=== PATIENT | male | born 1975 | race Caucasian/White ===

== ENCOUNTER 2016-03-11 20:49 | Inpatient (IN) | payer MEDICAID ==
[~2016-03-11] VITALS: Ht 165.1 cm; Wt 90.0 kg
[2016-03-11] MEDS ORDERED: MIDAZOLAM 50 MG in DEXTROSE 5% 40 ML IV STA (21:37)
[2016-03-11 21:41] LABS: AADO2 Arterial 563.4 mmHg (7.0-24.0); Allen Test ACCEPTAB; Arterial Base Excess -16.5 mmol/L (-3.0-3); Arterial Fraction of Oxyhgb 90.1 % (93.0-99.0); Arterial HCO3 14.9 mmol/L (22.0-26.0); Arterial MetHb 0.2 % (0.0-1.5); Arterial Total Hemglobin 13.6 g/dl (12.0-18.0); MODE VENT - AC
[2016-03-11] MEDS ORDERED: SOD CHLORIDE 0.9% 1,000 ML IV STA (21:44)
[2016-03-11] MEDS ORDERED: LORAZEPAM 2 MG INJ IV ONE (22:00)
[2016-03-11] MEDS ORDERED: INSULIN SC ×2 (22:15→22:16)
--- NOTE | 2016-03-11 22:43 | RADRPT ---
PROCEDURE: CT Brain without contrast. CLINICAL INDICATION: Intracranial hemorrhage. TECHNIQUE: A multiplanar CT of the brain was performed on a CT scanner utilizing axial imaging fro m the skull base through the vertex without IV contrast. The CTDIvol is 55.97 mGy and the DLP is 90 9.34 mGycm. One or more of the following dose reduction techniques were utilized: Automated exposu re control, adjustment of the mA and/or kV according to patient size, use of iterative reconstructio n technique. COMPARISON: None FINDINGS: No evidence of intracranial hemorrhage or abnormal extra-axial fluid collection. The brain parenchyma is normal attenuation morphology with preservation of mendoza white differentiatio n and age appropriate size of the ventricles and subarachnoid spaces. The posterior fossa contents, brainstem, craniocervical junction, orbits, pituitary axis, paranasal sinuses, mastoid air cells, and calvarium are unremarkable. IMPRESSION: 1. No intracranial hemorrhage or acute intracranial. RPTAT:AAJJ Physician Chencho Date Time Electronically viewed and signed by Physician Chencho on 03/11/2016 22:42 ANU/
[2016-03-11 22:45] LABS: BASOPHILS % 0.2 % (0.0-2.0); EOSINOPHILS # 0.1 10^3/ul (0.0-0.5); EOSINOPHILS % 0.5 % (0.0-7.0); HEMATOCRIT 39.1 % (42.0-52.0); HEMOGLOBIN 12.9 g/dl (14.0-18.0); LYMPHOCYTES # 2.1 10^3/ul (0.8-2.9); LYMPHOCYTES % 12.4 % (15.0-51.0); MEAN CORPUSCULAR VOLUME 85.1 fl (82.0-101.0); MEAN PLATELET VOLUME 8.5 fl (7.4-10.4); MONOCYTE # 0.4 10^3/ul (0.3-0.9); MONOCYTES % 2.6 % (0.0-11.0); NEUTROPHIL # 14.1 10^3/ul (1.6-7.5); NEUTROPHILS % 84.3 % (39.0-77.0); PLATELET COUNT 292 10^3/UL (140-440); RED CELL DISTRIBUTION WIDTH 15.6 % (11.5-14.5); UNCORRECTED WBC 16.7 10^3/ul (4.8-10.8); WHITE BLOOD COUNT 16.7 10^3/ul (4.8-10.8)
--- NOTE | 2016-03-11 22:45 | RADRPT ---
PROCEDURE: XR Chest. CLINICAL INDICATION: Status post intubation. TECHNIQUE: Single AP portable chest COMPARISON: None. FINDINGS: The cardiac silhouette is at the upper limits of normal size with tortuosity ectasia of the thoracic aorta. Atherosclerotic calcification of the aortic arch. NG tube in place. Chronic fracture or t he right clavicle. Bilateral reticulonodular airspace disease versus vascular congestion . No pneumo thorax. The osseous structures and soft tissues are unremarkable. IMPRESSION: Bilateral air space disease. endotracheal tube tip 2 cm above the len. NG tube in place. RPTAT:AAJJ Jennifer Roque Physician Date Time Electronically viewed and signed by Physician Chencho on 03/11/2016 22:45 ANU/
[2016-03-11 22:47] LABS: CONDITION 1; LH ANALYZER COMMENTS 1
[2016-03-11 22:54] LABS: ALBUMIN 3.6 g/dl (3.3-4.9)
[2016-03-11 22:55] LABS: INR 1.33; POTASSIUM 4.1 mmol/L (3.5-5.1); PROTIME 16.6 Sec (12.2-14.2); PT RATIO 1.3
[2016-03-11 22:57] LABS: ALBUMIN/GLOBULIN RATIO 0.85; BILIRUBIN,INDIRECT 0.6 mg/dl (0-1.1); BILIRUBIN,TOTAL 0.6 mg/dl (0.2-1.3); CALCIUM 7.5 mg/dl (8.4-10.2); CREATININE 0.97 mg/dl (0.61-1.24); TOTAL PROTEIN 7.8 g/dl (6.1-8.1)
[2016-03-11] MEDS ORDERED: CEFTRIAXONE 1 GM/50 ML (PMX) 50 ML IVPB ONE (23:00)
[2016-03-11] MEDS ORDERED: AZITHROMYCIN 500MG/NS (PMX) 250 ML IVPB ONE (23:00)
[2016-03-11 23:09] LABS: TROPONIN-I 0.013 ng/ml (0.00-0.12)
--- NOTE | 2016-03-11 23:19 | ERA ---
ER Documentation Chief Complaint Date/Time DATE: 03/11/16 TIME: 22:55 Chief Complaint cardiac arrest,ROSC,from home,hx pacemaker placement,BIBA RA 89 HPI 40-year-old man with a history of IN a year ago, hypertension, diabetes mellitus brought in by EMS for cardiac arrest. He was walking downstairs with family members when he collapsed. He is helped down to the ground and laid in a supine position and upon EMS arrival he was found apneic and pulseless, on scene rhythm was pulseless electrical activity, he was given 2 rounds of intravenous epinephrine and intubated at the scene with return of spontaneous circulation. Patient did not suffer any head or neck injury, and family members were later at the bedside state he underwent percutaneous transluminal coronary angiography with access to the right wrist last year, and state his coronary arteries were clean, no stent was placed. They also state for the last 3-4 days he has had a cough and congestion and complaints of chest pain. Prior to collapsing he was coughing and also complained of chest pain. He has had no recent antibiotic use, no travel, no calf or leg swelling, no vomiting or diarrhea, no blood per rectum or melena. ROS All systems reviewed and are negative except as per history of present illness. Medications Home Meds Reported Medications [Insulin] No Conflict Check, 25 UNITS SC QHS 03/11/16 [Insulin] No Conflict Check, 20 UNITS SC BID 03/11/16 Allergies Allergies: Coded Allergies: No Known Allergy (Unverified , 03/11/16) PMhx/Soc Hypertension, diabetes mellitus, obesity, previous IN a year ago, atrial fibrillation Smoking Status: Never smoker FmHx Family History: No diabetes Physical Exam Vitals Vital Signs Date Time Temp Pulse Resp B/P Pulse Ox O2 Delivery O2 Flow Rate FiO2 03/11/16 21:45 24 03/11/16 21:00 132 18 100 100 03/11/16 20:58 96.1 177 19 151/139 100 Physical Exam GENERAL: Well-developed, well-nourished man, intubated, unresponsive HEENT: Moist mucous membranes, pink conjunctiva, intubated, no cervical spine tenderness or step-off deformity, no tracheal deviation NEURO: Unresponsive, pupils fixed and dilated, no facial asymmetry CARDIAC: Tachycardic and regular, no murmurs rubs or gallops LUNGS: Bibasilar crackles, no wheezing or stridor ABDOMEN: Soft nontender, no guarding, no rigidity, no rebound, no psoas sign no obturator sign. Normoactive bowel sounds SKIN: Warm and dry to touch, no abrasions, contusions, or hematomas, no lacerations, no ecchymosis, no target lesions, and without ulcers EXTREMITIES: No clubbing cyanosis or edema, calves are bilaterally symmetrical, no Homans sign, no popliteal cord sign. Distal pulses equal and bilateral PSYCH: Unable to assess Result Diagram: 03/11/16214903/11/162149 Results 24 hrs Laboratory Tests Test 03/11/16 21:15 03/11/16 21:50 Arterial Blood HCO3 14.9mmol/L Arterial Blood Base Excess -16.5mmol/L Arterial Blood Oxygen Saturation 91.2mmHG Dennis Test ACCEPTAB Arterial Blood Gas Puncture Site Right Radial Arterial Blood Carboxyhemoglobin 1.0% Arterial Blood Date Drawn 03/11/2016 9:10:40 PM Arterial Blood Methemoglobin 0.2% Arterial Blood pCO2 (Temp correct) 60.2mmhg Arterial Blood pH (Temp corrected) 7.012 Arterial Blood pO2 (Temp corrected) 89.4mmHG Blood Gas A-a O2 Differential 563.4mmHg Blood Gas Actual Respiration Rate 24 Blood Gas Critical Value Read Back Marty FERREIRA MD Blood Gas Low PEEP Setting 5.0cmH2O Blood Gas Modality VENT - AC Blood Gas Notified Time 03/11/2016 9:41:49 PM Blood Gas Notified Whom MG Blood Gas Respiration Rate 18.0 Blood Gas Specimen Source Blood arterial Blood Gas Temperature 37.0C Blood Gas Tidal Volume 550.0mL FiO2 100.0% Oxyhemoglobin Percent 90.1% Total Hemoglobin 13.6g/dl Alanine Aminotransferase (ALT/SGPT) Pending Albumin 3.6g/dl Albumin/Globulin Ratio Pending Alkaline Phosphatase Pending Anion Gap Pending Aspartate Amino Transf (AST/SGOT) Pending Basophils # 0.010^3/ul Basophils % 0.2% Blood Morphology Comment Blood Urea Nitrogen Pending Calcium Level Pending Carbon Dioxide Level Pending Chloride Level 104mmol/L Creatinine Pending Direct Bilirubin Pending Eosinophils # 0.110^3/ul Eosinophils % 0.5% Globulin Pending Glucose Level Pending Hematocrit 39.1% Hemoglobin 12.9g/dl Indirect Bilirubin Pending Lipase Pending Lymphocytes # 2.110^3/ul Lymphocytes % 12.4% Mean Corpuscular Hemoglobin 28.0pg Mean Corpuscular Hemoglobin Concent 33.0g/dl Mean Corpuscular Volume 85.1fl Mean Platelet Volume 8.5fl Monocytes # 0.410^3/ul Monocytes % 2.6% Neutrophils # 14.110^3/ul Neutrophils % 84.3% Nucleated Red Blood Cells # 0.010^3/ul Nucleated Red Blood Cells % 0.0/100WBC Platelet Count 21008^3/UL Potassium Level Pending Red Blood Count 4.6010^6/ul Red Cell Distribution Width 15.6% Sodium Level Pending Total Bilirubin Pending Total Protein Pending Troponin I Pending White Blood Count 16.710^3/ul Current Medications Medications (Trade) Dose Ordered Sig/Sarah Route PRN Reason Start Time Stop Time Status Last Admin Dose Admin Lorazepam 2 mg 2 mg ONCE ONCE IV 03/11/16 22:00 03/11/16 22:01 DC 03/11/16 21:59 Midazolam HCl 50 mg/Dextrose 50 ml @ 3 mls/hr [id number] STAT IV 03/11/16 21:37 03/12/16 14:16 Sodium Chloride 1,000 ml @ 2,000 mls/hr Q30M STAT IV 03/11/16 21:44 03/11/16 22:13 DC 03/11/16 21:59 Ceftriaxone Sodium 50 ml @ 100 mls/hr ONCE ONCE IVPB 03/11/16 23:00 03/11/16 23:29 UNV Azithromycin (Zithromax 500mg/ NS (Pmx)) 250 ml @ 250 mls/hr ONCE ONCE IVPB 03/11/16 23:00 03/11/16 23:59 UNV Procedures/MDM IV line was established patient was placed on slide fastener repairer rhythm strip revealed a narrow complex tachycardia at about 160 bpm. Patient was afebrile. Pace catheter was placed, ET tube was verified by me. Central Line Placement by me: Patient consented, sterilely draped, full prep, gown, glove, mask, time out performed. Anesthesia: 1% lidocaine locally Location: Right femoral vein Device: Multiple lumen Technique: Seldinger technique. Secured with suture. Results: Venous return from all ports with easy saline flush. No complications. The entire Guide wire retrieved and disposed of. For initial hypotension post cardiac arrest I administered 3 L normal saline intravenously. The patient was completely unresponsive upon presentation and despite initial rhythm at seen we instituted hypothermia protocol. I reviewed both EKGs performed by EMS essentially they reveal atrial fibrillation with rapid ventricular rate and rate related ischemic changes without elevations or depressions. EKG performed in the ED, read by me reveals an atrial fibrillation with rapid ventricular rate at 160 bpm, normal axis, right ventricular conduction delay with a QRS duration of 106 ms, no concerning ST elevations or depressions noted. One view chest x-ray performed, read by me there is cardiomegaly and bilateral pulmonary vascular congestion, bilateral infiltrates, no pneumothorax, no air under the diaphragm. ET tube is in place in the right mainstem bronchus which was placed by EMS. I pulled the tube back 3 cm. Second one view chest x-ray was performed after ET tube adjustment, ET tube is in place above the len and again there is bilateral pulmonary vascular congestion and bilateral infiltrates. Cardiomegaly. CBC revealed leukocytosis of 17, hemoglobin normal at 13, electrolytes were unremarkable, lactic acid elevated at over 8, liver function tests were unremarkable, troponin was negative. ABG shortly after presentation revealed a pH of 7, PCO2 of 60, PO2 89 revealing severe metabolic and respiratory acidosis consistent with presentation, mechanical ventilator was adjusted to increase respiratory rate. For continued hypotension I placed the patient on a norepinephrine drip titrated to keep systolic blood pressure over 100 mmHg. For continued sedation patient was given midazolam. Critical Care: Time: 50 minutes, this was time separate from other procedures. Treatments/Evaluations: Close monitoring and treatment of unstable vital signs, cardiorespiratory, and neurologic status, while maintaining tight balance of fluid, respiratory, and cardiac interventions. Consultation with the bed bug exterminator was obtained. He was given information regarding the patient's presentation and symptomatology, as well as EKG findings and his past medical history. We have no indication at this time for emergent PCI, although PCI can be performed urgently after admission if required. He recommended CT angiogram to rule out pulmonary embolism, which I ordered. I spoke to family members regarding the patient's management in the ED and his overall diagnosis. I will defer medical cardioversion of his atrial fibrillation with rapid ventricular rate or treatment with diuretics at this time as his blood pressure is well within normal limits on minimal doses of norepinephrine. Further management deferred to ICU admitting team. Departure Diagnosis: Primary Impression: Cardiac arrest Additional Impressions: Signs of return of spontaneous circulation CHF (congestive heart failure) Qualified Code: I50.21 - Acute systolic congestive heart failure Pneumonia Qualified Code: J18.9 - Pneumonia of both lower lobes due to infectious organism Atrial fibrillation with RVR Condition: Critical GORDO FERREIRA MD Mar 11, 2016 23:08
[2016-03-11] MEDS ORDERED: IODIXANOL LOCM 100 ML BTL ONE (23:41)
[2016-03-11] MEDS ORDERED: SOD CHLORIDE 0.9% 100 ML ONE (23:41)
[2016-03-12] VITALS (94 sets, daily range): BP systolic 100–158; BP diastolic 67–123; PULSE 58–129; RESP 22–25; TEMP 91.8; Ht 165.1 cm; Wt 90.0 kg
[2016-03-12] MEDS ORDERED: SOD CHLORIDE 0.9% 100 ML ONE ×2 (00:20)
[2016-03-12] MEDS ORDERED: IOHEXOL 0 ML ONE (00:20)
[2016-03-12] MEDS ORDERED: IOHEXOL 100 ML ONE ×3 (00:20)
--- NOTE | 2016-03-12 01:51 | RADRPT ---
PROCEDURE: CTA CHEST WITH CONTRAST CLINICAL INDICATION: 40-year-old male with shortness of breath. TECHNIQUE: The study was performed utilizing a GE IntelliBattpeed VCT 64-slice CT scanner. Direct axi al sections were obtained from the thoracic inlet through the chest to the upper abdomen with a bolu s injection of 110 cc of Omnipaque 350 nonionic contrast material. Sagittal, coronal and maximal int ensity projections re-formations were obtained. Automated exposure control and iterative reconstruct ion techniques were utilized for this examination. The images were reviewed on a PACS workstation. CTD/vol = 83.5 mGy; Total Exam DLP = 897.2 mGy-cm. COMPARISON: Chest x-ray March 11, 2016 at 10:08 p.m. FINDINGS: There is an endotracheal tube identified with the tip approximately 2.1 cm above the len. There i s a nasogastric tube present with the tip in the stomach. The aorta is without aneurysmal dilatation however there is incomplete opacification to evaluate for dissection. Cardiomegaly is noted.. The central most pulmonary arteries are without evidence for filling defect to suggest pulmonary embolus or thrombus. However beyond the central pulmonary arteries there is incomplete opacification and re spiratory artifact limiting evaluation. There is patchy air space infiltrate within the left upper l obe and lingula. There are moderate bilateral pleural effusions with compressive atelectasis of the lower lobes bilaterally. Air bronchograms are noted. There is no evidence for a pneumothorax. The osseous structures are unremarkable. Scans through the upper abdomen reveals that the upper liver is unremarkable. The gallbladder is wit hout gallstones or significant wall thickening. The adrenal glands have a normal appearance. The up per kidneys are without evidence for obstruction. IMPRESSION: 1. Endotracheal tube with the tip in the distal trachea approximately 2.1 cm above the len. 2. Nasogastric tube in place. 3. Cardiomegaly. 4. No CTA evidence for central pulmonary embolus. Note however that there is incomplete opacificat ion and respiratory artifact limiting evaluation beyond the central most vessels. 5. Patchy airspace infiltrates within the left upper lobe and lingula. 6. Moderate bilateral pleural effusions with compressive bilateral lower lobe atelectasis. .Gilbert Niurka, MD, MD Date Time Electronically viewed and signed by .Jose Roberto Bah MD, on 03/12/2016 01:50 .M/
[2016-03-12] MEDS ORDERED: DEXTROSE 50% 50 ML SYRINGE IV PRN ×2 (03:00)
[2016-03-12] MEDS ORDERED: MEPERIDINE 25 MG INJ IV PRN ×2 (03:00)
[2016-03-12] MEDS ORDERED: ACETAMINOPHEN 650MG/20.3ML CUP PO PRN (03:00)
[2016-03-12] MEDS ORDERED: ACETAMINOPHEN 650 MG SUPP PR PRN (03:00)
[2016-03-12] MEDS: ACCUCHECK XX SCH ×22 (03:00→23:46)
[2016-03-12] MEDS ORDERED: ONDANSETRON 4 MG INJ IV PRN (03:00)
[2016-03-12] MEDS ORDERED: VECURONIUM 10 MG VIAL IV ONE ×2 (03:10)
[2016-03-12] MEDS: SOD CHLORIDE 0.9% 1,000 ML IV SCH ×3 (03:14→21:54)
[2016-03-12 03:48] LABS: AADO2 Arterial 356.8 mmHg (7.0-24.0); Allen Test ACCEPTAB; Arterial Base Excess -5.9 mmol/L (-3.0-3); Arterial COHb 0.3 % (0.0-3.0); Arterial Fraction of Oxyhgb 99.3 % (93.0-99.0); Arterial MetHb 0.1 % (0.0-1.5); Arterial Total Hemglobin 13.9 g/dl (12.0-18.0); MODE VENT - AC
[2016-03-12] MEDS: VECURONIUM 100 MG in DEXTROSE 5% 100 ML IV SCH (03:54)
[2016-03-12] MEDS: INSULIN REGULAR, HUMAN 100 UNIT in SOD CHLORIDE 0.9% 99 ML IV SCH ×4 (04:06→16:45)
[2016-03-12 04:50] LABS: ALBUMIN 3.5 g/dl (3.3-4.9)
[2016-03-12 04:51] LABS: POTASSIUM 4.5 mmol/L (3.5-5.1)
[2016-03-12 04:52] LABS: POTASSIUM 4.8 mmol/L (3.5-5.1)
[2016-03-12 04:53] LABS: ALBUMIN/GLOBULIN RATIO 0.83; BILIRUBIN,INDIRECT 0.4 mg/dl (0-1.1); BILIRUBIN,TOTAL 0.4 mg/dl (0.2-1.3); CREATININE 0.79 mg/dl (0.61-1.24); TOTAL PROTEIN 7.7 g/dl (6.1-8.1)
[2016-03-12 04:54] LABS: CALCIUM 7.2 mg/dl (8.4-10.2)
[2016-03-12 04:54] LABS: CREATININE 0.78 mg/dl (0.61-1.24)
[2016-03-12 04:55] LABS: CALCIUM 7.4 mg/dl (8.4-10.2); MAGNESIUM 1.8 mg/dl (1.7-2.5); PHOSPHORUS 2.5 mg/dl (2.5-4.9)
[2016-03-12 05:05] LABS: TROPONIN-I 0.047 ng/ml (0.00-0.12)
[2016-03-12 05:08] LABS: PARTIAL THROMBOPLASTIN TIME 33.1 Sec (25.0-35.0)
[2016-03-12 05:09] LABS: BASOPHILS % 0.2 % (0.0-2.0); HEMATOCRIT 39.3 % (42.0-52.0); HEMOGLOBIN 13.3 g/dl (14.0-18.0); LYMPHOCYTES # 0.7 10^3/ul (0.8-2.9); LYMPHOCYTES % 5.9 % (15.0-51.0); MEAN CORPUSCULAR HEMOGLOBIN 28.4 pg (29.0-33.0); MEAN CORPUSCULAR HGB CONC 33.8 g/dl (32.0-37.0); MEAN CORPUSCULAR VOLUME 84.1 fl (82.0-101.0); MEAN PLATELET VOLUME 8.5 fl (7.4-10.4); MONOCYTE # 0.7 10^3/ul (0.3-0.9); MONOCYTES % 5.9 % (0.0-11.0); NEUTROPHIL # 11.2 10^3/ul (1.6-7.5); PLATELET COUNT 291 10^3/UL (140-440); RED BLOOD COUNT 4.68 10^6/ul (4.70-6.10); UNCORRECTED WBC 12.7 10^3/ul (4.8-10.8); WHITE BLOOD COUNT 12.7 10^3/ul (4.8-10.8)
[2016-03-12 05:19] LABS: CONDITION 1; LH ANALYZER COMMENTS 1
--- NOTE | 2016-03-12 05:44 | HP ---
DATE OF ADMISSION: 03/11/2016 TIME SEEN: 2300 hours. CHIEF COMPLAINT: Cardiac arrest. HISTORY OF PRESENT ILLNESS: The patient is a 40-year-old male with a history of diabetes, hypertensi on MS in 2016 and a pacemaker, who was brought to the ER after cardiac arrest. The patient is curre ntly not able to provide a history, so information is gathered from chart review and from family me mbers. The patient was at home walking down the stairs when all of a sudden he collapsed. When EMS arrived, the patient was pulseless and apneic. The patient was intubated at the scene and had ROSC after 2 rounds of epinephrine. Per family member, the patient was complaining of chest pain and co ugh, but 3 days ago. Again, reportedly the patient had an MS last year, but according to family, ca rdiac catheterization was done, but no stent was placed. When the patient presented to the ER, blood pressure was 151/139, heart rate 58, respiratory rate 18 , rectal temperature 95.4, oxygen saturation 100% on 15 liters oxygen. Labs show WBC of 17,000, hemoglobin 13, AST 70, bicarbonate 18, anion gap 24, calcium 7.5 and lactic acid 8.4. ABG shows a pH of 7.01, a pCO2 of 60, pO2 of 89, bicarbonate 15 on 100% FIO2. A chest x-ray shows bilateral airspace disease. CT pulmonary angiogram showed a patchy airspace inf iltrate within the left upper lobe and lingula and moderate bilateral pleural effusion with compress roshni bilateral lower lobe atelectasis. No pulmonary embolus. Brain CT shows no intracranial abnorma lity. REVIEW OF SYSTEMS: Unable to assess. PAST MEDICAL HISTORY: As per HPI. PAST SURGICAL HISTORY: Cardiac catheterization in 2016. SOCIAL HISTORY: Unknown. ALLERGIES: NO KNOWN DRUG ALLERGIES. HOME MEDICATIONS: Only insulin listed. PHYSICAL EXAMINATION: VITAL SIGNS: Blood pressure 120/83, heart rate 111 and irregular, respiratory rate 24, temperature 91.8, oxygen saturation 98% on 100% FIO2, GENERAL: Intubated, unresponsive. HEENT: No obvious head deformity. Pupils are dilated and fixed. There is gag reflex CARDIOVASCULAR: Irregularly irregular and tachycardic. LUNGS: Diminished breath sounds at the bases bilaterally. ABDOMEN: Soft, obese, nondistended. EXTREMITIES: No edema. NEUROLOGIC: The patient unresponsive. Pupils are fixed and dilated. There is a gag reflex. No re sponse to painful stimuli. LABORATORY DATA: Pertinent positives as mentioned in the HPI. IMAGING: Chest x-ray, CT pulmonary angiogram and brain CT results as mentioned in the HPI. IMPRESSION 1. PA cardiac arrest status post 2 rounds of epinephrine with ROSC (return of spontaneous circulati on). 2. Vent dependent respiratory failure. 3. Probable aspiration pneumonia. 4. Atrial fibrillation with rapid ventricular response. 5. Sepsis, likely secondary to aspiration pneumonia. 6. Lactic acidosis. 7. Anion gap metabolic acidosis. 8. Likely anoxic brain injury. PLAN: Continue ICU monitoring. We will continue vent and, if needed, pressor support. We will co ntinue the hypothermia protocol. We will place on antibiotic. We are going to continue supportive measures. We will trend troponin. We will order a 2D echo and will place a cardiology and a pulmon silvana consult. Further workup and management per clinical course. Total critical time spent is about 40 minutes. Dictated By: JULIO BO/IMAN Conf#: [id number] DID#: [id number]
[2016-03-12] MEDS: PIPER-TAZO 3.375 GM IV (PMX) 100 ML IVPB SCH ×4 (06:09→23:45)
[2016-03-12] MEDS: OCULAR LUBRICANT 3.5 GM OPH OINT BOTH EYES SCH ×4 (06:30→23:45)
[2016-03-12] MEDS: ARTIFICIAL TEARS 15 ML OPH BOTH EYES SCH ×4 (06:30→23:45)
[2016-03-12] MEDS ORDERED: DILTIAZEM-D5W 125MG/125ML DRIP 125 ML IV SCH (07:00)
[2016-03-12] MEDS: PROPOFOL 100 ML IV SCH ×2 (08:00→20:00)
[2016-03-12 08:30] LABS: ADD UMIC YES; URINE BILIRUBIN (Dip) NEGATIVE (NEGATIVE); URINE BLOOD (Dip) 2+ (NEGATIVE); URINE COLOR LT. YELLOW (YELLOW); URINE KETONES (Dip) NEGATIVE (NEGATIVE); URINE LEUKOCYTE ESTERASE (Dip) NEGATIVE (NEGATIVE); URINE NITRITE (Dip) NEGATIVE (NEGATIVE); URINE TOTAL PROTEIN (Dip) NEGATIVE (NEGATIVE); URINE UROBILINOGEN (Dip) 0.2 E.U./dL (0.1-1.0)
[2016-03-12] MEDS: MIDAZOLAM 50 MG in DEXTROSE 5% 40 ML IV SCH ×3 (08:30→22:19)
--- NOTE | 2016-03-12 08:42 | RADRPT ---
PROCEDURE: XR Chest. CLINICAL INDICATION: Hypothermia protocol TECHNIQUE: PA and Lateral views of the chest were obtained. COMPARISON: 03/11/2016 FINDINGS: The cardiac silhouette is enlarged. Endotracheal and NG tubes are in stable position. . Grossly st able reticulonodular airspace opacities versus vascular congestion. Blunting left costophrenic angl e suggesting small pleural effusion. No pneumothorax. The osseous structures and soft tissues are unremarkable. IMPRESSION: Small pleural effusion with some vascular congestion and/or air space disease. RPTAT:AAJJ Jennifer Roque Physician Date Time Electronically viewed and signed by Physician Chencho on 03/12/2016 08:42 ANU/
--- NOTE | 2016-03-12 08:44 | RADRPT ---
PROCEDURE: XR Abdomen. CLINICAL INDICATION: Confirm NG/OG tube placement. TECHNIQUE: AP abdomen x-ray. COMPARISON: None. FINDINGS: The bowel gas pattern is normal. There is no evidence of obstruction. There are no abnormal calcific ations overlying the urinary tracts. The osseus structures are unremarkable. NG tube overlies the body of the stomach . Right femoral ve in catheter in place. IMPRESSION: NG tube overlies the body of the stomach otherwise unremarkable abdominal radiograph. RPTAT:AAJJ Physician Chencho Date Time Electronically viewed and signed by Physician Chencho on 03/12/2016 08:43 ANU/
[2016-03-12 08:53] LABS: SQUAMOUS EPITHELIAL CELL,UR FEW
[2016-03-12 09:14] LABS: AADO2 Arterial 265.6 mmHg (7.0-24.0); Allen Test ACCEPTAB; Arterial Base Excess -6.2 mmol/L (-3.0-3); Arterial COHb 0.5 % (0.0-3.0); Arterial Fraction of Oxyhgb 96.5 % (93.0-99.0); Arterial HCO3 17.2 mmol/L (22.0-26.0); Arterial MetHb 0.1 % (0.0-1.5); Arterial Total Hemglobin 15.6 g/dl (12.0-18.0); MODE VENT - AC
[2016-03-12 10:45] LABS: POTASSIUM 3.1 mmol/L (3.5-5.1)
[2016-03-12 10:47] LABS: CREATININE 0.6 mg/dl (0.61-1.24); INR 1.31; MAGNESIUM 1.7 mg/dl (1.7-2.5); PARTIAL THROMBOPLASTIN TIME 33.6 Sec (25.0-35.0); PHOSPHORUS 1.9 mg/dl (2.5-4.9); PROTIME 16.4 Sec (12.2-14.2); PT RATIO 1.3
[2016-03-12 10:48] LABS: CALCIUM 7.6 mg/dl (8.4-10.2)
[2016-03-12 10:59] LABS: TROPONIN-I 0.028 ng/ml (0.00-0.12)
[2016-03-12 12:22] LABS: CONDITION 1; HEMATOCRIT 41.8 % (42.0-52.0); LH ANALYZER COMMENTS 1; LYMPHOCYTES % 8.1 % (15.0-51.0); MEAN CORPUSCULAR HEMOGLOBIN 28.4 pg (29.0-33.0); MEAN CORPUSCULAR HGB CONC 33.5 g/dl (32.0-37.0); MEAN CORPUSCULAR VOLUME 84.8 fl (82.0-101.0); MEAN PLATELET VOLUME 8.7 fl (7.4-10.4); MONOCYTE # 0.6 10^3/ul (0.3-0.9); MONOCYTES % 4.6 % (0.0-11.0); NEUTROPHIL # 11.1 10^3/ul (1.6-7.5); NEUTROPHILS % 87.3 % (39.0-77.0); PLATELET COUNT 263 10^3/UL (140-440); RED BLOOD COUNT 4.93 10^6/ul (4.70-6.10); RED CELL DISTRIBUTION WIDTH 15.6 % (11.5-14.5); UNCORRECTED WBC 12.7 10^3/ul (4.8-10.8); WHITE BLOOD COUNT 12.7 10^3/ul (4.8-10.8)
[2016-03-12 15:38] LABS: AADO2 Arterial 257.2 mmHg (7.0-24.0); Allen Test ACCEPTAB; Arterial Base Excess -3.2 mmol/L (-3.0-3); Arterial COHb 0.5 % (0.0-3.0); Arterial Fraction of Oxyhgb 96.7 % (93.0-99.0); Arterial HCO3 20.1 mmol/L (22.0-26.0); Arterial MetHb 0.1 % (0.0-1.5); Arterial Total Hemglobin 15.3 g/dl (12.0-18.0); MODE VENT - AC
--- NOTE | 2016-03-12 16:27 | CONS ---
Date/Time of Note Date/Time of Note DATE: 03/12/16 TIME: 16:20 Assessment/Plan Assessment/Plan Chief Complaint/Hosp Course Assessment: Status post cardiac arrest - unclear etiology, initial rhythm was reported to be PEA Atrial fibrillation - rate controlled Ventilator-dependent respiratory failure Systemic inflammatory response syndrome Coronary artery disease - reported myocardial infarction in 2015 at [facility], did not receive coronary stenting Hypertension Diabetes mellitus Incomplete data Recommendations: -obtain transthoracic echocardiogram -continue on hypothermia protocol -continue diltiazem drip -infection work up and management per primary team -ventilator management per pulmonology Critical care time: >35 minutes at bedside Problems: Consultation Date/Type/Reason Admit Date/Time Mar 11, 2016 at 22:10 Type of Consultation: Cardiology Reason for Consultation cardiac arrest Referring Provider: JULIO SAMUELS MD Hx of Present Illness The patient is a 40 year-old male who presented status post cardiac arrest. He was apparently walking down the stairs at home when he collapsed and was found to be pulseless and apneic. The initial rhythm was reported to be pulseless electrical activity. He was successfully resuscitated and intubated at the scene by emergency medical services. Troponins have been negative. Chest CTA did not show evidence of pulmonary embolism. Unable to obtain, patient intubated and sedated. Past Medical History Coronary artery disease - reported myocardial infarction in 2015 at [facility], did not receive coronary stenting Hypertension Diabetes mellitus Incomplete data Past Surgical History Unknown Family History Significant Family History: other (unknown) Social History Unknown Exam/Review of Systems Vital Signs Vitals Vital Signs Date Time Temp Pulse Resp B/P Pulse Ox O2 Delivery O2 Flow Rate FiO2 03/12/16 15:15 87 24 149/103 100 03/12/16 15:00 91.5 Mechanical Ventilator 03/12/16 13:00 50 03/11/16 20:50 15 Intake and Output 03/11/16 03/11/16 03/12/16 15:00 23:00 07:00 Intake Total 454.04 ml Output Total 2300 ml Balance -1845.96 ml Exam Constitutional: other (intubated, sedated), No alert Psych: other (intubated, sedated) Head: atraumatic, normocephalic Eyes: nl conjunctiva, nl lids ENMT: nl external ears & nose, nl nasal mucosa & septum Neck: No jvd (unable to accurately assess) Respiratory: clear to auscultation Cardiovascular: No regular rate and rhythm Gastrointestinal: soft Musculoskeletal: nl extremities to inspection Extremities: No clubbing, No cyanosis, No edema Results Result Diagram: 03/12/16 1000 03/12/16 1000 Results 24 hrs Laboratory Tests Test 03/11/16 21:15 03/11/16 21:50 03/12/16 01:47 03/12/16 03:00 Arterial Blood HCO3 14.9 L 18.0 L Arterial Blood Base Excess -16.5 L -5.9 L Arterial Blood Oxygen Saturation 91.2 L 99.7 H Dennis Test ACCEPTAB ACCEPTAB Arterial Blood Gas Puncture Site Right Radial Right Radial Arterial Blood Carboxyhemoglobin 1.0 0.3 Arterial Blood Date Drawn 03/11/2016 9:10:40 PM 03/12/2016 3:39:02 AM Arterial Blood Methemoglobin 0.2 0.1 Arterial Blood pCO2 (Temp correct) 60.2 H 26.0 L Arterial Blood pH (Temp corrected) 7.012 *L 7.440 Arterial Blood pO2 (Temp corrected) 89.4 339.6 H Blood Gas A-a O2 Differential 563.4 H 356.8 H Blood Gas Actual Respiration Rate 24 24 Blood Gas Critical Value Read Back Marty FERREIRA MD Blood Gas Low PEEP Setting 5.0 5.0 Blood Gas Modality VENT - AC VENT - AC Blood Gas Notified Time 03/11/2016 9:41:49 PM 03/12/2016 3:48:25 AM Blood Gas Notified Whom MG MG Blood Gas Respiration Rate 18.0 24.0 Blood Gas Specimen Source Blood arterial Blood arterial Blood Gas Temperature 37.0 33.0 Blood Gas Tidal Volume 550.0 550.0 FiO2 100.0 100.0 Oxyhemoglobin Percent 90.1 L 99.3 H Total Hemoglobin 13.6 13.9 Alanine Aminotransferase (ALT/SGPT) 55 Albumin 3.6 Albumin/Globulin Ratio 0.85 Alkaline Phosphatase 115 Anion Gap 24 H Aspartate Amino Transf (AST/SGOT) 70 H Basophils # 0.0 Basophils % 0.2 Blood Morphology Comment Blood Urea Nitrogen 14 Calcium Level 7.5 L Carbon Dioxide Level 18 L Chloride Level 104 Creatinine 0.97 Direct Bilirubin 0.00 Eosinophils # 0.1 Eosinophils % 0.5 Globulin 4.20 H Glucose Level 212 Hematocrit 39.1 L Hemoglobin 12.9 L INR International Normalized Ratio 1.33 Indirect Bilirubin 0.6 Lactic Acid Level 8.4 *H Lipase 52 Lymphocytes # 2.1 Lymphocytes % 12.4 L Mean Corpuscular Hemoglobin 28.0 L Mean Corpuscular Hemoglobin Concent 33.0 Mean Corpuscular Volume 85.1 Mean Platelet Volume 8.5 Monocytes # 0.4 Monocytes % 2.6 Neutrophils # 14.1 H Neutrophils % 84.3 H Nucleated Red Blood Cells # 0.0 Nucleated Red Blood Cells % 0.0 Platelet Count 292 Potassium Level 4.1 Prothrombin Time 16.6 H Prothrombin Time Ratio 1.3 Red Blood Count 4.60 L Red Cell Distribution Width 15.6 H Sodium Level 142 Total Bilirubin 0.6 Total Protein 7.8 Troponin I 0.013 White Blood Count 16.7 H Bedside Glucose 240 H Test 03/12/16 04:00 03/12/16 04:03 03/12/16 04:25 03/12/16 05:00 Amylase Level 118 Anion Gap 21 H 17 H Basophils # 0.0 Basophils % 0.2 Blood Morphology Comment Blood Urea Nitrogen 14 14 Calcium Level 7.4 L 7.2 L Carbon Dioxide Level 19 L 21 Chloride Level 104 105 Creatinine 0.78 0.79 Eosinophils # 0.0 Eosinophils % 0.0 Glucose Level 277 H 284 H Hematocrit 39.3 L Hemoglobin 13.3 L Lipase 45 Lymphocytes # 0.7 L Lymphocytes % 5.9 L Magnesium Level 1.8 Mean Corpuscular Hemoglobin 28.4 L Mean Corpuscular Hemoglobin Concent 33.8 Mean Corpuscular Volume 84.1 Mean Platelet Volume 8.5 Monocytes # 0.7 Monocytes % 5.9 Neutrophils # 11.2 H Neutrophils % 88.0 H Nucleated Red Blood Cells # 0.0 Nucleated Red Blood Cells % 0.0 Phosphorus Level 2.5 Platelet Count 291 Potassium Level 4.8 4.5 Red Blood Count 4.68 L Red Cell Distribution Width 16.0 H Sodium Level 139 138 Troponin I 0.047 White Blood Count 12.7 #H Bedside Glucose 299 H 294 H Activated Partial Thromboplast Time 33.1 Alanine Aminotransferase (ALT/SGPT) 53 Albumin 3.5 Albumin/Globulin Ratio 0.83 Alkaline Phosphatase 107 Aspartate Amino Transf (AST/SGOT) 56 H Direct Bilirubin 0.00 Fibrinogen 324.0 Globulin 4.20 H Indirect Bilirubin 0.4 Lactic Acid Level 4.6 *H Total Bilirubin 0.4 Total Protein 7.7 Test 03/12/16 06:02 03/12/16 06:58 03/12/16 07:59 03/12/16 08:36 Bedside Glucose 249 H 218 214 Arterial Blood HCO3 17.2 L Arterial Blood Base Excess -6.2 L Arterial Blood Oxygen Saturation 97.1 Dennis Test ACCEPTAB Arterial Blood Gas Puncture Site Right Radial Arterial Blood Carboxyhemoglobin 0.5 Arterial Blood Date Drawn 03/12/2016 9:00:31 AM Arterial Blood Methemoglobin 0.1 Arterial Blood pCO2 (Temp correct) 23.6 L Arterial Blood pH (Temp corrected) 7.460 H Arterial Blood pO2 (Temp corrected) 69.7 L Blood Gas A-a O2 Differential 265.6 H Blood Gas Actual Respiration Rate 24 Blood Gas Critical Value Read Back Dedrick QUINN RN Blood Gas Low PEEP Setting 5.0 Blood Gas Modality VENT - AC Blood Gas Notified Time 03/11/2016 9:13:28 AM Blood Gas Notified Whom RDIX Blood Gas Respiration Rate 24.0 Blood Gas Specimen Source Blood arterial Blood Gas Temperature 32.3 Blood Gas Tidal Volume 550.0 FiO2 50.0 Oxyhemoglobin Percent 96.5 Total Hemoglobin 15.6 Test 03/12/16 09:08 03/12/16 09:58 03/12/16 10:00 03/12/16 11:12 Bedside Glucose 174 173 127 Activated Partial Thromboplast Time 33.6 Amylase Level 121 Anion Gap 22 H Basophils # 0.0 Basophils % 0.0 Blood Morphology Comment Blood Urea Nitrogen 11 Calcium Level 7.6 L Carbon Dioxide Level 22 Chloride Level 100 Creatinine 0.60 L Eosinophils # 0.0 Eosinophils % 0.0 Fibrinogen 389.0 # Glucose Level 179 # Hematocrit 41.8 L Hemoglobin 14.0 INR International Normalized Ratio 1.31 Lactic Acid Level 4.4 *H Lipase 36 Lymphocytes # 1.0 Lymphocytes % 8.1 L Magnesium Level 1.7 Mean Corpuscular Hemoglobin 28.4 L Mean Corpuscular Hemoglobin Concent 33.5 Mean Corpuscular Volume 84.8 Mean Platelet Volume 8.7 Monocytes # 0.6 Monocytes % 4.6 Neutrophils # 11.1 H Neutrophils % 87.3 H Nucleated Red Blood Cells # 0.0 Nucleated Red Blood Cells % 0.0 Phosphorus Level 1.9 L Platelet Count 263 Potassium Level 3.1 L Prothrombin Time 16.4 H Prothrombin Time Ratio 1.3 Red Blood Count 4.93 Red Cell Distribution Width 15.6 H Sodium Level 141 Troponin I 0.028 White Blood Count 12.7 H Test 03/12/16 12:02 03/12/16 12:48 03/12/16 13:54 03/12/16 15:17 Bedside Glucose 129 130 128 137 Test 03/12/16 15:55 Bedside Glucose 130 Medications Medications Current Medications Ondansetron HCl 4 mg 4 mg Q6H PRN IV NAUSEA AND/OR VOMITING; Start 03/12/16 at 03:00 Sodium Chloride (NS) 1,000 ml @ 100 mls/hr Q10H IV Last administered on 13:50; Admin Dose 100 MLS/HR; Start 03/12/16 at 02:36 Acetaminophen (Tylenol Supp) 650 mg Q4H PRN MO TEMP > 37C; Start 03/12/16 at 03 :00 Acetaminophen (Tylenol Liquid) 650 mg Q4H PRN PO TEMP > 37C; Start 03/12/16 at 03:00 Acetaminophen (Tylenol Supp) 500 mg Q6H MO ; Start 03/13/16 at 03:00 Acetaminophen (Tylenol Liquid) 500 mg Q6H PO ; Start 03/13/16 at 03:00 Meperidine HCl (Demerol) 12.5 mg Q4H PRN IV POST OPERATIVE SHIVERING; Start at 03:00 Meperidine HCl (Demerol) 25 mg Q4H PRN IV POST OPERATIVE SHIVERING; Start 03/12 at 03:00 Eye Lubricant (Akwa Oint) 1 applic Q6 BOTH EYES Last administered on 03/12/16 11:15; Admin Dose 1 APPLIC; Start 03/12/16 at 06:00 Eye Lubricant (Artificial Tears Oph) 2 drop Q6 BOTH EYES Last administered on 11:15; Admin Dose 2 DROP; Start 03/12/16 at 06:00 Diagnostic Test (Pha) (Accucheck) 1 ea Q1H XX Last administered on 03/12/16 16 :05; Admin Dose 1 EA; Start 03/12/16 at 03:00 Dextrose (D50w Syringe) 25 ml Q15M PRN IV Till BS 80 mg/dL or above x2; Start 03/12/16 at 03:00 Dextrose 50 ml 50 ml Q15M PRN IV Till BS 80 mg/dL or above x2; Start 03/12/16 at 03:00 Vecuronium [place] 100 mg/ Dextrose 100 ml @ 4.5 mls/hr TITRATE IV Last administered on 03/12/16 03:54; Admin Dose 4.5 MLS/HR; Start 03/12/16 at 03:15 Piperacillin Sod/ Tazobactam Sod 100 ml @ 200 mls/hr Q6 IVPB Last administered on 03/12/16 11:19; Admin Dose 200 MLS/HR; Start 03/12/16 at 06:00 Diltiazem HCl 125 ml @ 5 mls/hr TITRATE IV Last administered on 03/12/16 06:57 ; Admin Dose 5 MLS/HR; Start 03/12/16 at 07:00 Propofol 100 ml @ 2.7 mls/hr Q12H IV ; Start 03/12/16 at 08:00 Midazolam HCl/ Dextrose (Versed/D5W) 50 ml @ 1 mls/hr TITRATE IV Last administered on 03/12/16 08:30; Admin Dose 7 MLS/HR; Start 03/12/16 at 09:00 RAE RIVERA MD Mar 12, 2016 16:27
--- NOTE | 2016-03-12 16:41 | RADRPT ---
Echocardiogram Report Patient Name: MOUNIKA FISCHER Gender: Male Date: 1975 Study Date: 12-Mar-2016 Stone Layer: [place] [facility] Location: [facility] Ref. Physician: JULIO SAMUELS Quality: Technically Difficult Study Procedures: Transthoracic echocardiogram with complete 2D, M-Mode, and doppler examination. Indications: Cardiac Arrest. 2D/M Mode Doppler Measurement Value Normal Ranges Measurement Value Normal Ranges LVIDd 2D 5.7 3.5 - 5.6 cm AV Peak Alexis 0.7 m/sec LVIDs 2D 5.0 2.1 - 4.1 cm AV Peak PG 2.0 mmHg FS 2D 12.3 % LVOT Peak Alexis 0.6 m/sec LVPWd 2D 1.0 0.6 - 1.1 cm LVOT Peak PG 1.0 mmHg IVSd 2D 0.9 0.6 - 1.1 cm MV E Peak Alexis 0.7 m/sec IVS/LVPW 2D 0.9 AoR Diam 2D 2.9 2.0 - 3.7 cm LA/Ao 2D 1 0 - 1 EDV 2D 186.0 cm3 ESV 2D 126.0 cm3 LA Dimen 2D 4.2 2.3 - 4.0 cm Findings Left Ventricle: Mild enlargement of left ventricle cavity. Severe global left ventricular systolic dysfunction. Ejection fraction is visually estimated at 20 %. Abnormal Diastolic Function. Right Ventricle: Normal right ventricular size. Normal right ventricular systolic function. Left Atrium: There is moderate enlargement of left atrium. Right Atrium: Not well visualized. Prominent Eustachian valve (normal variant). Mitral Valve: Mitral valve leaflets appear mildly thickened. Mild mitral annular calcification. Trace mitral regurgitation. Aortic Valve: Trileaflet aortic valve. Trace aortic valve regurgitation. Tricuspid Valve: Tricuspid valve not well visualized. There is trace tricuspid regurgitation. Pericardium: Left pleural effusion seen. Aorta: Normal aortic root. IVC: Inferior vena cava with respiratory collapse, however, patient on ventilator. Conclusions 1.The left ventricle is mildly dilated with severely reduced systolic function. 2.Estimated left ventricular ejection fraction of 20%. 3.Moderate left atrial enlargement. Electronically Signed By: Lui Smith 12-Mar-2016 16:40:40 -0800 Patient Name: MOUNIKA FISCHER Study Date: 12-Mar-[id number]
[2016-03-12 16:53] LABS: BASOPHILS % 0.2 % (0.0-2.0); HEMATOCRIT 42.7 % (42.0-52.0); HEMOGLOBIN 14.4 g/dl (14.0-18.0); LYMPHOCYTES % 6.7 % (15.0-51.0); MEAN CORPUSCULAR HEMOGLOBIN 28.4 pg (29.0-33.0); MEAN CORPUSCULAR HGB CONC 33.8 g/dl (32.0-37.0); MEAN CORPUSCULAR VOLUME 83.9 fl (82.0-101.0); MEAN PLATELET VOLUME 8.8 fl (7.4-10.4); MONOCYTE # 0.5 10^3/ul (0.3-0.9); MONOCYTES % 3.7 % (0.0-11.0); NEUTROPHILS % 89.4 % (39.0-77.0); PLATELET COUNT 270 10^3/UL (140-440); RED BLOOD COUNT 5.09 10^6/ul (4.70-6.10); RED CELL DISTRIBUTION WIDTH 15.2 % (11.5-14.5); UNCORRECTED WBC 14.6 10^3/ul (4.8-10.8); WHITE BLOOD COUNT 14.6 10^3/ul (4.8-10.8)
[2016-03-12 17:03] LABS: CONDITION 1; LH ANALYZER COMMENTS 1
[2016-03-12 17:07] LABS: CHLORIDE 102 mmol/L (97-110); SODIUM 140 mmol/L (135-144)
[2016-03-12 17:09] LABS: AMYLASE 129 U/L (11-123)
[2016-03-12 17:10] LABS: ANION GAP 18 (8-16); BLOOD UREA NITROGEN 10 mg/dl (7-20); CARBON DIOXIDE 23 mmol/L (21-31); CREATININE 0.55 mg/dl (0.61-1.24); GLUCOSE 143 mg/dl (70-220)
[2016-03-12 17:11] LABS: CALCIUM 7.6 mg/dl (8.4-10.2); MAGNESIUM 1.6 mg/dl (1.7-2.5); PHOSPHORUS 2.1 mg/dl (2.5-4.9)
[2016-03-12 17:28] LABS: AADO2 Arterial 257.2 mmHg (7.0-24.0); Allen Test ACCEPTAB; Arterial Base Excess -3.2 mmol/L (-3.0-3); Arterial COHb 0.5 % (0.0-3.0); Arterial Fraction of Oxyhgb 96.7 % (93.0-99.0); Arterial HCO3 20.1 mmol/L (22.0-26.0); Arterial MetHb 0.1 % (0.0-1.5); Arterial Total Hemglobin 15.3 g/dl (12.0-18.0); MODE VENT - AC
[2016-03-12 17:30] LABS: POTASSIUM 2.8 mmol/L (3.5-5.1); TROPONIN-I < 0.012 ng/ml (0.00-0.12)
[2016-03-12] MEDS ORDERED: AMIODARONE 150MG/D5W BOLUS 100 ML IV ONE (17:30)
[2016-03-12] MEDS ORDERED: POTASSIUM CHLORIDE 50 ML ONE (17:33)
[2016-03-12 17:57] LABS: INR 1.22; PARTIAL THROMBOPLASTIN TIME 34.9 Sec (25.0-35.0); PROTIME 15.5 Sec (12.2-14.2); PT RATIO 1.2
[2016-03-12] MEDS ORDERED: POTASSIUM CHLORIDE 50 ML IVPB ONE (18:00)
[2016-03-12] MEDS ORDERED: AMIODARONE 900 MG in DEXTROSE 5% 482 ML IV SCH (18:00)
[2016-03-12] MEDS ORDERED: SOD CHLORIDE 0.9% 1,000 ML IV ONE (20:30)
[2016-03-12 20:44] LABS: AADO2 Arterial 256.8 mmHg (7.0-24.0); Arterial Base Excess -4.5 mmol/L (-3.0-3); Arterial COHb 0.4 % (0.0-3.0); Arterial HCO3 17.9 mmol/L (22.0-26.0); Arterial MetHb 0.1 % (0.0-1.5); Arterial Total Hemglobin 14.6 g/dl (12.0-18.0); MODE VENT - AC
[2016-03-12 23:17] LABS: CONDITION 1; HEMATOCRIT 40.9 % (42.0-52.0); HEMOGLOBIN 13.8 g/dl (14.0-18.0); LH ANALYZER COMMENTS 1; LYMPHOCYTES # 0.9 10^3/ul (0.8-2.9); LYMPHOCYTES % 5.2 % (15.0-51.0); MEAN CORPUSCULAR HEMOGLOBIN 28.2 pg (29.0-33.0); MEAN CORPUSCULAR HGB CONC 33.7 g/dl (32.0-37.0); MEAN CORPUSCULAR VOLUME 83.9 fl (82.0-101.0); MEAN PLATELET VOLUME 8.6 fl (7.4-10.4); MONOCYTE # 0.6 10^3/ul (0.3-0.9); MONOCYTES % 3.7 % (0.0-11.0); NEUTROPHIL # 15.7 10^3/ul (1.6-7.5); NEUTROPHILS % 91.1 % (39.0-77.0); PLATELET COUNT 260 10^3/UL (140-440); RED BLOOD COUNT 4.88 10^6/ul (4.70-6.10); RED CELL DISTRIBUTION WIDTH 15.6 % (11.5-14.5); UNCORRECTED WBC 17.2 10^3/ul (4.8-10.8); WHITE BLOOD COUNT 17.2 10^3/ul (4.8-10.8)
[2016-03-12 23:22] LABS: CHLORIDE 101 mmol/L (97-110); SODIUM 138 mmol/L (135-144)
[2016-03-12 23:25] LABS: AMYLASE 110 U/L (11-123); ANION GAP 19 (8-16); BLOOD UREA NITROGEN 10 mg/dl (7-20); CARBON DIOXIDE 21 mmol/L (21-31); CREATININE 0.54 mg/dl (0.61-1.24); GLUCOSE 149 mg/dl (70-220); PHOSPHORUS 2.5 mg/dl (2.5-4.9)
[2016-03-12 23:26] LABS: CALCIUM 7.1 mg/dl (8.4-10.2); MAGNESIUM 1.5 mg/dl (1.7-2.5)
[2016-03-12 23:33] LABS: POTASSIUM 2.8 mmol/L (3.5-5.1)
[2016-03-12 23:41] LABS: INR 1.33; PROTIME 16.6 Sec (12.2-14.2); PT RATIO 1.3
[2016-03-12 23:42] LABS: TROPONIN-I < 0.012 ng/ml (0.00-0.12)
[2016-03-13] VITALS (65 sets, daily range): BP systolic 98–139; BP diastolic 55–108; PULSE 70–99; RESP 22–28
[2016-03-13] MEDS ORDERED: POTASSIUM CHLORIDE 250 ML IVPB ONE
[2016-03-13] MEDS: ACCUCHECK XX SCH ×15 (00:09→23:21)
[2016-03-13] MEDS: ACETAMINOPHEN 650 MG SUPP PR SCH ×3 (03:00→15:00)
[2016-03-13 03:20] LABS: AADO2 Arterial 225.9 mmHg (7.0-24.0); Arterial Base Excess -3.9 mmol/L (-3.0-3); Arterial COHb 0.3 % (0.0-3.0); Arterial HCO3 18.7 mmol/L (22.0-26.0); Arterial MetHb 0.1 % (0.0-1.5); Arterial Total Hemglobin 14.5 g/dl (12.0-18.0); MODE VENT - AC
[2016-03-13] MEDS: ACETAMINOPHEN 650MG/20.3ML CUP PO SCH ×3 (03:22→15:23)
--- NOTE | 2016-03-13 03:44 | CONS ---
DATE OF ADMISSION: 03/11/2016 DATE OF CONSULTATION: 03/12/2016 PULMONARY CONSULTATION HISTORY OF PRESENT ILLNESS: Briefly, this is a 40-year-old male with history of hypertension, diabe shine, morbid obesity, coronary artery disease status post [place] in 2011, and history of pacemaker who pr esented late last night to [facility] Emergency Room by paramedics after collapsing down th e stairs at home. When found by paramedics, the patient was apparently pulseless and apneic. He wa s intubated at the scene and had return of spontaneous circulation after 2 rounds of epinephrine. P er family, the patient had been in his usual state of health; however, a few day prior, he had had s ome atypical chest pain and cough. After intubation and placement on mechanical ventilation in the emergency room, the patient was transiently on pressors and has since been transitioned off of the v asopressor support. He is currently in the ICU on hypothermic protocol. PAST MEDICAL HISTORY: As above. MEDICATIONS: Please see MAR. ALLERGIES: UNKNOWN. SOCIAL HISTORY: Unknown. REVIEW OF SYSTEMS: As per HPI. MEDICATIONS: Please see MAR. PHYSICAL EXAMINATION: VITAL SIGNS: Heart rate is 72 and irregular, blood pressure is 148/92, unsupported, currently tempe rature is 34 on hypothermia protocol, oxygen saturation 100% on 40% FIO2. GENERAL: He is currently paralyzed on mechanical ventilation, intubated, unresponsive. HEENT: ET tube is in place. NECK: Supple, no thyromegaly, no jugular venous distention. CARDIOVASCULAR: Irregularly irregular S1, S2. No murmurs, rubs, or gallops. CHEST: Diminished breath sounds bilaterally. ABDOMEN: Morbidly obese, soft, nontender, no hepatosplenomegaly. EXTREMITIES: No cyanosis, clubbing, or edema. LABORATORY DATA: WBC is 12.7, hemoglobin is 14.0, platelets are 263. INR is 1.31, BUN is 14, creat inine is 0.7, bicarbonate is 19, lactate is 8.4. Glucose is 299. ABG: pH is 7.46, PaCO2 is 23, pO [address] pulmonary angio shows no obvious central pulmonary embolism, bilateral small pleural ef fusions, and subtle patchy multifocal airspace opacities. IMPRESSION: 1. Status post cardiopulmonary arrest. Etiology of the arrest is unclear. Cardiac biomarkers curr ently show no evidence of acute myocardial infarction. There is also no evidence of acute pulmonary embolism. Possibility of an arrhythmic event exists. Additionally, unlikely that his arrest was d ue to increased load imposed by pneumonia. 2. Ventilator-dependent respiratory failure. 3. Secondary aspiration pneumonia. 4. Atrial fibrillation with rapid ventricular response. 5. Possible sepsis. 6. Lactic acidosis secondary to his anoxic event. 7. Rule out anoxic brain injury. RECOMMENDATIONS: 1. Mechanical ventilatory support with volume AC, PEEP of 5, titrate FIO2 as tolerated. 2. Check ABG. 3. Broad-spectrum antibiotics. 4. Continue hypothermia protocol. 5. Check a CK. 6. Check a 2D echo. 7. Continue following cardiac biomarkers. 8. Trend lactic acid. 9. DVT and gastrointestinal prophylaxis to be initiated. Dictated By: ANA TRACY/IMAN Conf#: [id number] DID#: [id number]
[2016-03-13] MEDS: VECURONIUM 100 MG in DEXTROSE 5% 100 ML IV SCH (04:12)
[2016-03-13 04:46] LABS: ALBUMIN 3.2 g/dl (3.3-4.9); POTASSIUM 3.5 mmol/L (3.5-5.1)
[2016-03-13 04:48] LABS: BILIRUBIN,INDIRECT 0.6 mg/dl (0-1.1); BILIRUBIN,TOTAL 0.6 mg/dl (0.2-1.3); CREATININE 0.65 mg/dl (0.61-1.24)
[2016-03-13 04:49] LABS: ALBUMIN/GLOBULIN RATIO 0.82; CALCIUM 7.3 mg/dl (8.4-10.2); MAGNESIUM 1.5 mg/dl (1.7-2.5); PHOSPHORUS 2.5 mg/dl (2.5-4.9); TOTAL PROTEIN 7.1 g/dl (6.1-8.1)
[2016-03-13 04:55] LABS: BASOPHILS % 0.2 % (0.0-2.0); HEMATOCRIT 40.6 % (42.0-52.0); HEMOGLOBIN 13.6 g/dl (14.0-18.0); LYMPHOCYTES # 0.8 10^3/ul (0.8-2.9); LYMPHOCYTES % 4.7 % (15.0-51.0); MEAN CORPUSCULAR HEMOGLOBIN 28.4 pg (29.0-33.0); MEAN CORPUSCULAR HGB CONC 33.6 g/dl (32.0-37.0); MEAN CORPUSCULAR VOLUME 84.4 fl (82.0-101.0); MEAN PLATELET VOLUME 8.8 fl (7.4-10.4); MONOCYTE # 0.6 10^3/ul (0.3-0.9); MONOCYTES % 3.2 % (0.0-11.0); NEUTROPHIL # 15.9 10^3/ul (1.6-7.5); NEUTROPHILS % 91.9 % (39.0-77.0); PLATELET COUNT 267 10^3/UL (140-440); RED CELL DISTRIBUTION WIDTH 15.4 % (11.5-14.5); UNCORRECTED WBC 17.3 10^3/ul (4.8-10.8); WHITE BLOOD COUNT 17.3 10^3/ul (4.8-10.8)
[2016-03-13 04:56] LABS: CONDITION 1; LH ANALYZER COMMENTS 1
[2016-03-13] MEDS: ARTIFICIAL TEARS 15 ML OPH BOTH EYES SCH ×3 (05:24→18:39)
[2016-03-13] MEDS: OCULAR LUBRICANT 3.5 GM OPH OINT BOTH EYES SCH ×3 (05:24→18:39)
[2016-03-13] MEDS: PIPER-TAZO 3.375 GM IV (PMX) 100 ML IVPB SCH ×3 (05:25→18:39)
[2016-03-13 05:35] LABS: TROPONIN-I < 0.012 ng/ml (0.00-0.12)
[2016-03-13] MEDS: PROPOFOL 100 ML IV SCH ×2 (07:36→20:00)
[2016-03-13] MEDS: MIDAZOLAM 50 MG in DEXTROSE 5% 40 ML IV SCH (08:00)
--- NOTE | 2016-03-13 08:09 | PN ---
Date/Time of Note Date/Time of Note DATE: 03/13/16 TIME: 08:05 Assessment/Plan VTE Prophylaxis VTE Prophylaxis Intervention: SCD's Lines/Catheters IV C[facility]ter [facility]from [facility]): Central Line Central line still needed: Yes Urinary Cath still in place: Yes Reason Cath still needed: other (indicate) Assessment/Plan Assessment/Plan 40 yo M who suddenly collapsed managed for PEA cardiac arrest status post 2 rounds of epinephrine with ROSC (return of spontaneous circulation). * Likely 2/2 arrhythmia * On Hypothermia protocol * No evidence of acute TX though patient has known CAD Vent dependent respiratory failure 2/2 #1 L sided infiltrates concerning for aspiration pneumonia. Atrial fibrillation with rapid ventricular response: * Rate controlled on Amiodarone drip SIRS with severe Lactic acidosis 2/2 #1 Diabetes Type 2 HTN >borderline hypotensive Known CAD S/p Pacemaker Anion gap metabolic acidosis: resolved Likely anoxic brain injury. Transient Shock likely Cardiogenic: resolved PLAN: Continue rewarming per protocol Continue Amiodarone drip Continue Insulin drip Continue Empiric Zosyn / f/u final culture reports Continue Vent mgt and monitoring Continue serial labs and electrolytes monitoring and replacements Continue Close ICU care and supportive care Prophylaxis: Heparin and Pepcid CRITICAL CARE TIME: >35 mins Subjective 24 Hr Interval Summary Free Text/Dictation Patient seen and examined. Nursing reports no acute overnight events. Exam/Review of Systems Vital Signs Vitals Vital Signs Date Time Temp Pulse Resp B/P Pulse Ox O2 Delivery O2 Flow Rate FiO2 03/13/16 06:15 94.9 80 24 113/89 100 03/13/16 06:00 Mechanical Ventilator 03/13/16 05:43 40 03/11/16 20:50 15 Intake and Output 03/12/16 03/12/16 03/13/16 15:00 23:00 07:00 Intake Total 1072.5 ml 1951.4 ml 1145.7 ml Output Total 1340 ml 1255 ml 365 ml Balance -267.5 ml 696.4 ml 780.7 ml Exam GENERAL: Intubated, unresponsive, Obese HEENT: No obvious head deformity. CARDIOVASCULAR: Irregularly irregular and tachycardic. LUNGS: Diminished breath sounds at the bases bilaterally. ABDOMEN: Soft, obese, nondistended. EXTREMITIES: No edema. NEUROLOGIC: The patient unresponsive and paralysed per protocol Results Result Diagram: 03/13/16 0400 03/13/16 0400 Results 24 hrs Laboratory Tests Test 03/12/16 08:36 03/12/16 09:08 03/12/16 09:58 03/12/16 10:00 Arterial Blood HCO3 17.2 L Arterial Blood Base Excess -6.2 L Arterial Blood Oxygen Saturation 97.1 Dennis Test ACCEPTAB Arterial Blood Gas Puncture Site Right Radial Arterial Blood Carboxyhemoglobin 0.5 Arterial Blood Date Drawn 03/12/2016 9:00:31 AM Arterial Blood Methemoglobin 0.1 Arterial Blood pCO2 (Temp correct) 23.6 L Arterial Blood pH (Temp corrected) 7.460 H Arterial Blood pO2 (Temp corrected) 69.7 L Blood Gas A-a O2 Differential 265.6 H Blood Gas Actual Respiration Rate 24 Blood Gas Critical Value Read Back Dedrick QUINN RN Blood Gas Low PEEP Setting 5.0 Blood Gas Modality VENT - AC Blood Gas Notified Time 03/11/2016 9:13:28 AM Blood Gas Notified Whom RDIX Blood Gas Respiration Rate 24.0 Blood Gas Specimen Source Blood arterial Blood Gas Temperature 32.3 Blood Gas Tidal Volume 550.0 FiO2 50.0 Oxyhemoglobin Percent 96.5 Total Hemoglobin 15.6 Bedside Glucose 174 173 Activated Partial Thromboplast Time 33.6 Amylase Level 121 Anion Gap 22 H Basophils # 0.0 Basophils % 0.0 Blood Morphology Comment Blood Urea Nitrogen 11 Calcium Level 7.6 L Carbon Dioxide Level 22 Chloride Level 100 Creatinine 0.60 L Eosinophils # 0.0 Eosinophils % 0.0 Fibrinogen 389.0 # Glucose Level 179 # Hematocrit 41.8 L Hemoglobin 14.0 INR International Normalized Ratio 1.31 Lactic Acid Level 4.4 *H Lipase 36 Lymphocytes # 1.0 Lymphocytes % 8.1 L Magnesium Level 1.7 Mean Corpuscular Hemoglobin 28.4 L Mean Corpuscular Hemoglobin Concent 33.5 Mean Corpuscular Volume 84.8 Mean Platelet Volume 8.7 Monocytes # 0.6 Monocytes % 4.6 Neutrophils # 11.1 H Neutrophils % 87.3 H Nucleated Red Blood Cells # 0.0 Nucleated Red Blood Cells % 0.0 Phosphorus Level 1.9 L Platelet Count 263 Potassium Level 3.1 L Prothrombin Time 16.4 H Prothrombin Time Ratio 1.3 Red Blood Count 4.93 Red Cell Distribution Width 15.6 H Sodium Level 141 Troponin I 0.028 White Blood Count 12.7 H Test 03/12/16 11:12 03/12/16 12:02 03/12/16 12:48 03/12/16 13:54 Bedside Glucose 127 129 130 128 Test 03/12/16 14:36 03/12/16 15:17 03/12/16 15:55 03/12/16 16:44 Arterial Blood HCO3 20.1 L Arterial Blood Base Excess -3.2 L Arterial Blood Oxygen Saturation 97.3 Dennis Test ACCEPTAB Arterial Blood Gas Puncture Site Right Radial Arterial Blood Carboxyhemoglobin 0.5 Arterial Blood Date Drawn 03/12/2016 3:20:00 PM Arterial Blood Methemoglobin 0.1 Arterial Blood pCO2 (Temp correct) 26.6 L Arterial Blood pH (Temp corrected) 7.480 H Arterial Blood pO2 (Temp corrected) 73.9 L Blood Gas A-a O2 Differential 257.2 H Blood Gas Actual Respiration Rate 24 Blood Gas Critical Value Read Back Dedrick QUINN RN Blood Gas Low PEEP Setting 5.0 Blood Gas Modality VENT - AC Blood Gas Notified Time 03/05/2016 3:37:00 PM Blood Gas Notified Whom RDIX Blood Gas Respiration Rate 24.0 Blood Gas Specimen Source Blood arterial Blood Gas Temperature 33.1 Blood Gas Tidal Volume 550.0 FiO2 50.0 Oxyhemoglobin Percent 96.7 Total Hemoglobin 15.3 Bedside Glucose 137 130 124 Activated Partial Thromboplast Time 34.9 Amylase Level 129 H Anion Gap 18 H Basophils # 0.0 Basophils % 0.2 Blood Morphology Comment Blood Urea Nitrogen 10 Calcium Level 7.6 L Carbon Dioxide Level 23 Chloride Level 102 Creatinine 0.55 L Eosinophils # 0.0 Eosinophils % 0.0 Fibrinogen 440.0 # Glucose Level 143 Hematocrit 42.7 Hemoglobin 14.4 INR International Normalized Ratio 1.22 Lactic Acid Level 4.5 *H Lipase 23 Lymphocytes # 1.0 Lymphocytes % 6.7 L Magnesium Level 1.6 L Mean Corpuscular Hemoglobin 28.4 L Mean Corpuscular Hemoglobin Concent 33.8 Mean Corpuscular Volume 83.9 Mean Platelet Volume 8.8 Monocytes # 0.5 Monocytes % 3.7 Neutrophils # 13.0 H Neutrophils % 89.4 H Nucleated Red Blood Cells # 0.0 Nucleated Red Blood Cells % 0.0 Phosphorus Level 2.1 L Platelet Count 270 Potassium Level 2.8 *L Prothrombin Time 15.5 H Prothrombin Time Ratio 1.2 Red Blood Count 5.09 Red Cell Distribution Width 15.2 H Sodium Level 140 Troponin I < 0.012 White Blood Count 14.6 H Test 03/12/16 17:42 03/12/16 20:20 03/12/16 20:36 03/12/16 22:04 Bedside Glucose 131 147 Arterial Blood HCO3 17.9 L Arterial Blood Base Excess -4.5 L Arterial Blood Oxygen Saturation 97.5 Dennis Test N/A Arterial Blood Gas Puncture Site Right Brachial Arterial Blood Carboxyhemoglobin 0.4 Arterial Blood Date Drawn 03/12/2016 8:35:34 PM Arterial Blood Methemoglobin 0.1 Arterial Blood pCO2 (Temp correct) 23.3 L Arterial Blood pH (Temp corrected) 7.491 H Arterial Blood pO2 (Temp corrected) 77.3 L Blood Gas A-a O2 Differential 256.8 H Blood Gas Actual Respiration Rate 24 Blood Gas Low PEEP Setting 5.0 Blood Gas Modality VENT - AC Blood Gas Notified Time 03/12/2016 8:44:27 PM Blood Gas Notified Whom UP Blood Gas Respiration Rate 24.0 Blood Gas Specimen Source Blood arterial Blood Gas Temperature 33.8 Blood Gas Tidal Volume 550.0 FiO2 50.0 Oxyhemoglobin Percent 97.0 Total Hemoglobin 14.6 Activated Partial Thromboplast Time 35.0 Amylase Level 110 Anion Gap 19 H Basophils # 0.0 Basophils % 0.0 Blood Morphology Comment Blood Urea Nitrogen 10 Calcium Level 7.1 L Carbon Dioxide Level 21 Chloride Level 101 Creatinine 0.54 L Eosinophils # 0.0 Eosinophils % 0.0 Fibrinogen 404.0 # Glucose Level 149 Hematocrit 40.9 L Hemoglobin 13.8 L INR International Normalized Ratio 1.33 Lipase 17 L Lymphocytes # 0.9 Lymphocytes % 5.2 L Magnesium Level 1.5 L Mean Corpuscular Hemoglobin 28.2 L Mean Corpuscular Hemoglobin Concent 33.7 Mean Corpuscular Volume 83.9 Mean Platelet Volume 8.6 Monocytes # 0.6 Monocytes % 3.7 Neutrophils # 15.7 H Neutrophils % 91.1 H Nucleated Red Blood Cells # 0.0 Nucleated Red Blood Cells % 0.0 Phosphorus Level 2.5 Platelet Count 260 Potassium Level 2.8 *L Prothrombin Time 16.6 H Prothrombin Time Ratio 1.3 Red Blood Count 4.88 Red Cell Distribution Width 15.6 H Sodium Level 138 Troponin I < 0.012 White Blood Count 17.2 H Test 03/12/16 22:33 03/13/16 00:02 03/13/16 01:58 03/13/16 02:36 Bedside Glucose 141 127 144 Arterial Blood HCO3 18.7 L Arterial Blood Base Excess -3.9 L Arterial Blood Oxygen Saturation 98.4 H Dennis Test N/A Arterial Blood Gas Puncture Site Right Brachial Arterial Blood Carboxyhemoglobin 0.3 Arterial Blood Date Drawn 03/13/2016 3:00:37 AM Arterial Blood Methemoglobin 0.1 Arterial Blood pCO2 (Temp correct) 24.8 L Arterial Blood pH (Temp corrected) 7.483 H Arterial Blood pO2 (Temp corrected) 106.0 H Blood Gas A-a O2 Differential 225.9 H Blood Gas Actual Respiration Rate 24 Blood Gas Low PEEP Setting 5.0 Blood Gas Modality VENT - AC Blood Gas Notified Time 03/13/2016 3:20:32 AM Blood Gas Notified Whom UP Blood Gas Respiration Rate 24.0 Blood Gas Specimen Source Blood arterial Blood Gas Temperature 34.3 Blood Gas Tidal Volume 550.0 FiO2 50.0 Oxyhemoglobin Percent 98.0 Total Hemoglobin 14.5 Test 03/13/16 04:00 03/13/16 04:16 03/13/16 05:00 03/13/16 05:56 Alanine Aminotransferase (ALT/SGPT) 48 Albumin 3.2 L Albumin/Globulin Ratio 0.82 Alkaline Phosphatase 91 Anion Gap 20 H Aspartate Amino Transf (AST/SGOT) 47 H Basophils # 0.0 Basophils % 0.2 Blood Morphology Comment Blood Urea Nitrogen 10 Calcium Level 7.3 L Carbon Dioxide Level 22 Chloride Level 103 Creatinine 0.65 Direct Bilirubin 0.00 Eosinophils # 0.0 Eosinophils % 0.0 Globulin 3.90 H Glucose Level 126 Hematocrit 40.6 L Hemoglobin 13.6 L Indirect Bilirubin 0.6 Lactic Acid Level 3.5 H Lymphocytes # 0.8 Lymphocytes % 4.7 L Magnesium Level 1.5 L Mean Corpuscular Hemoglobin 28.4 L Mean Corpuscular Hemoglobin Concent 33.6 Mean Corpuscular Volume 84.4 Mean Platelet Volume 8.8 Monocytes # 0.6 Monocytes % 3.2 Neutrophils # 15.9 H Neutrophils % 91.9 H Nucleated Red Blood Cells # 0.0 Nucleated Red Blood Cells % 0.0 Phosphorus Level 2.5 Platelet Count 267 Potassium Level 3.5 Red Blood Count 4.80 Red Cell Distribution Width 15.4 H Sodium Level 141 Thyroid Stimulating Hormone (TSH) 0.620 Total Bilirubin 0.6 Total Protein 7.1 Troponin I < 0.012 White Blood Count 17.3 H Bedside Glucose 147 138 Arterial Blood HCO3 20.1 L Arterial Blood Base Excess -3.2 L Arterial Blood Oxygen Saturation 97.3 Dennis Test ACCEPTAB Arterial Blood Gas Puncture Site Right Radial Arterial Blood Carboxyhemoglobin 0.5 Arterial Blood Date Drawn 03/12/2016 3:20:33 PM Arterial Blood Methemoglobin 0.1 Arterial Blood pCO2 (Temp correct) 26.6 L Arterial Blood pH (Temp corrected) 7.480 H Arterial Blood pO2 (Temp corrected) 73.9 L Blood Gas A-a O2 Differential 257.2 H Blood Gas Actual Respiration Rate 24 Blood Gas Critical Value Read Back Dedrick QUINN RN Blood Gas Low PEEP Setting 5.0 Blood Gas Modality VENT - AC Blood Gas Notified Time 03/05/2016 3:37:48 PM Blood Gas Notified Whom RDIX Blood Gas Respiration Rate 24.0 Blood Gas Specimen Source Blood arterial Blood Gas Temperature 33.1 Blood Gas Tidal Volume 550.0 FiO2 50.0 Oxyhemoglobin Percent 96.7 Total Hemoglobin 15.3 Medications Medications Current Medications Ondansetron HCl 4 mg 4 mg Q6H PRN IV NAUSEA AND/OR VOMITING; Start 03/12/16 at 03:00 Sodium Chloride (NS) 1,000 ml @ 100 mls/hr Q10H IV Last administered on 21:54; Admin Dose 100 MLS/HR; Start 03/12/16 at 02:36 Acetaminophen (Tylenol Supp) 650 mg Q4H PRN [place] TEMP > 37C; Start 03/12/16 at 03 :00 Acetaminophen (Tylenol Liquid) 650 mg Q4H PRN PO TEMP > 37C; Start 03/12/16 at 03:00 Acetaminophen (Tylenol Supp) 500 mg Q6H [place] ; Start 03/13/16 at 03:00 Acetaminophen (Tylenol Liquid) 500 mg Q6H PO Last administered on 03/13/16 03: 22; Admin Dose 500 MG; Start 03/13/16 at 03:00 Meperidine HCl (Demerol) 12.5 mg Q4H PRN IV POST OPERATIVE SHIVERING; Start at 03:00 Meperidine HCl (Demerol) 25 mg Q4H PRN IV POST OPERATIVE SHIVERING; Start 03/12 at 03:00 Eye Lubricant (Akwa Oint) 1 applic Q6 BOTH EYES Last administered on 03/13/16 05:24; Admin Dose 1 APPLIC; Start 03/12/16 at 06:00 Eye Lubricant (Artificial Tears Oph) 2 drop Q6 BOTH EYES Last administered on 05:24; Admin Dose 2 DROP; Start 03/12/16 at 06:00 Dextrose (D50w Syringe) 25 ml Q15M PRN IV Till BS 80 mg/dL or above x2; Start 03/12/16 at 03:00 Dextrose 50 ml 50 ml Q15M PRN IV Till BS 80 mg/dL or above x2; Start 03/12/16 at 03:00 Vecuronium [place] 100 mg/ Dextrose 100 ml @ 4.5 mls/hr TITRATE IV Last administered on 03/13/16 04:12; Admin Dose 2.7 MLS/HR; Start 03/12/16 at 03:15 Piperacillin Sod/ Tazobactam Sod 100 ml @ 200 mls/hr Q6 IVPB Last administered on 03/13/16 05:25; Admin Dose 200 MLS/HR; Start 03/12/16 at 06:00 Propofol 100 ml @ 2.7 mls/hr Q12H IV ; Start 03/12/16 at 08:00 Midazolam HCl 50 mg/Dextrose 50 ml @ 1 mls/hr TITRATE IV Last administered on 22:19; Admin Dose 5 MLS/HR; Start 03/12/16 at 09:00 Amiodarone HCl/ Dextrose (Cordarone Iv/ D5W) 500 ml @ 0 mls/hr Q0M IV Last administered on 03/12/16 18:12; Admin Dose 1 MLS/HR; Start 03/12/16 at 18:00; Stop 03/13/16 at 17:59 Diagnostic Test (Pha) (Accucheck) 1 ea Q2H XX ; Start 03/13/16 at 09:00 Procedures Procedures PROCEDURE: CT Brain without contrast. CLINICAL INDICATION: Intracranial hemorrhage. TECHNIQUE: A multiplanar CT of the brain was performed on a CT scanner utilizing axial imaging from the skull base through the vertex without IV contrast. The CTDIvol is 55.97 mGy and the DLP is 909.34 mGycm. One or more of the following dose reduction techniques were utilized: Automated exposure control, adjustment of the mA and/or kV according to patient size, use of iterative reconstruction technique. COMPARISON: None FINDINGS: No evidence of intracranial hemorrhage or abnormal extra-axial fluid collection. The brain parenchyma is normal attenuation morphology with preservation of mendoza white differentiation and age appropriate size of the ventricles and subarachnoid spaces. The posterior fossa contents, brainstem, craniocervical junction, orbits, pituitary axis, paranasal sinuses, mastoid air cells, and calvarium are unremarkable. IMPRESSION: 1. No intracranial hemorrhage or acute intracranial. RPTAT:AAJJ Jennifer Roque Physician Date Time Electronically viewed and signed by Physician Chencho on 03/11/2016 22:42 PROCEDURE: CTA CHEST WITH CONTRAST CLINICAL INDICATION: 40-year-old male with shortness of breath. TECHNIQUE: The study was performed utilizing a [employer] VCT 64-slice CT scanner. Direct axial sections were obtained from the thoracic inlet through the chest to the upper abdomen with a bolus injection of 110 cc of Omnipaque 350 nonionic contrast material. Sagittal, coronal and maximal intensity projections re-formations were obtained. Automated exposure control and iterative reconstruction techniques were utilized for this examination. The images were reviewed on a PACS workstation. CTD/vol = 83.5 mGy; Total Exam DLP = 897.2 mGy-cm. COMPARISON: Chest x-ray March 11, 2016 at 10:08 p.m. FINDINGS: There is an endotracheal tube identified with the tip approximately 2.1 cm above the len. There is a nasogastric tube present with the tip in the stomach. The aorta is without aneurysmal dilatation however there is incomplete opacification to evaluate for dissection. Cardiomegaly is noted.. The central most pulmonary arteries are without evidence for filling defect to suggest pulmonary embolus or thrombus. However beyond the central pulmonary arteries there is incomplete opacification and respiratory artifact limiting evaluation. There is patchy air space infiltrate within the left upper lobe and lingula. There are moderate bilateral pleural effusions with compressive atelectasis of the lower lobes bilaterally. Air bronchograms are noted. There is no evidence for a pneumothorax. The osseous structures are unremarkable. Scans through the upper abdomen reveals that the upper liver is unremarkable. The gallbladder is without gallstones or significant wall thickening. The adrenal glands have a normal appearance. The upper kidneys are without evidence for obstruction. IMPRESSION: 1. Endotracheal tube with the tip in the distal trachea approximately 2.1 cm above the len. 2. Nasogastric tube in place. 3. Cardiomegaly. 4. No CTA evidence for central pulmonary embolus. Note however that there is incomplete opacification and respiratory artifact limiting evaluation beyond the central most vessels. 5. Patchy airspace infiltrates within the left upper lobe and lingula. 6. Moderate bilateral pleural effusions with compressive bilateral lower lobe atelectasis. .Jose Roberto Bah MD, Date Time Electronically viewed and signed by .Jose Roberto Bah MD, on 03/12/2016 01:50 .TEMITOPE MARTÍNEZ Mar 13, 2016 08:09
[2016-03-13] MEDS ORDERED: MAGNESIUM SULFATE 2 GM/50 ML 50 ML IVPB ONE (08:30)
[2016-03-13] MEDS: SOD CHLORIDE 0.9% 1,000 ML IV SCH ×2 (08:36→20:05)
[2016-03-13] MEDS: FAMOTIDINE 20 MG INJ IV SCH ×2 (09:40→20:49)
[2016-03-13 09:43] LABS: AADO2 Arterial 165.9 mmHg (7.0-24.0); Allen Test ACCEPTAB; Arterial Base Excess -3.4 mmol/L (-3.0-3); Arterial COHb 0.3 % (0.0-3.0); Arterial Fraction of Oxyhgb 97.2 % (93.0-99.0); Arterial HCO3 19.3 mmol/L (22.0-26.0); Arterial MetHb 0.2 % (0.0-1.5); Arterial Total Hemglobin 14.3 g/dl (12.0-18.0); MODE VENT - AC
--- NOTE | 2016-03-13 10:29 | RADRPT ---
PROCEDURE: XR Chest. CLINICAL INDICATION: Cardiac arrest. Followup. TECHNIQUE: AP view of the chest was performed. COMPARISON: 03/12/2016 FINDINGS: The endotracheal tube tip is 1.8 cm above the len and should be retracted by 1- 2 cm. The nasoga stric tube tip is within the stomach. There is moderate pulmonary vascular congestion with blunting of the right costophrenic angle which may represent a small pleural effusion. The cardiac silhouette is enlarged. IMPRESSION: 1. Endotracheal tube tip is 1.8 cm above the len, suggest retraction by 1-2 cm. 2. Stable pulmonary vascular congestion with suggestion of a small right pleural effusion RPTAT: QQ .Zara Lock MD, Date Time Electronically viewed and signed by .Zara Lock MD, MD on 03/13/2016 10:28 .M/
[2016-03-13 11:08] LABS: HEMATOCRIT 40.5 % (42.0-52.0); HEMOGLOBIN 13.5 g/dl (14.0-18.0); LYMPHOCYTES # 0.9 10^3/ul (0.8-2.9); LYMPHOCYTES % 4.8 % (15.0-51.0); MEAN CORPUSCULAR HEMOGLOBIN 27.9 pg (29.0-33.0); MEAN CORPUSCULAR HGB CONC 33.3 g/dl (32.0-37.0); MEAN CORPUSCULAR VOLUME 83.9 fl (82.0-101.0); MEAN PLATELET VOLUME 8.6 fl (7.4-10.4); MONOCYTE # 0.8 10^3/ul (0.3-0.9); NEUTROPHIL # 17.6 10^3/ul (1.6-7.5); NEUTROPHILS % 91.2 % (39.0-77.0); PLATELET COUNT 278 10^3/UL (140-440); RED BLOOD COUNT 4.82 10^6/ul (4.70-6.10); RED CELL DISTRIBUTION WIDTH 15.3 % (11.5-14.5); UNCORRECTED WBC 19.3 10^3/ul (4.8-10.8); WHITE BLOOD COUNT 19.3 10^3/ul (4.8-10.8)
[2016-03-13 11:15] LABS: CONDITION 1; LH ANALYZER COMMENTS 1
[2016-03-13 11:17] LABS: CHLORIDE 104 mmol/L (97-110); POTASSIUM 3.4 mmol/L (3.5-5.1); SODIUM 140 mmol/L (135-144)
[2016-03-13 11:19] LABS: AMYLASE 101 U/L (11-123); ANION GAP 16 (8-16); CARBON DIOXIDE 23 mmol/L (21-31); CREATININE 0.88 mg/dl (0.61-1.24)
[2016-03-13 11:20] LABS: BLOOD UREA NITROGEN 12 mg/dl (7-20); GLUCOSE 121 mg/dl (70-220); MAGNESIUM 1.6 mg/dl (1.7-2.5); PHOSPHORUS 2.4 mg/dl (2.5-4.9)
[2016-03-13 11:31] LABS: TROPONIN-I < 0.012 ng/ml (0.00-0.12)
[2016-03-13 11:37] LABS: PARTIAL THROMBOPLASTIN TIME 31.5 Sec (25.0-35.0)
--- NOTE | 2016-03-13 14:02 | RADRPT ---
Vent Rate: 108 bpm RR Interval: 0 msec CA Interval: 0 msec QRS Duration: 104 msec QT Interval: 354 msec QTC Interval: 474 msec P-R-T [place]: 0 - 18 - 45 degrees Atrial fibrillation with rapid ventricular response with premature ventricular or aberrantly conducted complexes Anterior infarct , age undetermined Abnormal ECG Electronically Signed By: Willie Rausch [id number]
--- NOTE | 2016-03-13 14:03 | RADRPT ---
Vent Rate: 78 bpm RR Interval: 0 msec IA Interval: 196 msec QRS Duration: 118 msec QT Interval: 532 msec QTC Interval: 606 msec P-R-T [place]: 26 - 22 - 40 degrees Sinus rhythm with premature atrial complexes Incomplete left bundle branch block T wave abnormality, consider anterior ischemia Prolonged QT Abnormal ECG Electronically Signed By: Willie Rausch [id number]
--- NOTE | 2016-03-13 14:03 | RADRPT ---
Vent Rate: 68 bpm RR Interval: 0 msec HI Interval: 0 msec QRS Duration: 126 msec QT Interval: 536 msec QTC Interval: 569 msec P-R-T [place]: 0 - 46 - 35 degrees Atrial fibrillation Nonspecific intraventricular block Abnormal ECG Electronically Signed By: Willie Rausch [id number]
--- NOTE | 2016-03-13 14:58 | CONS ---
Date/Time of Note Date/Time of Note DATE: 03/13/16 TIME: 14:55 Consult Date/Type/Reason Admit Date/Time Mar 11, 2016 at 22:10 Initial Consult Date Type of Consultation: Pulm Ordering Provider: JULIO SAMUELS MD Subjective Undergoing rewarming. Sedated and on NMB. Objective Vital Signs Date Time Temp Pulse Resp B/P Pulse Ox O2 Delivery O2 Flow Rate FiO2 03/13/16 13:00 98.0 86 24 118/82 100 Mechanical Ventilator 03/13/16 11:00 40 03/11/16 20:50 15 Intake and Output 03/12/16 03/12/16 03/13/16 15:00 23:00 07:00 Intake Total 1072.5 ml 1951.4 ml 1145.7 ml Output Total 1340 ml 1255 ml 375 ml Balance -267.5 ml 696.4 ml 770.7 ml GENERAL: He is currently paralyzed on mechanical ventilation, intubated, unresponsive. HEENT: ET tube is in place. NECK: Supple, no thyromegaly, no jugular venous distention. CARDIOVASCULAR: Irregularly irregular S1, S2. No murmurs, rubs, or gallops. CHEST: Diminished breath sounds bilaterally. ABDOMEN: Morbidly obese, soft, nontender, no hepatosplenomegaly. EXTREMITIES: No cyanosis, clubbing, or edema. Results/Medications Result Diagram: 03/13/16 1055 03/13/16 1055 Results 24 hrs Laboratory Tests Test 03/12/16 15:17 03/12/16 15:55 03/12/16 16:44 03/12/16 17:42 Bedside Glucose 137 130 124 131 Activated Partial Thromboplast Time 34.9 Amylase Level 129 H Anion Gap 18 H Basophils # 0.0 Basophils % 0.2 Blood Morphology Comment Blood Urea Nitrogen 10 Calcium Level 7.6 L Carbon Dioxide Level 23 Chloride Level 102 Creatinine 0.55 L Eosinophils # 0.0 Eosinophils % 0.0 Fibrinogen 440.0 # Glucose Level 143 Hematocrit 42.7 Hemoglobin 14.4 INR International Normalized Ratio 1.22 Lactic Acid Level 4.5 *H Lipase 23 Lymphocytes # 1.0 Lymphocytes % 6.7 L Magnesium Level 1.6 L Mean Corpuscular Hemoglobin 28.4 L Mean Corpuscular Hemoglobin Concent 33.8 Mean Corpuscular Volume 83.9 Mean Platelet Volume 8.8 Monocytes # 0.5 Monocytes % 3.7 Neutrophils # 13.0 H Neutrophils % 89.4 H Nucleated Red Blood Cells # 0.0 Nucleated Red Blood Cells % 0.0 Phosphorus Level 2.1 L Platelet Count 270 Potassium Level 2.8 *L Prothrombin Time 15.5 H Prothrombin Time Ratio 1.2 Red Blood Count 5.09 Red Cell Distribution Width 15.2 H Sodium Level 140 Troponin I < 0.012 White Blood Count 14.6 H Test 03/12/16 20:20 03/12/16 20:36 03/12/16 22:04 03/12/16 22:33 Bedside Glucose 147 141 Arterial Blood HCO3 17.9 L Arterial Blood Base Excess -4.5 L Arterial Blood Oxygen Saturation 97.5 Dennis Test N/A Arterial Blood Gas Puncture Site Right Brachial Arterial Blood Carboxyhemoglobin 0.4 Arterial Blood Date Drawn 03/12/2016 8:35:34 PM Arterial Blood Methemoglobin 0.1 Arterial Blood pCO2 (Temp correct) 23.3 L Arterial Blood pH (Temp corrected) 7.491 H Arterial Blood pO2 (Temp corrected) 77.3 L Blood Gas A-a O2 Differential 256.8 H Blood Gas Actual Respiration Rate 24 Blood Gas Low PEEP Setting 5.0 Blood Gas Modality VENT - AC Blood Gas Notified Time 03/12/2016 8:44:27 PM Blood Gas Notified Whom UP Blood Gas Respiration Rate 24.0 Blood Gas Specimen Source Blood arterial Blood Gas Temperature 33.8 Blood Gas Tidal Volume 550.0 FiO2 50.0 Oxyhemoglobin Percent 97.0 Total Hemoglobin 14.6 Activated Partial Thromboplast Time 35.0 Amylase Level 110 Anion Gap 19 H Basophils # 0.0 Basophils % 0.0 Blood Morphology Comment Blood Urea Nitrogen 10 Calcium Level 7.1 L Carbon Dioxide Level 21 Chloride Level 101 Creatinine 0.54 L Eosinophils # 0.0 Eosinophils % 0.0 Fibrinogen 404.0 # Glucose Level 149 Hematocrit 40.9 L Hemoglobin 13.8 L INR International Normalized Ratio 1.33 Lipase 17 L Lymphocytes # 0.9 Lymphocytes % 5.2 L Magnesium Level 1.5 L Mean Corpuscular Hemoglobin 28.2 L Mean Corpuscular Hemoglobin Concent 33.7 Mean Corpuscular Volume 83.9 Mean Platelet Volume 8.6 Monocytes # 0.6 Monocytes % 3.7 Neutrophils # 15.7 H Neutrophils % 91.1 H Nucleated Red Blood Cells # 0.0 Nucleated Red Blood Cells % 0.0 Phosphorus Level 2.5 Platelet Count 260 Potassium Level 2.8 *L Prothrombin Time 16.6 H Prothrombin Time Ratio 1.3 Red Blood Count 4.88 Red Cell Distribution Width 15.6 H Sodium Level 138 Troponin I < 0.012 White Blood Count 17.2 H Test 03/13/16 00:02 03/13/16 01:58 03/13/16 02:36 03/13/16 04:00 Bedside Glucose 127 144 Arterial Blood HCO3 18.7 L Arterial Blood Base Excess -3.9 L Arterial Blood Oxygen Saturation 98.4 H Dennis Test N/A Arterial Blood Gas Puncture Site Right Brachial Arterial Blood Carboxyhemoglobin 0.3 Arterial Blood Date Drawn 03/13/2016 3:00:37 AM Arterial Blood Methemoglobin 0.1 Arterial Blood pCO2 (Temp correct) 24.8 L Arterial Blood pH (Temp corrected) 7.483 H Arterial Blood pO2 (Temp corrected) 106.0 H Blood Gas A-a O2 Differential 225.9 H Blood Gas Actual Respiration Rate 24 Blood Gas Low PEEP Setting 5.0 Blood Gas Modality VENT - AC Blood Gas Notified Time 03/13/2016 3:20:32 AM Blood Gas Notified Whom UP Blood Gas Respiration Rate 24.0 Blood Gas Specimen Source Blood arterial Blood Gas Temperature 34.3 Blood Gas Tidal Volume 550.0 FiO2 50.0 Oxyhemoglobin Percent 98.0 Total Hemoglobin 14.5 Alanine Aminotransferase (ALT/SGPT) 48 Albumin 3.2 L Albumin/Globulin Ratio 0.82 Alkaline Phosphatase 91 Anion Gap 20 H Aspartate Amino Transf (AST/SGOT) 47 H Basophils # 0.0 Basophils % 0.2 Blood Morphology Comment Blood Urea Nitrogen 10 Calcium Level 7.3 L Carbon Dioxide Level 22 Chloride Level 103 Creatinine 0.65 Direct Bilirubin 0.00 Eosinophils # 0.0 Eosinophils % 0.0 Globulin 3.90 H Glucose Level 126 Hematocrit 40.6 L Hemoglobin 13.6 L Indirect Bilirubin 0.6 Lactic Acid Level 3.5 H Lymphocytes # 0.8 Lymphocytes % 4.7 L Magnesium Level 1.5 L Mean Corpuscular Hemoglobin 28.4 L Mean Corpuscular Hemoglobin Concent 33.6 Mean Corpuscular Volume 84.4 Mean Platelet Volume 8.8 Monocytes # 0.6 Monocytes % 3.2 Neutrophils # 15.9 H Neutrophils % 91.9 H Nucleated Red Blood Cells # 0.0 Nucleated Red Blood Cells % 0.0 Phosphorus Level 2.5 Platelet Count 267 Potassium Level 3.5 Red Blood Count 4.80 Red Cell Distribution Width 15.4 H Sodium Level 141 Thyroid Stimulating Hormone (TSH) 0.620 Total Bilirubin 0.6 Total Protein 7.1 Troponin I < 0.012 White Blood Count 17.3 H Test 03/13/16 04:16 03/13/16 05:00 03/13/16 05:56 03/13/16 09:32 Bedside Glucose 147 138 118 Arterial Blood HCO3 20.1 L Arterial Blood Base Excess -3.2 L Arterial Blood Oxygen Saturation 97.3 Dennis Test ACCEPTAB Arterial Blood Gas Puncture Site Right Radial Arterial Blood Carboxyhemoglobin 0.5 Arterial Blood Date Drawn 03/12/2016 3:20:33 PM Arterial Blood Methemoglobin 0.1 Arterial Blood pCO2 (Temp correct) 26.6 L Arterial Blood pH (Temp corrected) 7.480 H Arterial Blood pO2 (Temp corrected) 73.9 L Blood Gas A-a O2 Differential 257.2 H Blood Gas Actual Respiration Rate 24 Blood Gas Critical Value Read Back Dedrick QUINN RN Blood Gas Low PEEP Setting 5.0 Blood Gas Modality VENT - AC Blood Gas Notified Time 03/05/2016 3:37:48 PM Blood Gas Notified Whom RDIX Blood Gas Respiration Rate 24.0 Blood Gas Specimen Source Blood arterial Blood Gas Temperature 33.1 Blood Gas Tidal Volume 550.0 FiO2 50.0 Oxyhemoglobin Percent 96.7 Total Hemoglobin 15.3 Test 03/13/16 09:33 03/13/16 10:55 03/13/16 11:16 03/13/16 12:12 Arterial Blood HCO3 19.3 L Arterial Blood Base Excess -3.4 L Arterial Blood Oxygen Saturation 97.7 Dennis Test ACCEPTAB Arterial Blood Gas Puncture Site Right Radial Arterial Blood Carboxyhemoglobin 0.3 Arterial Blood Date Drawn 03/13/2016 9:30:29 AM Arterial Blood Methemoglobin 0.2 Arterial Blood pCO2 (Temp correct) 27.0 L Arterial Blood pH (Temp corrected) 7.466 H Arterial Blood pO2 (Temp corrected) 89.7 Blood Gas A-a O2 Differential 165.9 H Blood Gas Actual Respiration Rate 24 Blood Gas Critical Value Read Back Wesley CASTILLO RN Blood Gas Low PEEP Setting 5.0 Blood Gas Modality VENT - AC Blood Gas Notified Time 03/13/2016 9:42:59 AM Blood Gas Notified Whom RDIX Blood Gas Respiration Rate 24.0 Blood Gas Specimen Source Blood arterial Blood Gas Temperature 35.6 Blood Gas Tidal Volume 550.0 FiO2 40.0 Oxyhemoglobin Percent 97.2 Total Hemoglobin 14.3 Activated Partial Thromboplast Time 31.5 Amylase Level 101 Anion Gap 16 Basophils # 0.0 Basophils % 0.0 Blood Morphology Comment Blood Urea Nitrogen 12 Calcium Level 7.0 L Carbon Dioxide Level 23 Chloride Level 104 Creatinine 0.88 Eosinophils # 0.0 Eosinophils % 0.0 Fibrinogen 401.0 Glucose Level 121 Hematocrit 40.5 L Hemoglobin 13.5 L Lipase 14 L Lymphocytes # 0.9 Lymphocytes % 4.8 L Magnesium Level 1.6 L Mean Corpuscular Hemoglobin 27.9 L Mean Corpuscular Hemoglobin Concent 33.3 Mean Corpuscular Volume 83.9 Mean Platelet Volume 8.6 Monocytes # 0.8 Monocytes % 4.0 Neutrophils # 17.6 H Neutrophils % 91.2 H Nucleated Red Blood Cells # 0.0 Nucleated Red Blood Cells % 0.0 Phosphorus Level 2.4 L Platelet Count 278 Potassium Level 3.4 L Red Blood Count 4.82 Red Cell Distribution Width 15.3 H Sodium Level 140 Troponin I < 0.012 White Blood Count 19.3 H Bedside Glucose 104 Lactic Acid Level 2.4 H Test 03/13/16 12:51 Bedside Glucose 109 Medications Current Medications Ondansetron HCl 4 mg 4 mg Q6H PRN IV NAUSEA AND/OR VOMITING; Start 03/12/16 at 03:00 Sodium Chloride (NS) 1,000 ml @ 100 mls/hr Q10H IV Last administered on 08:36; Admin Dose 100 MLS/HR; Start 03/12/16 at 02:36 Acetaminophen (Tylenol Supp) 650 mg Q4H PRN [place] TEMP > 37C; Start 03/12/16 at 03 :00 Acetaminophen (Tylenol Liquid) 650 mg Q4H PRN PO TEMP > 37C; Start 03/12/16 at 03:00 Acetaminophen (Tylenol Supp) 500 mg Q6H [place] ; Start 03/13/16 at 03:00 Acetaminophen (Tylenol Liquid) 500 mg Q6H PO Last administered on 03/13/16 09: 40; Admin Dose 500 MG; Start 03/13/16 at 03:00 Meperidine HCl (Demerol) 12.5 mg Q4H PRN IV POST OPERATIVE SHIVERING; Start at 03:00 Meperidine HCl (Demerol) 25 mg Q4H PRN IV POST OPERATIVE SHIVERING; Start 03/12 at 03:00 Eye Lubricant (Akwa Oint) 1 applic Q6 BOTH EYES Last administered on 03/13/16 05:24; Admin Dose 1 APPLIC; Start 03/12/16 at 06:00 Eye Lubricant (Artificial Tears Oph) 2 drop Q6 BOTH EYES Last administered on 05:24; Admin Dose 2 DROP; Start 03/12/16 at 06:00 Dextrose (D50w Syringe) 25 ml Q15M PRN IV Till BS 80 mg/dL or above x2; Start 03/12/16 at 03:00 Dextrose 50 ml 50 ml Q15M PRN IV Till BS 80 mg/dL or above x2; Start 03/12/16 at 03:00 Vecuronium [place] 100 mg/ Dextrose 100 ml @ 4.5 mls/hr TITRATE IV Last administered on 03/13/16 04:12; Admin Dose 2.7 MLS/HR; Start 03/12/16 at 03:15 Piperacillin Sod/ Tazobactam Sod 100 ml @ 200 mls/hr Q6 IVPB Last administered on 03/13/16 05:25; Admin Dose 200 MLS/HR; Start 03/12/16 at 06:00 Propofol 100 ml @ 2.7 mls/hr Q12H IV ; Start 03/12/16 at 08:00 Midazolam HCl 50 mg/Dextrose 50 ml @ 1 mls/hr TITRATE IV Last administered on 22:19; Admin Dose 5 MLS/HR; Start 03/12/16 at 09:00 Amiodarone HCl/ Dextrose (Cordarone Iv/ D5W) 500 ml @ 0 mls/hr Q0M IV Last administered on 03/12/16 18:12; Admin Dose 1 MLS/HR; Start 03/12/16 at 18:00; Stop 03/13/16 at 17:59 Diagnostic Test (Pha) (Accucheck) 1 ea Q2H XX Last administered on 03/13/16 09 :43; Admin Dose 1 EA; Start 03/13/16 at 09:00 Heparin Sodium (Porcine) (Heparin (5000 Units/0.5 ml)) 5,000 unit Q8 SC ; Start 03/13/16 at 14:00 Famotidine (Pepcid Iv) 20 mg BID IV Last administered on 03/13/16 09:40; Admin Dose 20 MG; Start 03/13/16 at 09:00 Assessment/Plan Additional Assessment/Plan IMPRESSION: 1. Status post cardiopulmonary arrest. Etiology of the arrest is unclear. Cardiac biomarkers currently show no evidence of acute myocardial infarction. There is also no evidence of acute pulmonary embolism. Possibility of an arrhythmic event exists. Additionally, unlikely that his arrest was due to increased load imposed by pneumonia. 2. Ventilator-dependent respiratory failure. 3. Secondary aspiration pneumonia. 4. Atrial fibrillation with rapid ventricular response. 5. Possible sepsis. 6. Lactic acidosis secondary to his anoxic event. 7. Rule out anoxic brain injury. RECS: 1. Rewarm today 2. Continue to assess neuro exam 3. Vent support 4. Abx 5. Case d/w family in detail 35 min cc time ANA OLIVA MD Mar 13, 2016 14:58
[2016-03-13] MEDS ORDERED: SOD CHLORIDE 0.9% 500 ML IV ONE ×2 (15:30)
[2016-03-13] MEDS: HEPARIN 5,000 UNIT/0.5 ML SYG SC SCH ×2 (15:39→22:25)
--- NOTE | 2016-03-13 17:27 | CONS ---
Date/Time of Note Date/Time of Note DATE: 03/13/16 TIME: 17:20 Assessment/Plan Assessment/Plan Chief Complaint/Hosp Course Assessment: Status post cardiac arrest - initial rhythm was reported to be PEA, unclear etiology but possible ventricular tachyarrhythmia given severe left ventricular systolic dysfunction Paroxysmal atrial fibrillation with rapid ventricular response - now back in sinus rhythm Cardiomyopathy, LVEF 20% - unclear etiology, possibly ischemic Coronary artery disease - reported myocardial infarction in 2016 at [facility], did not receive coronary stenting Ventilator-dependent respiratory failure Systemic inflammatory response syndrome Hypertension Diabetes mellitus Incomplete data Recommendations: -rewarming from hypothermia protocol -transition amiodarone drip to amiodarone PO 400mg BID -start carvedilol 3.125mg BID and lisinopril 2.5mg daily for systolic dysfunction, up titrate as tolerated -patient will need coronary angiography if there is meaningful recovery of neurologic function -ventilator management per pulmonology -infection work up and antibiotics per primary team Problems: Consultation Date/Type/Reason Admit Date/Time Mar 11, 2016 at 22:10 Initial Consult Date Type of Consultation: Cardiology 24 HR Interval Summary Free Text/Dictation Remains intubated in ICU. Reverted to sinus rhythm on amiodarone drip. No ventricular tachycardia. Detailed Summary Additional Comments Unable to obtain review of systems, patient is intubated. Exam/Review of Systems Vital Signs Vitals Vital Signs Date Time Temp Pulse Resp B/P Pulse Ox O2 Delivery O2 Flow Rate FiO2 03/13/16 17:00 98.6 92 24 139/89 100 Mechanical Ventilator 03/13/16 11:00 40 03/11/16 20:50 15 Intake and Output 03/12/16 03/12/16 03/13/16 15:00 23:00 07:00 Intake Total 1072.5 ml 1951.4 ml 1153.4 ml Output Total 1340 ml 1255 ml 375 ml Balance -267.5 ml 696.4 ml 778.4 ml Exam Constitutional: other (intubated, sedated), No alert Psych: other (intubated, sedated) Head: atraumatic, normocephalic Eyes: nl conjunctiva, nl lids ENMT: nl external ears & nose, nl nasal mucosa & septum Neck: No jvd (unable to accurately assess) Respiratory: clear to auscultation Cardiovascular: No regular rate and rhythm Gastrointestinal: soft Musculoskeletal: nl extremities to inspection Extremities: No clubbing, No cyanosis, No edema Results Result Diagram: 03/13/16 1055 03/13/16 1055 Results 24 hrs Laboratory Tests Test 03/12/16 17:42 03/12/16 20:20 03/12/16 20:36 03/12/16 22:04 Bedside Glucose 131 147 Arterial Blood HCO3 17.9 L Arterial Blood Base Excess -4.5 L Arterial Blood Oxygen Saturation 97.5 Dennis Test N/A Arterial Blood Gas Puncture Site Right Brachial Arterial Blood Carboxyhemoglobin 0.4 Arterial Blood Date Drawn 03/12/2016 8:35:34 PM Arterial Blood Methemoglobin 0.1 Arterial Blood pCO2 (Temp correct) 23.3 L Arterial Blood pH (Temp corrected) 7.491 H Arterial Blood pO2 (Temp corrected) 77.3 L Blood Gas A-a O2 Differential 256.8 H Blood Gas Actual Respiration Rate 24 Blood Gas Low PEEP Setting 5.0 Blood Gas Modality VENT - AC Blood Gas Notified Time 03/12/2016 8:44:27 PM Blood Gas Notified Whom UP Blood Gas Respiration Rate 24.0 Blood Gas Specimen Source Blood arterial Blood Gas Temperature 33.8 Blood Gas Tidal Volume 550.0 FiO2 50.0 Oxyhemoglobin Percent 97.0 Total Hemoglobin 14.6 Activated Partial Thromboplast Time 35.0 Amylase Level 110 Anion Gap 19 H Basophils # 0.0 Basophils % 0.0 Blood Morphology Comment Blood Urea Nitrogen 10 Calcium Level 7.1 L Carbon Dioxide Level 21 Chloride Level 101 Creatinine 0.54 L Eosinophils # 0.0 Eosinophils % 0.0 Fibrinogen 404.0 # Glucose Level 149 Hematocrit 40.9 L Hemoglobin 13.8 L INR International Normalized Ratio 1.33 Lipase 17 L Lymphocytes # 0.9 Lymphocytes % 5.2 L Magnesium Level 1.5 L Mean Corpuscular Hemoglobin 28.2 L Mean Corpuscular Hemoglobin Concent 33.7 Mean Corpuscular Volume 83.9 Mean Platelet Volume 8.6 Monocytes # 0.6 Monocytes % 3.7 Neutrophils # 15.7 H Neutrophils % 91.1 H Nucleated Red Blood Cells # 0.0 Nucleated Red Blood Cells % 0.0 Phosphorus Level 2.5 Platelet Count 260 Potassium Level 2.8 *L Prothrombin Time 16.6 H Prothrombin Time Ratio 1.3 Red Blood Count 4.88 Red Cell Distribution Width 15.6 H Sodium Level 138 Troponin I < 0.012 White Blood Count 17.2 H Test 03/12/16 22:33 03/13/16 00:02 03/13/16 01:58 03/13/16 02:36 Bedside Glucose 141 127 144 Arterial Blood HCO3 18.7 L Arterial Blood Base Excess -3.9 L Arterial Blood Oxygen Saturation 98.4 H Dennis Test N/A Arterial Blood Gas Puncture Site Right Brachial Arterial Blood Carboxyhemoglobin 0.3 Arterial Blood Date Drawn 03/13/2016 3:00:37 AM Arterial Blood Methemoglobin 0.1 Arterial Blood pCO2 (Temp correct) 24.8 L Arterial Blood pH (Temp corrected) 7.483 H Arterial Blood pO2 (Temp corrected) 106.0 H Blood Gas A-a O2 Differential 225.9 H Blood Gas Actual Respiration Rate 24 Blood Gas Low PEEP Setting 5.0 Blood Gas Modality VENT - AC Blood Gas Notified Time 03/13/2016 3:20:32 AM Blood Gas Notified Whom UP Blood Gas Respiration Rate 24.0 Blood Gas Specimen Source Blood arterial Blood Gas Temperature 34.3 Blood Gas Tidal Volume 550.0 FiO2 50.0 Oxyhemoglobin Percent 98.0 Total Hemoglobin 14.5 Test 03/13/16 04:00 03/13/16 04:16 03/13/16 05:00 03/13/16 05:56 Alanine Aminotransferase (ALT/SGPT) 48 Albumin 3.2 L Albumin/Globulin Ratio 0.82 Alkaline Phosphatase 91 Anion Gap 20 H Aspartate Amino Transf (AST/SGOT) 47 H Basophils # 0.0 Basophils % 0.2 Blood Morphology Comment Blood Urea Nitrogen 10 Calcium Level 7.3 L Carbon Dioxide Level 22 Chloride Level 103 Creatinine 0.65 Direct Bilirubin 0.00 Eosinophils # 0.0 Eosinophils % 0.0 Globulin 3.90 H Glucose Level 126 Hematocrit 40.6 L Hemoglobin 13.6 L Indirect Bilirubin 0.6 Lactic Acid Level 3.5 H Lymphocytes # 0.8 Lymphocytes % 4.7 L Magnesium Level 1.5 L Mean Corpuscular Hemoglobin 28.4 L Mean Corpuscular Hemoglobin Concent 33.6 Mean Corpuscular Volume 84.4 Mean Platelet Volume 8.8 Monocytes # 0.6 Monocytes % 3.2 Neutrophils # 15.9 H Neutrophils % 91.9 H Nucleated Red Blood Cells # 0.0 Nucleated Red Blood Cells % 0.0 Phosphorus Level 2.5 Platelet Count 267 Potassium Level 3.5 Red Blood Count 4.80 Red Cell Distribution Width 15.4 H Sodium Level 141 Thyroid Stimulating Hormone (TSH) 0.620 Total Bilirubin 0.6 Total Protein 7.1 Troponin I < 0.012 White Blood Count 17.3 H Bedside Glucose 147 138 Arterial Blood HCO3 20.1 L Arterial Blood Base Excess -3.2 L Arterial Blood Oxygen Saturation 97.3 Dennis Test ACCEPTAB Arterial Blood Gas Puncture Site Right Radial Arterial Blood Carboxyhemoglobin 0.5 Arterial Blood Date Drawn 03/12/2016 3:20:33 PM Arterial Blood Methemoglobin 0.1 Arterial Blood pCO2 (Temp correct) 26.6 L Arterial Blood pH (Temp corrected) 7.480 H Arterial Blood pO2 (Temp corrected) 73.9 L Blood Gas A-a O2 Differential 257.2 H Blood Gas Actual Respiration Rate 24 Blood Gas Critical Value Read Back Dedrick QUINN RN Blood Gas Low PEEP Setting 5.0 Blood Gas Modality VENT - AC Blood Gas Notified Time 03/05/2016 3:37:48 PM Blood Gas Notified Whom RDIX Blood Gas Respiration Rate 24.0 Blood Gas Specimen Source Blood arterial Blood Gas Temperature 33.1 Blood Gas Tidal Volume 550.0 FiO2 50.0 Oxyhemoglobin Percent 96.7 Total Hemoglobin 15.3 Test 03/13/16 09:32 03/13/16 09:33 03/13/16 10:55 03/13/16 11:16 Bedside Glucose 118 104 Arterial Blood HCO3 19.3 L Arterial Blood Base Excess -3.4 L Arterial Blood Oxygen Saturation 97.7 Dennis Test ACCEPTAB Arterial Blood Gas Puncture Site Right Radial Arterial Blood Carboxyhemoglobin 0.3 Arterial Blood Date Drawn 03/13/2016 9:30:29 AM Arterial Blood Methemoglobin 0.2 Arterial Blood pCO2 (Temp correct) 27.0 L Arterial Blood pH (Temp corrected) 7.466 H Arterial Blood pO2 (Temp corrected) 89.7 Blood Gas A-a O2 Differential 165.9 H Blood Gas Actual Respiration Rate 24 Blood Gas Critical Value Read Back Wesley CASTILLO RN Blood Gas Low PEEP Setting 5.0 Blood Gas Modality VENT - AC Blood Gas Notified Time 03/13/2016 9:42:59 AM Blood Gas Notified Whom RDIX Blood Gas Respiration Rate 24.0 Blood Gas Specimen Source Blood arterial Blood Gas Temperature 35.6 Blood Gas Tidal Volume 550.0 FiO2 40.0 Oxyhemoglobin Percent 97.2 Total Hemoglobin 14.3 Activated Partial Thromboplast Time 31.5 Amylase Level 101 Anion Gap 16 Basophils # 0.0 Basophils % 0.0 Blood Morphology Comment Blood Urea Nitrogen 12 Calcium Level 7.0 L Carbon Dioxide Level 23 Chloride Level 104 Creatinine 0.88 Eosinophils # 0.0 Eosinophils % 0.0 Fibrinogen 401.0 Glucose Level 121 Hematocrit 40.5 L Hemoglobin 13.5 L Lipase 14 L Lymphocytes # 0.9 Lymphocytes % 4.8 L Magnesium Level 1.6 L Mean Corpuscular Hemoglobin 27.9 L Mean Corpuscular Hemoglobin Concent 33.3 Mean Corpuscular Volume 83.9 Mean Platelet Volume 8.6 Monocytes # 0.8 Monocytes % 4.0 Neutrophils # 17.6 H Neutrophils % 91.2 H Nucleated Red Blood Cells # 0.0 Nucleated Red Blood Cells % 0.0 Phosphorus Level 2.4 L Platelet Count 278 Potassium Level 3.4 L Red Blood Count 4.82 Red Cell Distribution Width 15.3 H Sodium Level 140 Troponin I < 0.012 White Blood Count 19.3 H Test 03/13/16 12:12 03/13/16 12:51 03/13/16 15:52 Lactic Acid Level 2.4 H Bedside Glucose 109 143 Medications Medications Current Medications Ondansetron HCl 4 mg 4 mg Q6H PRN IV NAUSEA AND/OR VOMITING; Start 03/12/16 at 03:00 Sodium Chloride (NS) 1,000 ml @ 100 mls/hr Q10H IV Last administered on 08:36; Admin Dose 100 MLS/HR; Start 03/12/16 at 02:36 Acetaminophen (Tylenol Supp) 650 mg Q4H PRN [place] TEMP > 37C; Start 03/12/16 at 03 :00 Acetaminophen (Tylenol Liquid) 650 mg Q4H PRN PO TEMP > 37C; Start 03/12/16 at 03:00 Acetaminophen (Tylenol Supp) 500 mg Q6H [place] ; Start 03/13/16 at 03:00 Acetaminophen (Tylenol Liquid) 500 mg Q6H PO Last administered on 03/13/16 15: 23; Admin Dose 500 MG; Start 03/13/16 at 03:00 Meperidine HCl (Demerol) 12.5 mg Q4H PRN IV POST OPERATIVE SHIVERING; Start at 03:00 Meperidine HCl (Demerol) 25 mg Q4H PRN IV POST OPERATIVE SHIVERING; Start 03/12 at 03:00 Eye Lubricant (Akwa Oint) 1 applic Q6 BOTH EYES Last administered on 03/13/16 12:00; Admin Dose 1 APPLIC; Start 03/12/16 at 06:00 Eye Lubricant (Artificial Tears Oph) 2 drop Q6 BOTH EYES Last administered on 12:00; Admin Dose 2 DROP; Start 03/12/16 at 06:00 Dextrose (D50w Syringe) 25 ml Q15M PRN IV Till BS 80 mg/dL or above x2; Start 03/12/16 at 03:00 Dextrose 50 ml 50 ml Q15M PRN IV Till BS 80 mg/dL or above x2; Start 03/12/16 at 03:00 Vecuronium [place] 100 mg/ Dextrose 100 ml @ 4.5 mls/hr TITRATE IV Last administered on 03/13/16 04:12; Admin Dose 2.7 MLS/HR; Start 03/12/16 at 03:15 Piperacillin Sod/ Tazobactam Sod 100 ml @ 200 mls/hr Q6 IVPB Last administered on 03/13/16 12:00; Admin Dose 200 MLS/HR; Start 03/12/16 at 06:00 Propofol 100 ml @ 2.7 mls/hr Q12H IV ; Start 03/12/16 at 08:00 Midazolam HCl 50 mg/Dextrose 50 ml @ 1 mls/hr TITRATE IV Last administered on 22:19; Admin Dose 5 MLS/HR; Start 03/12/16 at 09:00 Amiodarone HCl/ Dextrose (Cordarone Iv/ D5W) 500 ml @ 0 mls/hr Q0M IV Last administered on 03/12/16 18:12; Admin Dose 1 MLS/HR; Start 03/12/16 at 18:00; Stop 03/13/16 at 17:59 Diagnostic Test (Pha) (Accucheck) 1 ea Q2H XX Last administered on 03/13/16 15 :34; Admin Dose 1 EA; Start 03/13/16 at 09:00 Heparin Sodium (Porcine) (Heparin (5000 Units/0.5 ml)) 5,000 unit Q8 SC Last administered on 03/13/16 15:39; Admin Dose 5,000 UNIT; Start 03/13/16 at 14:00 Famotidine (Pepcid Iv) 20 mg BID IV Last administered on 03/13/16 09:40; Admin Dose 20 MG; Start 03/13/16 at 09:00 RAE RIVERA MD Mar 13, 2016 17:27
[2016-03-13] MEDS: ACETAMINOPHEN 650MG/20.3ML CUP NGT SCH (20:42)
[2016-03-13] MEDS: AMIODARONE 200 MG TAB NGT SCH (20:43)
[2016-03-13] MEDS: INSULIN REGULAR, HUMAN 100 UNIT in SOD CHLORIDE 0.9% 99 ML IV SCH ×2 (21:03)
[2016-03-14] VITALS (49 sets, daily range): BP systolic 95–136; BP diastolic 44–98; PULSE 55–142; RESP 19–29
[2016-03-14] MEDS: PIPER-TAZO 3.375 GM IV (PMX) 100 ML IVPB SCH ×5 (00:24→23:54)
[2016-03-14] MEDS: ARTIFICIAL TEARS 15 ML OPH BOTH EYES SCH ×5 (00:25→23:56)
[2016-03-14] MEDS: OCULAR LUBRICANT 3.5 GM OPH OINT BOTH EYES SCH ×5 (00:26→23:55)
[2016-03-14] MEDS: ACCUCHECK XX SCH ×7 (01:00→13:24)
[2016-03-14] MEDS ORDERED: IPRATROPIUM (HFA) 12.9 GM INHALER INH PRN (01:30)
[2016-03-14] MEDS: ACETAMINOPHEN 650MG/20.3ML CUP NGT SCH ×4 (01:52→19:44)
[2016-03-14] MEDS ORDERED: ALBUTEROL HFA 8 GM INHALER INH PRN (02:00)
[2016-03-14] MEDS ORDERED: GLYCOPYRROLATE 0.4 MG INJ IV PRN (03:30)
[2016-03-14] MEDS: GLYCOPYRROLATE 0.4 MG INJ IV SCH ×4 (04:14→22:20)
[2016-03-14 05:10] LABS: BASOPHILS % 0.1 % (0.0-2.0); HEMATOCRIT 37.9 % (42.0-52.0); HEMOGLOBIN 12.7 g/dl (14.0-18.0); LYMPHOCYTES # 1.7 10^3/ul (0.8-2.9); LYMPHOCYTES % 7.5 % (15.0-51.0); MEAN CORPUSCULAR HEMOGLOBIN 28.3 pg (29.0-33.0); MEAN CORPUSCULAR HGB CONC 33.5 g/dl (32.0-37.0); MEAN CORPUSCULAR VOLUME 84.5 fl (82.0-101.0); MONOCYTE # 1.2 10^3/ul (0.3-0.9); MONOCYTES % 5.5 % (0.0-11.0); NEUTROPHIL # 19.2 10^3/ul (1.6-7.5); NEUTROPHILS % 86.9 % (39.0-77.0); PLATELET COUNT 282 10^3/UL (140-440); RED BLOOD COUNT 4.49 10^6/ul (4.70-6.10); RED CELL DISTRIBUTION WIDTH 15.9 % (11.5-14.5); UNCORRECTED WBC 22.1 10^3/ul (4.8-10.8); WHITE BLOOD COUNT 22.1 10^3/ul (4.8-10.8)
[2016-03-14 05:11] LABS: ALBUMIN 3.2 g/dl (3.3-4.9)
[2016-03-14 05:12] LABS: POTASSIUM 4.4 mmol/L (3.5-5.1)
[2016-03-14] MEDS: HEPARIN 5,000 UNIT/0.5 ML SYG SC SCH ×3 (05:13→21:08)
[2016-03-14 05:14] LABS: ALBUMIN/GLOBULIN RATIO 0.84; BILIRUBIN,INDIRECT 0.5 mg/dl (0-1.1); BILIRUBIN,TOTAL 0.5 mg/dl (0.2-1.3)
[2016-03-14 05:17] LABS: AADO2 Arterial 127.3 mmHg (7.0-24.0); Allen Test ACCEPTAB; Arterial Base Excess -3.7 mmol/L (-3.0-3); Arterial COHb 0.1 % (0.0-3.0); Arterial Fraction of Oxyhgb 97.9 % (93.0-99.0); Arterial HCO3 20.2 mmol/L (22.0-26.0); Arterial MetHb 0.1 % (0.0-1.5); Arterial Total Hemglobin 13.6 g/dl (12.0-18.0); MODE VENT - AC
[2016-03-14] MEDS: IPRATROPIUM (HFA) 12.9 GM INHALER INH SCH ×5 (05:32→21:56)
[2016-03-14] MEDS: ALBUTEROL HFA 8 GM INHALER INH SCH ×5 (05:32→21:57)
[2016-03-14 05:45] LABS: CONDITION 1; LH ANALYZER COMMENTS 1
[2016-03-14] MEDS: SOD CHLORIDE 0.9% 1,000 ML IV SCH ×2 (06:49→15:34)
--- NOTE | 2016-03-14 07:23 | CONS ---
Date/Time of Note Date/Time of Note DATE: 03/14/16 TIME: 07:19 Assessment/Plan Assessment/Plan Additional Assessment/Plan Assessment 1. 2. 3. 4. 5. 6. Plan Assessment and recommendations; 1. Vision admitted with cardiac arrest underwent CPR possibly causing significant anoxic encephalopathy. Next 2. Mild pulmonary edema is seen on chest x-ray from yesterday. 3. Possibly aspiration pneumonia. 4. History of cardia myopathy. Cardiac arrhythmia is the likely precipitating event for cardiac arrest. 5. Patient taken off hypothermic protocol still remains completely unresponsive. 6. Mild respiratory alkalosis. Continue current supportive care decrease assist-control rate to 20 and a new current other ventilator settings, antibiotics. Other supportive measures. Obtain a follow-up chest x-ray. Weaning from mechanical ventilation will depend upon adequate mental status recovery. Prognosis is poor. Consultation Date/Type/Reason Admit Date/Time Mar 11, 2016 at 22:10 Initial Consult Date Type of Consultation: Cardiology 24 HR Interval Summary Free Text/Dictation Patient condition remains critical. Still completely unresponsive. Patient has been taken off hypothermic protocol. Currently on no sedation and still totally unresponsive. Has remained hemodynamically stable. Without any evidence of cardiac arrhythmia. General examination; middle aged man or intubated unresponsive. Exam/Review of Systems Vital Signs Vitals Vital Signs Date Time Temp Pulse Resp B/P Pulse Ox O2 Delivery O2 Flow Rate FiO2 03/14/16 06:00 88 27 134/95 100 Mechanical Ventilator 03/14/16 05:33 40 03/14/16 04:00 99.3 03/11/16 20:50 15 Intake and Output 03/13/16 03/13/16 03/14/16 15:00 23:00 07:00 Intake Total 995.5 ml 783.1 ml 764 ml Output Total 170 ml 185 ml 116 ml Balance 825.5 ml 598.1 ml 648 ml Exam HEENT examination; supple neck. No lymphadenopathy. Midline trachea. Pupils are midsize nonreactive to light. Orally intubated. No neck bruits. No lymphadenopathy. Chest examination; diminished but clear breath sounds bilaterally. S1-S2 audible no murmurs regular rhythm. Abdomen; soft, protuberant. No organomegaly. Bowel sounds audible. Extremity examination; no peripheral edema. Pulses 2+ bilaterally. PROFESSOR OF PUBLIC ADMINISTRATION examination; patient currently unresponsive. Results Result Diagram: 03/14/16 0430 03/14/16 0430 Results 24 hrs Laboratory Tests Test 03/13/16 09:32 03/13/16 09:33 03/13/16 10:55 03/13/16 11:16 Bedside Glucose 118 104 Arterial Blood HCO3 19.3 L Arterial Blood Base Excess -3.4 L Arterial Blood Oxygen Saturation 97.7 Dennis Test ACCEPTAB Arterial Blood Gas Puncture Site Right Radial Arterial Blood Carboxyhemoglobin 0.3 Arterial Blood Date Drawn 03/13/2016 9:30:29 AM Arterial Blood Methemoglobin 0.2 Arterial Blood pCO2 (Temp correct) 27.0 L Arterial Blood pH (Temp corrected) 7.466 H Arterial Blood pO2 (Temp corrected) 89.7 Blood Gas A-a O2 Differential 165.9 H Blood Gas Actual Respiration Rate 24 Blood Gas Critical Value Read Back Wesley CASTILLO RN Blood Gas Low PEEP Setting 5.0 Blood Gas Modality VENT - AC Blood Gas Notified Time 03/13/2016 9:42:59 AM Blood Gas Notified Whom RDIX Blood Gas Respiration Rate 24.0 Blood Gas Specimen Source Blood arterial Blood Gas Temperature 35.6 Blood Gas Tidal Volume 550.0 FiO2 40.0 Oxyhemoglobin Percent 97.2 Total Hemoglobin 14.3 Activated Partial Thromboplast Time 31.5 Amylase Level 101 Anion Gap 16 Basophils # 0.0 Basophils % 0.0 Blood Morphology Comment Blood Urea Nitrogen 12 Calcium Level 7.0 L Carbon Dioxide Level 23 Chloride Level 104 Creatinine 0.88 Eosinophils # 0.0 Eosinophils % 0.0 Fibrinogen 401.0 Glucose Level 121 Hematocrit 40.5 L Hemoglobin 13.5 L Lipase 14 L Lymphocytes # 0.9 Lymphocytes % 4.8 L Magnesium Level 1.6 L Mean Corpuscular Hemoglobin 27.9 L Mean Corpuscular Hemoglobin Concent 33.3 Mean Corpuscular Volume 83.9 Mean Platelet Volume 8.6 Monocytes # 0.8 Monocytes % 4.0 Neutrophils # 17.6 H Neutrophils % 91.2 H Nucleated Red Blood Cells # 0.0 Nucleated Red Blood Cells % 0.0 Phosphorus Level 2.4 L Platelet Count 278 Potassium Level 3.4 L Red Blood Count 4.82 Red Cell Distribution Width 15.3 H Sodium Level 140 Troponin I < 0.012 White Blood Count 19.3 H Test 03/13/16 12:12 03/13/16 12:51 03/13/16 15:52 03/13/16 18:38 Lactic Acid Level 2.4 H Bedside Glucose 109 143 133 Test 03/13/16 21:07 03/13/16 22:31 03/14/16 00:59 03/14/16 03:24 Bedside Glucose 162 155 118 107 Test 03/14/16 04:30 03/14/16 05:00 03/14/16 05:11 03/14/16 07:06 Alanine Aminotransferase (ALT/SGPT) 47 Albumin 3.2 L Albumin/Globulin Ratio 0.84 Alkaline Phosphatase 88 Anion Gap 16 Aspartate Amino Transf (AST/SGOT) 74 #H Basophils # 0.0 Basophils % 0.1 Blood Morphology Comment Blood Urea Nitrogen 18 Calcium Level 7.0 L Carbon Dioxide Level 24 Chloride Level 107 Creatinine 1.00 Direct Bilirubin 0.00 Eosinophils # 0.0 Eosinophils % 0.0 Globulin 3.80 H Glucose Level 100 Hematocrit 37.9 L Hemoglobin 12.7 L Indirect Bilirubin 0.5 Lactic Acid Level 2.2 Lymphocytes # 1.7 Lymphocytes % 7.5 L Mean Corpuscular Hemoglobin 28.3 L Mean Corpuscular Hemoglobin Concent 33.5 Mean Corpuscular Volume 84.5 Mean Platelet Volume 9.0 Monocytes # 1.2 H Monocytes % 5.5 Neutrophils # 19.2 H Neutrophils % 86.9 H Nucleated Red Blood Cells # 0.0 Nucleated Red Blood Cells % 0.0 Platelet Count 282 Potassium Level 4.4 Red Blood Count 4.49 L Red Cell Distribution Width 15.9 H Sodium Level 143 Total Bilirubin 0.5 Total Protein 7.0 White Blood Count 22.1 H Arterial Blood HCO3 20.2 L Arterial Blood Base Excess -3.7 L Arterial Blood Oxygen Saturation 98.1 H Dennis Test ACCEPTAB Arterial Blood Gas Puncture Site Right Radial Arterial Blood Carboxyhemoglobin 0.1 Arterial Blood Date Drawn 03/14/2016 5:00:38 AM Arterial Blood Methemoglobin 0.1 Arterial Blood pCO2 (Temp correct) 33.3 L Arterial Blood pH (Temp corrected) 7.401 Arterial Blood pO2 (Temp corrected) 119.6 H Blood Gas A-a O2 Differential 127.3 H Blood Gas Actual Respiration Rate 28 Blood Gas Low PEEP Setting 5.0 Blood Gas Modality VENT - AC Blood Gas Notified Time 03/14/2016 5:17:21 AM Blood Gas Notified Whom MA Blood Gas Respiration Rate 24.0 Blood Gas Specimen Source Blood arterial Blood Gas Temperature 37.0 Blood Gas Tidal Volume 550.0 FiO2 40.0 Oxyhemoglobin Percent 97.9 Total Hemoglobin 13.6 Bedside Glucose 116 114 Medications Medications Current Medications Ondansetron HCl 4 mg 4 mg Q6H PRN IV NAUSEA AND/OR VOMITING; Start 03/12/16 at 03:00 Sodium Chloride (NS) 1,000 ml @ 100 mls/hr Q10H IV Last administered on 06:49; Admin Dose 100 MLS/HR; Start 03/12/16 at 02:36 Meperidine HCl (Demerol) 12.5 mg Q4H PRN IV POST OPERATIVE SHIVERING; Start at 03:00 Meperidine HCl (Demerol) 25 mg Q4H PRN IV POST OPERATIVE SHIVERING; Start 03/12 at 03:00 Eye Lubricant (Akwa Oint) 1 applic Q6 BOTH EYES Last administered on 03/14/16 05:05; Admin Dose 1 APPLIC; Start 03/12/16 at 06:00 Eye Lubricant (Artificial Tears Oph) 2 drop Q6 BOTH EYES Last administered on 05:05; Admin Dose 2 DROP; Start 03/12/16 at 06:00 Dextrose (D50w Syringe) 25 ml Q15M PRN IV Till BS 80 mg/dL or above x2; Start 03/12/16 at 03:00 Dextrose 50 ml 50 ml Q15M PRN IV Till BS 80 mg/dL or above x2; Start 03/12/16 at 03:00 Vecuronium [place] 100 mg/ Dextrose 100 ml @ 4.5 mls/hr TITRATE IV Last administered on 03/13/16 04:12; Admin Dose 2.7 MLS/HR; Start 03/12/16 at 03:15 Piperacillin Sod/ Tazobactam Sod 100 ml @ 200 mls/hr Q6 IVPB Last administered on 03/14/16 05:05; Admin Dose 200 MLS/HR; Start 03/12/16 at 06:00 Propofol 100 ml @ 2.7 mls/hr Q12H IV ; Start 03/12/16 at 08:00 Midazolam HCl/ Dextrose (Versed/D5W) 50 ml @ 1 mls/hr TITRATE IV Last administered on 03/13/16 08:00; Admin Dose 5 MLS/HR; Start 03/12/16 at 09:00 Diagnostic Test (Pha) (Accucheck) 1 ea Q2H XX Last administered on 03/14/16 07 :06; Admin Dose 1 EA; Start 03/13/16 at 09:00 Heparin Sodium (Porcine) (Heparin (5000 Units/0.5 ml)) 5,000 unit Q8 SC Last administered on 03/14/16 05:13; Admin Dose 5,000 UNIT; Start 03/13/16 at 14:00 Famotidine (Pepcid Iv) 20 mg BID IV Last administered on 03/13/16 20:49; Admin Dose 20 MG; Start 03/13/16 at 09:00 Amiodarone HCl (Cordarone) 400 mg BID NGT Last administered on 03/13/16 20:43 ; Admin Dose 400 MG; Start 03/13/16 at 21:00 Carvedilol (Coreg) 3.125 mg BID NGT Last administered on 03/13/16 20:43; Admin Dose 3.125 MG; Start 03/13/16 at 21:00 Lisinopril (Zestril) 2.5 mg DAILY NGT ; Start 03/14/16 at 09:00 Acetaminophen (Tylenol Liquid) 650 mg Q4H PRN NGT TEMP > 37C; Start 03/13/16 at 20:02 Acetaminophen (Tylenol Liquid) 500 mg Q6H NGT Last administered on 03/14/16 01 :52; Admin Dose 500 MG; Start 03/13/16 at 20:02 Ipratropium [place] (Atrovent Hfa) 4 puff Q4 INH Last administered on 05:32; Admin Dose 4 PUFF; Start 03/14/16 at 05:00 Glycopyrrolate (Robinul) 0.2 mg Q6H IV Last administered on 03/14/16 04:14; Admin Dose 0.2 MG; Start 03/14/16 at 03:30 Glycopyrrolate (Robinul) 0.2 mg PRN PRN IV PRN SECRETIONS; Start 03/14/16 at 03 :30 IRENE FORRESTER Mar 14, 2016 07:23
[2016-03-14] MEDS: PROPOFOL 100 ML IV SCH ×2 (08:00→20:00)
[2016-03-14] MEDS: AMIODARONE 200 MG TAB NGT SCH ×2 (08:40→19:44)
[2016-03-14] MEDS: LISINOPRIL 5 MG TAB NGT SCH (08:44)
--- NOTE | 2016-03-14 08:49 | RADRPT ---
PROCEDURE: XR Chest. CLINICAL INDICATION: Cardiac arrest. Followup TECHNIQUE: Single AP portable chest COMPARISON: 03/13/2016 FINDINGS: Cardiomegaly. The endotracheal and NG tubes are in stable position. There is little interval carvajal e and small bilateral pleural effusions vascular congestion compatible with mild CHF. No focal cons olidation. . No pneumothorax. The osseous structures and soft tissues are unremarkable. IMPRESSION: 1. Mild persistent CHF without significant interval change. Support devices in stable position. RPTAT:AAJJ Jennifer Roque Physician Date Time Electronically viewed and signed by Physician Chencho on 03/14/2016 08:49 ANU/
--- NOTE | 2016-03-14 08:52 | RADRPT ---
PROCEDURE: XR Chest. CLINICAL INDICATION: Evaluate intubation. Patient on ventilator. Pneumothorax. TECHNIQUE: Single AP portable chest COMPARISON: 03/14/2016 FINDINGS: The cardiac silhouette is enlarged. The endotracheal tube tip is 3.7 cm above the len. NG tube is again noted place. Grossly stable appearance of bilateral perihilar interstitial and alveolar ai r space disease with small pleural effusions most compatible with pulmonary edema and CHF. No signi ficant interval change. . No pneumothorax. The osseous structures and soft tissues are unremarkable . IMPRESSION: 1. Stable appearance of pulmonary edema and bilateral air space disease suggestive of CHF. 2. Endotracheal tube tip 3.7 cm above the len.. RPTAT:AAJJ Physician Chencho Date Time Electronically viewed and signed by Physician Chencho on 03/14/2016 08:52 ANU/
[2016-03-14] MEDS: FAMOTIDINE 20 MG INJ IV SCH ×2 (10:59→19:44)
--- NOTE | 2016-03-14 12:08 | PN ---
Date/Time of Note Date/Time of Note DATE: 03/14/16 TIME: 12:01 Assessment/Plan VTE Prophylaxis VTE Prophylaxis Intervention: SCD's Lines/Catheters IV [facility] Type (from [facility] Central Line Central line still needed: Yes Urinary Cath still in place: Yes Reason Cath still needed: urinary retention Assessment/Plan Chief Complaint/Hosp Course Assessment/Plan: 40 yo M who suddenly collapsed managed for: 1. PEA cardiac arrest status post 2 rounds of epinephrine with ROSC (return of spontaneous circulation) - Likely 2/2 arrhythmia, was on Hypothermia protocol but now off x 24 hrs. Per CV No evidence of acute HI though patient has known CAD. - f/u Cv rec's, PO amiodarone, Coreg PO 2. Vent dependent respiratory failure 2/2 #1 - L sided infiltrates concerning for aspiration pneumonia. - continue IV abx, f/u pulm rec's - wean per pulm rec's 3. Atrial fibrillation with rapid ventricular response - now Rate controlled and now on PO Amiodarone - monitor,m f/u CV rec's 4. SIRS with severe Lactic acidosis 2/2 #1 - improving - monitor 5. Diabetes Type 2 - was on insulin IV drip - will switch to ISS, lantus, check A1c 6. HTN >borderline hypotensive - now improvede bp - continue PO coreg, amiodarone 7. Known CAD - S/p Pacemaker - f/u CV rec's 8. Anion gap metabolic acidosis: resolved - monitor 9. Likely anoxic brain injury. - will get EEG and neuro consult 10. Transient Shock likely Cardiogenic: resolved - monitor Continue Close ICU care and supportive care Prophylaxis: Heparin and Pepcid CRITICAL CARE TIME: 45 mins today Problems: Subjective 24 Hr Interval Summary Free Text/Dictation Pt off hypothermia protocol since yesterday, still intubated. No acute events overnight. Exam/Review of Systems Vital Signs Vitals Vital Signs Date Time Temp Pulse Resp B/P Pulse Ox O2 Delivery O2 Flow Rate FiO2 03/14/16 11:20 79 20 100 30 03/14/16 08:00 99.2 111/74 Mechanical Ventilator 03/11/16 20:50 15 Intake and Output 03/13/16 03/13/16 03/14/16 15:00 23:00 07:00 Intake Total 995.5 ml 783.1 ml 764 ml Output Total 170 ml 185 ml 116 ml Balance 825.5 ml 598.1 ml 648 ml Exam GENERAL: Intubated, unresponsive, Obese HEENT: No obvious head deformity. CARDIOVASCULAR: Irregularly irregular and tachycardic. LUNGS: Diminished breath sounds at the bases bilaterally. ABDOMEN: Soft, obese, nondistended. EXTREMITIES: No edema. NEUROLOGIC: The patient unresponsive and paralysed per protocol Results Result Diagram: 03/14/16 0430 03/14/16 0430 Results 24 hrs Laboratory Tests Test 03/13/16 12:12 03/13/16 12:51 03/13/16 15:52 03/13/16 18:38 Lactic Acid Level 2.4 H Bedside Glucose 109 143 133 Test 03/13/16 21:07 03/13/16 22:31 03/14/16 00:59 03/14/16 03:24 Bedside Glucose 162 155 118 107 Test 03/14/16 04:30 03/14/16 05:00 03/14/16 05:11 03/14/16 07:06 Alanine Aminotransferase (ALT/SGPT) 47 Albumin 3.2 L Albumin/Globulin Ratio 0.84 Alkaline Phosphatase 88 Anion Gap 16 Aspartate Amino Transf (AST/SGOT) 74 #H Basophils # 0.0 Basophils % 0.1 Blood Morphology Comment Blood Urea Nitrogen 18 Calcium Level 7.0 L Carbon Dioxide Level 24 Chloride Level 107 Creatinine 1.00 Direct Bilirubin 0.00 Eosinophils # 0.0 Eosinophils % 0.0 Globulin 3.80 H Glucose Level 100 Hematocrit 37.9 L Hemoglobin 12.7 L Indirect Bilirubin 0.5 Lactic Acid Level 2.2 Lymphocytes # 1.7 Lymphocytes % 7.5 L Mean Corpuscular Hemoglobin 28.3 L Mean Corpuscular Hemoglobin Concent 33.5 Mean Corpuscular Volume 84.5 Mean Platelet Volume 9.0 Monocytes # 1.2 H Monocytes % 5.5 Neutrophils # 19.2 H Neutrophils % 86.9 H Nucleated Red Blood Cells # 0.0 Nucleated Red Blood Cells % 0.0 Platelet Count 282 Potassium Level 4.4 Red Blood Count 4.49 L Red Cell Distribution Width 15.9 H Sodium Level 143 Total Bilirubin 0.5 Total Protein 7.0 White Blood Count 22.1 H Arterial Blood HCO3 20.2 L Arterial Blood Base Excess -3.7 L Arterial Blood Oxygen Saturation 98.1 H Dennis Test ACCEPTAB Arterial Blood Gas Puncture Site Right Radial Arterial Blood Carboxyhemoglobin 0.1 Arterial Blood Date Drawn 03/14/2016 5:00:38 AM Arterial Blood Methemoglobin 0.1 Arterial Blood pCO2 (Temp correct) 33.3 L Arterial Blood pH (Temp corrected) 7.401 Arterial Blood pO2 (Temp corrected) 119.6 H Blood Gas A-a O2 Differential 127.3 H Blood Gas Actual Respiration Rate 28 Blood Gas Low PEEP Setting 5.0 Blood Gas Modality VENT - AC Blood Gas Notified Time 03/14/2016 5:17:21 AM Blood Gas Notified Whom MA Blood Gas Respiration Rate 24.0 Blood Gas Specimen Source Blood arterial Blood Gas Temperature 37.0 Blood Gas Tidal Volume 550.0 FiO2 40.0 Oxyhemoglobin Percent 97.9 Total Hemoglobin 13.6 Bedside Glucose 116 114 Test 03/14/16 08:43 03/14/16 10:55 Bedside Glucose 89 141 Medications Medications Current Medications Ondansetron HCl 4 mg 4 mg Q6H PRN IV NAUSEA AND/OR VOMITING; Start 03/12/16 at 03:00 Sodium Chloride (NS) 1,000 ml @ 100 mls/hr Q10H IV Last administered on 06:49; Admin Dose 100 MLS/HR; Start 03/12/16 at 02:36 Meperidine HCl (Demerol) 12.5 mg Q4H PRN IV POST OPERATIVE SHIVERING; Start at 03:00 Meperidine HCl (Demerol) 25 mg Q4H PRN IV POST OPERATIVE SHIVERING; Start 03/12 at 03:00 Eye Lubricant (Akwa Oint) 1 applic Q6 BOTH EYES Last administered on 03/14/16 10:59; Admin Dose 1 APPLIC; Start 03/12/16 at 06:00 Eye Lubricant (Artificial Tears Oph) 2 drop Q6 BOTH EYES Last administered on 10:59; Admin Dose 2 DROP; Start 03/12/16 at 06:00 Dextrose (D50w Syringe) 25 ml Q15M PRN IV Till BS 80 mg/dL or above x2; Start 03/12/16 at 03:00 Dextrose 50 ml 50 ml Q15M PRN IV Till BS 80 mg/dL or above x2; Start 03/12/16 at 03:00 Vecuronium [place] 100 mg/ Dextrose 100 ml @ 4.5 mls/hr TITRATE IV Last administered on 03/13/16 04:12; Admin Dose 2.7 MLS/HR; Start 03/12/16 at 03:15 Piperacillin Sod/ Tazobactam Sod 100 ml @ 200 mls/hr Q6 IVPB Last administered on 03/14/16 11:00; Admin Dose 200 MLS/HR; Start 03/12/16 at 06:00 Propofol 100 ml @ 2.7 mls/hr Q12H IV ; Start 03/12/16 at 08:00 Midazolam HCl/ Dextrose (Versed/D5W) 50 ml @ 1 mls/hr TITRATE IV Last administered on 03/13/16 08:00; Admin Dose 5 MLS/HR; Start 03/12/16 at 09:00 Diagnostic Test (Pha) (Accucheck) 1 ea Q2H XX Last administered on 03/14/16 10 :59; Admin Dose 1 EA; Start 03/13/16 at 09:00 Heparin Sodium (Porcine) (Heparin (5000 Units/0.5 ml)) 5,000 unit Q8 SC Last administered on 03/14/16 05:13; Admin Dose 5,000 UNIT; Start 03/13/16 at 14:00 Famotidine (Pepcid Iv) 20 mg BID IV Last administered on 03/14/16 10:59; Admin Dose 20 MG; Start 03/13/16 at 09:00 Amiodarone HCl (Cordarone) 400 mg BID NGT Last administered on 03/14/16 08:40 ; Admin Dose 400 MG; Start 03/13/16 at 21:00 Carvedilol (Coreg) 3.125 mg BID NGT Last administered on 03/14/16 08:41; Admin Dose 3.125 MG; Start 03/13/16 at 21:00 Lisinopril (Zestril) 2.5 mg DAILY NGT Last administered on 03/14/16 08:44; Admin Dose 2.5 MG; Start 03/14/16 at 09:00 Acetaminophen (Tylenol Liquid) 650 mg Q4H PRN NGT TEMP > 37C; Start 03/13/16 at 20:02 Acetaminophen (Tylenol Liquid) 500 mg Q6H NGT Last administered on 03/14/16 08 :41; Admin Dose 500 MG; Start 03/13/16 at 20:02 Ipratropium [place] (Atrovent Hfa) 4 puff Q4 INH Last administered on 09:23; Admin Dose 4 PUFF; Start 03/14/16 at 05:00 Glycopyrrolate (Robinul) 0.2 mg Q6H IV Last administered on 03/14/16 08:44; Admin Dose 0.2 MG; Start 03/14/16 at 03:30 Glycopyrrolate (Robinul) 0.2 mg PRN PRN IV PRN SECRETIONS; Start 03/14/16 at 03 :30 Insulin Glargine (Lantus) 20 unit DAILY SC ; Start 03/14/16 at 12:00; Status UNV Insulin Aspart (Novolog Insulin Pen) NOVOLOG *MILD* ALGORI... Q4 SC ; Start at 13:00; Status UNV Miscellaneous Information (* Miscellaneous Pharmacy Order) HYPOGLYCEMIA PROTOCOL w... ONCE ONCE XX ; Start 03/14/16 at 12:00; Stop 03/14/16 at 12:01; Status UNV Miscellaneous Information (* Miscellaneous Pharmacy Order) Discontinue Glyburide , Glipizide,... ONCE ONCE XX ; Start 03/14/16 at 12:00; Stop 03/14/16 at 12:01 ; Status UNV Miscellaneous Information (* Miscellaneous Pharmacy Order) Discontinue all previ... ONCE ONCE XX ; Start 03/14/16 at 12:00; Stop 03/14/16 at 12:01; Status UNV JT LEÓN Mar 14, 2016 12:07
[2016-03-14] MEDS ORDERED: GLUCOSE GEL 15 GRAM TUBE PO PRN ×2 (12:30)
[2016-03-14] MEDS ORDERED: GLUCOSE GEL 15 GRAM TUBE BUCCAL PRN (12:30)
[2016-03-14] MEDS ORDERED: DEXTROSE 50% 50 ML SYRINGE IV PRN ×2 (12:30)
[2016-03-14] MEDS ORDERED: GLUCAGON 1 MG INJ IM PRN (12:30)
[2016-03-14] MEDS: INSULIN ASPART [NOVOLOG] 3 ML PEN SC SCH ×3 (13:00→21:04)
[2016-03-14] MEDS: INSULIN GLARGINE [LANtus] 3 ML PEN SC SCH (13:23)
--- NOTE | 2016-03-14 16:31 | CONS ---
Date/Time of Note Date/Time of Note DATE: 03/14/16 TIME: 16:24 Assessment/Plan Assessment/Plan Chief Complaint/Hosp Course 40 year old M with hx of HTN, DM, previous SD, cardiomyopathy previous SD s/p PPM admitted with PEA arrest, ROSC after 2 rounds of epinephrine. He is s/p hypothermia protocol for 24 hours, neurologic exam remains poor: absent corneals and gag. -Initial Head CT unrevealing -Routine EEG pending for brain evaluation -poor prognosis for neurologic recovery, will follow Problems: Consultation Date/Type/Reason Admit Date/Time Mar 11, 2016 at 22:10 Date of Consultation: Mar 14, 2016 Type of Consultation: Neurology Reason for Consultation anoxic injury Referring Provider: JT LEÓN Hx of Present Illness 40 year old male with hx of DM, HTN, cardiomyopathy with SD 2016 s/p PPM admitted after cardiac arrest on arrival of EMS he had PEA arrest with apnea , he had ROSC after 2 rounds of epinephrine. On arrival he was placed on hypothermia protocol, remains intubated off sedation and unresponsive. No seizure activity described. Neurology was consulted to evaluate for anoxic injury. Subjective hx not possible: pt critical Psychological: other (intubated, sedated) Past Medical History SD cardiomyopathy DM Exam/Review of Systems Vital Signs Vitals Vital Signs Date Time Temp Pulse Resp B/P Pulse Ox O2 Delivery O2 Flow Rate FiO2 03/14/16 15:20 107 20 100 30 03/14/16 12:00 99.8 95/60 Mechanical Ventilator 03/11/16 20:50 15 Intake and Output 03/13/16 03/13/16 03/14/16 15:00 23:00 07:00 Intake Total 995.5 ml 783.1 ml 764 ml Output Total 170 ml 185 ml 116 ml Balance 825.5 ml 598.1 ml 648 ml Exam intubated no sedation unresponsive to verbal stimuli pupils dilated 4 mm non reactive absent corneals absent gag reflex no withdrawal to noxious in any extremity diffuse edema Results Result Diagram: 03/14/16 0430 03/14/16 0430 Results 24 hrs Laboratory Tests Test 03/13/16 18:38 03/13/16 21:07 03/13/16 22:31 03/14/16 00:59 Bedside Glucose 133 162 155 118 Test 03/14/16 03:24 03/14/16 04:30 03/14/16 05:00 03/14/16 05:11 Bedside Glucose 107 116 Alanine Aminotransferase (ALT/SGPT) 47 Albumin 3.2 L Albumin/Globulin Ratio 0.84 Alkaline Phosphatase 88 Anion Gap 16 Aspartate Amino Transf (AST/SGOT) 74 #H Basophils # 0.0 Basophils % 0.1 Blood Morphology Comment Blood Urea Nitrogen 18 Calcium Level 7.0 L Carbon Dioxide Level 24 Chloride Level 107 Creatinine 1.00 Direct Bilirubin 0.00 Eosinophils # 0.0 Eosinophils % 0.0 Globulin 3.80 H Glucose Level 100 Hematocrit 37.9 L Hemoglobin 12.7 L Hemoglobin A1c 8.0 H Indirect Bilirubin 0.5 Lactic Acid Level 2.2 Lymphocytes # 1.7 Lymphocytes % 7.5 L Mean Corpuscular Hemoglobin 28.3 L Mean Corpuscular Hemoglobin Concent 33.5 Mean Corpuscular Volume 84.5 Mean Platelet Volume 9.0 Monocytes # 1.2 H Monocytes % 5.5 Neutrophils # 19.2 H Neutrophils % 86.9 H Nucleated Red Blood Cells # 0.0 Nucleated Red Blood Cells % 0.0 Platelet Count 282 Potassium Level 4.4 Red Blood Count 4.49 L Red Cell Distribution Width 15.9 H Sodium Level 143 Total Bilirubin 0.5 Total Protein 7.0 White Blood Count 22.1 H Arterial Blood HCO3 20.2 L Arterial Blood Base Excess -3.7 L Arterial Blood Oxygen Saturation 98.1 H Dennis Test ACCEPTAB Arterial Blood Gas Puncture Site Right Radial Arterial Blood Carboxyhemoglobin 0.1 Arterial Blood Date Drawn 03/14/2016 5:00:38 AM Arterial Blood Methemoglobin 0.1 Arterial Blood pCO2 (Temp correct) 33.3 L Arterial Blood pH (Temp corrected) 7.401 Arterial Blood pO2 (Temp corrected) 119.6 H Blood Gas A-a O2 Differential 127.3 H Blood Gas Actual Respiration Rate 28 Blood Gas Low PEEP Setting 5.0 Blood Gas Modality VENT - AC Blood Gas Notified Time 03/14/2016 5:17:21 AM Blood Gas Notified Whom MA Blood Gas Respiration Rate 24.0 Blood Gas Specimen Source Blood arterial Blood Gas Temperature 37.0 Blood Gas Tidal Volume 550.0 FiO2 40.0 Oxyhemoglobin Percent 97.9 Total Hemoglobin 13.6 Test 03/14/16 07:06 03/14/16 08:43 03/14/16 10:55 03/14/16 13:20 Bedside Glucose 114 89 141 128 Medications Medications Current Medications Ondansetron HCl 4 mg 4 mg Q6H PRN IV NAUSEA AND/OR VOMITING; Start 03/12/16 at 03:00 Sodium Chloride (NS) 1,000 ml @ 100 mls/hr Q10H IV Last administered on 15:34; Admin Dose 100 MLS/HR; Start 03/12/16 at 02:36 Meperidine HCl (Demerol) 12.5 mg Q4H PRN IV POST OPERATIVE SHIVERING; Start at 03:00 Meperidine HCl (Demerol) 25 mg Q4H PRN IV POST OPERATIVE SHIVERING; Start 03/12 at 03:00 Eye Lubricant (Akwa Oint) 1 applic Q6 BOTH EYES Last administered on 03/14/16 10:59; Admin Dose 1 APPLIC; Start 03/12/16 at 06:00 Eye Lubricant 2 drop 2 drop Q6 BOTH EYES Last administered on 03/14/16 10:59; Admin Dose 2 DROP; Start 03/12/16 at 06:00 Vecuronium [place] 100 mg/ Dextrose 100 ml @ 4.5 mls/hr TITRATE IV Last administered on 03/13/16 04:12; Admin Dose 2.7 MLS/HR; Start 03/12/16 at 03:15 Piperacillin Sod/ Tazobactam Sod 100 ml @ 200 mls/hr Q6 IVPB Last administered on 03/14/16 11:00; Admin Dose 200 MLS/HR; Start 03/12/16 at 06:00 Propofol 100 ml @ 2.7 mls/hr Q12H IV ; Start 03/12/16 at 08:00 Midazolam HCl/ Dextrose (Versed/D5W) 50 ml @ 1 mls/hr TITRATE IV Last administered on 03/13/16 08:00; Admin Dose 5 MLS/HR; Start 03/12/16 at 09:00 Heparin Sodium (Porcine) (Heparin (5000 Units/0.5 ml)) 5,000 unit Q8 SC Last administered on 03/14/16 15:24; Admin Dose 5,000 UNIT; Start 03/13/16 at 14:00 Famotidine (Pepcid Iv) 20 mg BID IV Last administered on 03/14/16 10:59; Admin Dose 20 MG; Start 03/13/16 at 09:00 Amiodarone HCl (Cordarone) 400 mg BID NGT Last administered on 03/14/16 08:40 ; Admin Dose 400 MG; Start 03/13/16 at 21:00 Carvedilol (Coreg) 3.125 mg BID NGT Last administered on 03/14/16 08:41; Admin Dose 3.125 MG; Start 03/13/16 at 21:00 Lisinopril (Zestril) 2.5 mg DAILY NGT Last administered on 03/14/16 08:44; Admin Dose 2.5 MG; Start 03/14/16 at 09:00 Acetaminophen (Tylenol Liquid) 650 mg Q4H PRN NGT TEMP > 37C; Start 03/13/16 at 20:02 Acetaminophen (Tylenol Liquid) 500 mg Q6H NGT Last administered on 03/14/16 15 :23; Admin Dose 500 MG; Start 03/13/16 at 20:02 Ipratropium [place] (Atrovent Hfa) 4 puff Q4 INH Last administered on 12:55; Admin Dose 4 PUFF; Start 03/14/16 at 05:00 Glycopyrrolate (Robinul) 0.2 mg Q6H IV Last administered on 03/14/16 15:38; Admin Dose 0.2 MG; Start 03/14/16 at 03:30 Glycopyrrolate (Robinul) 0.2 mg PRN PRN IV PRN SECRETIONS; Start 03/14/16 at 03 :30 Insulin Glargine (Lantus) 20 unit DAILY SC Last administered on 03/14/16 13:23 ; Admin Dose 20 UNIT; Start 03/14/16 at 12:00 Insulin Aspart (Novolog Insulin Pen) NOVOLOG *MILD* ALGORI... Q4 SC ; Start at 13:00 Miscellaneous Information 1 ea NOTE XX ; Start 03/14/16 at 12:30 Glucose (Glutose) 15 gm Q15M PRN PO DECREASED GLUCOSE; Start 03/14/16 at 12:30 Glucose (Glutose) 22.5 gm Q15M PRN PO DECREASED GLUCOSE; Start 03/14/16 at 12: 30 Dextrose (D50w Syringe) 25 ml Q15M PRN IV DECREASED GLUCOSE; Start 03/14/16 at 12:30 Dextrose (D50w Syringe) 50 ml Q15M PRN IV DECREASED GLUCOSE; Start 03/14/16 at 12:30 Glucagon (Glucagen) 1 mg Q15M PRN IM DECREASED GLUCOSE; Start 03/14/16 at 12:30 Glucose (Glutose) 15 gm Q15M PRN BUCCAL DECREASED GLUCOSE; Start 03/14/16 at 12 :30 KAILYN PENA MD Mar 14, 2016 16:31
[2016-03-15] VITALS (89 sets, daily range): BP systolic 102–163; BP diastolic 56–101; PULSE 35–143; RESP 19–25
[2016-03-15] MEDS: IPRATROPIUM (HFA) 12.9 GM INHALER INH SCH ×6 (01:22→21:02)
[2016-03-15] MEDS: ALBUTEROL HFA 8 GM INHALER INH SCH ×6 (01:22→21:02)
[2016-03-15] MEDS: INSULIN ASPART [NOVOLOG] 3 ML PEN SC SCH ×6 (01:32→20:21)
[2016-03-15] MEDS: ACETAMINOPHEN 650MG/20.3ML CUP NGT SCH ×2 (01:34→08:02)
[2016-03-15] MEDS: GLYCOPYRROLATE 0.4 MG INJ IV SCH ×4 (03:38→22:14)
[2016-03-15] MEDS: SOD CHLORIDE 0.9% 1,000 ML IV SCH ×2 (04:33→10:36)
[2016-03-15 05:23] LABS: BASOPHILS % 0.3 % (0.0-2.0); HEMATOCRIT 34.4 % (42.0-52.0); HEMOGLOBIN 11.4 g/dl (14.0-18.0); LYMPHOCYTES # 2.3 10^3/ul (0.8-2.9); LYMPHOCYTES % 16.4 % (15.0-51.0); MEAN CORPUSCULAR HEMOGLOBIN 28.4 pg (29.0-33.0); MEAN CORPUSCULAR HGB CONC 33.1 g/dl (32.0-37.0); MEAN CORPUSCULAR VOLUME 85.9 fl (82.0-101.0); MONOCYTES % 7.1 % (0.0-11.0); NEUTROPHIL # 10.7 10^3/ul (1.6-7.5); NEUTROPHILS % 76.2 % (39.0-77.0); PLATELET COUNT 253 10^3/UL (140-440); RED BLOOD COUNT 4.01 10^6/ul (4.70-6.10); RED CELL DISTRIBUTION WIDTH 16.2 % (11.5-14.5); UNCORRECTED WBC 14.1 10^3/ul (4.8-10.8); WHITE BLOOD COUNT 14.1 10^3/ul (4.8-10.8)
[2016-03-15 05:27] LABS: POTASSIUM 3.6 mmol/L (3.5-5.1)
[2016-03-15 05:30] LABS: CREATININE 0.93 mg/dl (0.61-1.24)
[2016-03-15 05:31] LABS: CALCIUM 6.8 mg/dl (8.4-10.2)
[2016-03-15] MEDS: PIPER-TAZO 3.375 GM IV (PMX) 100 ML IVPB SCH ×3 (05:43→17:45)
[2016-03-15] MEDS: HEPARIN 5,000 UNIT/0.5 ML SYG SC SCH ×3 (05:46→22:12)
[2016-03-15] MEDS: OCULAR LUBRICANT 3.5 GM OPH OINT BOTH EYES SCH ×3 (05:48→17:44)
[2016-03-15] MEDS: ARTIFICIAL TEARS 15 ML OPH BOTH EYES SCH ×3 (05:48→17:45)
[2016-03-15 05:58] LABS: CONDITION 1; LH ANALYZER COMMENTS 1
[2016-03-15] MEDS ORDERED: ATROPINE 1 MG INJ IV ONE (07:00)
[2016-03-15] MEDS ORDERED: ATROPINE 1 MG/10 ML SYRINGE IV ONE (07:00)
[2016-03-15] MEDS ORDERED: EPINEPHrine 0.1 MG/ML SYG ONE (07:30)
[2016-03-15] MEDS ORDERED: DOPamine-D5W 1.6 MG/ML 250 ML ONE (07:32)
--- NOTE | 2016-03-15 07:36 | CONS ---
Date/Time of Note Date/Time of Note DATE: 03/15/16 TIME: 07:30 Assessment/Plan Assessment/Plan Additional Assessment/Plan Assessment and recommendations; 1. Patient admitted admitted with cardiac arrest status post prolonged CPR resulting in severe anoxic brain injury. 2. Improving leukocytosis. 3. Episodes of sinus bradycardia likely indicative of underlying hypoxic brain injury versus underlying cardiac arrhythmia. Continue current treatment, ventilator settings. Patient is getting atropine on a as needed basis with a heart rate dipping below 50. External pacemaker has been applied. Coreg has been stopped. Prognosis is very poor. Consultation Date/Type/Reason Admit Date/Time Mar 11, 2016 at 22:10 Type of Consultation: Neurology Referring Provider: JT LEÓN 24 HR Interval Summary Free Text/Dictation Patient condition remains critical. Still requiring full ventilator support. Patient is having episodes of sinus bradycardia with heart rate dipping into the low 30s. Without any ensuing hypotension. No seizure activity noted. General examination; young, orally intubated, totally unresponsive. Exam/Review of Systems Vital Signs Vitals Vital Signs Date Time Temp Pulse Resp B/P Pulse Ox O2 Delivery O2 Flow Rate FiO2 03/15/16 06:36 36 03/15/16 06:30 20 116/86 100 Mechanical Ventilator 03/15/16 05:22 30 03/15/16 04:00 98.1 03/11/16 20:50 15 Intake and Output 03/14/16 03/14/16 03/15/16 15:00 23:00 07:00 Intake Total 800 ml 800 ml 600 ml Output Total 230 ml 342 ml 187 ml Balance 570 ml 458 ml 413 ml Exam HEENT examination; supple neck, pupils are midsize nonreactive to light. No neck masses. Or intubated. No thyromegaly. Supple neck. There is bilateral upward gaze. Chest examination; diminished but clear breath sounds bilaterally. S1-S2 audible no murmurs. Bradycardia with regular rhythm. Next Abdomen examination; soft, no organomegaly. Bowel sounds are audible. There is no scrotal or penile edema. Next Extremity examination; no peripheral edema, pulses 1+ bilaterally. Next CREDIT SPECIALIST examination; patient remains completely unresponsive. Ventilator settings are AC of 20 tidal volume 500 PEEP of 540% FiO2. Results Result Diagram: 03/15/16 0345 03/15/16 0345 Results 24 hrs Laboratory Tests Test 03/14/16 08:43 03/14/16 10:55 03/14/16 13:20 03/14/16 17:12 Bedside Glucose 89 141 128 120 Test 03/14/16 21:00 03/15/16 01:30 03/15/16 03:45 03/15/16 04:31 Bedside Glucose 144 151 123 Anion Gap 16 Basophils # 0.0 Basophils % 0.3 Blood Morphology Comment Blood Urea Nitrogen 21 H Calcium Level 6.8 L Carbon Dioxide Level 24 Chloride Level 109 Creatinine 0.93 Eosinophils # 0.0 Eosinophils % 0.0 Glucose Level 125 Hematocrit 34.4 L Hemoglobin 11.4 L Lymphocytes # 2.3 Lymphocytes % 16.4 Mean Corpuscular Hemoglobin 28.4 L Mean Corpuscular Hemoglobin Concent 33.1 Mean Corpuscular Volume 85.9 Mean Platelet Volume 9.0 Monocytes # 1.0 H Monocytes % 7.1 Neutrophils # 10.7 H Neutrophils % 76.2 Nucleated Red Blood Cells # 0.0 Nucleated Red Blood Cells % 0.0 Platelet Count 253 Potassium Level 3.6 Red Blood Count 4.01 L Red Cell Distribution Width 16.2 H Sodium Level 145 H White Blood Count 14.1 #H Medications Medications Current Medications Ondansetron HCl 4 mg 4 mg Q6H PRN IV NAUSEA AND/OR VOMITING; Start 03/12/16 at 03:00 Sodium Chloride (NS) 1,000 ml @ 100 mls/hr Q10H IV Last administered on 04:33; Admin Dose 100 MLS/HR; Start 03/12/16 at 02:36 Meperidine HCl (Demerol) 12.5 mg Q4H PRN IV POST OPERATIVE SHIVERING; Start at 03:00 Meperidine HCl (Demerol) 25 mg Q4H PRN IV POST OPERATIVE SHIVERING; Start 03/12 at 03:00 Eye Lubricant (Akwa Oint) 1 applic Q6 BOTH EYES Last administered on 03/15/16 05:48; Admin Dose 1 APPLIC; Start 03/12/16 at 06:00 Eye Lubricant 2 drop 2 drop Q6 BOTH EYES Last administered on 03/15/16 05:48; Admin Dose 2 DROP; Start 03/12/16 at 06:00 Vecuronium [place] 100 mg/ Dextrose 100 ml @ 4.5 mls/hr TITRATE IV Last administered on 03/13/16 04:12; Admin Dose 2.7 MLS/HR; Start 03/12/16 at 03:15 Piperacillin Sod/ Tazobactam Sod 100 ml @ 200 mls/hr Q6 IVPB Last administered on 03/15/16 05:43; Admin Dose 200 MLS/HR; Start 03/12/16 at 06:00 Propofol 100 ml @ 2.7 mls/hr Q12H IV ; Start 03/12/16 at 08:00 Midazolam HCl/ Dextrose (Versed/D5W) 50 ml @ 1 mls/hr TITRATE IV Last administered on 03/13/16 08:00; Admin Dose 5 MLS/HR; Start 03/12/16 at 09:00 Heparin Sodium (Porcine) (Heparin (5000 Units/0.5 ml)) 5,000 unit Q8 SC Last administered on 03/15/16 05:46; Admin Dose 5,000 UNIT; Start 03/13/16 at 14:00 Famotidine (Pepcid Iv) 20 mg BID IV Last administered on 03/14/16 19:44; Admin Dose 20 MG; Start 03/13/16 at 09:00 Amiodarone HCl (Cordarone) 400 mg BID NGT Last administered on 03/14/16 19:44 ; Admin Dose 400 MG; Start 03/13/16 at 21:00 Carvedilol (Coreg) 3.125 mg BID NGT Last administered on 03/14/16 19:44; Admin Dose 3.125 MG; Start 03/13/16 at 21:00 Lisinopril (Zestril) 2.5 mg DAILY NGT Last administered on 03/14/16 08:44; Admin Dose 2.5 MG; Start 03/14/16 at 09:00 Acetaminophen (Tylenol Liquid) 650 mg Q4H PRN NGT TEMP > 37C; Start 03/13/16 at 20:02 Acetaminophen (Tylenol Liquid) 500 mg Q6H NGT Last administered on 03/15/16 01 :34; Admin Dose 500 MG; Start 03/13/16 at 20:02 Ipratropium [place] (Atrovent Hfa) 4 puff Q4 INH Last administered on 05:23; Admin Dose 4 PUFF; Start 03/14/16 at 05:00 Glycopyrrolate (Robinul) 0.2 mg Q6H IV Last administered on 03/15/16 03:38; Admin Dose 0.2 MG; Start 03/14/16 at 03:30 Glycopyrrolate (Robinul) 0.2 mg PRN PRN IV PRN SECRETIONS; Start 03/14/16 at 03 :30 Insulin Glargine (Lantus) 20 unit DAILY SC Last administered on 03/14/16 13:23 ; Admin Dose 20 UNIT; Start 03/14/16 at 12:00 Insulin Aspart (Novolog Insulin Pen) NOVOLOG *MILD* ALGORI... Q4 SC Last administered on 03/15/16 01:32; Admin Dose 1 UNIT; Start 03/14/16 at 13:00 Miscellaneous Information 1 ea NOTE XX ; Start 03/14/16 at 12:30 Glucose (Glutose) 15 gm Q15M PRN PO DECREASED GLUCOSE; Start 03/14/16 at 12:30 Glucose (Glutose) 22.5 gm Q15M PRN PO DECREASED GLUCOSE; Start 03/14/16 at 12: 30 Dextrose (D50w Syringe) 25 ml Q15M PRN IV DECREASED GLUCOSE; Start 03/14/16 at 12:30 Dextrose (D50w Syringe) 50 ml Q15M PRN IV DECREASED GLUCOSE; Start 03/14/16 at 12:30 Glucagon (Glucagen) 1 mg Q15M PRN IM DECREASED GLUCOSE; Start 03/14/16 at 12:30 Glucose (Glutose) 15 gm Q15M PRN BUCCAL DECREASED GLUCOSE; Start 03/14/16 at 12 :30 IRENE FORRESTER Mar 15, 2016 07:36
[2016-03-15] MEDS: PROPOFOL 100 ML IV SCH (08:00)
[2016-03-15] MEDS: AMIODARONE 200 MG TAB NGT SCH ×2 (08:04→22:10)
[2016-03-15] MEDS: LISINOPRIL 5 MG TAB NGT SCH (08:15)
[2016-03-15] MEDS ORDERED: DOPamine-D5W 1.6 MG/ML 250 ML IV SCH (08:30)
[2016-03-15] MEDS: FAMOTIDINE 20 MG INJ IV SCH ×2 (09:00→20:22)
--- NOTE | 2016-03-15 11:04 | RADRPT ---
PROCEDURE: XR Chest. CLINICAL INDICATION: Pneumothorax. Patient on ventilator. Follow-up. TECHNIQUE: Single AP portable chest. COMPARISON: 03/14/2016 FINDINGS: The cardiac silhouette is enlarged but stable in size. Persistent vascular congestion and bilateral patchy interstitial and alveolar air space disease. Resolution of left pleural effusion. Endotrac heal tube tip 4 cm above the len. NG tube in stable position. No evidence of pneumothorax .The lungs are clear though pleural effusion or focal consolidation. No pneumothorax. The osseous structu res and soft tissues are unremarkable. IMPRESSION: 1. No evidence of pneumothorax. Support devices stable position. 2. Stable cardiomegaly, vascular congestion and bilateral patchy air space disease.. RPTAT:AAJJ Jennifer Roque Physician Date Time Electronically viewed and signed by Physician Chencho on 03/15/2016 11:04 ANU/
--- NOTE | 2016-03-15 11:46 | PN ---
Date/Time of Note Date/Time of Note DATE: 03/15/16 TIME: 11:42 Assessment/Plan VTE Prophylaxis VTE Prophylaxis Intervention: SCD's Lines/Catheters IV Catheter Type (from [facility]): Central Line Central line still needed: Yes Urinary Cath still in place: Yes Reason Cath still needed: urinary retention Assessment/Plan Chief Complaint/Hosp Course Assessment/Plan: 40 yo M who suddenly collapsed managed for: 1. PEA cardiac arrest status post 2 rounds of epinephrine with ROSC (return of spontaneous circulation) - Likely 2/2 arrhythmia, was on Hypothermia protocol but now off x 48 hrs. Per CV No evidence of acute NC though patient has known CAD. Had bradycardia last nght (now NSR) - f/u Cv rec's, holding amiodarone and Coreg given bradycardia yesterday, monitor 2. Vent dependent respiratory failure 2/2 #1 - L sided infiltrates concerning for aspiration pneumonia. - continue IV abx, f/u pulm rec's - wean per pulm rec's 3. Atrial fibrillation with rapid ventricular response - now Rate controlled and had been on PO Amiodarone (until anselmo episode last night) - monitor, f/u CV rec's 4. SIRS with severe Lactic acidosis 2/2 #1 - improving - monitor 5. Diabetes Type 2 - was on insulin IV drip - will switch to ISS, lantus, check A1c 6. HTN >borderline hypotensive - on low dose dopamine presently - try to wean pressor as tolerated, monitor bp 7. Known CAD - S/p Pacemaker - f/u CV rec's 8. Anion gap metabolic acidosis: resolved - monitor 9. Likely anoxic brain injury - appreciate Neuro consult - f/u EEG and neuro consult rec's. 10. Transient Shock likely Cardiogenic: resolved - monitor Continue Close ICU care and supportive care Prophylaxis: Heparin and Pepcid CRITICAL CARE TIME: 40 mins today Problems: Subjective 24 Hr Interval Summary Free Text/Dictation Pt seen by neuro team, had bradycardia last night, had to get atropine and now on low dose dopamine. Exam/Review of Systems Vital Signs Vitals Vital Signs Date Time Temp Pulse Resp B/P Pulse Ox O2 Delivery O2 Flow Rate FiO2 03/15/16 10:15 73 20 149/81 100 03/15/16 10:00 Mechanical Ventilator 03/15/16 09:00 98.0 03/15/16 05:22 30 03/11/16 20:50 15 Intake and Output 03/14/16 03/14/16 03/15/16 15:00 23:00 07:00 Intake Total 800 ml 800 ml 600 ml Output Total 230 ml 342 ml 217 ml Balance 570 ml 458 ml 383 ml Exam GENERAL: Intubated, unresponsive, Obese HEENT: No obvious head deformity. CARDIOVASCULAR: S1S2 RRR presently LUNGS: less diminished breath sounds at the bases bilaterally. ABDOMEN: Soft, obese, nondistended. EXTREMITIES: No edema. NEUROLOGIC: The patient unresponsive and paralysed per protocol Results Result Diagram: 03/15/16 0345 03/15/16 0345 Results 24 hrs Laboratory Tests Test 03/14/16 13:20 03/14/16 17:12 03/14/16 21:00 03/15/16 01:30 Bedside Glucose 128 120 144 151 Test 03/15/16 03:45 03/15/16 04:31 Anion Gap 16 Basophils # 0.0 Basophils % 0.3 Blood Morphology Comment Blood Urea Nitrogen 21 H Calcium Level 6.8 L Carbon Dioxide Level 24 Chloride Level 109 Creatinine 0.93 Eosinophils # 0.0 Eosinophils % 0.0 Glucose Level 125 Hematocrit 34.4 L Hemoglobin 11.4 L Lymphocytes # 2.3 Lymphocytes % 16.4 Mean Corpuscular Hemoglobin 28.4 L Mean Corpuscular Hemoglobin Concent 33.1 Mean Corpuscular Volume 85.9 Mean Platelet Volume 9.0 Monocytes # 1.0 H Monocytes % 7.1 Neutrophils # 10.7 H Neutrophils % 76.2 Nucleated Red Blood Cells # 0.0 Nucleated Red Blood Cells % 0.0 Platelet Count 253 Potassium Level 3.6 Red Blood Count 4.01 L Red Cell Distribution Width 16.2 H Sodium Level 145 H White Blood Count 14.1 #H Bedside Glucose 123 Medications Medications Current Medications Ondansetron HCl 4 mg 4 mg Q6H PRN IV NAUSEA AND/OR VOMITING; Start 03/12/16 at 03:00 Sodium Chloride (NS) 1,000 ml @ 100 mls/hr Q10H IV Last administered on t 04:33; Admin Dose 100 MLS/HR; Start 03/12/16 at 02:36 Meperidine HCl (Demerol) 12.5 mg Q4H PRN IV POST OPERATIVE SHIVERING; Start at 03:00 Meperidine HCl (Demerol) 25 mg Q4H PRN IV POST OPERATIVE SHIVERING; Start 03/12 at 03:00 Eye Lubricant (Akwa Oint) 1 applic Q6 BOTH EYES Last administered on 03/15/16 05:48; Admin Dose 1 APPLIC; Start 03/12/16 at 06:00 Eye Lubricant 2 drop 2 drop Q6 BOTH EYES Last administered on 03/15/16 05:48; Admin Dose 2 DROP; Start 03/12/16 at 06:[address] 100 mg/ Dextrose 100 ml @ 4.5 mls/hr TITRATE IV Last administered on 03/13/16 04:12; Admin Dose 2.7 MLS/HR; Start 03/12/16 at 03:15 Piperacillin Sod/ Tazobactam Sod 100 ml @ 200 mls/hr Q6 IVPB Last administered on 03/15/16 05:43; Admin Dose 200 MLS/HR; Start 03/12/16 at 06:00 Propofol 100 ml @ 2.7 mls/hr Q12H IV ; Start 03/12/16 at 08:00 Midazolam HCl/ Dextrose (Versed/D5W) 50 ml @ 1 mls/hr TITRATE IV Last administered on 03/13/16 08:00; Admin Dose 5 MLS/HR; Start 03/12/16 at 09:00 Heparin Sodium (Porcine) (Heparin (5000 Units/0.5 ml)) 5,000 unit Q8 SC Last administered on 03/15/16 05:46; Admin Dose 5,000 UNIT; Start 03/13/16 at 14:00 Famotidine (Pepcid Iv) 20 mg BID IV Last administered on 03/14/16 19:44; Admin Dose 20 MG; Start 03/13/16 at 09:00 Amiodarone HCl (Cordarone) 400 mg BID NGT Last administered on 03/14/16 19:44 ; Admin Dose 400 MG; Start 03/13/16 at 21:00 Carvedilol (Coreg) 3.125 mg BID NGT Last administered on 03/14/16 19:44; Admin Dose 3.125 MG; Start 03/13/16 at 21:00 Lisinopril (Zestril) 2.5 mg DAILY NGT Last administered on 03/14/16 08:44; Admin Dose 2.5 MG; Start 03/14/16 at 09:00 Acetaminophen (Tylenol Liquid) 650 mg Q4H PRN NGT TEMP > 37C; Start 03/13/16 at 20:02 Acetaminophen (Tylenol Liquid) 500 mg Q6H NGT Last administered on 03/15/16 01 :34; Admin Dose 500 MG; Start 03/13/16 at 20:[address] (Atrovent Hfa) 4 puff Q4 INH Last administered on 08:30; Admin Dose 4 PUFF; Start 03/14/16 at 05:00 Glycopyrrolate (Robinul) 0.2 mg Q6H IV Last administered on 03/15/16 03:38; Admin Dose 0.2 MG; Start 03/14/16 at 03:30 Glycopyrrolate (Robinul) 0.2 mg PRN PRN IV PRN SECRETIONS; Start 03/14/16 at 03 :30 Insulin Glargine (Lantus) 20 unit DAILY SC Last administered on 03/14/16 13:23 ; Admin Dose 20 UNIT; Start 03/14/16 at 12:00 Insulin Aspart (Novolog Insulin Pen) NOVOLOG *MILD* ALGORI... Q4 SC Last administered on 03/15/16 01:32; Admin Dose 1 UNIT; Start 03/14/16 at 13:00 Miscellaneous Information 1 ea NOTE XX ; Start 03/14/16 at 12:30 Glucose (Glutose) 15 gm Q15M PRN PO DECREASED GLUCOSE; Start 03/14/16 at 12:30 Glucose (Glutose) 22.5 gm Q15M PRN PO DECREASED GLUCOSE; Start 03/14/16 at 12: 30 Dextrose (D50w Syringe) 25 ml Q15M PRN IV DECREASED GLUCOSE; Start 03/14/16 at 12:30 Dextrose (D50w Syringe) 50 ml Q15M PRN IV DECREASED GLUCOSE; Start 03/14/16 at 12:30 Glucagon (Glucagen) 1 mg Q15M PRN IM DECREASED GLUCOSE; Start 03/14/16 at 12:30 Glucose 15 gm 15 gm Q15M PRN BUCCAL DECREASED GLUCOSE; Start 03/14/16 at 12:30 Dopamine HCl/ Dextrose 250 ml @ 6.75 mls/hr TITRATE IV Last administered on t 08:00; Admin Dose 6.75 MLS/HR; Start 03/15/16 at 08:30 JT LEÓN Mar 15, 2016 11:46
[2016-03-15 12:19] LABS: POTASSIUM 3.8 mmol/L (3.5-5.1)
[2016-03-15 12:21] LABS: CREATININE 0.74 mg/dl (0.61-1.24)
[2016-03-15 12:22] LABS: CALCIUM 7.1 mg/dl (8.4-10.2); PHOSPHORUS 2.1 mg/dl (2.5-4.9)
[2016-03-15] MEDS: INSULIN GLARGINE [LANtus] 3 ML PEN SC SCH (12:36)
--- NOTE | 2016-03-15 12:55 | CONS ---
Date/Time of Note Date/Time of Note DATE: 03/15/16 TIME: 12:52 Consult Date/Type/Reason Admit Date/Time Mar 11, 2016 at 22:10 Initial Consult Date 03/14/16 Type of Consultation: Neurology Reason for Consultation anoxic injury, cardiac arrest Ordering Provider: JT LEÓN Subjective episodes of sinus bradycardia receiving atropine remains unresponsive no seizure activity Objective Vital Signs Date Time Temp Pulse Resp B/P Pulse Ox O2 Delivery O2 Flow Rate FiO2 03/15/16 12:00 75 03/15/16 10:15 20 149/81 100 03/15/16 10:00 Mechanical Ventilator 03/15/16 09:00 98.0 03/15/16 08:30 30 03/11/16 20:50 15 Intake and Output 03/14/16 03/14/16 03/15/16 15:00 23:00 07:00 Intake Total 800 ml 800 ml 600 ml Output Total 230 ml 342 ml 217 ml Balance 570 ml 458 ml 383 ml intubated no sedation unresponsive to verbal stimuli pupils dilated 4 mm non reactive absent corneals absent gag reflex no withdrawal to noxious in any extremity diffuse edema Results/Medications Result Diagram: 03/15/16 0345 03/15/16 1137 Results 24 hrs Laboratory Tests Test 03/14/16 13:20 03/14/16 17:12 03/14/16 21:00 03/15/16 01:30 Bedside Glucose 128 120 144 151 Test 03/15/16 03:45 03/15/16 04:31 03/15/16 11:37 Anion Gap 16 16 Basophils # 0.0 Basophils % 0.3 Blood Morphology Comment Blood Urea Nitrogen 21 H 19 Calcium Level 6.8 L 7.1 L Carbon Dioxide Level 24 24 Chloride Level 109 107 Creatinine 0.93 0.74 Eosinophils # 0.0 Eosinophils % 0.0 Glucose Level 125 178 Hematocrit 34.4 L Hemoglobin 11.4 L Lymphocytes # 2.3 Lymphocytes % 16.4 Mean Corpuscular Hemoglobin 28.4 L Mean Corpuscular Hemoglobin Concent 33.1 Mean Corpuscular Volume 85.9 Mean Platelet Volume 9.0 Monocytes # 1.0 H Monocytes % 7.1 Neutrophils # 10.7 H Neutrophils % 76.2 Nucleated Red Blood Cells # 0.0 Nucleated Red Blood Cells % 0.0 Platelet Count 253 Potassium Level 3.6 3.8 Red Blood Count 4.01 L Red Cell Distribution Width 16.2 H Sodium Level 145 H 143 White Blood Count 14.1 #H Bedside Glucose 123 Magnesium Level 2.0 Phosphorus Level 2.1 L Medications Current Medications Ondansetron HCl 4 mg 4 mg Q6H PRN IV NAUSEA AND/OR VOMITING; Start 03/12/16 at 03:00 Sodium Chloride (NS) 1,000 ml @ 100 mls/hr Q10H IV Last administered on 10:36; Admin Dose 100 MLS/HR; Start 03/12/16 at 02:36 Meperidine HCl (Demerol) 12.5 mg Q4H PRN IV POST OPERATIVE SHIVERING; Start at 03:00 Meperidine HCl (Demerol) 25 mg Q4H PRN IV POST OPERATIVE SHIVERING; Start 03/12 at 03:00 Eye Lubricant (Akwa Oint) 1 applic Q6 BOTH EYES Last administered on 03/15/16 12:40; Admin Dose 1 APPLIC; Start 03/12/16 at 06:00 Eye Lubricant 2 drop 2 drop Q6 BOTH EYES Last administered on 03/15/16 12:40; Admin Dose 2 DROP; Start 03/12/16 at 06:00 Piperacillin Sod/ Tazobactam Sod (Zosyn 3.375gm/ 100 ml (Pmx)) 100 ml @ 200 mls /hr Q6 IVPB Last administered on 03/15/16 12:43; Admin Dose 200 MLS/HR; Start 03/12/16 at 06:00 Heparin Sodium (Porcine) (Heparin (5000 Units/0.5 ml)) 5,000 unit Q8 SC Last administered on 03/15/16 05:46; Admin Dose 5,000 UNIT; Start 03/13/16 at 14:00 Famotidine (Pepcid Iv) 20 mg BID IV Last administered on 03/15/16 09:00; Admin Dose 20 MG; Start 03/13/16 at 09:00 Amiodarone HCl (Cordarone) 400 mg BID NGT Last administered on 03/14/16 19:44 ; Admin Dose 400 MG; Start 03/13/16 at 21:00 Carvedilol (Coreg) 3.125 mg BID NGT Last administered on 03/14/16 19:44; Admin Dose 3.125 MG; Start 03/13/16 at 21:00 Lisinopril (Zestril) 2.5 mg DAILY NGT Last administered on 03/14/16 08:44; Admin Dose 2.5 MG; Start 03/14/16 at 09:00 Acetaminophen (Tylenol Liquid) 650 mg Q4H PRN NGT TEMP > 37C; Start 03/13/16 at 20:02 Ipratropium [place] (Atrovent Hfa) 4 puff Q4 INH Last administered on 08:30; Admin Dose 4 PUFF; Start 03/14/16 at 05:00 Glycopyrrolate (Robinul) 0.2 mg Q6H IV Last administered on 03/15/16 09:30; Admin Dose 0.2 MG; Start 03/14/16 at 03:30 Glycopyrrolate (Robinul) 0.2 mg PRN PRN IV PRN SECRETIONS; Start 03/14/16 at 03 :30 Insulin Glargine (Lantus) 20 unit DAILY SC Last administered on 03/15/16 12:36 ; Admin Dose 20 UNIT; Start 03/14/16 at 12:00 Insulin Aspart (Novolog Insulin Pen) NOVOLOG *MILD* ALGORI... Q4 SC Last administered on 03/15/16 01:32; Admin Dose 1 UNIT; Start 03/14/16 at 13:00 Miscellaneous Information 1 ea NOTE XX ; Start 03/14/16 at 12:30 Glucose (Glutose) 15 gm Q15M PRN PO DECREASED GLUCOSE; Start 03/14/16 at 12:30 Glucose (Glutose) 22.5 gm Q15M PRN PO DECREASED GLUCOSE; Start 03/14/16 at 12: 30 Dextrose (D50w Syringe) 25 ml Q15M PRN IV DECREASED GLUCOSE; Start 03/14/16 at 12:30 Dextrose (D50w Syringe) 50 ml Q15M PRN IV DECREASED GLUCOSE; Start 03/14/16 at 12:30 Glucagon (Glucagen) 1 mg Q15M PRN IM DECREASED GLUCOSE; Start 03/14/16 at 12:30 Glucose 15 gm 15 gm Q15M PRN BUCCAL DECREASED GLUCOSE; Start 03/14/16 at 12:30 Dopamine HCl/ Dextrose 250 ml @ 6.75 mls/hr TITRATE IV Last administered on t 08:00; Admin Dose 6.75 MLS/HR; Start 03/15/16 at 08:30 Assessment/Plan Chief Complaint/Hosp Course 40 year old M with hx of HTN, DM, previous [place], cardiomyopathy previous [place] s/p PPM admitted with PEA arrest, ROSC after 2 rounds of epinephrine. He is s/p hypothermia protocol for 24 hours, neurologic exam remains poor: absent corneals and gag. -Initial Head CT unrevealing -Routine EEG done last night, pending official review -very poor prognosis for neurologic recovery discussed examination findings with daughter at bedside Problems: KAILYN PENA MD Mar 15, 2016 12:55
[2016-03-15] MEDS ORDERED: LIDOCAINE 1% (MDV) 20 ML INJ SC ONE (13:00)
[2016-03-15] MEDS ORDERED: DEXTROSE IV SCH (16:00)
[2016-03-15] MEDS ORDERED: DOPamine 800 MG in DEXTROSE 5% 230 ML IV SCH (16:00)
[2016-03-15] MEDS ORDERED: DOPAMINE IV SCH (16:00)
[2016-03-15 21:18] LABS: POTASSIUM 3.5 mmol/L (3.5-5.1)
[2016-03-15 21:21] LABS: CREATININE 0.69 mg/dl (0.61-1.24)
[2016-03-15 21:22] LABS: CALCIUM 7.2 mg/dl (8.4-10.2); MAGNESIUM 1.8 mg/dl (1.7-2.5); PHOSPHORUS 2.5 mg/dl (2.5-4.9)
[2016-03-16] VITALS (44 sets, daily range): BP systolic 120–172; BP diastolic 60–126; PULSE 58–145; RESP 15–25
[2016-03-16] MEDS: PIPER-TAZO 3.375 GM IV (PMX) 100 ML IVPB SCH ×5 (00:51→23:00)
[2016-03-16] MEDS: OCULAR LUBRICANT 3.5 GM OPH OINT BOTH EYES SCH ×5 (00:51→23:00)
[2016-03-16] MEDS: ARTIFICIAL TEARS 15 ML OPH BOTH EYES SCH ×5 (00:51→23:00)
[2016-03-16] MEDS: INSULIN ASPART [NOVOLOG] 3 ML PEN SC SCH ×6 (01:00→21:00)
[2016-03-16] MEDS: ACETAMINOPHEN 650MG/20.3ML CUP NGT PRN ×4 (01:00→21:50)
[2016-03-16] MEDS: IPRATROPIUM (HFA) 12.9 GM INHALER INH SCH ×6 (01:30→21:09)
[2016-03-16] MEDS: ALBUTEROL HFA 8 GM INHALER INH SCH ×6 (01:30→21:09)
[2016-03-16] MEDS: GLYCOPYRROLATE 0.4 MG INJ IV SCH ×4 (04:58→21:51)
[2016-03-16 05:09] LABS: POTASSIUM 3.3 mmol/L (3.5-5.1)
[2016-03-16] MEDS: SOD CHLORIDE 0.9% 1,000 ML IV SCH ×3 (05:10→16:20)
[2016-03-16 05:12] LABS: CREATININE 0.83 mg/dl (0.61-1.24)
[2016-03-16 05:13] LABS: CALCIUM 7.2 mg/dl (8.4-10.2)
[2016-03-16] MEDS: HEPARIN 5,000 UNIT/0.5 ML SYG SC SCH ×3 (05:42→22:29)
--- NOTE | 2016-03-16 09:10 | CONS ---
Date/Time of Note Date/Time of Note DATE: 03/16/16 TIME: 09:04 Assessment/Plan Assessment/Plan Additional Assessment/Plan Assessment and recommendations; 1. Patient admitted with cardiac arrest underwent prolonged CPR resulting in severe anoxic encephalopathy. 2. Mild pulmonary edema. Difficult to rule out superimposed pneumonia. Patient does have improving leukocytosis. Next 3. Hypertension. 4. Episodes of severe bradycardia yesterday patient started on dopamine drip currently off dopamine still remaining tachycardic as well as hypotensive. Bradycardia likely attributed to high-dose beta-anand. 5. Patient given a CPAP trial at bedside has a good parameters right now however because of extremely poor mental status patient needs to be on mechanical ventilation intubated. Next Ventilator settings have been adjusted patient has been switched over to SIMV with a rate of 18, pressure support of 10 , tidal volume of 550, PEEP 5, 30% FiO2. Resume Coreg at a lower dose 3.125 mg twice daily. Lasix 40 mg IV daily. Obtain daily chest x-rays. Continue Zosyn. He did have a very detailed discussion the patient's extended family at bedside and answered all their questions at this time we will continue current treatment. Glasses however remains poor. Consultation Date/Type/Reason Admit Date/Time Mar 11, 2016 at 22:10 Type of Consultation: Neurology Referring Provider: JT LEÓN 24 HR Interval Summary Free Text/Dictation Patient condition remains critical. Remains unresponsive. No seizure activity noted. Bradycardia has resolved, patient actually is now getting tachycardic. General examination; middle aged man, or intubated, unresponsive. Exam/Review of Systems Vital Signs Vitals Vital Signs Date Time Temp Pulse Resp B/P Pulse Ox O2 Delivery O2 Flow Rate FiO2 03/16/16 06:15 118 19 148/90 100 03/16/16 06:00 Mechanical Ventilator 03/16/16 05:20 30 03/16/16 04:00 102.8 Intake and Output 03/15/16 03/15/16 03/16/16 15:00 23:00 07:00 Intake Total 1053 ml 948 ml 750 ml Output Total 2595 ml 1010 ml 470 ml Balance -1542 ml -62 ml 280 ml Exam HEENT examination; supple neck, no JVD. Orally intubated. Pupils are small bilaterally and very sluggishly reactive to light. There is a disconjugate gaze. No thyromegaly. No neck masses. No neck bruits. Chest examination; diminished but clear breath sounds bilaterally, S1-S2 audible no murmurs, tachycardic regular rhythm. Abdomen examination; soft, nondistended. Bowel sounds audible. No organomegaly. Extremity examination; no peripheral edema. Pulses 1+ bilaterally. ACTUARIAL MANAGER examination; patient remains completely unresponsive. Results Result Diagram: 03/15/16 0345 03/16/16 0345 Results 24 hrs Laboratory Tests Test 03/15/16 11:37 03/15/16 12:35 03/15/16 17:44 03/15/16 20:20 Anion Gap 16 Blood Urea Nitrogen 19 Calcium Level 7.1 L Carbon Dioxide Level 24 Chloride Level 107 Creatinine 0.74 Glucose Level 178 Magnesium Level 2.0 Phosphorus Level 2.1 L Potassium Level 3.8 Sodium Level 143 Bedside Glucose 142 141 124 Test 03/15/16 20:50 03/16/16 02:58 03/16/16 03:45 03/16/16 05:03 Anion Gap 13 16 Blood Urea Nitrogen 12 12 Calcium Level 7.2 L 7.2 L Carbon Dioxide Level 27 25 Chloride Level 107 107 Creatinine 0.69 0.83 Glucose Level 116 # 86 Magnesium Level 1.8 Phosphorus Level 2.5 Potassium Level 3.5 3.3 L Sodium Level 143 145 H Bedside Glucose 90 87 Medications Medications Current Medications Ondansetron HCl 4 mg 4 mg Q6H PRN IV NAUSEA AND/OR VOMITING; Start 03/12/16 at 03:00 Sodium Chloride (NS) 1,000 ml @ 100 mls/hr Q10H IV Last administered on 05:10; Admin Dose 100 MLS/HR; Start 03/12/16 at 02:36 Meperidine HCl (Demerol) 12.5 mg Q4H PRN IV POST OPERATIVE SHIVERING; Start at 03:00 Meperidine HCl (Demerol) 25 mg Q4H PRN IV POST OPERATIVE SHIVERING; Start 03/12 at 03:00 Eye Lubricant (Akwa Oint) 1 applic Q6 BOTH EYES Last administered on 03/16/16 05:40; Admin Dose 1 APPLIC; Start 03/12/16 at 06:00 Eye Lubricant 2 drop 2 drop Q6 BOTH EYES Last administered on 03/16/16 05:40; Admin Dose 2 DROP; Start 03/12/16 at 06:00 Piperacillin Sod/ Tazobactam Sod (Zosyn 3.375gm/ 100 ml (Pmx)) 100 ml @ 200 mls /hr Q6 IVPB Last administered on 03/16/16 05:39; Admin Dose 200 MLS/HR; Start 03/12/16 at 06:00 Heparin Sodium (Porcine) (Heparin (5000 Units/0.5 ml)) 5,000 unit Q8 SC Last administered on 03/16/16 05:42; Admin Dose 5,000 UNIT; Start 03/13/16 at 14:00 Famotidine (Pepcid Iv) 20 mg BID IV Last administered on 03/15/16 20:22; Admin Dose 20 MG; Start 03/13/16 at 09:00 Amiodarone HCl (Cordarone) 400 mg BID NGT Last administered on 03/15/16 22:10 ; Admin Dose 400 MG; Start 03/13/16 at 21:00 Carvedilol (Coreg) 3.125 mg BID NGT Last administered on 03/14/16 19:44; Admin Dose 3.125 MG; Start 03/13/16 at 21:00 Lisinopril (Zestril) 2.5 mg DAILY NGT Last administered on 03/14/16 08:44; Admin Dose 2.5 MG; Start 03/14/16 at 09:00 Acetaminophen (Tylenol Liquid) 650 mg Q4H PRN NGT TEMP > 37C Last administered on 03/16/16 05:43; Admin Dose 650 MG; Start 03/13/16 at 20:02 Ipratropium [place] (Atrovent Hfa) 4 puff Q4 INH Last administered on 03/16/16 08:10; Admin Dose 4 PUFF; Start 03/14/16 at 05:00 Glycopyrrolate (Robinul) 0.2 mg Q6H IV Last administered on 03/16/16 04:58; Admin Dose 0.2 MG; Start 03/14/16 at 03:30 Glycopyrrolate (Robinul) 0.2 mg PRN PRN IV PRN SECRETIONS; Start 03/14/16 at 03 :30 Insulin Glargine (Lantus) 20 unit DAILY SC Last administered on 03/15/16 12:36 ; Admin Dose 20 UNIT; Start 03/14/16 at 12:00 Insulin Aspart (Novolog Insulin Pen) NOVOLOG *MILD* ALGORI... Q4 SC Last administered on 03/15/16 01:32; Admin Dose 1 UNIT; Start 03/14/16 at 13:00 Miscellaneous Information 1 ea NOTE XX ; Start 03/14/16 at 12:30 Glucose (Glutose) 15 gm Q15M PRN PO DECREASED GLUCOSE; Start 03/14/16 at 12:30 Glucose (Glutose) 22.5 gm Q15M PRN PO DECREASED GLUCOSE; Start 03/14/16 at 12: 30 Dextrose (D50w Syringe) 25 ml Q15M PRN IV DECREASED GLUCOSE; Start 03/14/16 at 12:30 Dextrose (D50w Syringe) 50 ml Q15M PRN IV DECREASED GLUCOSE; Start 03/14/16 at 12:30 Glucagon (Glucagen) 1 mg Q15M PRN IM DECREASED GLUCOSE; Start 03/14/16 at 12:30 Glucose 15 gm 15 gm Q15M PRN BUCCAL DECREASED GLUCOSE; Start 03/14/16 at 12:30 Dopamine HCl/ Dextrose (D5W) 250 ml @ 3.37 mls/hr TITRATE IV ; Start 03/15/16 at 16:00 Carvedilol (Coreg) 3.125 mg BID NGT ; Start 03/16/16 at 09:00; Status IRENE PIKE Mar 16, 2016 09:10
--- NOTE | 2016-03-16 09:23 | RADRPT ---
Vent Rate: 68 bpm RR Interval: 0 msec NV Interval: 0 msec QRS Duration: 106 msec QT Interval: 542 msec QTC Interval: 576 msec P-R-T [place]: 0 - 20 - 32 degrees Atrial fibrillation Incomplete left bundle branch block T wave abnormality, consider anterior ischemia or digitalis effect Prolonged QT Abnormal ECG Electronically Signed By: Lamin Hickman [id number]
--- NOTE | 2016-03-16 09:27 | RADRPT ---
Vent Rate: 36 bpm RR Interval: 0 msec PA Interval: 184 msec QRS Duration: 92 msec QT Interval: 618 msec QTC Interval: 477 msec P-R-T [place]: 1 - 12 - 19 degrees Marked sinus bradycardia ST amp; T wave abnormality, consider anterior ischemia Prolonged QT Abnormal ECG Electronically Signed By: Lamin Hickman [id number]
--- NOTE | 2016-03-16 09:35 | RADRPT ---
PROCEDURE: XR Chest. CLINICAL INDICATION: Shortness of breath. TECHNIQUE: Single frontal view. COMPARISON: 03/15/2016. FINDINGS: The endotracheal tube and nasogastric tube remain in satisfactory position. Pulmonary edema is unch anged. The heart is mildly enlarged. There is no pleural effusion. There is no pneumothorax. IMPRESSION: 1. No change from 03/15/2016. RPTAT: QQ .Anibal Jean MD, MD Date Time Electronically viewed and signed by .Anibal Jean MD, on 03/16/2016 09:35 .R/
[2016-03-16] MEDS: LISINOPRIL 5 MG TAB NGT SCH (10:02)
[2016-03-16] MEDS: AMIODARONE 200 MG TAB NGT SCH ×2 (10:02→21:52)
--- NOTE | 2016-03-16 10:07 | RADRPT ---
PROCEDURE: XR Chest. CLINICAL INDICATION: Shortness of breath. TECHNIQUE: Single frontal view. COMPARISON: 03/16/2016. 0630 hours. FINDINGS: The endotracheal tube and nasogastric tube remain in satisfactory position. Pulmonary edema is unch anged. The heart is mildly enlarged. There is no pleural effusion. There is no pneumothorax. IMPRESSION: 1. No change from the prior study done earlier the same day. RPTAT: QQ .Anibal Jean MD, MD Date Time Electronically viewed and signed by .Anibal Jean MD, MD on 03/16/2016 10:07 .R/
[2016-03-16] MEDS: FAMOTIDINE 20 MG INJ IV SCH ×2 (10:10→21:53)
[2016-03-16] MEDS: INSULIN GLARGINE [LANtus] 3 ML PEN SC SCH (10:12)
--- NOTE | 2016-03-16 12:40 | CONS ---
Date/Time of Note Date/Time of Note DATE: 03/16/16 TIME: 12:39 Consult Date/Type/Reason Admit Date/Time Mar 11, 2016 at 22:10 Initial Consult Date 03/14/16 Type of Consultation: Neurology Reason for Consultation anoxic injury Ordering Provider: JT LEÓN Subjective remains unresponsive off sedation Objective Vital Signs Date Time Temp Pulse Resp B/P Pulse Ox O2 Delivery O2 Flow Rate FiO2 03/16/16 11:00 118 20 100 30 03/16/16 11:00 160/86 Mechanical Ventilator 03/16/16 08:00 101.0 Intake and Output 03/15/16 03/15/16 03/16/16 15:00 23:00 07:00 Intake Total 1053 ml 948 ml 750 ml Output Total 2595 ml 1010 ml 570 ml Balance -1542 ml -62 ml 180 ml intubated no sedation unresponsive to verbal stimuli pupils dilated 4 mm non reactive absent corneals absent gag reflex no withdrawal to noxious in any extremity diffuse edema Results/Medications Result Diagram: 03/15/16 0345 03/16/16 0345 Results 24 hrs Laboratory Tests Test 03/15/16 17:44 03/15/16 20:20 03/15/16 20:50 03/16/16 02:58 Bedside Glucose 141 124 90 Anion Gap 13 Blood Urea Nitrogen 12 Calcium Level 7.2 L Carbon Dioxide Level 27 Chloride Level 107 Creatinine 0.69 Glucose Level 116 # Magnesium Level 1.8 Phosphorus Level 2.5 Potassium Level 3.5 Sodium Level 143 Test 03/16/16 03:45 03/16/16 05:03 03/16/16 10:10 Anion Gap 16 Blood Urea Nitrogen 12 Calcium Level 7.2 L Carbon Dioxide Level 25 Chloride Level 107 Creatinine 0.83 Glucose Level 86 Potassium Level 3.3 L Sodium Level 145 H Bedside Glucose 87 97 Medications Current Medications Ondansetron HCl 4 mg 4 mg Q6H PRN IV NAUSEA AND/OR VOMITING; Start 03/12/16 at 03:00 Sodium Chloride (NS) 1,000 ml @ 100 mls/hr Q10H IV Last administered on t 05:10; Admin Dose 100 MLS/HR; Start 03/12/16 at 02:36 Meperidine HCl (Demerol) 12.5 mg Q4H PRN IV POST OPERATIVE SHIVERING; Start at 03:00 Meperidine HCl (Demerol) 25 mg Q4H PRN IV POST OPERATIVE SHIVERING; Start 03/12 at 03:00 Eye Lubricant (Akwa Oint) 1 applic Q6 BOTH EYES Last administered on 03/16/16 05:40; Admin Dose 1 APPLIC; Start 03/12/16 at 06:00 Eye Lubricant 2 drop 2 drop Q6 BOTH EYES Last administered on 03/16/16 05:40; Admin Dose 2 DROP; Start 03/12/16 at 06:00 Piperacillin Sod/ Tazobactam Sod (Zosyn 3.375gm/ 100 ml (Pmx)) 100 ml @ 200 mls /hr Q6 IVPB Last administered on 03/16/16 05:39; Admin Dose 200 MLS/HR; Start 03/12/16 at 06:00 Heparin Sodium (Porcine) (Heparin (5000 Units/0.5 ml)) 5,000 unit Q8 SC Last administered on 03/16/16 05:42; Admin Dose 5,000 UNIT; Start 03/13/16 at 14:00 Famotidine (Pepcid Iv) 20 mg BID IV Last administered on 03/16/16 10:10; Admin Dose 20 MG; Start 03/13/16 at 09:00 Amiodarone HCl (Cordarone) 400 mg BID NGT Last administered on 03/16/16 10:02; Admin Dose 400 MG; Start 03/13/16 at 21:00 Carvedilol (Coreg) 3.125 mg BID NGT Last administered on 03/14/16 19:44; Admin Dose 3.125 MG; Start 03/13/16 at 21:00 Lisinopril (Zestril) 2.5 mg DAILY NGT Last administered on 03/16/16 10:02; Admin Dose 2.5 MG; Start 03/14/16 at 09:00 Acetaminophen (Tylenol Liquid) 650 mg Q4H PRN NGT TEMP > 37C Last administered on 03/16/16 05:43; Admin Dose 650 MG; Start 03/13/16 at 20:02 Ipratropium [place] (Atrovent Hfa) 4 puff Q4 INH Last administered on 03/16/16 08:10; Admin Dose 4 PUFF; Start 03/14/16 at 05:00 Glycopyrrolate (Robinul) 0.2 mg Q6H IV Last administered on 03/16/16 10:03; Admin Dose 0.2 MG; Start 03/14/16 at 03:30 Glycopyrrolate (Robinul) 0.2 mg PRN PRN IV PRN SECRETIONS; Start 03/14/16 at 03 :30 Insulin Glargine (Lantus) 20 unit DAILY SC Last administered on 03/16/16 10:12 ; Admin Dose 20 UNIT; Start 03/14/16 at 12:00 Insulin Aspart (Novolog Insulin Pen) NOVOLOG *MILD* ALGORI... Q4 SC Last administered on 03/15/16 01:32; Admin Dose 1 UNIT; Start 03/14/16 at 13:00 Miscellaneous Information 1 ea NOTE XX ; Start 03/14/16 at 12:30 Glucose (Glutose) 15 gm Q15M PRN PO DECREASED GLUCOSE; Start 03/14/16 at 12:30 Glucose (Glutose) 22.5 gm Q15M PRN PO DECREASED GLUCOSE; Start 03/14/16 at 12: 30 Dextrose (D50w Syringe) 25 ml Q15M PRN IV DECREASED GLUCOSE; Start 03/14/16 at 12:30 Dextrose (D50w Syringe) 50 ml Q15M PRN IV DECREASED GLUCOSE; Start 03/14/16 at 12:30 Glucagon (Glucagen) 1 mg Q15M PRN IM DECREASED GLUCOSE; Start 03/14/16 at 12:30 Glucose 15 gm 15 gm Q15M PRN BUCCAL DECREASED GLUCOSE; Start 03/14/16 at 12:30 Dopamine HCl/ Dextrose (D5W) 250 ml @ 3.37 mls/hr TITRATE IV ; Start 03/15/16 at 16:00 Carvedilol (Coreg) 3.125 mg BID NGT ; Start 03/16/16 at 09:00 Furosemide (Lasix) 40 mg DAILY IV ; Start 03/17/16 at 09:00 Assessment/Plan Chief Complaint/Hosp Course 40 year old M with hx of HTN, DM, previous [place], cardiomyopathy previous [place] s/p PPM admitted with PEA arrest, ROSC after 2 rounds of epinephrine. He is s/p hypothermia protocol for 24 hours, neurologic exam remains poor: absent corneals and gag. -Initial Head CT unrevealing -Routine EEG done last night, pending official review -very poor prognosis for neurologic recovery discussed examination findings with daughter at bedside -goals of care discussion on going with family Problems: KAILYN PENA MD Mar 16, 2016 12:40
--- NOTE | 2016-03-16 13:49 | RADRPT ---
PROCEDURE: Ultrasound guidance for PICC line insertion. CLINICAL INDICATION: U/S GUIDED PICC INSERTION TECHNIQUE: Ultrasound guidance for PICC line insertion. COMPARISON: None. FINDINGS: Ultrasound guidance was provided for vascular access. Please refer to the clinical note of Norman Montgomery . IMPRESSION: Ultrasound guidance for vascular access. RPTAT: HH Jennifer Roque Physician Date Time Electronically viewed and signed by Physician Chencho on 03/16/2016 13:49 ANU/
--- NOTE | 2016-03-16 14:11 | PN ---
Date/Time of Note Date/Time of Note DATE: 03/16/16 TIME: 14:06 Assessment/Plan VTE Prophylaxis VTE Prophylaxis Intervention: SCD's Lines/Catheters IV C[facility]ter Type (from [facility]): PICC Line Central line still needed: Yes Urinary Cath still in place: Yes Reason Cath still needed: urinary retention Assessment/Plan Chief Complaint/Hosp Course Assessment/Plan: 40 yo M who suddenly collapsed managed for: 1. PEA cardiac arrest status post 2 rounds of epinephrine with ROSC (return of spontaneous circulation) - Likely 2/2 arrhythmia, was on Hypothermia protocol but now off x 72 hrs. Per CV No evidence of acute CO though patient has known CAD. Still unresponsive. - f/u Cv rec's, continue PO cardiac meds 2. Vent dependent respiratory failure 2/2 #1 - L sided infiltrates concerning for aspiration pneumonia. - continue IV abx, f/u pulm rec's - wean per pulm rec's - given worsening fever, will reculture pt and get ID consult. 3. Atrial fibrillation with rapid ventricular response - now Rate controlled - monitor, f/u CV rec's 4. SIRS with severe Lactic acidosis 2/2 #1 - improving - monitor 5. Diabetes Type 2 - A1c = 8.0 - continue ISS, lantus 6. HTN >borderline hypotensive - on low dose dopamine presently - try to wean pressor as tolerated, monitor bp 7. Known CAD - S/p Pacemaker - f/u CV rec's 8. Anion gap metabolic acidosis: resolved - monitor 9. Likely anoxic brain injury - appreciate Neuro consult - f/u EEG and neuro consult rec's. 10. Transient Shock likely Cardiogenic: resolved - monitor Continue Close ICU care and supportive care Prophylaxis: Heparin and Pepcid CRITICAL CARE TIME: 45 mins today Problems: Subjective 24 Hr Interval Summary Free Text/Dictation Pt having fevers this AM, seen by Neuro team. Unresponsive still. Exam/Review of Systems Vital Signs Vitals Vital Signs Date Time Temp Pulse Resp B/P Pulse Ox O2 Delivery O2 Flow Rate FiO2 03/16/16 11:00 118 20 100 30 03/16/16 11:00 160/86 Mechanical Ventilator 03/16/16 08:00 101.0 Intake and Output 03/15/16 03/15/16 03/16/16 15:00 23:00 07:00 Intake Total 1053 ml 948 ml 750 ml Output Total 2595 ml 1010 ml 570 ml Balance -1542 ml -62 ml 180 ml Exam GENERAL: Intubated, unresponsive, Obese HEENT: No obvious head deformity. CARDIOVASCULAR: S1S2 RRR presently LUNGS: less diminished breath sounds at the bases bilaterally. ABDOMEN: Soft, obese, nondistended. EXTREMITIES: No edema. NEUROLOGIC: The patient unresponsive Results Result Diagram: 03/15/16 0345 03/16/16 0345 Results 24 hrs Laboratory Tests Test 03/15/16 17:44 03/15/16 20:20 03/15/16 20:50 03/16/16 02:58 Bedside Glucose 141 124 90 Anion Gap 13 Blood Urea Nitrogen 12 Calcium Level 7.2 L Carbon Dioxide Level 27 Chloride Level 107 Creatinine 0.69 Glucose Level 116 # Magnesium Level 1.8 Phosphorus Level 2.5 Potassium Level 3.5 Sodium Level 143 Test 03/16/16 03:45 03/16/16 05:03 03/16/16 10:10 Anion Gap 16 Blood Urea Nitrogen 12 Calcium Level 7.2 L Carbon Dioxide Level 25 Chloride Level 107 Creatinine 0.83 Glucose Level 86 Potassium Level 3.3 L Sodium Level 145 H Bedside Glucose 87 97 Medications Medications Current Medications Ondansetron HCl 4 mg 4 mg Q6H PRN IV NAUSEA AND/OR VOMITING; Start 03/12/16 at 03:00 Sodium Chloride (NS) 1,000 ml @ 100 mls/hr Q10H IV Last administered on 05:10; Admin Dose 100 MLS/HR; Start 03/12/16 at 02:36 Meperidine HCl (Demerol) 12.5 mg Q4H PRN IV POST OPERATIVE SHIVERING; Start at 03:00 Meperidine HCl (Demerol) 25 mg Q4H PRN IV POST OPERATIVE SHIVERING; Start 03/12 at 03:00 Eye Lubricant (Akwa Oint) 1 applic Q6 BOTH EYES Last administered on 03/16/16 05:40; Admin Dose 1 APPLIC; Start 03/12/16 at 06:00 Eye Lubricant 2 drop 2 drop Q6 BOTH EYES Last administered on 03/16/16 05:40; Admin Dose 2 DROP; Start 03/12/16 at 06:00 Piperacillin Sod/ Tazobactam Sod (Zosyn 3.375gm/ 100 ml (Pmx)) 100 ml @ 200 mls /hr Q6 IVPB Last administered on 03/16/16 13:54; Admin Dose 200 MLS/HR; Start 03/12/16 at 06:00 Heparin Sodium (Porcine) (Heparin (5000 Units/0.5 ml)) 5,000 unit Q8 SC Last administered on 03/16/16 05:42; Admin Dose 5,000 UNIT; Start 03/13/16 at 14:00 Famotidine (Pepcid Iv) 20 mg BID IV Last administered on 03/16/16 10:10; Admin Dose 20 MG; Start 03/13/16 at 09:00 Amiodarone HCl (Cordarone) 400 mg BID NGT Last administered on 03/16/16 10:02; Admin Dose 400 MG; Start 03/13/16 at 21:00 Carvedilol (Coreg) 3.125 mg BID NGT Last administered on 03/14/16 19:44; Admin Dose 3.125 MG; Start 03/13/16 at 21:00 Lisinopril (Zestril) 2.5 mg DAILY NGT Last administered on 03/16/16 10:02; Admin Dose 2.5 MG; Start 03/14/16 at 09:00 Acetaminophen (Tylenol Liquid) 650 mg Q4H PRN NGT TEMP > 37C Last administered on 03/16/16 05:43; Admin Dose 650 MG; Start 03/13/16 at 20:02 Ipratropium [place] (Atrovent Hfa) 4 puff Q4 INH Last administered on 03/16/16 13:38; Admin Dose 4 PUFF; Start 03/14/16 at 05:00 Glycopyrrolate (Robinul) 0.2 mg Q6H IV Last administered on 03/16/16 10:03; Admin Dose 0.2 MG; Start 03/14/16 at 03:30 Glycopyrrolate (Robinul) 0.2 mg PRN PRN IV PRN SECRETIONS; Start 03/14/16 at 03 :30 Insulin Glargine (Lantus) 20 unit DAILY SC Last administered on 03/16/16 10:12 ; Admin Dose 20 UNIT; Start 03/14/16 at 12:00 Insulin Aspart (Novolog Insulin Pen) NOVOLOG *MILD* ALGORI... Q4 SC Last administered on 03/15/16t 01:32; Admin Dose 1 UNIT; Start 03/14/16 at 13:00 Miscellaneous Information 1 ea NOTE XX ; Start 03/14/16 at 12:30 Glucose (Glutose) 15 gm Q15M PRN PO DECREASED GLUCOSE; Start 03/14/16 at 12:30 Glucose (Glutose) 22.5 gm Q15M PRN PO DECREASED GLUCOSE; Start 03/14/16 at 12: 30 Dextrose (D50w Syringe) 25 ml Q15M PRN IV DECREASED GLUCOSE; Start 03/14/16 at 12:30 Dextrose (D50w Syringe) 50 ml Q15M PRN IV DECREASED GLUCOSE; Start 03/14/16 at 12:30 Glucagon (Glucagen) 1 mg Q15M PRN IM DECREASED GLUCOSE; Start 03/14/16 at 12:30 Glucose 15 gm 15 gm Q15M PRN BUCCAL DECREASED GLUCOSE; Start 03/14/16 at 12:30 Dopamine HCl/ Dextrose (D5W) 250 ml @ 3.37 mls/hr TITRATE IV ; Start 03/15/16 at 16:00 Carvedilol (Coreg) 3.125 mg BID NGT ; Start 03/16/16 at 09:00 Furosemide (Lasix) 40 mg DAILY IV ; Start 03/17/16 at 09:00 IV Flush (NS 10 ml) 10 ml PRN PRN IV IV PROTOCOL; Start 03/16/16 at 13:30 JT LEÓN Mar 16, 2016 14:11
[2016-03-16] MEDS ORDERED: hydrALAzine 20 MG INJ IV PRN (14:30)
[2016-03-16] MEDS ORDERED: POTASSIUM CHLORIDE 250 ML IVPB ONE (14:30)
--- NOTE | 2016-03-16 14:34 | RADRPT ---
PROCEDURE: XR Chest. CLINICAL INDICATION: Check PICC line position. TECHNIQUE: Single frontal view. COMPARISON: 03/16/2016. 0913 hours. FINDINGS: There is a left arm PICC line with the tip in the mid superior vena cava. The endotracheal tube, na sogastric tube, and pulmonary edema are all once again noted and are unchanged. The heart is mildly enlarged. There is no pleural effusion. There is no pneumothorax. IMPRESSION: 1. Satisfactory position of left arm PICC line. 2. No other change from the prior study done earlier the same day. RPTAT: QQ .Anibal Jean MD, MD Date Time Electronically viewed and signed by .Anibal Jean MD, MD on 03/16/2016 14:34 .R/
[2016-03-16] MEDS ORDERED: SOD CHLORIDE 0.9% 100 ML ONE (14:43)
[2016-03-16] MEDS: LEVETIRACETAM IV 1,000 MG in SOD CHLORIDE 0.9% 100 ML IVPB SCH ×2 (15:19→22:58)
[2016-03-16 15:54] LABS: ADD UMIC YES; URINE BILIRUBIN (Dip) NEGATIVE (NEGATIVE); URINE BLOOD (Dip) 1+ (NEGATIVE); URINE COLOR LT. YELLOW (YELLOW); URINE GLUCOSE (Dip) NEGATIVE (NEGATIVE); URINE KETONES (Dip) 15 (NEGATIVE); URINE LEUKOCYTE ESTERASE (Dip) NEGATIVE (NEGATIVE); URINE NITRITE (Dip) NEGATIVE (NEGATIVE); URINE TOTAL PROTEIN (Dip) NEGATIVE (NEGATIVE); URINE UROBILINOGEN (Dip) 0.2 E.U./dL (0.1-1.0)
--- NOTE | 2016-03-16 15:59 | CONS ---
Date/Time of Note Date/Time of Note DATE: 03/16/16 TIME: 15:54 Assessment/Plan Assessment/Plan Chief Complaint/Hosp Course Assessment: Status post cardiac arrest - initial rhythm was reported to be PEA, unclear etiology but possible ventricular tachyarrhythmia given severe left ventricular systolic dysfunction Paroxysmal atrial fibrillation with rapid ventricular response Cardiomyopathy, LVEF 20% - unclear etiology, possibly ischemic Coronary artery disease - reported myocardial infarction in 2016 at [facility], did not receive coronary stenting Ventilator-dependent respiratory failure Systemic inflammatory response syndrome Hypertension Diabetes mellitus Anoxic brain injury Recommendations: -status post hypothermia protocol -continue amiodarone 400mg BID -continue carvedilol 3.125mg BID and lisinopril 2.5mg daily for systolic dysfunction, up titrate as tolerated -will need coronary angiography if there is meaningful recovery of neurologic function -ventilator management per pulmonology -infection work up and antibiotics per primary team Problems: Consultation Date/Type/Reason Admit Date/Time Mar 11, 2016 at 22:10 Type of Consultation: Cardiology 24 HR Interval Summary Free Text/Dictation Previously had bradycardia. Telemetry now shows atrial fibrillation/atrial flutter with ventricular rates in the 100s-110s. Fever to 102.8 F. Detailed Summary Additional Comments Unable to obtain review of systems due to patient's mental status. Exam/Review of Systems Vital Signs Vitals Vital Signs Date Time Temp Pulse Resp B/P Pulse Ox O2 Delivery O2 Flow Rate FiO2 03/16/16 13:40 118 22 100 30 03/16/16 11:00 160/86 Mechanical Ventilator 03/16/16 08:00 101.0 Intake and Output 03/15/16 03/15/16 03/16/16 15:00 23:00 07:00 Intake Total 1053 ml 948 ml 750 ml Output Total 2595 ml 1010 ml 570 ml Balance -1542 ml -62 ml 180 ml Exam Constitutional: other (intubated, sedated), No alert Psych: other (intubated) Head: atraumatic, normocephalic Eyes: nl conjunctiva, nl lids ENMT: nl external ears & nose, nl nasal mucosa & septum Neck: No jvd (unable to accurately assess) Respiratory: clear to auscultation Cardiovascular: No regular rate and rhythm Gastrointestinal: soft Musculoskeletal: nl extremities to inspection Extremities: No clubbing, No cyanosis, No edema Results Result Diagram: 03/15/16 0345 03/16/16 0345 Results 24 hrs Laboratory Tests Test 03/15/16 17:44 03/15/16 20:20 03/15/16 20:50 03/16/16 02:58 Bedside Glucose 141 124 90 Anion Gap 13 Blood Urea Nitrogen 12 Calcium Level 7.2 L Carbon Dioxide Level 27 Chloride Level 107 Creatinine 0.69 Glucose Level 116 # Magnesium Level 1.8 Phosphorus Level 2.5 Potassium Level 3.5 Sodium Level 143 Test 03/16/16 03:45 03/16/16 05:03 03/16/16 10:10 03/16/16 14:30 Anion Gap 16 Blood Urea Nitrogen 12 Calcium Level 7.2 L Carbon Dioxide Level 25 Chloride Level 107 Creatinine 0.83 Glucose Level 86 Potassium Level 3.3 L Sodium Level 145 H Bedside Glucose 87 97 72 Medications Medications Current Medications Ondansetron HCl 4 mg 4 mg Q6H PRN IV NAUSEA AND/OR VOMITING; Start 03/12/16 at 03:00 Sodium Chloride (NS) 1,000 ml @ 100 mls/hr Q10H IV Last administered on 05:10; Admin Dose 100 MLS/HR; Start 03/12/16 at 02:36 Meperidine HCl (Demerol) 12.5 mg Q4H PRN IV POST OPERATIVE SHIVERING; Start at 03:00 Meperidine HCl (Demerol) 25 mg Q4H PRN IV POST OPERATIVE SHIVERING; Start 03/12 at 03:00 Eye Lubricant (Akwa Oint) 1 applic Q6 BOTH EYES Last administered on 03/16/16 14:25; Admin Dose 1 APPLIC; Start 03/12/16 at 06:00 Eye Lubricant 2 drop 2 drop Q6 BOTH EYES Last administered on 03/16/16 14:25; Admin Dose 2 DROP; Start 03/12/16 at 06:00 Piperacillin Sod/ Tazobactam Sod (Zosyn 3.375gm/ 100 ml (Pmx)) 100 ml @ 200 mls /hr Q6 IVPB Last administered on 03/16/16 13:54; Admin Dose 200 MLS/HR; Start 03/12/16 at 06:00 Heparin Sodium (Porcine) (Heparin (5000 Units/0.5 ml)) 5,000 unit Q8 SC Last administered on 03/16/16 14:25; Admin Dose 5,000 UNIT; Start 03/13/16 at 14:00 Famotidine (Pepcid Iv) 20 mg BID IV Last administered on 03/16/16 10:10; Admin Dose 20 MG; Start 03/13/16 at 09:00 Amiodarone HCl (Cordarone) 400 mg BID NGT Last administered on 03/16/16 10:02; Admin Dose 400 MG; Start 03/13/16 at 21:00 Lisinopril (Zestril) 2.5 mg DAILY NGT Last administered on 03/16/16 10:02; Admin Dose 2.5 MG; Start 03/14/16 at 09:00 Acetaminophen (Tylenol Liquid) 650 mg Q4H PRN NGT TEMP > 37C Last administered on 03/16/16 14:26; Admin Dose 650 MG; Start 03/13/16 at 20:02 Ipratropium [place] (Atrovent Hfa) 4 puff Q4 INH Last administered on 03/16/16 13:38; Admin Dose 4 PUFF; Start 03/14/16 at 05:00 Glycopyrrolate (Robinul) 0.2 mg Q6H IV Last administered on 03/16/16 10:03; Admin Dose 0.2 MG; Start 03/14/16 at 03:30 Glycopyrrolate (Robinul) 0.2 mg PRN PRN IV PRN SECRETIONS; Start 03/14/16 at 03 :30 Insulin Glargine (Lantus) 20 unit DAILY SC Last administered on 03/16/16 10:12 ; Admin Dose 20 UNIT; Start 03/14/16 at 12:00 Insulin Aspart (Novolog Insulin Pen) NOVOLOG *MILD* ALGORI... Q4 SC Last administered on 03/15/16 01:32; Admin Dose 1 UNIT; Start 03/14/16 at 13:00 Miscellaneous Information 1 ea NOTE XX ; Start 03/14/16 at 12:30 Glucose (Glutose) 15 gm Q15M PRN PO DECREASED GLUCOSE; Start 03/14/16 at 12:30 Glucose (Glutose) 22.5 gm Q15M PRN PO DECREASED GLUCOSE; Start 03/14/16 at 12: 30 Dextrose (D50w Syringe) 25 ml Q15M PRN IV DECREASED GLUCOSE; Start 03/14/16 at 12:30 Dextrose (D50w Syringe) 50 ml Q15M PRN IV DECREASED GLUCOSE; Start 03/14/16 at 12:30 Glucagon (Glucagen) 1 mg Q15M PRN IM DECREASED GLUCOSE; Start 03/14/16 at 12:30 Glucose 15 gm 15 gm Q15M PRN BUCCAL DECREASED GLUCOSE; Start 03/14/16 at 12:30 Dopamine HCl/ Dextrose (D5W) 250 ml @ 3.37 mls/hr TITRATE IV ; Start 03/15/16 at 16:00 Carvedilol (Coreg) 3.125 mg BID NGT Last administered on 03/16/16 14:26; Admin Dose 3.125 MG; Start 03/16/16 at 09:00 Furosemide (Lasix) 40 mg DAILY IV ; Start 03/17/16 at 09:00 IV Flush 10 ml 10 ml PRN PRN IV IV PROTOCOL; Start 03/16/16 at 13:30 Potassium Chloride 250 ml @ 62.5 mls/hr ONCE ONCE IVPB ; Start 03/16/16 at 14: 30; Stop 03/16/16 at 18:29 Levetiracetam/ Sodium Chloride (Keppra Iv/NS) 110 ml @ 440 mls/hr Q12 IVPB Last administered on 03/16/16 15:19; Admin Dose 440 MLS/HR; Start 03/16/16 at 14: 30 Hydralazine HCl (Apresoline) 10 mg Q6H PRN IV SBP > 160; Start 03/16/16 at 14:30 RAE RIVERA MD Mar 16, 2016 15:59
--- NOTE | 2016-03-16 17:17 | CONS ---
DATE OF ADMISSION: 03/11/2016 DATE OF CONSULTATION: 03/16/2016 TYPE OF CONSULTATION: Infectious Disease. REASON FOR CONSULTATION: Antibiotic management. HISTORY OF PRESENT ILLNESS: Patrick Pappas is an unfortunate 40-year-old male with numerous problems who came in with cardiac arrest and is being seen for antibiotic management. His past problems incl ude: 1. Adult-onset diabetes mellitus. 2. Hypertension with an ME in 2016. 3. Status post pacemaker placement. The patient had a cardiac arrest. He was at home when he suddenly collapsed. He was found pulseles s and apneic. He was intubated and currently is in the intensive care unit. He has an ET tube, an NG tube, a Pace catheter. When he was admitted, his pupils were fixed and dilated. There was a ga g reflex. He has been seen by numerous physicians; Dr. Rausch for cardiology, Dr. Obregon for pulm onary. The patient currently has ventilatory dependent respiratory failure, atrial fibrillation wit h rapid ventricular response, now controlled. He had SIRS with severe lactic acidosis which is impr oving. He has adult onset diabetes mellitus, hypertension, probable anoxic brain injury, seen by [facility]. Currently, his white count is 14.1, H and H of 11.4 and 34.4, platelet count of 253,000. BUN and creatinine are 12/0.83. Urine nitrite is negative, leukocyte esterase is negative. He had a PICC line inserted today in the left arm. He has an ET tube, NG tube, Paec catheter, and a PICC line. His blood cultures are all negative. Urine cultures are negative. His white count is down f rom 22.1 to 14.1, and he is currently on Zosyn alone which was started on 03/12/2016. A urinalysis and blood cultures were done. The patient had a temperature of 101. His line was just put in today . His chest x-ray showed pulmonary edema, unchanged. PAST MEDICAL HISTORY: Operations as outlined. FAMILY HISTORY: Noncontributory. SOCIAL HISTORY: He does not smoke, drink, or abuse drugs. ALLERGIES: NONE TO PENICILLIN, SULFA, OR FOODS. MEDICATIONS: Per chart. REVIEW OF SYSTEMS: As per HPI. PHYSICAL EXAMINATION: NEUROLOGICAL: The patient is unresponsive and intubated. HEENT: Within normal limits. NECK: Supple. LYMPH NODES: None palpable. CHEST: Decreased breath sounds at the bases. HEART: Without murmur or gallop. ABDOMEN: Soft, nontender, without organosplenomegaly or masses. EXTREMITIES: Without cyanosis, clubbing, or edema. RECTAL AND GENITAL: Deferred. NEUROLOGIC: The patient with likely anoxic brain damage. He is unresponsive. His pupils are fixed and dilated. ASSESSMENT AND PLAN: We will continue him on Zosyn. We will check to see blood cultures have been ordered at least x1. We should get another blood culture. I will dictate my findings to the hospit alist and to the numerous consultants. Dictated By: MAXIMO SIMS MD, JD/IMAN Conf#: [id number] DID#: [id number]
[2016-03-16] MEDS ORDERED: LORAZEPAM 2 MG INJ ONE (18:15)
[2016-03-16] MEDS ORDERED: LORAZEPAM 2 MG INJ IM PRN (18:30)
[2016-03-16] MEDS: LORAZEPAM 2 MG INJ IV PRN (18:47)
[2016-03-17] VITALS (37 sets, daily range): BP systolic 126–153; BP diastolic 76–104; PULSE 52–119; RESP 17–28
[2016-03-17] MEDS: INSULIN ASPART [NOVOLOG] 3 ML PEN SC SCH ×6 (01:00→20:52)
[2016-03-17] MEDS: ALBUTEROL HFA 8 GM INHALER INH SCH ×6 (01:24→21:11)
[2016-03-17] MEDS: IPRATROPIUM (HFA) 12.9 GM INHALER INH SCH ×6 (01:24→21:11)
[2016-03-17] MEDS: LORAZEPAM 2 MG INJ IV PRN ×6 (01:50→21:20)
[2016-03-17] MEDS: SOD CHLORIDE 0.9% 1,000 ML IV SCH ×3 (01:50→20:53)
[2016-03-17] MEDS: GLYCOPYRROLATE 0.4 MG INJ IV SCH ×4 (03:45→20:53)
[2016-03-17 05:05] LABS: BASOPHILS % 0.5 % (0.0-2.0); EOSINOPHILS # 0.1 10^3/ul (0.0-0.5); EOSINOPHILS % 0.5 % (0.0-7.0); HEMATOCRIT 37.8 % (42.0-52.0); HEMOGLOBIN 12.3 g/dl (14.0-18.0); LYMPHOCYTES # 2.1 10^3/ul (0.8-2.9); LYMPHOCYTES % 20.9 % (15.0-51.0); MEAN CORPUSCULAR HGB CONC 32.5 g/dl (32.0-37.0); MEAN CORPUSCULAR VOLUME 86.1 fl (82.0-101.0); MEAN PLATELET VOLUME 8.4 fl (7.4-10.4); MONOCYTE # 1.2 10^3/ul (0.3-0.9); MONOCYTES % 11.2 % (0.0-11.0); NEUTROPHIL # 6.9 10^3/ul (1.6-7.5); NEUTROPHILS % 66.9 % (39.0-77.0); PLATELET COUNT 270 10^3/UL (140-440); RED BLOOD COUNT 4.39 10^6/ul (4.70-6.10); RED CELL DISTRIBUTION WIDTH 15.7 % (11.5-14.5); UNCORRECTED WBC 10.3 10^3/ul (4.8-10.8); WHITE BLOOD COUNT 10.3 10^3/ul (4.8-10.8)
[2016-03-17] MEDS: ARTIFICIAL TEARS 15 ML OPH BOTH EYES SCH ×4 (06:05→23:25)
[2016-03-17] MEDS: OCULAR LUBRICANT 3.5 GM OPH OINT BOTH EYES SCH ×4 (06:05→23:25)
[2016-03-17] MEDS: PIPER-TAZO 3.375 GM IV (PMX) 100 ML IVPB SCH ×4 (06:05→23:24)
[2016-03-17] MEDS: HEPARIN 5,000 UNIT/0.5 ML SYG SC SCH ×3 (06:08→21:00)
[2016-03-17 06:27] LABS: POTASSIUM 3.3 mmol/L (3.5-5.1)
[2016-03-17 06:30] LABS: CALCIUM 7.1 mg/dl (8.4-10.2); CREATININE 0.77 mg/dl (0.61-1.24)
[2016-03-17 06:43] LABS: CONDITION 1; LH ANALYZER COMMENTS 1
--- NOTE | 2016-03-17 07:53 | RADRPT ---
PROCEDURE: XR Chest. CLINICAL INDICATION: Pneumonia TECHNIQUE: An AP view of the chest was obtained. COMPARISON: Chest x-ray dated 03/16/2016 FINDINGS: The endotracheal tube tip is approximately 2.1 cm above the len. The tip of the enteric tube ex tends below the left diaphragm. There is a left upper extremity PICC line with tip across midline i n the region of the right brachiocephalic vein. Lung volumes are low. There is prominence of the interstitial and central pulmonary vascular donna ngs. No pleural effusion or pneumothorax is seen. The cardiomediastinal silhouette is mildly enl arged . The osseous structures are unremarkable. IMPRESSION: 1. Low lung volumes with pulmonary vascular congestion/interstitial edema, mildly increased when co mpared to the prior examination. 2. Mild cardiomegaly. 3. Tubes and lines, as described above. The left upper extremity PICC line crosses midline in the r egion of the right brachiocephalic vein. Flushing or repositioning is recommended. RPTAT: .Shima Garcia MD, Date Time Electronically viewed and signed by .Shima Garcia MD, MD on 03/17/2016 07:53 .G/
--- NOTE | 2016-03-17 09:26 | CONS ---
Date/Time of Note Date/Time of Note DATE: 03/17/16 TIME: 09:22 Assessment/Plan Assessment/Plan Additional Assessment/Plan Assessment and recommendations; 1. Patient admitted with respiratory failure failure due to cardiac arrest. CPR resulting in significant anoxic enthesopathy. Next 2. Mild pulmonary edema is seen on today's chest x-ray. 3. To be superimposed aspiration pneumonia. Leukocytosis improving. 4. Normal renal function. 5. Episode of bradycardia likely attributed to high-dose beta-anand resolved in the interim. 6. Occasional seizure activity. Possibly myoclonic jerking. Continue current treatment. Patient is on SIMV of 16 tidal volume 550, 30% FiO2 , PEEP of 5, pressure support of 10. Prognosis remains poor. I did have a detailed discussion the patient's family yesterday morning they want to wait a few more days before deciding further plan of care. Consultation Date/Type/Reason Admit Date/Time Mar 11, 2016 at 22:10 Type of Consultation: Cardiology 24 HR Interval Summary Free Text/Dictation Patient condition remains critical. Still requiring full ventilator support. Occasional seizure activity noted. She remains completely unresponsive. General examination; middle aged man, orally intubated. Unresponsive. Exam/Review of Systems Vital Signs Vitals Vital Signs Date Time Temp Pulse Resp B/P Pulse Ox O2 Delivery O2 Flow Rate FiO2 03/17/16 07:30 100.0 102 17 136/79 99 Mechanical Ventilator 03/17/16 05:00 30 Intake and Output 03/16/16 03/16/16 03/17/16 15:00 23:00 07:00 Intake Total 940 ml 1485.0 ml 1150 ml Output Total 520 ml 575 ml 395 ml Balance 420 ml 910.0 ml 755 ml Exam H EENT examination; supple neck, nipples are midsize very sluggishly reactive to light. There is a disconjugate gaze. Orally intubated. No neck masses. No lymphadenopathy. No thyromegaly. Chest examination; diminished but clear breath sounds bilaterally. S1-S2 audible. No murmurs. Regular rate and rhythm. Abdomen examination; soft, nondistended. Bowel sounds audible. No organomegaly. Extremity examination; no peripheral edema. Pulses 1+ bilaterally. CORE MANAGER examination; patient is unresponsive. Results Result Diagram: 2/2/17 0400 2/2/17 0400 Results 24 hrs Laboratory Tests Test 03/16/16 10:10 03/16/16 14:30 03/16/16 14:42 03/16/16 18:30 Bedside Glucose 97 72 83 Urine Bilirubin NEGATIVE Urine Clarity CLEAR Urine Color LT. YELLOW Urine Glucose NEGATIVE Urine Hemoglobin 1+ H Urine Ketones 15 Urine Leukocyte Esterase NEGATIVE Urine Microscopic RBC 2-5 Urine Microscopic WBC 0-2 Urine Nitrite NEGATIVE Urine Specific [place] 1.020 Urine Total Protein NEGATIVE Urine Urobilinogen 0.2 E.U./dL Urine pH 7.0 Test 03/16/16 22:16 03/17/16 03:57 03/17/16 04:00 Bedside Glucose 103 98 Anion Gap 14 Basophils # 0.0 Basophils % 0.5 Blood Morphology Comment Blood Urea Nitrogen 14 Calcium Level 7.1 L Carbon Dioxide Level 24 Chloride Level 107 Creatinine 0.77 Eosinophils # 0.1 Eosinophils % 0.5 Glucose Level 101 Hematocrit 37.8 L Hemoglobin 12.3 L Lymphocytes # 2.1 Lymphocytes % 20.9 Mean Corpuscular Hemoglobin 28.0 L Mean Corpuscular Hemoglobin Concent 32.5 Mean Corpuscular Volume 86.1 Mean Platelet Volume 8.4 Monocytes # 1.2 H Monocytes % 11.2 H Neutrophils # 6.9 Neutrophils % 66.9 Nucleated Red Blood Cells # 0.0 Nucleated Red Blood Cells % 0.0 Platelet Count 270 Potassium Level 3.3 L Red Blood Count 4.39 L Red Cell Distribution Width 15.7 H Sodium Level 142 White Blood Count 10.3 # Medications Medications Current Medications Ondansetron HCl 4 mg 4 mg Q6H PRN IV NAUSEA AND/OR VOMITING; Start 03/12/16 at 03:00 Sodium Chloride (NS) 1,000 ml @ 100 mls/hr Q10H IV Last administered on 01:50; Admin Dose 100 MLS/HR; Start 03/12/16 at 02:36 Meperidine HCl (Demerol) 12.5 mg Q4H PRN IV POST OPERATIVE SHIVERING; Start at 03:00 Meperidine HCl (Demerol) 25 mg Q4H PRN IV POST OPERATIVE SHIVERING; Start 03/12 at 03:00 Eye Lubricant (Akwa Oint) 1 applic Q6 BOTH EYES Last administered on 2/2/17at 06:05; Admin Dose 1 APPLIC; Start 03/12/16 at 06:00 Eye Lubricant 2 drop 2 drop Q6 BOTH EYES Last administered on 03/17/16 06:05; Admin Dose 2 DROP; Start 03/12/16 at 06:00 Piperacillin Sod/ Tazobactam Sod (Zosyn 3.375gm/ 100 ml (Pmx)) 100 ml @ 200 mls /hr Q6 IVPB Last administered on 03/17/16 06:05; Admin Dose 200 MLS/HR; Start 03/12/16 at 06:00 Heparin Sodium (Porcine) (Heparin (5000 Units/0.5 ml)) 5,000 unit Q8 SC Last administered on 03/17/16 06:08; Admin Dose 5,000 UNIT; Start 03/13/16 at 14:00 Famotidine (Pepcid Iv) 20 mg BID IV Last administered on 03/16/16 21:53; Admin Dose 20 MG; Start 03/13/16 at 09:00 Amiodarone HCl (Cordarone) 400 mg BID NGT Last administered on 03/16/16 21:52; Admin Dose 400 MG; Start 03/13/16 at 21:00 Lisinopril (Zestril) 2.5 mg DAILY NGT Last administered on 03/16/16 10:02; Admin Dose 2.5 MG; Start 03/14/16 at 09:00 Acetaminophen (Tylenol Liquid) 650 mg Q4H PRN NGT TEMP > 37C Last administered on 03/16/16 21:50; Admin Dose 650 MG; Start 03/13/16 at 20:02 Ipratropium [place] (Atrovent Hfa) 4 puff Q4 INH Last administered on 03/17/16 08:59; Admin Dose 4 PUFF; Start 03/14/16 at 05:00 Glycopyrrolate (Robinul) 0.2 mg Q6H IV Last administered on 03/17/16 03:45; Admin Dose 0.2 MG; Start 03/14/16 at 03:30 Glycopyrrolate (Robinul) 0.2 mg PRN PRN IV PRN SECRETIONS; Start 03/14/16 at 03 :30 Insulin Glargine (Lantus) 20 unit DAILY SC Last administered on 03/16/16 10:12 ; Admin Dose 20 UNIT; Start 03/14/16 at 12:00 Insulin Aspart (Novolog Insulin Pen) NOVOLOG *MILD* ALGORI... Q4 SC Last administered on 03/15/16 01:32; Admin Dose 1 UNIT; Start 03/14/16 at 13:00 Miscellaneous Information 1 ea NOTE XX ; Start 03/14/16 at 12:30 Glucose (Glutose) 15 gm Q15M PRN PO DECREASED GLUCOSE; Start 03/14/16 at 12:30 Glucose (Glutose) 22.5 gm Q15M PRN PO DECREASED GLUCOSE; Start 03/14/16 at 12: 30 Dextrose (D50w Syringe) 25 ml Q15M PRN IV DECREASED GLUCOSE; Start 03/14/16 at 12:30 Dextrose (D50w Syringe) 50 ml Q15M PRN IV DECREASED GLUCOSE; Start 03/14/16 at 12:30 Glucagon (Glucagen) 1 mg Q15M PRN IM DECREASED GLUCOSE; Start 03/14/16 at 12:30 Glucose 15 gm 15 gm Q15M PRN BUCCAL DECREASED GLUCOSE; Start 03/14/16 at 12:30 Dopamine HCl/ Dextrose (D5W) 250 ml @ 3.37 mls/hr TITRATE IV ; Start 03/15/16 at 16:00 Carvedilol (Coreg) 3.125 mg BID NGT Last administered on 03/16/16 21:50; Admin Dose 3.125 MG; Start 03/16/16 at 09:00 Furosemide (Lasix) 40 mg DAILY IV ; Start 03/17/16 at 09:00 IV Flush 10 ml 10 ml PRN PRN IV IV PROTOCOL; Start 03/16/16 at 13:30 Levetiracetam/ Sodium Chloride (Keppra Iv/NS) 110 ml @ 440 mls/hr Q12 IVPB Last administered on 03/16/16 22:58; Admin Dose 440 MLS/HR; Start 03/16/16 at 14: 30 Hydralazine HCl (Apresoline) 10 mg Q6H PRN IV SBP > 160; Start 03/16/16 at 14:30 Lorazepam (Ativan) 2 mg Q2H PRN IV SEIZURES Last administered on 03/17/16 04:15 ; Admin Dose 2 MG; Start 03/16/16 at 18:30 IRENE FORRESTER Mar 17, 2016 09:26
[2016-03-17] MEDS: AMIODARONE 200 MG TAB NGT SCH ×2 (09:32→20:52)
[2016-03-17] MEDS: LISINOPRIL 5 MG TAB NGT SCH (09:33)
[2016-03-17] MEDS: FUROSEMIDE 40 MG INJ IV SCH (09:34)
[2016-03-17] MEDS: LEVETIRACETAM IV 1,000 MG in SOD CHLORIDE 0.9% 100 ML IVPB SCH ×2 (09:38→20:52)
[2016-03-17] MEDS: FAMOTIDINE 20 MG INJ IV SCH ×2 (09:38→21:08)
[2016-03-17] MEDS: INSULIN GLARGINE [LANtus] 3 ML PEN SC SCH (10:07)
[2016-03-17] MEDS ORDERED: POTASSIUM CHLORIDE 250 ML IVPB ONE (12:00)
--- NOTE | 2016-03-17 12:12 | CONS ---
Date/Time of Note Date/Time of Note DATE: 03/17/16 TIME: 12:10 Consult Date/Type/Reason Admit Date/Time Mar 11, 2016 at 22:10 Initial Consult Date 03/14/16 Type of Consultation: Neurology Reason for Consultation cardiac arrest, hypoxic injury Subjective twitching noted yesterday initiated on Keppra 500 mg q12h Objective Vital Signs Date Time Temp Pulse Resp B/P Pulse Ox O2 Delivery O2 Flow Rate FiO2 03/17/16 11:00 100.1 87 23 153/84 100 Mechanical Ventilator 03/17/16 10:55 30 Intake and Output 03/16/16 03/16/16 03/17/16 15:00 23:00 07:00 Intake Total 940 ml 1485.0 ml 1170 ml Output Total 520 ml 575 ml 395 ml Balance 420 ml 910.0 ml 775 ml intubated no sedation unresponsive to verbal stimuli pupils dilated 4 mm non reactive absent corneals absent gag reflex no withdrawal to noxious in any extremity diffuse edema Results/Medications Result Diagram: 03/17/16 0400 03/17/16 0400 Results 24 hrs Laboratory Tests Test 03/16/16 14:30 03/16/16 14:42 03/16/16 18:30 03/16/16 22:16 Bedside Glucose 72 83 103 Urine Bilirubin NEGATIVE Urine Clarity CLEAR Urine Color LT. YELLOW Urine Glucose NEGATIVE Urine Hemoglobin 1+ H Urine Ketones 15 Urine Leukocyte Esterase NEGATIVE Urine Microscopic RBC 2-5 Urine Microscopic WBC 0-2 Urine Nitrite NEGATIVE Urine Specific [place] 1.020 Urine Total Protein NEGATIVE Urine Urobilinogen 0.2 E.U./dL Urine pH 7.0 Test 03/17/16 03:57 03/17/16 04:00 Bedside Glucose 98 Anion Gap 14 Basophils # 0.0 Basophils % 0.5 Blood Morphology Comment Blood Urea Nitrogen 14 Calcium Level 7.1 L Carbon Dioxide Level 24 Chloride Level 107 Creatinine 0.77 Eosinophils # 0.1 Eosinophils % 0.5 Glucose Level 101 Hematocrit 37.8 L Hemoglobin 12.3 L Lymphocytes # 2.1 Lymphocytes % 20.9 Mean Corpuscular Hemoglobin 28.0 L Mean Corpuscular Hemoglobin Concent 32.5 Mean Corpuscular Volume 86.1 Mean Platelet Volume 8.4 Monocytes # 1.2 H Monocytes % 11.2 H Neutrophils # 6.9 Neutrophils % 66.9 Nucleated Red Blood Cells # 0.0 Nucleated Red Blood Cells % 0.0 Platelet Count 270 Potassium Level 3.3 L Red Blood Count 4.39 L Red Cell Distribution Width 15.7 H Sodium Level 142 White Blood Count 10.3 # Medications Current Medications Ondansetron HCl 4 mg 4 mg Q6H PRN IV NAUSEA AND/OR VOMITING; Start 03/12/16 at 03:00 Sodium Chloride (NS) 1,000 ml @ 100 mls/hr Q10H IV Last administered on 01:50; Admin Dose 100 MLS/HR; Start 03/12/16 at 02:36 Meperidine HCl (Demerol) 12.5 mg Q4H PRN IV POST OPERATIVE SHIVERING; Start at 03:00 Meperidine HCl (Demerol) 25 mg Q4H PRN IV POST OPERATIVE SHIVERING; Start 03/12 at 03:00 Eye Lubricant (Akwa Oint) 1 applic Q6 BOTH EYES Last administered on 03/17/16 06:05; Admin Dose 1 APPLIC; Start 03/12/16 at 06:00 Eye Lubricant 2 drop 2 drop Q6 BOTH EYES Last administered on 03/17/16 06:05; Admin Dose 2 DROP; Start 03/12/16 at 06:00 Piperacillin Sod/ Tazobactam Sod (Zosyn 3.375gm/ 100 ml (Pmx)) 100 ml @ 200 mls /hr Q6 IVPB Last administered on 03/17/16 06:05; Admin Dose 200 MLS/HR; Start 03/12/16 at 06:00 Heparin Sodium (Porcine) (Heparin (5000 Units/0.5 ml)) 5,000 unit Q8 SC Last administered on 03/17/16 06:08; Admin Dose 5,000 UNIT; Start 03/13/16 at 14:00 Famotidine (Pepcid Iv) 20 mg BID IV Last administered on 03/17/16 09:38; Admin Dose 20 MG; Start 03/13/16 at 09:00 Amiodarone HCl (Cordarone) 400 mg BID NGT Last administered on 03/17/16 09:32; Admin Dose 400 MG; Start 03/13/16 at 21:00 Lisinopril (Zestril) 2.5 mg DAILY NGT Last administered on 03/17/16 09:33; Admin Dose 2.5 MG; Start 03/14/16 at 09:00 Acetaminophen (Tylenol Liquid) 650 mg Q4H PRN NGT TEMP > 37C Last administered on 03/16/16 21:50; Admin Dose 650 MG; Start 03/13/16 at 20:02 Ipratropium [place] (Atrovent Hfa) 4 puff Q4 INH Last administered on 03/17/16 08:59; Admin Dose 4 PUFF; Start 03/14/16 at 05:00 Glycopyrrolate (Robinul) 0.2 mg Q6H IV Last administered on 03/17/16 09:33; Admin Dose 0.2 MG; Start 03/14/16 at 03:30 Glycopyrrolate (Robinul) 0.2 mg PRN PRN IV PRN SECRETIONS; Start 03/14/16 at 03 :30 Insulin Glargine (Lantus) 20 unit DAILY SC Last administered on 03/17/16 10:07 ; Admin Dose 20 UNIT; Start 03/14/16 at 12:00 Insulin Aspart (Novolog Insulin Pen) NOVOLOG *MILD* ALGORI... Q4 SC Last administered on 03/15/16 01:32; Admin Dose 1 UNIT; Start 03/14/16 at 13:00 Miscellaneous Information 1 ea NOTE XX ; Start 03/14/16 at 12:30 Glucose (Glutose) 15 gm Q15M PRN PO DECREASED GLUCOSE; Start 03/14/16 at 12:30 Glucose (Glutose) 22.5 gm Q15M PRN PO DECREASED GLUCOSE; Start 03/14/16 at 12: 30 Dextrose (D50w Syringe) 25 ml Q15M PRN IV DECREASED GLUCOSE; Start 03/14/16 at 12:30 Dextrose (D50w Syringe) 50 ml Q15M PRN IV DECREASED GLUCOSE; Start 03/14/16 at 12:30 Glucagon (Glucagen) 1 mg Q15M PRN IM DECREASED GLUCOSE; Start 03/14/16 at 12:30 Glucose 15 gm 15 gm Q15M PRN BUCCAL DECREASED GLUCOSE; Start 03/14/16 at 12:30 Dopamine HCl/ Dextrose (D5W) 250 ml @ 3.37 mls/hr TITRATE IV ; Start 03/15/16 at 16:00 Carvedilol (Coreg) 3.125 mg BID NGT Last administered on 03/17/16 09:41; Admin Dose 3.125 MG; Start 03/16/16 at 09:00 Furosemide (Lasix) 40 mg DAILY IV Last administered on 03/17/16 09:34; Admin Dose 40 MG; Start 03/17/16 at 09:00 IV Flush 10 ml 10 ml PRN PRN IV IV PROTOCOL; Start 03/16/16 at 13:30 Levetiracetam/ Sodium Chloride (Keppra Iv/NS) 110 ml @ 440 mls/hr Q12 IVPB Last administered on 03/17/16 09:38; Admin Dose 440 MLS/HR; Start 03/16/16 at 14: 30 Hydralazine HCl (Apresoline) 10 mg Q6H PRN IV SBP > 160; Start 03/16/16 at 14:30 Lorazepam 2 mg 2 mg Q2H PRN IV SEIZURES Last administered on 03/17/16 04:15; Admin Dose 2 MG; Start 03/16/16 at 18:30 Potassium Chloride (KCl 40 MEQ/250 ML NS) 250 ml @ 62.5 mls/hr ONCE ONCE IVPB ; Start 03/17/16 at 12:00; Stop 03/17/16 at 15:59 Assessment/Plan Chief Complaint/Hosp Course 40 year old M with hx of HTN, DM, previous OK, cardiomyopathy previous OK s/p PPM admitted with PEA arrest, ROSC after 2 rounds of epinephrine. He is s/p hypothermia protocol for 24 hours, neurologic exam remains poor: absent corneals and gag. -Initial Head CT unrevealing -very poor prognosis for neurologic recovery discussed examination findings with daughter on previous day -goals of care discussion on going with family, will sign off for now please reconsult if any questions/concerns Problems: KAILYN PENA MD Mar 17, 2016 12:11
--- NOTE | 2016-03-17 14:31 | SP ---
DATE OF PROCEDURE: HISTORY: The patient is a 40-year-old male who was admitted following cardiorespiratory arrest. EE G is to rule out encephalopathy or seizure activity. CURRENT MEDICATIONS: 1. Midazolam 2. Propofol. 3. Cordarone. 4. Coreg. 5. Apresoline. PROCEDURE: Utilizing a 16-channel EEG machine, cap scalp electrodes were applied in accordance with International 10-20 system. [id number] and [id number] montages were displayed. Electrical i mpedances were measured and reported. DESCRIPTION: During the resting state, a posterior dominant rhythm of about 6 to 7 Hz were seen bih emispherically. Photic stimulation had no response. Hyperventilation was not performed. Bitempora l frontal sharps were seen throughout the tracing. INTERPRETATION: This is an abnormal EEG due to presence of generalized bihemispheric background slo wing with bitemporal frontal sharps which could be epileptogenic. Please correlate these findings w ith the patient's clinical picture. Dictated By: PUMA YOUNGER/IMAN Conf#: [id number] DID#: [id number]
--- NOTE | 2016-03-17 14:58 | PN ---
Date/Time of Note Date/Time of Note DATE: 03/17/16 TIME: 14:52 Assessment/Plan VTE Prophylaxis VTE Prophylaxis Intervention: SCD's Lines/Catheters IV [facility]ter [facility] (from [facility] Peripheral IV Urinary Cath still in place: Yes Reason Cath still needed: urinary retention Assessment/Plan Chief Complaint/Hosp Course Assessment/Plan: 40 yo M who suddenly collapsed managed for: 1. PEA cardiac arrest status post 2 rounds of epinephrine with ROSC (return of spontaneous circulation) - Likely 2/2 arrhythmia, was on Hypothermia protocol earlier this admission. Per CV No evidence of acute ND though patient has known CAD. Still unresponsive. - f/u CV rec's, continue PO cardiac meds 2. Vent dependent respiratory failure 2/2 #1 - L sided infiltrates concerning for aspiration pneumonia. - continue IV abx, f/u pulm rec's - wean per pulm rec's - appreciate ID consult - continue abx, tylenol prn fever 3. Atrial fibrillation with rapid ventricular response - now Rate controlled - monitor, f/u CV rec's 4. SIRS with severe Lactic acidosis 2/2 #1 - improving - monitor 5. Diabetes Type 2 - A1c = 8.0 - continue ISS, lantus 6. HTN >borderline hypotensive - now off pressor support - monitor bp 7. Known CAD - S/p Pacemaker - f/u CV rec's 8. Anion gap metabolic acidosis: resolved - monitor 9. Likely anoxic brain injury - appreciate Neuro consult. EEG showed abnormal EEG due to presence of generalized bihemispheric background slowing with bitemporal frontal sharps which could be epileptogenic - monitor for now - continue keppra 10. Transient Shock likely Cardiogenic: resolved - monitor Continue Close ICU care and supportive care. Again, family leaning towards comfort care at this point. Prophylaxis: Heparin and Pepcid CRITICAL CARE TIME: 40 mins today Problems: Subjective 24 Hr Interval Summary Free Text/Dictation No acute events overnight. Stil intubated, family met with palliative team today as well - leaning towards comfort measures now. Still with occasional seizures. Exam/Review of Systems Vital Signs Vitals Vital Signs Date Time Temp Pulse Resp B/P Pulse Ox O2 Delivery O2 Flow Rate FiO2 03/17/16 12:00 97 03/17/16 11:00 100.1 23 153/84 100 Mechanical Ventilator 03/17/16 10:55 30 Intake and Output 03/16/16 03/16/16 03/17/16 15:00 23:00 07:00 Intake Total 940 ml 1485.0 ml 1170 ml Output Total 520 ml 575 ml 395 ml Balance 420 ml 910.0 ml 775 ml Exam GENERAL: Intubated, unresponsive, Obese HEENT: No obvious head deformity. CARDIOVASCULAR: S1S2, RRR presently LUNGS: less diminished breath sounds at the bases bilaterally. ABDOMEN: Soft, obese, nondistended. EXTREMITIES: No edema. NEUROLOGIC: The patient unresponsive Results Result Diagram: 03/17/16 0400 03/17/16 0400 Results 24 hrs Laboratory Tests Test 03/16/16 18:30 03/16/16 22:16 03/17/16 03:57 03/17/16 04:00 Bedside Glucose 83 103 98 Anion Gap 14 Basophils # 0.0 Basophils % 0.5 Blood Morphology Comment Blood Urea Nitrogen 14 Calcium Level 7.1 L Carbon Dioxide Level 24 Chloride Level 107 Creatinine 0.77 Eosinophils # 0.1 Eosinophils % 0.5 Glucose Level 101 Hematocrit 37.8 L Hemoglobin 12.3 L Lymphocytes # 2.1 Lymphocytes % 20.9 Mean Corpuscular Hemoglobin 28.0 L Mean Corpuscular Hemoglobin Concent 32.5 Mean Corpuscular Volume 86.1 Mean Platelet Volume 8.4 Monocytes # 1.2 H Monocytes % 11.2 H Neutrophils # 6.9 Neutrophils % 66.9 Nucleated Red Blood Cells # 0.0 Nucleated Red Blood Cells % 0.0 Platelet Count 270 Potassium Level 3.3 L Red Blood Count 4.39 L Red Cell Distribution Width 15.7 H Sodium Level 142 White Blood Count 10.3 # Test 03/17/16 13:23 Bedside Glucose 137 Medications Medications Current Medications Ondansetron HCl 4 mg 4 mg Q6H PRN IV NAUSEA AND/OR VOMITING; Start 03/12/16 at 03:00 Sodium Chloride (NS) 1,000 ml @ 100 mls/hr Q10H IV Last administered on t 01:50; Admin Dose 100 MLS/HR; Start 03/12/16 at 02:36 Meperidine HCl (Demerol) 12.5 mg Q4H PRN IV POST OPERATIVE SHIVERING; Start at 03:00 Meperidine HCl (Demerol) 25 mg Q4H PRN IV POST OPERATIVE SHIVERING; Start 03/12 at 03:00 Eye Lubricant (Akwa Oint) 1 applic Q6 BOTH EYES Last administered on 03/17/16 13:13; Admin Dose 1 APPLIC; Start 03/12/16 at 06:00 Eye Lubricant 2 drop 2 drop Q6 BOTH EYES Last administered on 03/17/16 13:13; Admin Dose 2 DROP; Start 03/12/16 at 06:00 Piperacillin Sod/ Tazobactam Sod (Zosyn 3.375gm/ 100 ml (Pmx)) 100 ml @ 200 mls /hr Q6 IVPB Last administered on 03/17/16 13:22; Admin Dose 200 MLS/HR; Start 03/12/16 at 06:00 Heparin Sodium (Porcine) (Heparin (5000 Units/0.5 ml)) 5,000 unit Q8 SC Last administered on 03/17/16 06:08; Admin Dose 5,000 UNIT; Start 03/13/16 at 14:00 Famotidine (Pepcid Iv) 20 mg BID IV Last administered on 03/17/16 09:38; Admin Dose 20 MG; Start 03/13/16 at 09:00 Amiodarone HCl (Cordarone) 400 mg BID NGT Last administered on 03/17/16 09:32; Admin Dose 400 MG; Start 03/13/16 at 21:00 Lisinopril (Zestril) 2.5 mg DAILY NGT Last administered on 03/17/16 09:33; Admin Dose 2.5 MG; Start 03/14/16 at 09:00 Acetaminophen (Tylenol Liquid) 650 mg Q4H PRN NGT TEMP > 37C Last administered on 03/16/16 21:50; Admin Dose 650 MG; Start 03/13/16 at 20:02 Ipratropium [place] (Atrovent Hfa) 4 puff Q4 INH Last administered on 03/17/16 13:07; Admin Dose 4 PUFF; Start 03/14/16 at 05:00 Glycopyrrolate (Robinul) 0.2 mg Q6H IV Last administered on 03/17/16 09:33; Admin Dose 0.2 MG; Start 03/14/16 at 03:30 Glycopyrrolate (Robinul) 0.2 mg PRN PRN IV PRN SECRETIONS; Start 03/14/16 at 03 :30 Insulin Glargine (Lantus) 20 unit DAILY SC Last administered on 03/17/16 10:07 ; Admin Dose 20 UNIT; Start 03/14/16 at 12:00 Insulin Aspart (Novolog Insulin Pen) NOVOLOG *MILD* ALGORI... Q4 SC Last administered on 03/15/16 01:32; Admin Dose 1 UNIT; Start 03/14/16 at 13:00 Miscellaneous Information 1 ea NOTE XX ; Start 03/14/16 at 12:30 Glucose (Glutose) 15 gm Q15M PRN PO DECREASED GLUCOSE; Start 03/14/16 at 12:30 Glucose (Glutose) 22.5 gm Q15M PRN PO DECREASED GLUCOSE; Start 03/14/16 at 12: 30 Dextrose (D50w Syringe) 25 ml Q15M PRN IV DECREASED GLUCOSE; Start 03/14/16 at 12:30 Dextrose (D50w Syringe) 50 ml Q15M PRN IV DECREASED GLUCOSE; Start 03/14/16 at 12:30 Glucagon (Glucagen) 1 mg Q15M PRN IM DECREASED GLUCOSE; Start 03/14/16 at 12:30 Glucose 15 gm 15 gm Q15M PRN BUCCAL DECREASED GLUCOSE; Start 03/14/16 at 12:30 Dopamine HCl/ Dextrose (D5W) 250 ml @ 3.37 mls/hr TITRATE IV ; Start 03/15/16 at 16:00 Carvedilol (Coreg) 3.125 mg BID NGT Last administered on 03/17/16 09:41; Admin Dose 3.125 MG; Start 03/16/16 at 09:00 Furosemide (Lasix) 40 mg DAILY IV Last administered on 03/17/16 09:34; Admin Dose 40 MG; Start 03/17/16 at 09:00 IV Flush 10 ml 10 ml PRN PRN IV IV PROTOCOL; Start 03/16/16 at 13:30 Levetiracetam/ Sodium Chloride (Keppra Iv/NS) 110 ml @ 440 mls/hr Q12 IVPB Last administered on 03/17/16 09:38; Admin Dose 440 MLS/HR; Start 03/16/16 at 14: 30 Hydralazine HCl (Apresoline) 10 mg Q6H PRN IV SBP > 160; Start 03/16/16 at 14:30 Lorazepam 2 mg 2 mg Q2H PRN IV SEIZURES Last administered on 03/17/16 13:11; Admin Dose 2 MG; Start 03/16/16 at 18:30 Potassium Chloride (KCl 40 MEQ/250 ML NS) 250 ml @ 62.5 mls/hr ONCE ONCE IVPB Last administered on 03/17/16 13:13; Admin Dose 62.5 MLS/HR; Start 03/17/16 at 12:00; Stop 03/17/16 at 15:59 JT LEÓN Mar 17, 2016 14:58
[2016-03-17] MEDS: ACETAMINOPHEN 650MG/20.3ML CUP NGT PRN (23:25)
[2016-03-18] VITALS (31 sets, daily range): BP systolic 114–161; BP diastolic 68–106; PULSE 48–123; RESP 19–30
[2016-03-18] MEDS: ALBUTEROL HFA 8 GM INHALER INH SCH ×6 (01:16→21:04)
[2016-03-18] MEDS: IPRATROPIUM (HFA) 12.9 GM INHALER INH SCH ×6 (01:16→21:04)
[2016-03-18 01:28] LABS: BASOPHIL # 0.1 10^3/ul (0.0-0.1); BASOPHILS % 0.5 % (0.0-2.0); EOSINOPHILS % 0.3 % (0.0-7.0); HEMATOCRIT 35.7 % (42.0-52.0); HEMOGLOBIN 11.8 g/dl (14.0-18.0); LYMPHOCYTES # 2.1 10^3/ul (0.8-2.9); LYMPHOCYTES % 18.4 % (15.0-51.0); MEAN CORPUSCULAR HEMOGLOBIN 27.7 pg (29.0-33.0); MEAN CORPUSCULAR HGB CONC 32.9 g/dl (32.0-37.0); MEAN CORPUSCULAR VOLUME 84.2 fl (82.0-101.0); MEAN PLATELET VOLUME 8.5 fl (7.4-10.4); MONOCYTE # 1.2 10^3/ul (0.3-0.9); MONOCYTES % 11.1 % (0.0-11.0); NEUTROPHIL # 7.8 10^3/ul (1.6-7.5); NEUTROPHILS % 69.7 % (39.0-77.0); PLATELET COUNT 247 10^3/UL (140-440); RED BLOOD COUNT 4.24 10^6/ul (4.70-6.10); RED CELL DISTRIBUTION WIDTH 16.4 % (11.5-14.5); UNCORRECTED WBC 11.2 10^3/ul (4.8-10.8); WHITE BLOOD COUNT 11.2 10^3/ul (4.8-10.8)
[2016-03-18 01:30] LABS: CONDITION 1; LH ANALYZER COMMENTS 1
[2016-03-18] MEDS: INSULIN ASPART [NOVOLOG] 3 ML PEN SC SCH ×6 (01:31→21:00)
[2016-03-18 01:32] LABS: ALBUMIN 2.7 g/dl (3.3-4.9)
[2016-03-18 01:33] LABS: PHOSPHORUS 2.6 mg/dl (2.5-4.9); POTASSIUM 3.2 mmol/L (3.5-5.1)
[2016-03-18 01:34] LABS: MAGNESIUM 1.6 mg/dl (1.7-2.5)
[2016-03-18 01:35] LABS: CREATININE 0.83 mg/dl (0.61-1.24)
[2016-03-18 01:36] LABS: ALBUMIN/GLOBULIN RATIO 0.79; CALCIUM 7.3 mg/dl (8.4-10.2); INR 1.26; PROTIME 15.9 Sec (12.2-14.2); PT RATIO 1.2; TOTAL PROTEIN 6.1 g/dl (6.1-8.1)
[2016-03-18 01:37] LABS: PARTIAL THROMBOPLASTIN TIME 42.2 Sec (25.0-35.0)
[2016-03-18 01:59] LABS: ADD UMIC YES; URINE BILIRUBIN (Dip) NEGATIVE (NEGATIVE); URINE BLOOD (Dip) TRACE (NEGATIVE); URINE COLOR YELLOW (YELLOW); URINE GLUCOSE (Dip) NEGATIVE (NEGATIVE); URINE KETONES (Dip) 15 (NEGATIVE); URINE LEUKOCYTE ESTERASE (Dip) NEGATIVE (NEGATIVE); URINE NITRITE (Dip) NEGATIVE (NEGATIVE); URINE TOTAL PROTEIN (Dip) TRACE (NEGATIVE); URINE UROBILINOGEN (Dip) 1.0 E.U./dL (0.1-1.0)
[2016-03-18] MEDS: GLYCOPYRROLATE 0.4 MG INJ IV SCH ×4 (02:20→21:44)
[2016-03-18 02:36] LABS: SQUAMOUS EPITHELIAL CELL,UR RARE; URINE RBCS 0-2 /HPF (0)
--- NOTE | 2016-03-18 02:45 | RADRPT ---
PROCEDURE: XR Chest. CLINICAL INDICATION: Endotracheal intubation with airspace disease. TECHNIQUE: Single frontal view of the chest was obtained COMPARISON: 03/17/2016, about 19 hours ago. FINDINGS: Endotracheal intubation is seen with tip about 3 cm above the len. Nasogastric tube is seen with tip off bottom of the film. Cardiomegaly is again seen. Bilateral patchy air space disease is aga in seen, slightly improved over interval. Aeration bilateral lungs is slightly improved over interv al. Likely small pleural effusions. IMPRESSION: 1. Endotracheal intubation is again seen with tip about 3 cm above the len. 2. Nasogastric tube is again seen with tip off bottom of the film. 3. Persistent bilateral patchy air space disease, which appears improved over interval. 4. Improved aeration in bilateral lungs over interval. 5. Small bilateral pleural effusions. RPTAT: [facility] Physician Cole Date Time Electronically viewed and signed by Physician Cole on 03/18/2016 02:45 RS/
--- NOTE | 2016-03-18 02:49 | RADRPT ---
PROCEDURE: US gallbladder . CLINICAL INDICATION: Abdominal pain. TECHNIQUE: Multiple real-time images were acquired of the patient's abdomen utilizing a high resol ution transducer. COMPARISON: Plain film abdomen dated 03/12/2016. FINDINGS: No gallstones are identified within the gallbladder. There is no pericholecystic fluid. The gallbladder wall measures 1 mm and is within normal limits. The common bile duct measures 6 mm in maximal dimension. No free fluid is identified. Right kidney measures 123 mm. No evident renal mass, hydronephrosis ret ained calculus. The liver is enlarged measuring 196 mm. Left kidney and spleen not visualized secondary to excessive amount of overlying bowel gas. Suboptim al visualization of the pancreas. IMPRESSION: 1. Hepatomegaly. 2. Otherwise, no acute process in the upper abdomen. RPTAT: [facility] Physician Cole Date Time Electronically viewed and signed by Physician Cole on 03/18/2016 02:49 RS/
[2016-03-18] MEDS: LORAZEPAM 2 MG INJ IV PRN ×4 (03:13→23:33)
[2016-03-18] MEDS: PIPER-TAZO 3.375 GM IV (PMX) 100 ML IVPB SCH ×3 (07:08→18:25)
[2016-03-18] MEDS: OCULAR LUBRICANT 3.5 GM OPH OINT BOTH EYES SCH ×3 (07:08→18:26)
[2016-03-18] MEDS: ARTIFICIAL TEARS 15 ML OPH BOTH EYES SCH ×3 (07:08→18:26)
--- NOTE | 2016-03-18 07:10 | CONS ---
Date/Time of Note Date/Time of Note DATE: 03/18/16 TIME: 07:06 Assessment/Plan Assessment/Plan Additional Assessment/Plan Assessment and recommendations; next 1. Admitted with cardiac arrest underwent prolonged CPR resulting in severe anoxic enthesopathy. Now exhibiting myoclonic jerking. 2. Hypertension . 3. Some element of aspiration pneumonia . 4. Mild hypokalemia next 5. Chest x-ray from today was reviewed which is showing mild pulmonary vascular congestion, endotracheal tube is at an adequate level 6. Patient maintaining adequate O2 saturation on current ventilator settings which are SIMV of 16, tidal volume 550, PEEP of 5, pressure support of 10, 40% FiO2. 7. Recurrent bradycardia. Next Continue current ventilator settings. Discontinue Coreg. Replace potassium. Add Depakote 500 mg every 8 hours via NG tube. Continue Keppra. Prognosis is poor. Consultation Date/Type/Reason Admit Date/Time Mar 11, 2016 at 22:10 Type of Consultation: Neurology 24 HR Interval Summary Free Text/Dictation Patient's condition remains critical. Still requiring full ventilator support. Patient remains completely unresponsive. And is now exhibiting occasional myoclonic jerking. Next General exam; middle aged man, orally intubated, unresponsive. Exam/Review of Systems Vital Signs Vitals Vital Signs Date Time Temp Pulse Resp B/P Pulse Ox O2 Delivery O2 Flow Rate FiO2 03/18/16 06:00 61 03/18/16 05:00 25 100 40 03/18/16 05:00 126/70 Mechanical Ventilator 03/18/16 04:00 100.9 Intake and Output 03/17/16 03/17/16 03/18/16 15:00 23:00 07:00 Intake Total 1040 ml 560 ml 0 ml Output Total 1070 ml 700 ml 510 ml Balance -30 ml -140 ml -510 ml Exam HEENT examination; supple neck, no JVD. Or intubated. Pupils are midsize nonreactive to light. There is a slight disconjugate gaze. No neck masses. No lymphadenopathy. Next Chest examination; diminished but clear breath sounds. S1-S2 audible no murmurs regular rhythm, bradycardic. Abdomen examination; protuberant, bowel sounds are audible. No organomegaly felt. Extremity examination; trace edema. Pulses 1+ bilaterally. SENIOR APPLICATIONS ENGINEER examination; patient remains unresponsive, exhibiting occasional myoclonic jerking. Results Result Diagram: 03/18/16 0050 03/18/16 0050 Results 24 hrs Laboratory Tests Test 03/17/16 13:23 03/17/16 17:11 03/17/16 20:44 03/18/16 00:50 Bedside Glucose 137 131 140 Activated Partial Thromboplast Time 42.2 H Alanine Aminotransferase (ALT/SGPT) 53 Albumin 2.7 L Albumin/Globulin Ratio 0.79 Alkaline Phosphatase 89 Amylase Level 37 Anion Gap 15 Aspartate Amino Transf (AST/SGOT) 82 H Basophils # 0.1 Basophils % 0.5 Blood Morphology Comment Blood Urea Nitrogen 15 Calcium Level 7.3 L Carbon Dioxide Level 23 Chloride Level 105 Creatinine 0.83 Direct Bilirubin 0.00 Eosinophils # 0.0 Eosinophils % 0.3 Gamma Glutamyl Transpeptidase 114 H Globulin 3.40 H Glucose Level 166 Hematocrit 35.7 L Hemoglobin 11.8 L INR International Normalized Ratio 1.26 Indirect Bilirubin 1.0 Lipase 84 Lymphocytes # 2.1 Lymphocytes % 18.4 Magnesium Level 1.6 L Mean Corpuscular Hemoglobin 27.7 L Mean Corpuscular Hemoglobin Concent 32.9 Mean Corpuscular Volume 84.2 Mean Platelet Volume 8.5 Monocytes # 1.2 H Monocytes % 11.1 H Neutrophils # 7.8 H Neutrophils % 69.7 Nucleated Red Blood Cells # 0.0 Nucleated Red Blood Cells % 0.0 Phosphorus Level 2.6 Platelet Count 247 Potassium Level 3.2 L Prothrombin Time 15.9 H Prothrombin Time Ratio 1.2 Red Blood Count 4.24 L Red Cell Distribution Width 16.4 H Sodium Level 140 Total Bilirubin 1.0 Total Protein 6.1 Urine Bilirubin NEGATIVE Urine Clarity CLEAR Urine Color YELLOW Urine Glucose NEGATIVE Urine Hemoglobin TRACE Urine Ketones 15 Urine Leukocyte Esterase NEGATIVE Urine Microscopic RBC 0-2 Urine Microscopic WBC NONE SEEN Urine Nitrite NEGATIVE Urine Specific [place] 1.025 Urine Squamous Epithelial Cells RARE Urine Total Protein TRACE Urine Urobilinogen 1.0 E.U./dL Urine pH 5.5 White Blood Count 11.2 H Test 03/18/16 01:27 Bedside Glucose 157 Medications Medications Current Medications Ondansetron HCl 4 mg 4 mg Q6H PRN IV NAUSEA AND/OR VOMITING; Start 03/12/16 at 03:00 Sodium Chloride (NS) 1,000 ml @ 100 mls/hr Q10H IV Last administered on t 20:53; Admin Dose 100 MLS/HR; Start 03/12/16 at 02:36 Meperidine HCl (Demerol) 12.5 mg Q4H PRN IV POST OPERATIVE SHIVERING; Start at 03:00 Meperidine HCl (Demerol) 25 mg Q4H PRN IV POST OPERATIVE SHIVERING; Start 03/12 at 03:00 Eye Lubricant (Akwa Oint) 1 applic Q6 BOTH EYES Last administered on 03/17/16 23:25; Admin Dose 1 APPLIC; Start 03/12/16 at 06:00 Eye Lubricant 2 drop 2 drop Q6 BOTH EYES Last administered on 03/17/16 23:25; Admin Dose 2 DROP; Start 03/12/16 at 06:00 Piperacillin Sod/ Tazobactam Sod (Zosyn 3.375gm/ 100 ml (Pmx)) 100 ml @ 200 mls /hr Q6 IVPB Last administered on 03/17/16 23:24; Admin Dose 200 MLS/HR; Start 03/12/16 at 06:00 Heparin Sodium (Porcine) (Heparin (5000 Units/0.5 ml)) 5,000 unit Q8 SC Last administered on 03/17/16 21:00; Admin Dose 5,000 UNIT; Start 03/13/16 at 14:00 Famotidine (Pepcid Iv) 20 mg BID IV Last administered on 03/17/16 21:08; Admin Dose 20 MG; Start 03/13/16 at 09:00 Amiodarone HCl (Cordarone) 400 mg BID NGT Last administered on 03/17/16 20:52; Admin Dose 400 MG; Start 03/13/16 at 21:00 Lisinopril (Zestril) 2.5 mg DAILY NGT Last administered on 03/17/16 09:33; Admin Dose 2.5 MG; Start 03/14/16 at 09:00 Acetaminophen (Tylenol Liquid) 650 mg Q4H PRN NGT TEMP > 37C Last administered on 03/17/16 23:25; Admin Dose 650 MG; Start 03/13/16 at 20:02 Ipratropium [place] (Atrovent Hfa) 4 puff Q4 INH Last administered on 03/18/16 05:07; Admin Dose 4 PUFF; Start 03/14/16 at 05:00 Glycopyrrolate (Robinul) 0.2 mg Q6H IV Last administered on 03/18/16 02:20; Admin Dose 0.2 MG; Start 03/14/16 at 03:30 Glycopyrrolate (Robinul) 0.2 mg PRN PRN IV PRN SECRETIONS; Start 03/14/16 at 03 :30 Insulin Glargine (Lantus) 20 unit DAILY SC Last administered on 03/17/16 10:07 ; Admin Dose 20 UNIT; Start 03/14/16 at 12:00 Insulin Aspart (Novolog Insulin Pen) NOVOLOG *MILD* ALGORI... Q4 SC Last administered on 03/18/16 01:31; Admin Dose 1 UNIT; Start 03/14/16 at 13:00 Miscellaneous Information 1 ea NOTE XX ; Start 03/14/16 at 12:30 Glucose (Glutose) 15 gm Q15M PRN PO DECREASED GLUCOSE; Start 03/14/16 at 12:30 Glucose (Glutose) 22.5 gm Q15M PRN PO DECREASED GLUCOSE; Start 03/14/16 at 12: 30 Dextrose (D50w Syringe) 25 ml Q15M PRN IV DECREASED GLUCOSE; Start 03/14/16 at 12:30 Dextrose (D50w Syringe) 50 ml Q15M PRN IV DECREASED GLUCOSE; Start 03/14/16 at 12:30 Glucagon (Glucagen) 1 mg Q15M PRN IM DECREASED GLUCOSE; Start 03/14/16 at 12:30 Glucose 15 gm 15 gm Q15M PRN BUCCAL DECREASED GLUCOSE; Start 03/14/16 at 12:30 Dopamine HCl/ Dextrose (D5W) 250 ml @ 3.37 mls/hr TITRATE IV ; Start 03/15/16 at 16:00 Carvedilol (Coreg) 3.125 mg BID NGT Last administered on 03/17/16 20:52; Admin Dose 3.125 MG; Start 03/16/16 at 09:00 Furosemide (Lasix) 40 mg DAILY IV Last administered on 03/17/16 09:34; Admin Dose 40 MG; Start 03/17/16 at 09:00 IV Flush 10 ml 10 ml PRN PRN IV IV PROTOCOL; Start 03/16/16 at 13:30 Levetiracetam/ Sodium Chloride (Keppra Iv/NS) 110 ml @ 440 mls/hr Q12 IVPB Last administered on 03/17/16 20:52; Admin Dose 440 MLS/HR; Start 03/16/16 at 14: 30 Hydralazine HCl (Apresoline) 10 mg Q6H PRN IV SBP > 160; Start 03/16/16 at 14:30 Lorazepam (Ativan) 2 mg Q2H PRN IV SEIZURES Last administered on 03/18/16 03:13 ; Admin Dose 2 MG; Start 03/16/16 at 18:30 IRENE FORRESTER Mar 18, 2016 07:10
[2016-03-18] MEDS: HEPARIN 5,000 UNIT/0.5 ML SYG SC SCH ×2 (07:11→14:21)
[2016-03-18 07:24] LABS: BASOPHILS % 0.3 % (0.0-2.0); EOSINOPHILS % 0.4 % (0.0-7.0); HEMATOCRIT 34.6 % (42.0-52.0); HEMOGLOBIN 11.3 g/dl (14.0-18.0); LYMPHOCYTES # 2.4 10^3/ul (0.8-2.9); LYMPHOCYTES % 19.1 % (15.0-51.0); MEAN CORPUSCULAR HEMOGLOBIN 27.4 pg (29.0-33.0); MEAN CORPUSCULAR HGB CONC 32.7 g/dl (32.0-37.0); MEAN CORPUSCULAR VOLUME 83.9 fl (82.0-101.0); MEAN PLATELET VOLUME 8.6 fl (7.4-10.4); MONOCYTE # 1.7 10^3/ul (0.3-0.9); MONOCYTES % 13.8 % (0.0-11.0); NEUTROPHIL # 8.2 10^3/ul (1.6-7.5); NEUTROPHILS % 66.4 % (39.0-77.0); PLATELET COUNT 225 10^3/UL (140-440); RED BLOOD COUNT 4.12 10^6/ul (4.70-6.10); RED CELL DISTRIBUTION WIDTH 15.9 % (11.5-14.5); UNCORRECTED WBC 12.4 10^3/ul (4.8-10.8); WHITE BLOOD COUNT 12.4 10^3/ul (4.8-10.8)
[2016-03-18 07:29] LABS: INR 1.27; PT RATIO 1.3
[2016-03-18 07:30] LABS: ALBUMIN 2.7 g/dl (3.3-4.9); POTASSIUM 3.5 mmol/L (3.5-5.1)
[2016-03-18] MEDS ORDERED: POTASSIUM CHLORIDE 250 ML IVPB ONE (07:30)
[2016-03-18 07:32] LABS: CREATININE 0.93 mg/dl (0.61-1.24)
[2016-03-18 07:33] LABS: ALBUMIN/GLOBULIN RATIO 0.81; AMYLASE < 30 U/L (11-123); BILIRUBIN,INDIRECT 1.2 mg/dl (0-1.1); BILIRUBIN,TOTAL 1.2 mg/dl (0.2-1.3); CALCIUM 7.4 mg/dl (8.4-10.2); PHOSPHORUS 2.9 mg/dl (2.5-4.9)
[2016-03-18 07:34] LABS: MAGNESIUM 1.7 mg/dl (1.7-2.5)
[2016-03-18 07:47] LABS: AADO2 Arterial 90.6 mmHg (7.0-24.0); Allen Test ACCEPTAB; Arterial Base Excess -1.9 mmol/L (-3.0-3); Arterial COHb 0.2 % (0.0-3.0); Arterial Fraction of Oxyhgb 98.4 % (93.0-99.0); Arterial HCO3 19.6 mmol/L (22.0-26.0); Arterial MetHb 0.2 % (0.0-1.5); Arterial Total Hemglobin 12.5 g/dl (12.0-18.0); Blood Gas PS 10; MODE VENT - SIMV
[2016-03-18 07:58] LABS: ADD UMIC YES; URINE BILIRUBIN (Dip) 1+ (NEGATIVE); URINE BLOOD (Dip) NEGATIVE (NEGATIVE); URINE COLOR DK. YELLOW (YELLOW); URINE GLUCOSE (Dip) NEGATIVE (NEGATIVE); URINE KETONES (Dip) 15 (NEGATIVE); URINE LEUKOCYTE ESTERASE (Dip) NEGATIVE (NEGATIVE); URINE NITRITE (Dip) NEGATIVE (NEGATIVE); URINE TOTAL PROTEIN (Dip) 1+ (NEGATIVE); URINE UROBILINOGEN (Dip) 2.0 E.U./dL (0.1-1.0)
[2016-03-18 08:10] LABS: BACTERIA,URINE FEW; ICTOTEST NEGATIVE (NEGATIVE); MUCUS,URINE MODERATE; URINE RBCS 0-2 /HPF (0)
[2016-03-18 08:25] LABS: CONDITION 1; LH ANALYZER COMMENTS 1
[2016-03-18] MEDS: SOD CHLORIDE 0.9% 1,000 ML IV SCH ×2 (08:57→18:25)
[2016-03-18] MEDS: FUROSEMIDE 40 MG INJ IV SCH (08:57)
[2016-03-18] MEDS: FAMOTIDINE 20 MG INJ IV SCH ×2 (08:57→20:25)
[2016-03-18] MEDS: LISINOPRIL 5 MG TAB NGT SCH (08:58)
[2016-03-18] MEDS: AMIODARONE 200 MG TAB NGT SCH ×2 (08:58→21:45)
[2016-03-18] MEDS: LEVETIRACETAM IV 1,000 MG in SOD CHLORIDE 0.9% 100 ML IVPB SCH ×2 (08:59→20:25)
[2016-03-18] MEDS ORDERED: DIVALPROEX (EC) 500 MG TAB PO SCH (09:00)
--- NOTE | 2016-03-18 09:26 | RADRPT ---
PROCEDURE: XR Chest. CLINICAL INDICATION: Shortness of breath. TECHNIQUE: Single frontal view. COMPARISON: 03/18/2016. FINDINGS: The endotracheal tube and nasogastric tube remain in satisfactory position. There is mild pulmonary edema, improved. The lungs are otherwise clear. The heart is enlarged. The left arm PICC line tip is in the medial aspect of the right subclavian ve in. There are small bilateral pleural effusions. There is no pneumothorax. IMPRESSION: 1. Endotracheal tube and nasogastric tube in satisfactory position. 2. Mild pulmonary edema, improved. 3. Cardiomegaly. 4. Left arm PICC line tip in the medial aspect of the right subclavian vein. 5. Small bilateral pleural effusions. RPTAT: QQ .Anibal Jean MD, MD Date Time Electronically viewed and signed by .Anibal Jean MD, MD on 03/18/2016 09:26 .R/
[2016-03-18] MEDS: INSULIN GLARGINE [LANtus] 3 ML PEN SC SCH (09:32)
--- NOTE | 2016-03-18 13:06 | PN ---
Date/Time of Note Date/Time of Note DATE: 03/18/16 TIME: 13:04 Assessment/Plan VTE Prophylaxis VTE Prophylaxis Intervention: SCD's Lines/Catheters IV [facility] Type (from [facility] PICC Line Central line still needed: Yes Urinary Cath still in place: Yes Reason Cath still needed: urinary retention Assessment/Plan Chief Complaint/Hosp Course Assessment/Plan: 40 yo M who suddenly collapsed managed for: 1. PEA cardiac arrest status post 2 rounds of epinephrine with ROSC (return of spontaneous circulation) - Likely 2/2 arrhythmia, was on Hypothermia protocol earlier this admission. Per CV No evidence of acute AL though patient has known CAD. Still unresponsive. - f/u CV rec's, continue PO cardiac meds 2. Vent dependent respiratory failure 2/2 #1 - L sided infiltrates concerning for aspiration pneumonia. - continue IV abx, f/u pulm rec's - wean per pulm rec's - appreciate ID consult - continue abx, tylenol prn fever 3. Atrial fibrillation with rapid ventricular response - now Rate controlled - monitor, f/u CV rec's 4. SIRS with severe Lactic acidosis 2/2 #1 - improving - monitor 5. Diabetes Type 2 - A1c = 8.0 - continue ISS, lantus 6. HTN >borderline hypotensive - now off pressor support - monitor bp 7. Known CAD - S/p Pacemaker - f/u CV rec's 8. Anion gap metabolic acidosis: resolved - monitor 9. Likely anoxic brain injury - appreciate Neuro consult. EEG showed abnormal EEG due to presence of generalized bihemispheric background slowing with bitemporal frontal sharps which could be epileptogenic - monitor for now - continue keppra 10. Transient Shock likely Cardiogenic: resolved - monitor Continue Close ICU care and supportive care. Again, family leaning towards comfort care at this point. Also considering organ donation. Prophylaxis: Heparin and Pepcid CRITICAL CARE TIME: 40 mins today Problems: Subjective 24 Hr Interval Summary Free Text/Dictation Pt family met with organ donation team, no acute events overnight, still intubated. Exam/Review of Systems Vital Signs Vitals Vital Signs Date Time Temp Pulse Resp B/P Pulse Ox O2 Delivery O2 Flow Rate FiO2 03/18/16 12:00 40 03/18/16 12:00 73 03/18/16 12:00 103.2 21 127/80 100 Mechanical Ventilator Intake and Output 03/17/16 03/17/16 03/18/16 15:00 23:00 07:00 Intake Total 1040 ml 1270 ml 840 ml Output Total 1070 ml 700 ml 1490 ml Balance -30 ml 570 ml -650 ml Exam GENERAL: Intubated, unresponsive, Obese HEENT: No obvious head deformity. CARDIOVASCULAR: S1S2, RRR presently LUNGS: less diminished breath sounds at the bases bilaterally. ABDOMEN: Soft, obese, nondistended. EXTREMITIES: No edema. NEUROLOGIC: The patient unresponsive Results Result Diagram: 03/18/16 0700 03/18/16 0700 Results 24 hrs Laboratory Tests Test 03/17/16 13:23 03/17/16 17:11 03/17/16 20:44 03/18/16 00:50 Bedside Glucose 137 131 140 Activated Partial Thromboplast Time 42.2 H Alanine Aminotransferase (ALT/SGPT) 53 Albumin 2.7 L Albumin/Globulin Ratio 0.79 Alkaline Phosphatase 89 Amylase Level 37 Anion Gap 15 Aspartate Amino Transf (AST/SGOT) 82 H Basophils # 0.1 Basophils % 0.5 Blood Morphology Comment Blood Urea Nitrogen 15 Calcium Level 7.3 L Carbon Dioxide Level 23 Chloride Level 105 Creatinine 0.83 Direct Bilirubin 0.00 Eosinophils # 0.0 Eosinophils % 0.3 Gamma Glutamyl Transpeptidase 114 H Globulin 3.40 H Glucose Level 166 Hematocrit 35.7 L Hemoglobin 11.8 L INR International Normalized Ratio 1.26 Indirect Bilirubin 1.0 Lipase 84 Lymphocytes # 2.1 Lymphocytes % 18.4 Magnesium Level 1.6 L Mean Corpuscular Hemoglobin 27.7 L Mean Corpuscular Hemoglobin Concent 32.9 Mean Corpuscular Volume 84.2 Mean Platelet Volume 8.5 Monocytes # 1.2 H Monocytes % 11.1 H Neutrophils # 7.8 H Neutrophils % 69.7 Nucleated Red Blood Cells # 0.0 Nucleated Red Blood Cells % 0.0 Phosphorus Level 2.6 Platelet Count 247 Potassium Level 3.2 L Prothrombin Time 15.9 H Prothrombin Time Ratio 1.2 Red Blood Count 4.24 L Red Cell Distribution Width 16.4 H Sodium Level 140 Total Bilirubin 1.0 Total Protein 6.1 Urine Bilirubin NEGATIVE Urine Clarity CLEAR Urine Color YELLOW Urine Glucose NEGATIVE Urine Hemoglobin TRACE Urine Ketones 15 Urine Leukocyte Esterase NEGATIVE Urine Microscopic RBC 0-2 Urine Microscopic WBC NONE SEEN Urine Nitrite NEGATIVE Urine Specific [place] 1.025 Urine Squamous Epithelial Cells RARE Urine Total Protein TRACE Urine Urobilinogen 1.0 E.U./dL Urine pH 5.5 White Blood Count 11.2 H Test 03/18/16 01:27 03/18/16 07:00 03/18/16 07:06 Bedside Glucose 157 133 Activated Partial Thromboplast Time 32.0 Alanine Aminotransferase (ALT/SGPT) 48 Albumin 2.7 L Albumin/Globulin Ratio 0.81 Alkaline Phosphatase 81 Arterial Blood HCO3 19.6 L Arterial Blood Base Excess -1.9 Arterial Blood Oxygen Saturation 98.8 H Dennis Test ACCEPTAB Arterial Blood Gas Puncture Site Right Radial Amylase Level < 30 Anion Gap 16 Arterial Blood Carboxyhemoglobin 0.2 Arterial Blood Date Drawn 03/18/2016 7:20:16 AM Arterial Blood Methemoglobin 0.2 Arterial Blood pCO2 (Temp correct) 24.9 L Arterial Blood pH (Temp corrected) 7.513 H Arterial Blood pO2 (Temp corrected) 166.0 H Aspartate Amino Transf (AST/SGOT) 73 H Basophils # 0.0 Basophils % 0.3 Blood Gas A-a O2 Differential 90.6 H Blood Gas Actual Respiration Rate 26 Blood Gas Low PEEP Setting 5.0 Blood Gas Modality VENT - SIMV Blood Gas Notified Time 03/18/2016 7:47:13 AM Blood Gas Notified Whom JLD Blood Gas Pressure Support 10 Blood Gas Respiration Rate 16.0 Blood Gas Specimen Source Blood arterial Blood Gas Temperature 37.0 Blood Gas Tidal Volume 550.0 Blood Morphology Comment Blood Urea Nitrogen 17 Calcium Level 7.4 L Carbon Dioxide Level 23 Chloride Level 108 Creatinine 0.93 Direct Bilirubin 0.00 Eosinophils # 0.0 Eosinophils % 0.4 FiO2 40.0 Globulin 3.30 H Glucose Level 136 Hematocrit 34.6 L Hemoglobin 11.3 L INR International Normalized Ratio 1.27 Indirect Bilirubin 1.2 H Lipase 64 Lymphocytes # 2.4 Lymphocytes % 19.1 Magnesium Level 1.7 Mean Corpuscular Hemoglobin 27.4 L Mean Corpuscular Hemoglobin Concent 32.7 Mean Corpuscular Volume 83.9 Mean Platelet Volume 8.6 Monocytes # 1.7 H Monocytes % 13.8 H Neutrophils # 8.2 H Neutrophils % 66.4 Nucleated Red Blood Cells # 0.0 Nucleated Red Blood Cells % 0.0 Oxyhemoglobin Percent 98.4 Phosphorus Level 2.9 Platelet Count 225 Potassium Level 3.5 Prothrombin Time 16.0 H Prothrombin Time Ratio 1.3 Red Blood Count 4.12 L Red Cell Distribution Width 15.9 H Sodium Level 143 Total Bilirubin 1.2 Total Hemoglobin 12.5 Total Protein 6.0 L Urine Bacteria FEW Urine Bilirubin 1+ H Urine Clarity CLEAR Urine Coarse Granular Casts RARE Urine Color DK. YELLOW Urine Epithelial Cells FEW Urine Glucose NEGATIVE Urine Hemoglobin NEGATIVE Urine Ictotest NEGATIVE Urine Ketones 15 Urine Leukocyte Esterase NEGATIVE Urine Microscopic RBC 0-2 Urine Microscopic WBC 2-5 Urine Mucus MODERATE Urine Nitrite NEGATIVE Urine Specific [place] >=1.030 H Urine Total Protein 1+ H Urine Urobilinogen 2.0 E.U./dL H Urine pH 5.5 White Blood Count 12.4 H Medications Medications Current Medications Ondansetron HCl 4 mg 4 mg Q6H PRN IV NAUSEA AND/OR VOMITING; Start 03/12/16 at 03:00 Sodium Chloride (NS) 1,000 ml @ 100 mls/hr Q10H IV Last administered on 08:57; Admin Dose 100 MLS/HR; Start 03/12/16 at 02:36 Meperidine HCl (Demerol) 12.5 mg Q4H PRN IV POST OPERATIVE SHIVERING; Start at 03:00 Meperidine HCl (Demerol) 25 mg Q4H PRN IV POST OPERATIVE SHIVERING; Start 03/12 at 03:00 Eye Lubricant (Akwa Oint) 1 applic Q6 BOTH EYES Last administered on 03/18/16 11:19; Admin Dose 1 APPLIC; Start 03/12/16 at 06:00 Eye Lubricant 2 drop 2 drop Q6 BOTH EYES Last administered on 03/18/16 11:19; Admin Dose 2 DROP; Start 03/12/16 at 06:00 Piperacillin Sod/ Tazobactam Sod (Zosyn 3.375gm/ 100 ml (Pmx)) 100 ml @ 200 mls /hr Q6 IVPB Last administered on 03/18/16 11:24; Admin Dose 200 MLS/HR; Start 03/12/16 at 06:00 Heparin Sodium (Porcine) (Heparin (5000 Units/0.5 ml)) 5,000 unit Q8 SC Last administered on 03/18/16 07:11; Admin Dose 5,000 UNIT; Start 03/13/16 at 14:00 Famotidine (Pepcid Iv) 20 mg BID IV Last administered on 03/18/16 08:57; Admin Dose 20 MG; Start 03/13/16 at 09:00 Amiodarone HCl (Cordarone) 400 mg BID NGT Last administered on 03/18/16 08:58; Admin Dose 400 MG; Start 03/13/16 at 21:00 Lisinopril (Zestril) 2.5 mg DAILY NGT Last administered on 03/18/16 08:58; Admin Dose 2.5 MG; Start 03/14/16 at 09:00 Acetaminophen (Tylenol Liquid) 650 mg Q4H PRN NGT TEMP > 37C Last administered on 03/17/16 23:25; Admin Dose 650 MG; Start 03/13/16 at 20:02 Ipratropium [place] (Atrovent Hfa) 4 puff Q4 INH Last administered on 03/18/16 09:41; Admin Dose 4 PUFF; Start 03/14/16 at 05:00 Glycopyrrolate (Robinul) 0.2 mg Q6H IV Last administered on 03/18/16 08:58; Admin Dose 0.2 MG; Start 03/14/16 at 03:30 Glycopyrrolate (Robinul) 0.2 mg PRN PRN IV PRN SECRETIONS; Start 03/14/16 at 03 :30 Insulin Glargine (Lantus) 20 unit DAILY SC Last administered on 03/18/16 09:32 ; Admin Dose 20 UNIT; Start 03/14/16 at 12:00 Insulin Aspart (Novolog Insulin Pen) NOVOLOG *MILD* ALGORI... Q4 SC Last administered on 03/18/16 01:31; Admin Dose 1 UNIT; Start 03/14/16 at 13:00 Miscellaneous Information 1 ea NOTE XX ; Start 03/14/16 at 12:30 Glucose (Glutose) 15 gm Q15M PRN PO DECREASED GLUCOSE; Start 03/14/16 at 12:30 Glucose (Glutose) 22.5 gm Q15M PRN PO DECREASED GLUCOSE; Start 03/14/16 at 12: 30 Dextrose (D50w Syringe) 25 ml Q15M PRN IV DECREASED GLUCOSE; Start 1/30/17 at 12:30 Dextrose (D50w Syringe) 50 ml Q15M PRN IV DECREASED GLUCOSE; Start 03/14/16 at 12:30 Glucagon (Glucagen) 1 mg Q15M PRN IM DECREASED GLUCOSE; Start 03/14/16 at 12:30 Glucose 15 gm 15 gm Q15M PRN BUCCAL DECREASED GLUCOSE; Start 03/14/16 at 12:30 Dopamine HCl/ Dextrose (D5W) 250 ml @ 3.37 mls/hr TITRATE IV ; Start 03/15/16 at 16:00 Furosemide (Lasix) 40 mg DAILY IV Last administered on 03/18/16 08:57; Admin Dose 40 MG; Start 03/17/16 at 09:00 IV Flush 10 ml 10 ml PRN PRN IV IV PROTOCOL; Start 03/16/16 at 13:30 Levetiracetam/ Sodium Chloride (Keppra Iv/NS) 110 ml @ 440 mls/hr Q12 IVPB Last administered on 03/18/16 08:59; Admin Dose 440 MLS/HR; Start 03/16/16 at 14: 30 Hydralazine HCl (Apresoline) 10 mg Q6H PRN IV SBP > 160; Start 03/16/16 at 14:30 Lorazepam (Ativan) 2 mg Q2H PRN IV SEIZURES Last administered on 03/18/16 11:19 ; Admin Dose 2 MG; Start 03/16/16 at 18:30 Divalproex Sodium (Depakote) 500 mg TID PO Last administered on 03/18/16 08:58 ; Admin Dose 500 MG; Start 03/18/16 at 09:00 JT LEÓN Mar 18, 2016 13:06
[2016-03-18 13:36] LABS: Allen Test ACCEPTAB; Arterial Base Excess -0.2 mmol/L (-3.0-3); Arterial COHb 0.3 % (0.0-3.0); Arterial Fraction of Oxyhgb 98.3 % (93.0-99.0); Arterial HCO3 21.9 mmol/L (22.0-26.0); Arterial MetHb 0.2 % (0.0-1.5); Arterial Total Hemglobin 12.4 g/dl (12.0-18.0); MODE VENT - SIMV
--- NOTE | 2016-03-18 14:22 | RADRPT ---
PROCEDURE: XR Chest. CLINICAL INDICATION: Shortness of breath. TECHNIQUE: Single frontal view. COMPARISON: 03/18/2016. 0809 hours. FINDINGS: The endotracheal tube and nasogastric tube are in satisfactory position. Mild pulmonary edema is sl ightly worse than seen previously. The lungs are otherwise clear. The heart is enlarged. There is a left arm PICC line with the tip in the medial aspect of the right subclavian vein. There are small bilateral pleural effusions. There is no pneumothorax. IMPRESSION: 1. Slightly worse pulmonary edema. 2. No other change from the prior study done earlier the same day. RPTAT: QQ .Anibal Jean MD, MD Date Time Electronically viewed and signed by .Anibal Jean MD, MD on 03/18/2016 14:22 .R/
[2016-03-18] MEDS ORDERED: VANCOMYCIN IV PER PHARMACY XX SCH (14:30)
[2016-03-18 14:52] LABS: BASOPHILS % 0.3 % (0.0-2.0); EOSINOPHILS % 0.3 % (0.0-7.0); HEMATOCRIT 35.4 % (42.0-52.0); HEMOGLOBIN 11.7 g/dl (14.0-18.0); LYMPHOCYTES # 2.4 10^3/ul (0.8-2.9); LYMPHOCYTES % 16.9 % (15.0-51.0); MEAN CORPUSCULAR HEMOGLOBIN 27.8 pg (29.0-33.0); MEAN CORPUSCULAR HGB CONC 33.1 g/dl (32.0-37.0); MEAN CORPUSCULAR VOLUME 84.1 fl (82.0-101.0); MEAN PLATELET VOLUME 8.1 fl (7.4-10.4); MONOCYTE # 1.6 10^3/ul (0.3-0.9); MONOCYTES % 11.6 % (0.0-11.0); NEUTROPHIL # 9.9 10^3/ul (1.6-7.5); NEUTROPHILS % 70.9 % (39.0-77.0); PLATELET COUNT 234 10^3/UL (140-440); RED BLOOD COUNT 4.21 10^6/ul (4.70-6.10); RED CELL DISTRIBUTION WIDTH 15.8 % (11.5-14.5)
[2016-03-18 14:59] LABS: ALBUMIN 3.1 g/dl (3.3-4.9)
[2016-03-18 15:00] LABS: CONDITION 1; LH ANALYZER COMMENTS 1
[2016-03-18 15:02] LABS: ALBUMIN/GLOBULIN RATIO 0.86; BILIRUBIN,INDIRECT 1.3 mg/dl (0-1.1); BILIRUBIN,TOTAL 1.3 mg/dl (0.2-1.3); CREATININE 0.9 mg/dl (0.61-1.24); TOTAL PROTEIN 6.7 g/dl (6.1-8.1)
[2016-03-18 15:03] LABS: CALCIUM 7.3 mg/dl (8.4-10.2); PHOSPHORUS 2.5 mg/dl (2.5-4.9)
[2016-03-18 15:04] LABS: MAGNESIUM 1.6 mg/dl (1.7-2.5)
[2016-03-18 15:31] LABS: AMYLASE < 30 U/L (11-123)
--- NOTE | 2016-03-18 16:21 | PN ---
DATE: 03/18/2016 INFECTIOUS DISEASE PROGRESS NOTE SUBJECTIVE: No changes. The patient is spiking fevers. T-max 103.2. He is nonverbal, noncommunic ative, obtunded, on vent support. WBC today 12.4, platelets 225. No shift, no bands. BUN 17, crea tinine 0.93. MICROBIOLOGY: All cultures have been negative. INDWELLINGS: Endotracheal tube, NG tube, Pace, PICC line. ANTIMICROBIALS: The patient remains on Zosyn, day #7. PHYSICAL EXAMINATION: GENERAL: This is an obese middle aged man, who is obtunded, in no distress. HEENT: Head atraumatic, normocephalic. Buccal mucosa dry. NECK: Obese. CHEST: Chest rise is symmetrical. Breath sounds diminished to the bases. HEART: S1, S2. ABDOMEN: Soft. Bowel tones present. EXTREMITIES: With bilateral edema. SKIN: Positive for anasarca. ASSESSMENT: 1. Sepsis, with persistent fevers and leukocytosis. 2. Status post cardiopulmonary arrest, resulting in severe anoxic encephalopathy. 3. Acute respiratory failure. 4. Pneumonia, possibly aspiration. 5. History of diabetes. 6. History of coronary artery disease, requiring permanent pacemaker. PLAN: The patient is doing poorly. He is being seen by multiple consultants. He is still spiking fevers; however; all cultures have been negative. Sputum culture has not been done yet. We will sta rt him on vancomycin. Continue Zosyn. Send sputum for cultures. Overall prognosis is poor seconda ry to severe encephalopathy. Dictated By: MARIANA STAPLES W[employer] FITNESS INSTRUCTOR for [employer]IMO [employer]ON/IMAN Conf#: [id number] DID#: [id number]
[2016-03-18] MEDS ORDERED: VANCOMYCIN 1.75 GM in NS 500 ML IVPB ONE (17:00)
--- NOTE | 2016-03-18 18:41 | RADRPT ---
Vent Rate: 89 bpm RR Interval: 0 msec [place] Interval: 0 msec QRS Duration: 96 msec QT Interval: 416 msec QTC Interval: 506 msec P-R-T [place]: 0 - -13 - 118 degrees Atrial fibrillation with premature ventricular or aberrantly conducted complexes Low voltage QRS Nonspecific T wave abnormality , probably digitalis effect Prolonged QT Abnormal ECG Electronically Signed By: Lamin Hickman [id number]
[2016-03-18 19:55] LABS: AADO2 Arterial 119.4 mmHg (7.0-24.0); Arterial Base Excess -1.6 mmol/L (-3.0-3); Arterial COHb 0.3 % (0.0-3.0); Arterial Fraction of Oxyhgb 98.2 % (93.0-99.0); Arterial HCO3 19.9 mmol/L (22.0-26.0); Arterial MetHb 0.2 % (0.0-1.5); Arterial Total Hemglobin 12.2 g/dl (12.0-18.0); Blood Gas PS 10; MODE VENT - SIMV
--- NOTE | 2016-03-18 20:03 | CONS ---
Date/Time of Note Date/Time of Note DATE: 03/18/16 TIME: 20:00 Assessment/Plan Assessment/Plan Chief Complaint/Hosp Course Assessment: Status post cardiac arrest - initial rhythm was reported to be PEA, unclear etiology but possible ventricular tachyarrhythmia given severe left ventricular systolic dysfunction Paroxysmal atrial fibrillation - now in sinus rhythm with frequent PACs Cardiomyopathy, LVEF 20% - unclear etiology, possibly ischemic Coronary artery disease - reported myocardial infarction in 2016 at [facility], did not receive coronary stenting Ventilator-dependent respiratory failure Sepsis - suspected aspiration pneumonia Hypertension Diabetes mellitus Anoxic brain injury Recommendations: -status post hypothermia protocol -continue amiodarone 400mg BID -restart on carvedilol 3.125mg BID, up titrate as needed/tolerated -continue lisinopril 2.5mg daily, up titrate as tolerated -will need coronary angiography if there is meaningful recovery of neurologic function -antibiotics per primary team Problems: Consultation Date/Type/Reason Admit Date/Time Mar 11, 2016 at 22:10 Type of Consultation: Cardiology 24 HR Interval Summary Free Text/Dictation No significant clinical changes. Continues to spike fevers. Telemetry shows sinus rhythm with frequent PACs and runs of PAT. Detailed Summary Additional Comments Unable to obtain review of systems due to patient's mental status. Exam/Review of Systems Vital Signs Vitals Vital Signs Date Time Temp Pulse Resp B/P Pulse Ox O2 Delivery O2 Flow Rate FiO2 03/18/16 18:00 110 21 151/89 100 Mechanical Ventilator 03/18/16 17:00 102.7 03/18/16 17:00 40 Intake and Output 03/17/16 03/17/16 03/18/16 15:00 23:00 07:00 Intake Total 1040 ml 1270 ml 840 ml Output Total 1070 ml 700 ml 1490 ml Balance -30 ml 570 ml -650 ml Exam Constitutional: other (intubated, sedated), No alert Psych: other (intubated) Head: atraumatic, normocephalic Eyes: nl conjunctiva, nl lids ENMT: nl external ears & nose, nl nasal mucosa & septum Neck: No jvd (unable to accurately assess) Respiratory: clear to auscultation Cardiovascular: No regular rate and rhythm Gastrointestinal: soft Musculoskeletal: nl extremities to inspection Extremities: No clubbing, No cyanosis, No edema Results Result Diagram: 03/18/16 1430 03/18/16 1430 Results 24 hrs Laboratory Tests Test 03/17/16 20:44 03/18/16 00:50 03/18/16 01:27 03/18/16 07:00 Bedside Glucose 140 157 Activated Partial Thromboplast Time 42.2 H 32.0 Alanine Aminotransferase (ALT/SGPT) 53 48 Albumin 2.7 L 2.7 L Albumin/Globulin Ratio 0.79 0.81 Alkaline Phosphatase 89 81 Amylase Level 37 < 30 Anion Gap 15 16 Aspartate Amino Transf (AST/SGOT) 82 H 73 H Basophils # 0.1 0.0 Basophils % 0.5 0.3 Blood Morphology Comment Blood Urea Nitrogen 15 17 Calcium Level 7.3 L 7.4 L Carbon Dioxide Level 23 23 Chloride Level 105 108 Creatinine 0.83 0.93 Direct Bilirubin 0.00 0.00 Eosinophils # 0.0 0.0 Eosinophils % 0.3 0.4 Gamma Glutamyl Transpeptidase 114 H Globulin 3.40 H 3.30 H Glucose Level 166 136 Hematocrit 35.7 L 34.6 L Hemoglobin 11.8 L 11.3 L INR International Normalized Ratio 1.26 1.27 Indirect Bilirubin 1.0 1.2 H Lipase 84 64 Lymphocytes # 2.1 2.4 Lymphocytes % 18.4 19.1 Magnesium Level 1.6 L 1.7 Mean Corpuscular Hemoglobin 27.7 L 27.4 L Mean Corpuscular Hemoglobin Concent 32.9 32.7 Mean Corpuscular Volume 84.2 83.9 Mean Platelet Volume 8.5 8.6 Monocytes # 1.2 H 1.7 H Monocytes % 11.1 H 13.8 H Neutrophils # 7.8 H 8.2 H Neutrophils % 69.7 66.4 Nucleated Red Blood Cells # 0.0 0.0 Nucleated Red Blood Cells % 0.0 0.0 Phosphorus Level 2.6 2.9 Platelet Count 247 225 Potassium Level 3.2 L 3.5 Prothrombin Time 15.9 H 16.0 H Prothrombin Time Ratio 1.2 1.3 Red Blood Count 4.24 L 4.12 L Red Cell Distribution Width 16.4 H 15.9 H Sodium Level 140 143 Total Bilirubin 1.0 1.2 Total Protein 6.1 6.0 L Urine Bilirubin NEGATIVE 1+ H Urine Clarity CLEAR CLEAR Urine Color YELLOW DK. YELLOW Urine Glucose NEGATIVE NEGATIVE Urine Hemoglobin TRACE NEGATIVE Urine Ketones 15 15 Urine Leukocyte Esterase NEGATIVE NEGATIVE Urine Microscopic RBC 0-2 0-2 Urine Microscopic WBC NONE SEEN 2-5 Urine Nitrite NEGATIVE NEGATIVE Urine Specific [place] 1.025 >=1.030 H Urine Squamous Epithelial Cells RARE Urine Total Protein TRACE 1+ H Urine Urobilinogen 1.0 E.U./dL 2.0 E.U./dL H Urine pH 5.5 5.5 White Blood Count 11.2 H 12.4 H Arterial Blood HCO3 19.6 L Arterial Blood Base Excess -1.9 Arterial Blood Oxygen Saturation 98.8 H Dennis Test ACCEPTAB Arterial Blood Gas Puncture Site Right Radial Arterial Blood Carboxyhemoglobin 0.2 Arterial Blood Date Drawn 03/18/2016 7:20:16 AM Arterial Blood Methemoglobin 0.2 Arterial Blood pCO2 (Temp correct) 24.9 L Arterial Blood pH (Temp corrected) 7.513 H Arterial Blood pO2 (Temp corrected) 166.0 H Blood Gas A-a O2 Differential 90.6 H Blood Gas Actual Respiration Rate 26 Blood Gas Low PEEP Setting 5.0 Blood Gas Modality VENT - SIMV Blood Gas Notified Time 03/18/2016 7:47:13 AM Blood Gas Notified Whom JLD Blood Gas Pressure Support 10 Blood Gas Respiration Rate 16.0 Blood Gas Specimen Source Blood arterial Blood Gas Temperature 37.0 Blood Gas Tidal Volume 550.0 FiO2 40.0 Oxyhemoglobin Percent 98.4 Total Hemoglobin 12.5 Urine Bacteria FEW Urine Coarse Granular Casts RARE Urine Epithelial Cells FEW Urine Ictotest NEGATIVE Urine Mucus MODERATE Test 03/18/16 07:06 03/18/16 13:00 03/18/16 14:30 03/18/16 14:35 Bedside Glucose 133 111 Arterial Blood HCO3 21.9 L Arterial Blood Base Excess -0.2 Arterial Blood Oxygen Saturation 98.8 H Dennis Test ACCEPTAB Arterial Blood Gas Puncture Site Right Radial Arterial Blood Carboxyhemoglobin 0.3 Arterial Blood Date Drawn 03/18/2016 1:20:32 PM Arterial Blood Methemoglobin 0.2 Arterial Blood pCO2 (Temp correct) 28.3 L Arterial Blood pH (Temp corrected) 7.506 H Arterial Blood pO2 (Temp corrected) 144.7 H Blood Gas A-a O2 Differential 108.0 H Blood Gas Actual Respiration Rate 25 Blood Gas Low PEEP Setting 5.0 Blood Gas Modality VENT - SIMV Blood Gas Notified Time 03/18/2016 1:36:38 PM Blood Gas Notified Whom JLD Blood Gas Respiration Rate 16.0 Blood Gas Specimen Source Blood arterial Blood Gas Temperature 37.0 Blood Gas Tidal Volume 550.0 FiO2 40.0 Oxyhemoglobin Percent 98.3 Total Hemoglobin 12.4 Activated Partial Thromboplast Time 34.3 Alanine Aminotransferase (ALT/SGPT) 45 Albumin 3.1 L Albumin/Globulin Ratio 0.86 Alkaline Phosphatase 88 Amylase Level < 30 Anion Gap 18 H Aspartate Amino Transf (AST/SGOT) 72 H Basophils # 0.0 Basophils % 0.3 Blood Morphology Comment Blood Urea Nitrogen 16 Calcium Level 7.3 L Carbon Dioxide Level 23 Chloride Level 106 Creatinine 0.90 Direct Bilirubin 0.00 Eosinophils # 0.0 Eosinophils % 0.3 Globulin 3.60 H Glucose Level 132 Hematocrit 35.4 L Hemoglobin 11.7 L Indirect Bilirubin 1.3 H Lipase 75 Lymphocytes # 2.4 Lymphocytes % 16.9 Magnesium Level 1.6 L Mean Corpuscular Hemoglobin 27.8 L Mean Corpuscular Hemoglobin Concent 33.1 Mean Corpuscular Volume 84.1 Mean Platelet Volume 8.1 Monocytes # 1.6 H Monocytes % 11.6 H Neutrophils # 9.9 H Neutrophils % 70.9 Nucleated Red Blood Cells # 0.0 Nucleated Red Blood Cells % 0.0 Phosphorus Level 2.5 Platelet Count 234 Potassium Level 4.0 Red Blood Count 4.21 L Red Cell Distribution Width 15.8 H Sodium Level 143 Total Bilirubin 1.3 Total Protein 6.7 White Blood Count 14.0 H Test 03/18/16 17:10 03/18/16 20:00 Bedside Glucose 135 Arterial Blood HCO3 19.9 L Arterial Blood Base Excess -1.6 Arterial Blood Oxygen Saturation 98.7 H Dennis Test N/A Arterial Blood Gas Puncture Site A-Line Arterial Blood Carboxyhemoglobin 0.3 Arterial Blood Date Drawn 03/18/2016 7:48:29 PM Arterial Blood Methemoglobin 0.2 Arterial Blood pCO2 (Temp correct) 25.0 L Arterial Blood pH (Temp corrected) 7.518 H Arterial Blood pO2 (Temp corrected) 137.1 H Blood Gas A-a O2 Differential 119.4 H Blood Gas Actual Respiration Rate 26 Blood Gas Low PEEP Setting 5.0 Blood Gas Modality VENT - SIMV Blood Gas Notified Time 03/18/2016 7:54:13 PM Blood Gas Notified Whom LW Blood Gas Pressure Support 10 Blood Gas Respiration Rate 16.0 Blood Gas Specimen Source Blood arterial Blood Gas Temperature 37.0 Blood Gas Tidal Volume 550.0 FiO2 40.0 Oxyhemoglobin Percent 98.2 Total Hemoglobin 12.2 Medications Medications Current Medications Ondansetron HCl 4 mg 4 mg Q6H PRN IV NAUSEA AND/OR VOMITING; Start 03/12/16 at 03:00 Sodium Chloride (NS) 1,000 ml @ 100 mls/hr Q10H IV Last administered on 18:25; Admin Dose 100 MLS/HR; Start 03/12/16 at 02:36 Meperidine HCl (Demerol) 12.5 mg Q4H PRN IV POST OPERATIVE SHIVERING; Start at 03:00 Meperidine HCl (Demerol) 25 mg Q4H PRN IV POST OPERATIVE SHIVERING; Start 03/12 at 03:00 Eye Lubricant (Akwa Oint) 1 applic Q6 BOTH EYES Last administered on 03/18/16 18:26; Admin Dose 1 APPLIC; Start 03/12/16 at 06:00 Eye Lubricant 2 drop 2 drop Q6 BOTH EYES Last administered on 03/18/16 18:26; Admin Dose 2 DROP; Start 03/12/16 at 06:00 Piperacillin Sod/ Tazobactam Sod (Zosyn 3.375gm/ 100 ml (Pmx)) 100 ml @ 200 mls /hr Q6 IVPB Last administered on 03/18/16 18:25; Admin Dose 200 MLS/HR; Start 03/12/16 at 06:00 Heparin Sodium (Porcine) (Heparin (5000 Units/0.5 ml)) 5,000 unit Q8 SC Last administered on 03/18/16 14:21; Admin Dose 5,000 UNIT; Start 03/13/16 at 14:00 Famotidine (Pepcid Iv) 20 mg BID IV Last administered on 03/18/16 08:57; Admin Dose 20 MG; Start 03/13/16 at 09:00 Amiodarone HCl (Cordarone) 400 mg BID NGT Last administered on 03/18/16 08:58; Admin Dose 400 MG; Start 03/13/16 at 21:00 Lisinopril (Zestril) 2.5 mg DAILY NGT Last administered on 03/18/16 08:58; Admin Dose 2.5 MG; Start 03/14/16 at 09:00 Acetaminophen (Tylenol Liquid) 650 mg Q4H PRN NGT TEMP > 37C Last administered on 03/17/16 23:25; Admin Dose 650 MG; Start 03/13/16 at 20:02 Ipratropium [place] (Atrovent Hfa) 4 puff Q4 INH Last administered on 03/18/16 16:23; Admin Dose 4 PUFF; Start 03/14/16 at 05:00 Glycopyrrolate (Robinul) 0.2 mg Q6H IV Last administered on 03/18/16 17:04; Admin Dose 0.2 MG; Start 03/14/16 at 03:30 Glycopyrrolate (Robinul) 0.2 mg PRN PRN IV PRN SECRETIONS; Start 03/14/16 at 03 :30 Insulin Glargine (Lantus) 20 unit DAILY SC Last administered on 03/18/16 09:32 ; Admin Dose 20 UNIT; Start 03/14/16 at 12:00 Insulin Aspart (Novolog Insulin Pen) NOVOLOG *MILD* ALGORI... Q4 SC Last administered on 03/18/16 01:31; Admin Dose 1 UNIT; Start 03/14/16 at 13:00 Miscellaneous Information 1 ea NOTE XX ; Start 03/14/16 at 12:30 Glucose (Glutose) 15 gm Q15M PRN PO DECREASED GLUCOSE; Start 03/14/16 at 12:30 Glucose (Glutose) 22.5 gm Q15M PRN PO DECREASED GLUCOSE; Start 03/14/16 at 12: 30 Dextrose (D50w Syringe) 25 ml Q15M PRN IV DECREASED GLUCOSE; Start 03/14/16 at 12:30 Dextrose (D50w Syringe) 50 ml Q15M PRN IV DECREASED GLUCOSE; Start 03/14/16 at 12:30 Glucagon (Glucagen) 1 mg Q15M PRN IM DECREASED GLUCOSE; Start 03/14/16 at 12:30 Glucose 15 gm 15 gm Q15M PRN BUCCAL DECREASED GLUCOSE; Start 03/14/16 at 12:30 Dopamine HCl/ Dextrose (D5W) 250 ml @ 3.37 mls/hr TITRATE IV ; Start 03/15/16 at 16:00 Furosemide (Lasix) 40 mg DAILY IV Last administered on 03/18/16 08:57; Admin Dose 40 MG; Start 03/17/16 at 09:00 IV Flush 10 ml 10 ml PRN PRN IV IV PROTOCOL; Start 03/16/16 at 13:30 Levetiracetam/ Sodium Chloride (Keppra Iv/NS) 110 ml @ 440 mls/hr Q12 IVPB Last administered on 03/18/16 08:59; Admin Dose 440 MLS/HR; Start 03/16/16 at 14: 30 Hydralazine HCl (Apresoline) 10 mg Q6H PRN IV SBP > 160; Start 03/16/16 at 14:30 Lorazepam (Ativan) 2 mg Q2H PRN IV SEIZURES Last administered on 03/18/16 11:19 ; Admin Dose 2 MG; Start 03/16/16 at 18:30 Valproate Sodium 500 mg 500 mg TID NGT ; Start 03/18/16 at 21:00 Vancomycin HCl 1.75 gm/Sodium Chloride 500 ml @ 125 mls/hr ONCE ONCE IVPB Last administered on 03/18/16 17:03; Admin Dose 125 MLS/HR; Start 03/18/16 at 17: 00; Stop 03/18/16 at 20:59 Vancomycin HCl/ Sodium Chloride (Vancocin/NS) 250 ml @ 83.333 mls/ hr Q12H IVPB ; Start 03/19/16 at 05:00 RAE RIVERA MD Mar 18, 2016 20:03
[2016-03-18 20:24] LABS: ADD UMIC YES; URINE BILIRUBIN (Dip) NEGATIVE (NEGATIVE); URINE BLOOD (Dip) TRACE (NEGATIVE); URINE COLOR LT. YELLOW (YELLOW); URINE GLUCOSE (Dip) NEGATIVE (NEGATIVE); URINE KETONES (Dip) 15 (NEGATIVE); URINE LEUKOCYTE ESTERASE (Dip) NEGATIVE (NEGATIVE); URINE NITRITE (Dip) NEGATIVE (NEGATIVE); URINE TOTAL PROTEIN (Dip) TRACE (NEGATIVE); URINE UROBILINOGEN (Dip) 4.0 E.U./dL (0.1-1.0)
[2016-03-18 20:34] LABS: BASOPHIL # 0.1 10^3/ul (0.0-0.1); BASOPHILS % 0.3 % (0.0-2.0); EOSINOPHILS % 0.1 % (0.0-7.0); HEMATOCRIT 34.2 % (42.0-52.0); HEMOGLOBIN 11.4 g/dl (14.0-18.0); LYMPHOCYTES # 2.6 10^3/ul (0.8-2.9); LYMPHOCYTES % 17.1 % (15.0-51.0); MEAN CORPUSCULAR HGB CONC 33.5 g/dl (32.0-37.0); MEAN CORPUSCULAR VOLUME 83.6 fl (82.0-101.0); MEAN PLATELET VOLUME 8.6 fl (7.4-10.4); MONOCYTE # 1.8 10^3/ul (0.3-0.9); MONOCYTES % 11.8 % (0.0-11.0); NEUTROPHIL # 10.6 10^3/ul (1.6-7.5); NEUTROPHILS % 70.7 % (39.0-77.0); PLATELET COUNT 224 10^3/UL (140-440); RED BLOOD COUNT 4.09 10^6/ul (4.70-6.10); RED CELL DISTRIBUTION WIDTH 15.9 % (11.5-14.5)
[2016-03-18 20:40] LABS: CONDITION 1; LH ANALYZER COMMENTS 1
[2016-03-18 20:41] LABS: INR 1.33; PROTIME 16.6 Sec (12.2-14.2); PT RATIO 1.3
[2016-03-18 20:41] LABS: SQUAMOUS EPITHELIAL CELL,UR RARE; URINE RBCS 0-2 /HPF (0)
[2016-03-18 20:42] LABS: PARTIAL THROMBOPLASTIN TIME 35.5 Sec (25.0-35.0)
[2016-03-18 20:45] LABS: ALBUMIN 2.8 g/dl (3.3-4.9)
[2016-03-18 20:46] LABS: POTASSIUM 3.6 mmol/L (3.5-5.1)
[2016-03-18 20:48] LABS: ALBUMIN/GLOBULIN RATIO 0.82; CREATININE 0.83 mg/dl (0.61-1.24); TOTAL PROTEIN 6.2 g/dl (6.1-8.1)
[2016-03-18 20:49] LABS: CALCIUM 7.4 mg/dl (8.4-10.2); PHOSPHORUS 2.6 mg/dl (2.5-4.9)
[2016-03-18] MEDS: VALPROIC ACID LIQUID CUP 250 MG/5 ML CUP NGT SCH (21:19)
--- NOTE | 2016-03-18 21:27 | RADRPT ---
PROCEDURE: XR Chest. CLINICAL INDICATION: Shortness of breath TECHNIQUE: A single portable view of the chest was obtained. COMPARISON: 03/18/2016 from 01:28 p.m. FINDINGS: The endotracheal tube and nasogastric tube were essentially unchanged. The aorta is tortuous and at herosclerotic. The cardiomediastinal silhouette is otherwise enlarged and is stable. Diffuse pulmo nary venous congestion is seen with likely underlying pulmonary edema and is stable. Bilateral pleur al effusions are again noted and are unchanged. The soft tissues and osseous structures demonstrate benign age related senescent changes. IMPRESSION: Radiographic findings of congestive heart failure again seen which is stable. RPTAT: HPNM Physician Nicole Date Time Electronically viewed and signed by Physician Nicole on 03/18/2016 21:27 /
[2016-03-19] VITALS (28 sets, daily range): BP systolic 107–183; BP diastolic 53–164; PULSE 75–122; RESP 19–28
[2016-03-19] MEDS: HEPARIN 5,000 UNIT/0.5 ML SYG SC SCH ×2 (00:18→05:55)
[2016-03-19] MEDS: OCULAR LUBRICANT 3.5 GM OPH OINT BOTH EYES SCH ×3 (00:21→11:57)
[2016-03-19] MEDS: ARTIFICIAL TEARS 15 ML OPH BOTH EYES SCH ×3 (00:21→11:57)
[2016-03-19] MEDS: PIPER-TAZO 3.375 GM IV (PMX) 100 ML IVPB SCH ×3 (00:21→12:00)
[2016-03-19] MEDS: ACETAMINOPHEN 650MG/20.3ML CUP NGT PRN (00:25)
[2016-03-19] MEDS: INSULIN ASPART [NOVOLOG] 3 ML PEN SC SCH ×3 (01:10→09:00)
[2016-03-19] MEDS: ALBUTEROL HFA 8 GM INHALER INH SCH ×2 (01:13→05:15)
[2016-03-19] MEDS: IPRATROPIUM (HFA) 12.9 GM INHALER INH SCH ×2 (01:13→05:14)
[2016-03-19 02:44] LABS: ADD UMIC YES; URINE BILIRUBIN (Dip) 1+ (NEGATIVE); URINE BLOOD (Dip) 3+ (NEGATIVE); URINE COLOR YELLOW (YELLOW); URINE GLUCOSE (Dip) NEGATIVE (NEGATIVE); URINE KETONES (Dip) 15 (NEGATIVE); URINE LEUKOCYTE ESTERASE (Dip) NEGATIVE (NEGATIVE); URINE NITRITE (Dip) NEGATIVE (NEGATIVE); URINE TOTAL PROTEIN (Dip) 1+ (NEGATIVE); URINE UROBILINOGEN (Dip) 2.0 E.U./dL (0.1-1.0)
[2016-03-19 02:45] LABS: INR 1.39; PROTIME 17.1 Sec (12.2-14.2); PT RATIO 1.3
[2016-03-19 02:48] LABS: ALBUMIN 2.5 g/dl (3.3-4.9)
[2016-03-19 02:49] LABS: POTASSIUM 3.2 mmol/L (3.5-5.1)
[2016-03-19 02:50] LABS: HEMATOCRIT 30.5 % (42.0-52.0); MEAN CORPUSCULAR HEMOGLOBIN 27.6 pg (29.0-33.0); MEAN CORPUSCULAR HGB CONC 32.8 g/dl (32.0-37.0); MEAN CORPUSCULAR VOLUME 84.3 fl (82.0-101.0); PLATELET COUNT 212 10^3/UL (140-440); RED BLOOD COUNT 3.62 10^6/ul (4.70-6.10); RED CELL DISTRIBUTION WIDTH 15.5 % (11.5-14.5); WHITE BLOOD COUNT 15.4 10^3/ul (4.8-10.8)
[2016-03-19 02:51] LABS: ALBUMIN/GLOBULIN RATIO 0.78; BASOPHIL # 0.1 10^3/ul (0.0-0.1); BASOPHILS % 0.4 % (0.0-2.0); CREATININE 0.93 mg/dl (0.61-1.24); EOSINOPHILS % 0.1 % (0.0-7.0); LYMPHOCYTES # 2.8 10^3/ul (0.8-2.9); LYMPHOCYTES % 18.2 % (15.0-51.0); MEAN PLATELET VOLUME 10.9 fl (7.4-10.4); MONOCYTE # 1.7 10^3/ul (0.3-0.9); MONOCYTES % 10.8 % (0.0-11.0); NEUTROPHIL # 10.7 10^3/ul (1.6-7.5); NEUTROPHILS % 69.7 % (39.0-77.0); TOTAL PROTEIN 5.7 g/dl (6.1-8.1)
[2016-03-19 02:52] LABS: CALCIUM 7.2 mg/dl (8.4-10.2); MAGNESIUM 1.7 mg/dl (1.7-2.5)
[2016-03-19] MEDS: LORAZEPAM 2 MG INJ IV PRN ×2 (02:57→11:55)
[2016-03-19 03:03] LABS: ICTOTEST NEGATIVE (NEGATIVE); URINE RBCS >200 /HPF (0)
[2016-03-19 03:04] LABS: BACTERIA,URINE OCCASIONAL; SQUAMOUS EPITHELIAL CELL,UR OCCASIONAL
[2016-03-19] MEDS ORDERED: MAGNESIUM SULFATE 2 GM/50 ML 50 ML IVPB ONE (03:30)
[2016-03-19] MEDS: GLYCOPYRROLATE 0.4 MG INJ IV SCH ×2 (03:33→09:06)
[2016-03-19] MEDS: POTASSIUM CHLORIDE 50 ML IVPB SCH ×2 (03:34→04:39)
[2016-03-19] MEDS ORDERED: VANCOMYCIN 1.25 GM in SOD CHLORIDE 0.9% 250 ML IVPB SCH (05:00)
[2016-03-19] MEDS: SOD CHLORIDE 0.9% 1,000 ML IV SCH (05:56)
--- NOTE | 2016-03-19 07:18 | OPR ---
DATE OF OPERATION: PREOPERATIVE DIAGNOSIS: Brain . POSTOPERATIVE DIAGNOSIS: Brain . OPERATION PERFORMED: Right radial arterial line placement. SURGEON: Dilshad Umana MD ANESTHESIA: Local. CONSENT: Risks, benefits, complications, alternative therapies explained to the patient and the [facility], consent obtained. OPERATIVE TECHNIQUE: The patient was placed in supine position, prepped and draped in usual sterile fashion, 1% lidocaine was used throughout the operation for local anesthesia. Access was gained in the right radial artery. Guidewire was advanced through without any difficulty. Subcutaneous tiss ues dilated. Arterial line was advanced into the vessel over a guidewire, secured to skin using 2-0 silk sutures. The patient tolerated the procedure well. Dictated By: DILSHAD OLSEN/IMAN Conf#: [id number] DID#: [id number]
--- NOTE | 2016-03-19 07:49 | CONS ---
DATE OF ADMISSION: 03/11/2016 DATE OF CONSULTATION: REASON FOR CONSULTATION: Surgical. HISTORY OF PRESENT ILLNESS: This is a 40-year-old unfortunate male who was admitted because of card iac arrest. The patient has a history of hypertension, diabetes, [place] in [place], pacemaker, was blood to the emergency room because of cardiac arrest and could not be resuscitated. Currently being work ed up for brain protocol and organ donation. PAST MEDICAL HISTORY: Significant for hypertension, diabetes, hyperlipidemia, coronary artery disea se. PAST SURGICAL HISTORY: None. ALLERGIES: NONE. SOCIAL HISTORY: No smoking, drinking or drug use. MEDICATIONS: List reviewed. PHYSICAL EXAMINATION: GENERAL: The patient is intubated, unresponsive. VITAL SIGNS: Blood pressure is 151/89, pulse is 110, respirations 21, saturation is 100%. CARDIOVASCULAR: Normal S1, S2. No murmurs, gallops or rubs. LUNGS: Clear. ABDOMEN: Soft. EXTREMITIES: Warm. LABORATORY VALUES: Significant for a white count of 14, hemoglobin 11.7, platelet count 234. Marlena l coagulation factors. IMPRESSION: Brain protocol. RECOMMENDATIONS: We will proceed with the arterial line. Discussed with the nursing staff. All qu estions answered. Dictated By: SUBHASH OLSEN/IMAN Conf#: [id number] DID#: [id number]
--- NOTE | 2016-03-19 08:46 | RADRPT ---
PROCEDURE: XR Chest. CLINICAL INDICATION: Shortness of breath TECHNIQUE: A single portable view of the chest was obtained. COMPARISON: 03/18/2016 from 08:54 p.m. FINDINGS: The endotracheal tube, nasogastric tube, and left PICC line are essentially unchanged. The aorta is tortuous and atherosclerotic. The cardiomediastinal silhouette is otherwise enlarged and is stable . Diffuse pulmonary venous congestion is seen with likely underlying pulmonary edema and is stable. Bilateral pleural effusions are again noted and are inch a. The soft tissues and osseous structures demonstrate benign age related senescent changes. IMPRESSION: Radiographic findings of congestive heart failure again seen which is stable. RPTAT: HPNM Physician Nicole Date Time Electronically viewed and signed by Physician Nicole on 03/19/2016 08:46 /
[2016-03-19] MEDS: LEVETIRACETAM IV 1,000 MG in SOD CHLORIDE 0.9% 100 ML IVPB SCH (09:01)
[2016-03-19] MEDS: AMIODARONE 200 MG TAB NGT SCH (09:03)
[2016-03-19] MEDS: VALPROIC ACID LIQUID CUP 250 MG/5 ML CUP NGT SCH (09:03)
[2016-03-19] MEDS: FUROSEMIDE 40 MG INJ IV SCH (09:04)
[2016-03-19] MEDS: LISINOPRIL 5 MG TAB NGT SCH (09:04)
[2016-03-19 09:05] LABS: AADO2 Arterial 140.1 mmHg (7.0-24.0); Arterial Base Excess -1.8 mmol/L (-3.0-3); Arterial COHb 0.3 % (0.0-3.0); Arterial Fraction of Oxyhgb 97.2 % (93.0-99.0); Arterial HCO3 21.5 mmol/L (22.0-26.0); Arterial MetHb 0.2 % (0.0-1.5); Arterial Total Hemglobin 11.9 g/dl (12.0-18.0); MODE VENT - AC
[2016-03-19 09:11] LABS: ALBUMIN 2.6 g/dl (3.3-4.9); POTASSIUM 3.5 mmol/L (3.5-5.1)
[2016-03-19 09:14] LABS: ALBUMIN/GLOBULIN RATIO 0.74; BILIRUBIN,INDIRECT 1.1 mg/dl (0-1.1); BILIRUBIN,TOTAL 1.1 mg/dl (0.2-1.3); CALCIUM 7.2 mg/dl (8.4-10.2); CREATININE 0.74 mg/dl (0.61-1.24); TOTAL PROTEIN 6.1 g/dl (6.1-8.1)
[2016-03-19] MEDS: INSULIN GLARGINE [LANtus] 3 ML PEN SC SCH (09:14)
[2016-03-19] MEDS: FAMOTIDINE 20 MG INJ IV SCH (09:15)
[2016-03-19 09:29] LABS: INR 1.31; PROTIME 16.4 Sec (12.2-14.2); PT RATIO 1.3
[2016-03-19 09:53] LABS: MAGNESIUM 2.3 mg/dl (1.7-2.5); PHOSPHORUS 2.9 mg/dl (2.5-4.9)
[2016-03-19 10:01] LABS: ADD UMIC YES; URINE BILIRUBIN (Dip) NEGATIVE (NEGATIVE); URINE BLOOD (Dip) TRACE (NEGATIVE); URINE COLOR LT. YELLOW (YELLOW); URINE GLUCOSE (Dip) NEGATIVE (NEGATIVE); URINE KETONES (Dip) 40 (NEGATIVE); URINE LEUKOCYTE ESTERASE (Dip) NEGATIVE (NEGATIVE); URINE NITRITE (Dip) NEGATIVE (NEGATIVE); URINE TOTAL PROTEIN (Dip) NEGATIVE (NEGATIVE); URINE UROBILINOGEN (Dip) 4.0 E.U./dL (0.1-1.0)
[2016-03-19 10:31] LABS: BACTERIA,URINE RARE; MUCUS,URINE RARE; URINE RBCS 0-2 /HPF (0)
--- NOTE | 2016-03-19 12:08 | CONS ---
Date/Time of Note Date/Time of Note DATE: 03/19/16 TIME: 12:00 Consult Date/Type/Reason Admit Date/Time Mar 11, 2016 at 22:10 Initial Consult Date 03/14/16 Type of Consultation: pulmonary Subjective Patient remains unresponsive on mechanical ventilation No hemodynamic support Objective Vital Signs Date Time Temp Pulse Resp B/P Pulse Ox O2 Delivery O2 Flow Rate FiO2 03/19/16 09:38 40 03/19/16 08:45 95 24 141/73 100 Mechanical Ventilator 03/19/16 07:45 98.9 Intake and Output 03/18/16 03/18/16 03/19/16 14:59 22:59 06:59 Intake Total 792.5 ml 1960 ml 1686.6 ml Output Total 2210 ml 1030 ml 600 ml Balance -1417.5 ml 930 ml 1086.6 ml PHYSICAL EXAMINATION GENERAL: Young gentleman on mechanical ventilation unresponsive VITAL SIGNS: see below. HEENT: Pupils equal, round, and reactive to light CARDIAC: S1, S2, tachycardia. CHEST: Diminished air entry bilaterally. ABDOMEN: Mildly distended. No bowel sounds. EXTREMITIES: No cyanosis, clubbing edema +2 NEUROLOGIC: Unable to assess Results/Medications Result Diagram: 03/19/16 0220 03/19/16 0835 Results 24 hrs Laboratory Tests Test 03/18/16 13:00 03/18/16 14:30 03/18/16 14:35 03/18/16 17:10 Arterial Blood HCO3 21.9 L Arterial Blood Base Excess -0.2 Arterial Blood Oxygen Saturation 98.8 H Dennis Test ACCEPTAB Arterial Blood Gas Puncture Site Right Radial Arterial Blood Carboxyhemoglobin 0.3 Arterial Blood Date Drawn 03/18/2016 1:20:32 PM Arterial Blood Methemoglobin 0.2 Arterial Blood pCO2 (Temp correct) 28.3 L Arterial Blood pH (Temp corrected) 7.506 H Arterial Blood pO2 (Temp corrected) 144.7 H Blood Gas A-a O2 Differential 108.0 H Blood Gas Actual Respiration Rate 25 Blood Gas Low PEEP Setting 5.0 Blood Gas Modality VENT - SIMV Blood Gas Notified Time 03/18/2016 1:36:38 PM Blood Gas Notified Whom JLD Blood Gas Respiration Rate 16.0 Blood Gas Specimen Source Blood arterial Blood Gas Temperature 37.0 Blood Gas Tidal Volume 550.0 FiO2 40.0 Oxyhemoglobin Percent 98.3 Total Hemoglobin 12.4 Activated Partial Thromboplast Time 34.3 Alanine Aminotransferase (ALT/SGPT) 45 Albumin 3.1 L Albumin/Globulin Ratio 0.86 Alkaline Phosphatase 88 Amylase Level < 30 Anion Gap 18 H Aspartate Amino Transf (AST/SGOT) 72 H Basophils # 0.0 Basophils % 0.3 Blood Morphology Comment Blood Urea Nitrogen 16 Calcium Level 7.3 L Carbon Dioxide Level 23 Chloride Level 106 Creatinine 0.90 Direct Bilirubin 0.00 Eosinophils # 0.0 Eosinophils % 0.3 Globulin 3.60 H Glucose Level 132 Hematocrit 35.4 L Hemoglobin 11.7 L Indirect Bilirubin 1.3 H Lipase 75 Lymphocytes # 2.4 Lymphocytes % 16.9 Magnesium Level 1.6 L Mean Corpuscular Hemoglobin 27.8 L Mean Corpuscular Hemoglobin Concent 33.1 Mean Corpuscular Volume 84.1 Mean Platelet Volume 8.1 Monocytes # 1.6 H Monocytes % 11.6 H Neutrophils # 9.9 H Neutrophils % 70.9 Nucleated Red Blood Cells # 0.0 Nucleated Red Blood Cells % 0.0 Phosphorus Level 2.5 Platelet Count 234 Potassium Level 4.0 Red Blood Count 4.21 L Red Cell Distribution Width 15.8 H Sodium Level 143 Total Bilirubin 1.3 Total Protein 6.7 White Blood Count 14.0 H Bedside Glucose 111 135 Test 03/18/16 19:55 03/18/16 20:00 03/18/16 20:05 03/19/16 01:05 Activated Partial Thromboplast Time 35.5 H Alanine Aminotransferase (ALT/SGPT) 47 Albumin 2.8 L Albumin/Globulin Ratio 0.82 Alkaline Phosphatase 83 Amylase Level 45 Anion Gap 15 Aspartate Amino Transf (AST/SGOT) 68 H Basophils # 0.1 Basophils % 0.3 Blood Morphology Comment Blood Urea Nitrogen 15 Calcium Level 7.4 L Carbon Dioxide Level 24 Chloride Level 107 Creatinine 0.83 Direct Bilirubin 0.00 Eosinophils # 0.0 Eosinophils % 0.1 Globulin 3.40 H Glucose Level 137 Hematocrit 34.2 L Hemoglobin 11.4 L INR International Normalized Ratio 1.33 Indirect Bilirubin 1.0 Lipase 55 Lymphocytes # 2.6 Lymphocytes % 17.1 Mean Corpuscular Hemoglobin 28.0 L Mean Corpuscular Hemoglobin Concent 33.5 Mean Corpuscular Volume 83.6 Mean Platelet Volume 8.6 Monocytes # 1.8 H Monocytes % 11.8 H Neutrophils # 10.6 H Neutrophils % 70.7 Nucleated Red Blood Cells # 0.0 Nucleated Red Blood Cells % 0.0 Phosphorus Level 2.6 Platelet Count 224 Potassium Level 3.6 Prothrombin Time 16.6 H Prothrombin Time Ratio 1.3 Red Blood Count 4.09 L Red Cell Distribution Width 15.9 H Sodium Level 142 Total Bilirubin 1.0 Total Protein 6.2 White Blood Count 15.0 H Arterial Blood HCO3 19.9 L Arterial Blood Base Excess -1.6 Arterial Blood Oxygen Saturation 98.7 H Dennis Test N/A Arterial Blood Gas Puncture Site A-Line Arterial Blood Carboxyhemoglobin 0.3 Arterial Blood Date Drawn 03/18/2016 7:48:29 PM Arterial Blood Methemoglobin 0.2 Arterial Blood pCO2 (Temp correct) 25.0 L Arterial Blood pH (Temp corrected) 7.518 H Arterial Blood pO2 (Temp corrected) 137.1 H Blood Gas A-a O2 Differential 119.4 H Blood Gas Actual Respiration Rate 26 Blood Gas Low PEEP Setting 5.0 Blood Gas Modality VENT - SIMV Blood Gas Notified Time 03/18/2016 7:54:13 PM Blood Gas Notified Whom LW Blood Gas Pressure Support 10 Blood Gas Respiration Rate 16.0 Blood Gas Specimen Source Blood arterial Blood Gas Temperature 37.0 Blood Gas Tidal Volume 550.0 FiO2 40.0 Oxyhemoglobin Percent 98.2 Total Hemoglobin 12.2 Urine Bilirubin NEGATIVE Urine Clarity CLEAR Urine Color LT. YELLOW Urine Glucose NEGATIVE Urine Hemoglobin TRACE Urine Ketones 15 Urine Leukocyte Esterase NEGATIVE Urine Microscopic RBC 0-2 Urine Microscopic WBC NONE SEEN Urine Nitrite NEGATIVE Urine Specific [place] 1.025 Urine Squamous Epithelial Cells RARE Urine Total Protein TRACE Urine Urobilinogen 4.0 E.U./dL H Urine pH 6.0 Bedside Glucose 156 Test 03/19/16 02:20 03/19/16 05:03 03/19/16 08:35 03/19/16 08:40 Activated Partial Thromboplast Time 46.0 H Alanine Aminotransferase (ALT/SGPT) 43 45 Albumin 2.5 L 2.6 L Albumin/Globulin Ratio 0.78 0.74 Alkaline Phosphatase 72 77 Amylase Level 31 35 Anion Gap 17 H 14 Aspartate Amino Transf (AST/SGOT) 53 H 53 H Basophils # 0.1 Basophils % 0.4 Blood Urea Nitrogen 16 13 Calcium Level 7.2 L 7.2 L Carbon Dioxide Level 24 23 Chloride Level 108 108 Creatinine 0.93 0.74 Direct Bilirubin 0.00 0.00 Eosinophils # 0.0 Eosinophils % 0.1 Globulin 3.20 3.50 H Glucose Level 148 128 Hematocrit 30.5 L Hemoglobin 10.0 L INR International Normalized Ratio 1.39 1.31 Indirect Bilirubin 1.0 1.1 Lipase 42 48 Lymphocytes # 2.8 Lymphocytes % 18.2 Magnesium Level 1.7 2.3 Mean Corpuscular Hemoglobin 27.6 L Mean Corpuscular Hemoglobin Concent 32.8 Mean Corpuscular Volume 84.3 Mean Platelet Volume 10.9 #H Monocytes # 1.7 H Monocytes % 10.8 Neutrophils # 10.7 H Neutrophils % 69.7 Nucleated Red Blood Cells # 0.0 Nucleated Red Blood Cells % 0.0 Phosphorus Level 3.0 2.9 Platelet Count 212 Potassium Level 3.2 L 3.5 Prothrombin Time 17.1 H 16.4 H Prothrombin Time Ratio 1.3 1.3 Red Blood Count 3.62 L Red Cell Distribution Width 15.5 H Sodium Level 146 H 141 Total Bilirubin 1.0 1.1 Total Protein 5.7 L 6.1 Urine Bacteria OCCASIONAL Urine Bilirubin 1+ H Urine Clarity CLEAR Urine Color YELLOW Urine Glucose NEGATIVE Urine Hemoglobin 3+ H Urine Ictotest NEGATIVE Urine Ketones 15 Urine Leukocyte Esterase NEGATIVE Urine Microscopic RBC >200 Urine Microscopic WBC 5-10 Urine Nitrite NEGATIVE Urine Specific [place] 1.025 Urine Squamous Epithelial Cells OCCASIONAL Urine Total Protein 1+ H Urine Urobilinogen 2.0 E.U./dL H Urine pH 6.0 White Blood Count 15.4 H Bedside Glucose 113 Arterial Blood HCO3 21.5 L Arterial Blood Base Excess -1.8 Arterial Blood Oxygen Saturation 97.7 Dennis Test N/A Arterial Blood Gas Puncture Site A-Line Arterial Blood Carboxyhemoglobin 0.3 Arterial Blood Date Drawn 03/19/2016 8:50:54 AM Arterial Blood Methemoglobin 0.2 Arterial Blood pCO2 (Temp correct) 31.8 L Arterial Blood pH (Temp corrected) 7.448 Arterial Blood pO2 (Temp corrected) 108.5 H Blood Gas A-a O2 Differential 140.1 H Blood Gas Actual Respiration Rate 22 Blood Gas Low PEEP Setting 5.0 Blood Gas Modality VENT - AC Blood Gas Notified Time 03/19/2016 9:05:04 AM Blood Gas Notified Whom M.DEMATA,[employer] Blood Gas Respiration Rate 12.0 Blood Gas Specimen Source Blood arterial Blood Gas Temperature 37.0 Blood Gas Tidal Volume 500.0 FiO2 40.0 Oxyhemoglobin Percent 97.2 Total Hemoglobin 11.9 L Test 03/19/16 08:54 03/19/16 09:12 Urine Bacteria RARE Urine Bilirubin NEGATIVE Urine Clarity CLEAR Urine Color LT. YELLOW Urine Epithelial Cells RARE Urine Glucose NEGATIVE Urine Hemoglobin TRACE Urine Ketones 40 Urine Leukocyte Esterase NEGATIVE Urine Microscopic RBC 0-2 Urine Microscopic WBC 0-2 Urine Mucus RARE Urine Nitrite NEGATIVE Urine Specific [place] >=1.030 H Urine Total Protein NEGATIVE Urine Urobilinogen 4.0 E.U./dL H Urine pH 6.0 Bedside Glucose 120 Medications Current Medications Ondansetron HCl 4 mg 4 mg Q6H PRN IV NAUSEA AND/OR VOMITING; Start 03/12/16 at 03:00 Sodium Chloride (NS) 1,000 ml @ 100 mls/hr Q10H IV Last administered on 05:56; Admin Dose 100 MLS/HR; Start 03/12/16 at 02:36 Meperidine HCl (Demerol) 12.5 mg Q4H PRN IV POST OPERATIVE SHIVERING; Start at 03:00 Meperidine HCl (Demerol) 25 mg Q4H PRN IV POST OPERATIVE SHIVERING; Start 03/12 at 03:00 Eye Lubricant (Akwa Oint) 1 applic Q6 BOTH EYES Last administered on 03/19/16 11:57; Admin Dose 1 APPLIC; Start 03/12/16 at 06:00 Eye Lubricant 2 drop 2 drop Q6 BOTH EYES Last administered on 03/19/16 11:57; Admin Dose 2 DROP; Start 03/12/16 at 06:00 Piperacillin Sod/ Tazobactam Sod (Zosyn 3.375gm/ 100 ml (Pmx)) 100 ml @ 200 mls /hr Q6 IVPB Last administered on 03/19/16 05:48; Admin Dose 200 MLS/HR; Start 03/12/16 at 06:00 Heparin Sodium (Porcine) (Heparin (5000 Units/0.5 ml)) 5,000 unit Q8 SC Last administered on 03/19/16 05:55; Admin Dose 5,000 UNIT; Start 03/13/16 at 14:00 Famotidine (Pepcid Iv) 20 mg BID IV Last administered on 03/19/16 09:15; Admin Dose 20 MG; Start 03/13/16 at 09:00 Amiodarone HCl (Cordarone) 400 mg BID NGT Last administered on 03/19/16 09:03; Admin Dose 400 MG; Start 03/13/16 at 21:00 Lisinopril (Zestril) 2.5 mg DAILY NGT Last administered on 03/19/16 09:04; Admin Dose 2.5 MG; Start 03/14/16 at 09:00 Acetaminophen (Tylenol Liquid) 650 mg Q4H PRN NGT TEMP > 37C Last administered on 03/19/16 00:25; Admin Dose 650 MG; Start 03/13/16 at 20:02 Ipratropium [place] (Atrovent Hfa) 4 puff Q4 INH Last administered on 03/19/16 05:14; Admin Dose 4 PUFF; Start 03/14/16 at 05:00 Glycopyrrolate (Robinul) 0.2 mg Q6H IV Last administered on 03/19/16 09:06; Admin Dose 0.2 MG; Start 03/14/16 at 03:30 Glycopyrrolate (Robinul) 0.2 mg PRN PRN IV PRN SECRETIONS; Start 03/14/16 at 03 :30 Insulin Glargine (Lantus) 20 unit DAILY SC Last administered on 03/19/16 09:14 ; Admin Dose 20 UNIT; Start 03/14/16 at 12:00 Insulin Aspart (Novolog Insulin Pen) NOVOLOG *MILD* ALGORI... Q4 SC Last administered on 03/19/16 01:10; Admin Dose 1 UNIT; Start 03/14/16 at 13:00 Miscellaneous Information 1 ea NOTE XX ; Start 03/14/16 at 12:30 Glucose (Glutose) 15 gm Q15M PRN PO DECREASED GLUCOSE; Start 03/14/16 at 12:30 Glucose (Glutose) 22.5 gm Q15M PRN PO DECREASED GLUCOSE; Start 03/14/16 at 12: 30 Dextrose (D50w Syringe) 25 ml Q15M PRN IV DECREASED GLUCOSE; Start 03/14/16 at 12:30 Dextrose (D50w Syringe) 50 ml Q15M PRN IV DECREASED GLUCOSE; Start 03/14/16 at 12:30 Glucagon (Glucagen) 1 mg Q15M PRN IM DECREASED GLUCOSE; Start 03/14/16 at 12:30 Glucose 15 gm 15 gm Q15M PRN BUCCAL DECREASED GLUCOSE; Start 03/14/16 at 12:30 Dopamine HCl/ Dextrose (D5W) 250 ml @ 3.37 mls/hr TITRATE IV ; Start 03/15/16 at 16:00 Furosemide (Lasix) 40 mg DAILY IV Last administered on 03/19/16 09:04; Admin Dose 40 MG; Start 03/17/16 at 09:00 IV Flush 10 ml 10 ml PRN PRN IV IV PROTOCOL; Start 03/16/16 at 13:30 Levetiracetam/ Sodium Chloride (Keppra Iv/NS) 110 ml @ 440 mls/hr Q12 IVPB Last administered on 03/19/16 09:01; Admin Dose 440 MLS/HR; Start 03/16/16 at 14: 30 Hydralazine HCl (Apresoline) 10 mg Q6H PRN IV SBP > 160 Last administered on 20:25; Admin Dose 10 MG; Start 03/16/16 at 14:30 Lorazepam (Ativan) 2 mg Q2H PRN IV SEIZURES Last administered on 03/19/16 11:55 ; Admin Dose 2 MG; Start 03/16/16 at 18:30 Valproate Sodium 500 mg 500 mg TID NGT Last administered on 03/19/16 09:03; Admin Dose 500 MG; Start 03/18/16 at 21:00 Vancomycin HCl/ Sodium Chloride (Vancocin/NS) 250 ml @ 83.333 mls/ hr Q12H IVPB Last administered on 03/19/16 05:08; Admin Dose 83.333 MLS/HR; Start at 05:00 Assessment/Plan Chief Complaint/Hosp Course Assessment 1. Cardiopulmonary arrest 2. Anoxic brain injury 3. Possible aspiration pneumonia Plan 1. Terminal extubation today 2. Organ procurement if patient expires within 60 minutes terminal extubation Discussed with [facility] at bedside. Problems: RONNIE URBINA MD, [facility] Mar 19, 2016 12:08
[2016-03-19 12:18] LABS: INR 1.19; PROTIME 15.2 Sec (12.2-14.2); PT RATIO 1.2
[2016-03-19 12:19] LABS: PARTIAL THROMBOPLASTIN TIME 35.3 Sec (25.0-35.0)
[2016-03-19 12:22] LABS: ALBUMIN 2.8 g/dl (3.3-4.9); CHLORIDE 105 mmol/L (97-110); POTASSIUM 3.2 mmol/L (3.5-5.1); SODIUM 140 mmol/L (135-144)
[2016-03-19 12:24] LABS: ANION GAP 12 (8-16); BILIRUBIN,INDIRECT 1.1 mg/dl (0-1.1); BILIRUBIN,TOTAL 1.1 mg/dl (0.2-1.3); CARBON DIOXIDE 26 mmol/L (21-31); CREATININE 0.71 mg/dl (0.61-1.24)
[2016-03-19 12:25] LABS: ALANINE AMINOTRANSFERASE 45 IU/L (13-69); ALKALINE PHOSPHATASE 79 IU/L (42-121); ASPARTATE AMINO TRANSFERASE 55 IU/L (15-46); BLOOD UREA NITROGEN 12 mg/dl (7-20); CALCIUM 7.4 mg/dl (8.4-10.2); GLUCOSE 141 mg/dl (70-220); MAGNESIUM 1.9 mg/dl (1.7-2.5); PHOSPHORUS 3.1 mg/dl (2.5-4.9); TOTAL PROTEIN 6.3 g/dl (6.1-8.1)
[2016-03-19 12:28] LABS: AMYLASE < 30 U/L (11-123)
[2016-03-19 12:35] LABS: HEMATOCRIT 33.8 % (42.0-52.0); HEMOGLOBIN 11.1 g/dl (14.0-18.0); MEAN CORPUSCULAR HEMOGLOBIN 27.3 pg (29.0-33.0); MEAN CORPUSCULAR HGB CONC 32.8 g/dl (32.0-37.0); MEAN CORPUSCULAR VOLUME 83.3 fl (82.0-101.0); PLATELET COUNT 233 10^3/UL (140-440); RED BLOOD COUNT 4.06 10^6/ul (4.70-6.10); RED CELL DISTRIBUTION WIDTH 15.6 % (11.5-14.5); UNCORRECTED WBC 14.8 10^3/ul (4.8-10.8); WHITE BLOOD COUNT 14.8 10^3/ul (4.8-10.8)
[2016-03-19 12:36] LABS: BASOPHIL # 0.1 10^3/ul (0.0-0.1); BASOPHILS % 0.3 % (0.0-2.0); EOSINOPHILS # 0.2 10^3/ul (0.0-0.5); EOSINOPHILS % 1.1 % (0.0-7.0); LYMPHOCYTES # 2.2 10^3/ul (0.8-2.9); MEAN PLATELET VOLUME 10.9 fl (7.4-10.4); MONOCYTE # 1.5 10^3/ul (0.3-0.9); MONOCYTES % 10.2 % (0.0-11.0); NEUTROPHIL # 10.7 10^3/ul (1.6-7.5); NEUTROPHILS % 72.9 % (39.0-77.0)
--- NOTE | 2016-03-19 12:42 | PN ---
Date/Time of Note Date/Time of Note DATE: 03/19/16 TIME: 12:38 Assessment/Plan VTE Prophylaxis VTE Prophylaxis Intervention: SCD's Lines/Catheters IV [facility]from [facility] Urinary Cath still in place: Yes Reason Cath still needed: urinary retention Assessment/Plan Chief Complaint/Hosp Course Assessment/Plan: 40 yo M who suddenly collapsed managed for: 1. PEA cardiac arrest status post 2 rounds of epinephrine with ROSC (return of spontaneous circulation) - Likely 2/2 arrhythmia, was on Hypothermia protocol earlier this admission. Per CV No evidence of acute LA though patient has known CAD. Still unresponsive. - f/u CV rec's, continue PO cardiac meds 2. Vent dependent respiratory failure 2/2 #1 - L sided infiltrates concerning for aspiration pneumonia. - continue IV abx, f/u pulm rec's - wean per pulm rec's - appreciate ID consult - continue abx, tylenol prn fever 3. Atrial fibrillation with rapid ventricular response - now Rate controlled - monitor, f/u CV rec's 4. SIRS with severe Lactic acidosis 2/2 #1 - improving - monitor 5. Diabetes Type 2 - A1c = 8.0 - continue ISS, lantus 6. HTN >borderline hypotensive - now off pressor support - monitor bp 7. Known CAD - S/p Pacemaker - f/u CV rec's 8. Anion gap metabolic acidosis: resolved - monitor 9. Likely anoxic brain injury - appreciate Neuro consult. EEG showed abnormal EEG due to presence of generalized bihemispheric background slowing with bitemporal frontal sharps which could be epileptogenic - monitor for now - continue keppra 10. Transient Shock likely Cardiogenic: resolved - monitor Dispo: poor prognosis - plan apparently is for terminal extubation later today, and if pt expires within 60 min or less after that, will go to [facility] for organ harvesting via [facility]. Prophylaxis: Heparin and Pepcid CRITICAL CARE TIME: 40 mins today Problems: Subjective 24 Hr Interval Summary Free Text/Dictation Pt presently intubated, ordered for A-line insertion. Family apparently agrees now for terminal extubation. Exam/Review of Systems Vital Signs Vitals Vital Signs Date Time Temp Pulse Resp B/P Pulse Ox O2 Delivery O2 Flow Rate FiO2 03/19/16 09:38 40 03/19/16 08:45 95 24 141/73 100 Mechanical Ventilator 03/19/16 07:45 98.9 Intake and Output 03/18/16 03/18/16 03/19/16 15:00 23:00 07:00 Intake Total 1522.5 ml 1110 ml 1706.6 ml Output Total 1720 ml 1030 ml 700 ml Balance -197.5 ml 80 ml 1006.6 ml Exam GENERAL: Intubated, unresponsive, Obese HEENT: No obvious head deformity. CARDIOVASCULAR: S1S2, RRR presently LUNGS: less diminished breath sounds at the bases bilaterally. ABDOMEN: Soft, obese, nondistended. EXTREMITIES: No edema. NEUROLOGIC: The patient unresponsive Results Result Diagram: 03/19/16 1200 03/19/16 1200 Results 24 hrs Laboratory Tests Test 03/18/16 13:00 03/18/16 14:30 03/18/16 14:35 03/18/16 17:10 Arterial Blood HCO3 21.9 L Arterial Blood Base Excess -0.2 Arterial Blood Oxygen Saturation 98.8 H Dennis Test ACCEPTAB Arterial Blood Gas Puncture Site Right Radial Arterial Blood Carboxyhemoglobin 0.3 Arterial Blood Date Drawn 03/18/2016 1:20:32 PM Arterial Blood Methemoglobin 0.2 Arterial Blood pCO2 (Temp correct) 28.3 L Arterial Blood pH (Temp corrected) 7.506 H Arterial Blood pO2 (Temp corrected) 144.7 H Blood Gas A-a O2 Differential 108.0 H Blood Gas Actual Respiration Rate 25 Blood Gas Low PEEP Setting 5.0 Blood Gas Modality VENT - SIMV Blood Gas Notified Time 03/18/2016 1:36:38 PM Blood Gas Notified Whom JLD Blood Gas Respiration Rate 16.0 Blood Gas Specimen Source Blood arterial Blood Gas Temperature 37.0 Blood Gas Tidal Volume 550.0 FiO2 40.0 Oxyhemoglobin Percent 98.3 Total Hemoglobin 12.4 Activated Partial Thromboplast Time 34.3 Alanine Aminotransferase (ALT/SGPT) 45 Albumin 3.1 L Albumin/Globulin Ratio 0.86 Alkaline Phosphatase 88 Amylase Level < 30 Anion Gap 18 H Aspartate Amino Transf (AST/SGOT) 72 H Basophils # 0.0 Basophils % 0.3 Blood Morphology Comment Blood Urea Nitrogen 16 Calcium Level 7.3 L Carbon Dioxide Level 23 Chloride Level 106 Creatinine 0.90 Direct Bilirubin 0.00 Eosinophils # 0.0 Eosinophils % 0.3 Globulin 3.60 H Glucose Level 132 Hematocrit 35.4 L Hemoglobin 11.7 L Indirect Bilirubin 1.3 H Lipase 75 Lymphocytes # 2.4 Lymphocytes % 16.9 Magnesium Level 1.6 L Mean Corpuscular Hemoglobin 27.8 L Mean Corpuscular Hemoglobin Concent 33.1 Mean Corpuscular Volume 84.1 Mean Platelet Volume 8.1 Monocytes # 1.6 H Monocytes % 11.6 H Neutrophils # 9.9 H Neutrophils % 70.9 Nucleated Red Blood Cells # 0.0 Nucleated Red Blood Cells % 0.0 Phosphorus Level 2.5 Platelet Count 234 Potassium Level 4.0 Red Blood Count 4.21 L Red Cell Distribution Width 15.8 H Sodium Level 143 Total Bilirubin 1.3 Total Protein 6.7 White Blood Count 14.0 H Bedside Glucose 111 135 Test 03/18/16 19:55 03/18/16 20:00 03/18/16 20:05 03/19/16 01:05 Activated Partial Thromboplast Time 35.5 H Alanine Aminotransferase (ALT/SGPT) 47 Albumin 2.8 L Albumin/Globulin Ratio 0.82 Alkaline Phosphatase 83 Amylase Level 45 Anion Gap 15 Aspartate Amino Transf (AST/SGOT) 68 H Basophils # 0.1 Basophils % 0.3 Blood Morphology Comment Blood Urea Nitrogen 15 Calcium Level 7.4 L Carbon Dioxide Level 24 Chloride Level 107 Creatinine 0.83 Direct Bilirubin 0.00 Eosinophils # 0.0 Eosinophils % 0.1 Globulin 3.40 H Glucose Level 137 Hematocrit 34.2 L Hemoglobin 11.4 L INR International Normalized Ratio 1.33 Indirect Bilirubin 1.0 Lipase 55 Lymphocytes # 2.6 Lymphocytes % 17.1 Mean Corpuscular Hemoglobin 28.0 L Mean Corpuscular Hemoglobin Concent 33.5 Mean Corpuscular Volume 83.6 Mean Platelet Volume 8.6 Monocytes # 1.8 H Monocytes % 11.8 H Neutrophils # 10.6 H Neutrophils % 70.7 Nucleated Red Blood Cells # 0.0 Nucleated Red Blood Cells % 0.0 Phosphorus Level 2.6 Platelet Count 224 Potassium Level 3.6 Prothrombin Time 16.6 H Prothrombin Time Ratio 1.3 Red Blood Count 4.09 L Red Cell Distribution Width 15.9 H Sodium Level 142 Total Bilirubin 1.0 Total Protein 6.2 White Blood Count 15.0 H Arterial Blood HCO3 19.9 L Arterial Blood Base Excess -1.6 Arterial Blood Oxygen Saturation 98.7 H Dennis Test N/A Arterial Blood Gas Puncture Site A-Line Arterial Blood Carboxyhemoglobin 0.3 Arterial Blood Date Drawn 03/18/2016 7:48:29 PM Arterial Blood Methemoglobin 0.2 Arterial Blood pCO2 (Temp correct) 25.0 L Arterial Blood pH (Temp corrected) 7.518 H Arterial Blood pO2 (Temp corrected) 137.1 H Blood Gas A-a O2 Differential 119.4 H Blood Gas Actual Respiration Rate 26 Blood Gas Low PEEP Setting 5.0 Blood Gas Modality VENT - SIMV Blood Gas Notified Time 03/18/2016 7:54:13 PM Blood Gas Notified Whom LW Blood Gas Pressure Support 10 Blood Gas Respiration Rate 16.0 Blood Gas Specimen Source Blood arterial Blood Gas Temperature 37.0 Blood Gas Tidal Volume 550.0 FiO2 40.0 Oxyhemoglobin Percent 98.2 Total Hemoglobin 12.2 Urine Bilirubin NEGATIVE Urine Clarity CLEAR Urine Color LT. YELLOW Urine Glucose NEGATIVE Urine Hemoglobin TRACE Urine Ketones 15 Urine Leukocyte Esterase NEGATIVE Urine Microscopic RBC 0-2 Urine Microscopic WBC NONE SEEN Urine Nitrite NEGATIVE Urine Specific [place] 1.025 Urine Squamous Epithelial Cells RARE Urine Total Protein TRACE Urine Urobilinogen 4.0 E.U./dL H Urine pH 6.0 Bedside Glucose 156 Test 03/19/16 02:20 03/19/16 05:03 03/19/16 08:35 03/19/16 08:40 Activated Partial Thromboplast Time 46.0 H Alanine Aminotransferase (ALT/SGPT) 43 45 Albumin 2.5 L 2.6 L Albumin/Globulin Ratio 0.78 0.74 Alkaline Phosphatase 72 77 Amylase Level 31 35 Anion Gap 17 H 14 Aspartate Amino Transf (AST/SGOT) 53 H 53 H Basophils # 0.1 Basophils % 0.4 Blood Urea Nitrogen 16 13 Calcium Level 7.2 L 7.2 L Carbon Dioxide Level 24 23 Chloride Level 108 108 Creatinine 0.93 0.74 Direct Bilirubin 0.00 0.00 Eosinophils # 0.0 Eosinophils % 0.1 Globulin 3.20 3.50 H Glucose Level 148 128 Hematocrit 30.5 L Hemoglobin 10.0 L INR International Normalized Ratio 1.39 1.31 Indirect Bilirubin 1.0 1.1 Lipase 42 48 Lymphocytes # 2.8 Lymphocytes % 18.2 Magnesium Level 1.7 2.3 Mean Corpuscular Hemoglobin 27.6 L Mean Corpuscular Hemoglobin Concent 32.8 Mean Corpuscular Volume 84.3 Mean Platelet Volume 10.9 #H Monocytes # 1.7 H Monocytes % 10.8 Neutrophils # 10.7 H Neutrophils % 69.7 Nucleated Red Blood Cells # 0.0 Nucleated Red Blood Cells % 0.0 Phosphorus Level 3.0 2.9 Platelet Count 212 Potassium Level 3.2 L 3.5 Prothrombin Time 17.1 H 16.4 H Prothrombin Time Ratio 1.3 1.3 Red Blood Count 3.62 L Red Cell Distribution Width 15.5 H Sodium Level 146 H 141 Total Bilirubin 1.0 1.1 Total Protein 5.7 L 6.1 Urine Bacteria OCCASIONAL Urine Bilirubin 1+ H Urine Clarity CLEAR Urine Color YELLOW Urine Glucose NEGATIVE Urine Hemoglobin 3+ H Urine Ictotest NEGATIVE Urine Ketones 15 Urine Leukocyte Esterase NEGATIVE Urine Microscopic RBC >200 Urine Microscopic WBC 5-10 Urine Nitrite NEGATIVE Urine Specific [place] 1.025 Urine Squamous Epithelial Cells OCCASIONAL Urine Total Protein 1+ H Urine Urobilinogen 2.0 E.U./dL H Urine pH 6.0 White Blood Count 15.4 H Bedside Glucose 113 Arterial Blood HCO3 21.5 L Arterial Blood Base Excess -1.8 Arterial Blood Oxygen Saturation 97.7 Dennis Test N/A Arterial Blood Gas Puncture Site A-Line Arterial Blood Carboxyhemoglobin 0.3 Arterial Blood Date Drawn 03/19/2016 8:50:54 AM Arterial Blood Methemoglobin 0.2 Arterial Blood pCO2 (Temp correct) 31.8 L Arterial Blood pH (Temp corrected) 7.448 Arterial Blood pO2 (Temp corrected) 108.5 H Blood Gas A-a O2 Differential 140.1 H Blood Gas Actual Respiration Rate 22 Blood Gas Low PEEP Setting 5.0 Blood Gas Modality VENT - AC Blood Gas Notified Time 03/19/2016 9:05:04 AM Blood Gas Notified Whom EMILE CASEY Blood Gas Respiration Rate 12.0 Blood Gas Specimen Source Blood arterial Blood Gas Temperature 37.0 Blood Gas Tidal Volume 500.0 FiO2 40.0 Oxyhemoglobin Percent 97.2 Total Hemoglobin 11.9 L Test 03/19/16 08:54 03/19/16 09:12 03/19/16 12:00 Urine Bacteria RARE Urine Bilirubin NEGATIVE Urine Clarity CLEAR Urine Color LT. YELLOW Urine Epithelial Cells RARE Urine Glucose NEGATIVE Urine Hemoglobin TRACE Urine Ketones 40 Urine Leukocyte Esterase NEGATIVE Urine Microscopic RBC 0-2 Urine Microscopic WBC 0-2 Urine Mucus RARE Urine Nitrite NEGATIVE Urine Specific [place] >=1.030 H Urine Total Protein NEGATIVE Urine Urobilinogen 4.0 E.U./dL H Urine pH 6.0 Bedside Glucose 120 Activated Partial Thromboplast Time 35.3 H Alanine Aminotransferase (ALT/SGPT) 45 Albumin 2.8 L Albumin/Globulin Ratio 0.80 Alkaline Phosphatase 79 Amylase Level < 30 Anion Gap 12 Aspartate Amino Transf (AST/SGOT) 55 H Basophils # 0.1 Basophils % 0.3 Blood Urea Nitrogen 12 Calcium Level 7.4 L Carbon Dioxide Level 26 Chloride Level 105 Creatinine 0.71 Direct Bilirubin 0.00 Eosinophils # 0.2 Eosinophils % 1.1 Globulin 3.50 H Glucose Level 141 Hematocrit 33.8 L Hemoglobin 11.1 L INR International Normalized Ratio 1.19 Indirect Bilirubin 1.1 Lymphocytes # 2.2 Lymphocytes % 15.0 Magnesium Level 1.9 Mean Corpuscular Hemoglobin 27.3 L Mean Corpuscular Hemoglobin Concent 32.8 Mean Corpuscular Volume 83.3 Mean Platelet Volume 10.9 H Monocytes # 1.5 H Monocytes % 10.2 Neutrophils # 10.7 H Neutrophils % 72.9 Nucleated Red Blood Cells # 0.0 Nucleated Red Blood Cells % 0.0 Phosphorus Level 3.1 Platelet Count 233 Potassium Level 3.2 L Prothrombin Time 15.2 H Prothrombin Time Ratio 1.2 Red Blood Count 4.06 L Red Cell Distribution Width 15.6 H Sodium Level 140 Total Bilirubin 1.1 Total Protein 6.3 White Blood Count 14.8 H Medications Medications Current Medications Ondansetron HCl 4 mg 4 mg Q6H PRN IV NAUSEA AND/OR VOMITING; Start 03/12/16 at 03:00 Sodium Chloride (NS) 1,000 ml @ 100 mls/hr Q10H IV Last administered on 05:56; Admin Dose 100 MLS/HR; Start 03/12/16 at 02:36 Meperidine HCl (Demerol) 12.5 mg Q4H PRN IV POST OPERATIVE SHIVERING; Start at 03:00 Meperidine HCl (Demerol) 25 mg Q4H PRN IV POST OPERATIVE SHIVERING; Start 03/12 at 03:00 Eye Lubricant (Akwa Oint) 1 applic Q6 BOTH EYES Last administered on 03/19/16 11:57; Admin Dose 1 APPLIC; Start 03/12/16 at 06:00 Eye Lubricant 2 drop 2 drop Q6 BOTH EYES Last administered on 03/19/16 11:57; Admin Dose 2 DROP; Start 03/12/16 at 06:00 Piperacillin Sod/ Tazobactam Sod (Zosyn 3.375gm/ 100 ml (Pmx)) 100 ml @ 200 mls /hr Q6 IVPB Last administered on 03/19/16 12:00; Admin Dose 200 MLS/HR; Start 03/12/16 at 06:00 Heparin Sodium (Porcine) (Heparin (5000 Units/0.5 ml)) 5,000 unit Q8 SC Last administered on 03/19/16 05:55; Admin Dose 5,000 UNIT; Start 03/13/16 at 14:00 Famotidine (Pepcid Iv) 20 mg BID IV Last administered on 03/19/16 09:15; Admin Dose 20 MG; Start 03/13/16 at 09:00 Amiodarone HCl (Cordarone) 400 mg BID NGT Last administered on 03/19/16 09:03; Admin Dose 400 MG; Start 03/13/16 at 21:00 Lisinopril (Zestril) 2.5 mg DAILY NGT Last administered on 03/19/16 09:04; Admin Dose 2.5 MG; Start 03/14/16 at 09:00 Acetaminophen (Tylenol Liquid) 650 mg Q4H PRN NGT TEMP > 37C Last administered on 03/19/16 00:25; Admin Dose 650 MG; Start 03/13/16 at 20:02 Ipratropium [place] (Atrovent Hfa) 4 puff Q4 INH Last administered on 03/19/16 05:14; Admin Dose 4 PUFF; Start 03/14/16 at 05:00 Glycopyrrolate (Robinul) 0.2 mg Q6H IV Last administered on 03/19/16 09:06; Admin Dose 0.2 MG; Start 03/14/16 at 03:30 Glycopyrrolate (Robinul) 0.2 mg PRN PRN IV PRN SECRETIONS; Start 03/14/16 at 03 :30 Insulin Glargine (Lantus) 20 unit DAILY SC Last administered on 03/19/16 09:14 ; Admin Dose 20 UNIT; Start 03/14/16 at 12:00 Insulin Aspart (Novolog Insulin Pen) NOVOLOG *MILD* ALGORI... Q4 SC Last administered on 03/19/16 01:10; Admin Dose 1 UNIT; Start 03/14/16 at 13:00 Miscellaneous Information 1 ea NOTE XX ; Start 03/14/16 at 12:30 Glucose (Glutose) 15 gm Q15M PRN PO DECREASED GLUCOSE; Start 03/14/16 at 12:30 Glucose (Glutose) 22.5 gm Q15M PRN PO DECREASED GLUCOSE; Start 03/14/16 at 12: 30 Dextrose (D50w Syringe) 25 ml Q15M PRN IV DECREASED GLUCOSE; Start 03/14/16 at 12:30 Dextrose (D50w Syringe) 50 ml Q15M PRN IV DECREASED GLUCOSE; Start 03/14/16 at 12:30 Glucagon (Glucagen) 1 mg Q15M PRN IM DECREASED GLUCOSE; Start 03/14/16 at 12:30 Glucose 15 gm 15 gm Q15M PRN BUCCAL DECREASED GLUCOSE; Start 03/14/16 at 12:30 Dopamine HCl/ Dextrose (D5W) 250 ml @ 3.37 mls/hr TITRATE IV ; Start 03/15/16 at 16:00 Furosemide (Lasix) 40 mg DAILY IV Last administered on 03/19/16 09:04; Admin Dose 40 MG; Start 03/17/16 at 09:00 IV Flush 10 ml 10 ml PRN PRN IV IV PROTOCOL; Start 03/16/16 at 13:30 Levetiracetam/ Sodium Chloride (Keppra Iv/NS) 110 ml @ 440 mls/hr Q12 IVPB Last administered on 03/19/16 09:01; Admin Dose 440 MLS/HR; Start 03/16/16 at 14: 30 Hydralazine HCl (Apresoline) 10 mg Q6H PRN IV SBP > 160 Last administered on 20:25; Admin Dose 10 MG; Start 03/16/16 at 14:30 Lorazepam (Ativan) 2 mg Q2H PRN IV SEIZURES Last administered on 03/19/16 11:55 ; Admin Dose 2 MG; Start 03/16/16 at 18:30 Valproate Sodium 500 mg 500 mg TID NGT Last administered on 03/19/16 09:03; Admin Dose 500 MG; Start 03/18/16 at 21:00 Vancomycin HCl/ Sodium Chloride (Vancocin/NS) 250 ml @ 83.333 mls/ hr Q12H IVPB Last administered on 03/19/16 05:08; Admin Dose 83.333 MLS/HR; Start at 05:00 Miscellaneous Information (*Rx Drug Level Order Reminder*) VANCOMYCIN TROUGH 03/20 AT 0400 ONCE ONCE XX ; Start 03/20/16 at 04:00; Stop 03/20/16 at 04:01 JT LEÓN Mar 19, 2016 12:42
[2016-03-19 12:51] LABS: BASOPHIL # 0.1 10^3/ul (0.0-0.1); BASOPHILS % 0.4 % (0.0-2.0); EOSINOPHILS # 0.1 10^3/ul (0.0-0.5); EOSINOPHILS % 0.6 % (0.0-7.0); HEMATOCRIT 32.1 % (42.0-52.0); HEMOGLOBIN 10.6 g/dl (14.0-18.0); LYMPHOCYTES # 2.4 10^3/ul (0.8-2.9); LYMPHOCYTES % 15.6 % (15.0-51.0); MEAN CORPUSCULAR HEMOGLOBIN 27.8 pg (29.0-33.0); MEAN CORPUSCULAR VOLUME 84.3 fl (82.0-101.0); MEAN PLATELET VOLUME 10.9 fl (7.4-10.4); MONOCYTE # 1.7 10^3/ul (0.3-0.9); MONOCYTES % 10.8 % (0.0-11.0); NEUTROPHIL # 11.2 10^3/ul (1.6-7.5); PLATELET COUNT 223 10^3/UL (140-440); RED BLOOD COUNT 3.81 10^6/ul (4.70-6.10); RED CELL DISTRIBUTION WIDTH 15.9 % (11.5-14.5); UNCORRECTED WBC 15.5 10^3/ul (4.8-10.8); WHITE BLOOD COUNT 15.5 10^3/ul (4.8-10.8)
[2016-03-19 12:52] LABS: UNCORRECTED WBC 15.4 10^3/ul (4.8-10.8)
[2016-03-19] MEDS ORDERED: LORAZEPAM 2 MG INJ IV ONE (13:00)
[2016-03-19] MEDS ORDERED: HEPARIN 1000 UNITS/ML 10 ML INJ IV ONE (13:00)
--- NOTE | 2016-03-19 14:52 | CONS ---
Date/Time of Note Date/Time of Note DATE: 03/19/16 TIME: 14:51 Assessment/Plan Assessment/Plan Chief Complaint/Hosp Course SUBJECTIVE: No changes. The patient is spiking fevers. He is nonverbal, noncommunicative, obtunded, on vent support. MICROBIOLOGY: All cultures have been negative. INDWELLINGS: Endotracheal tube, NG tube, Pace, PICC line. ANTIMICROBIALS: The patient remains on Zosyn, day #8 and Vanco PHYSICAL EXAMINATION: GENERAL: This is an obese middle aged man, who is obtunded, in no distress. HEENT: Head atraumatic, normocephalic. Buccal mucosa dry. NECK: Obese. CHEST: Chest rise is symmetrical. Breath sounds diminished to the bases. HEART: S1, S2. ABDOMEN: Soft. Bowel tones present. EXTREMITIES: With bilateral edema. SKIN: Positive for anasarca. ASSESSMENT: 1. Sepsis, with persistent fevers, poss central 2. Status post cardiopulmonary arrest, resulting in severe anoxic encephalopathy. 3. Acute respiratory failure. 4. Pneumonia, possibly aspiration. 5. History of diabetes. 6. History of coronary artery disease, requiring permanent pacemaker. PLAN: The patient remains unchanged, plan for terminal extubation today, will sign off. DW staff Problems: Consultation Date/Type/Reason Admit Date/Time Mar 11, 2016 at 22:10 Initial Consult Date 03/14/16 Type of Consultation: ID Exam/Review of Systems Vital Signs Vitals Vital Signs Date Time Temp Pulse Resp B/P Pulse Ox O2 Delivery O2 Flow Rate FiO2 03/19/16 14:00 111 25 155/75 100 Mechanical Ventilator 03/19/16 11:00 99.0 03/19/16 09:38 40 Intake and Output 03/18/16 03/18/16 03/19/16 15:00 23:00 07:00 Intake Total 1522.5 ml 1110 ml 1706.6 ml Output Total 1720 ml 1030 ml 700 ml Balance -197.5 ml 80 ml 1006.6 ml Results Result Diagram: 03/19/16 1200 03/19/16 1200 Results 24 hrs Laboratory Tests Test 03/18/16 17:10 03/18/16 19:55 03/18/16 20:00 03/18/16 20:05 Bedside Glucose 135 Activated Partial Thromboplast Time 35.5 H Alanine Aminotransferase (ALT/SGPT) 47 Albumin 2.8 L Albumin/Globulin Ratio 0.82 Alkaline Phosphatase 83 Amylase Level 45 Anion Gap 15 Aspartate Amino Transf (AST/SGOT) 68 H Basophils # 0.1 Basophils % 0.3 Blood Morphology Comment Blood Urea Nitrogen 15 Calcium Level 7.4 L Carbon Dioxide Level 24 Chloride Level 107 Creatinine 0.83 Direct Bilirubin 0.00 Eosinophils # 0.0 Eosinophils % 0.1 Globulin 3.40 H Glucose Level 137 Hematocrit 34.2 L Hemoglobin 11.4 L INR International Normalized Ratio 1.33 Indirect Bilirubin 1.0 Lipase 55 Lymphocytes # 2.6 Lymphocytes % 17.1 Mean Corpuscular Hemoglobin 28.0 L Mean Corpuscular Hemoglobin Concent 33.5 Mean Corpuscular Volume 83.6 Mean Platelet Volume 8.6 Monocytes # 1.8 H Monocytes % 11.8 H Neutrophils # 10.6 H Neutrophils % 70.7 Nucleated Red Blood Cells # 0.0 Nucleated Red Blood Cells % 0.0 Phosphorus Level 2.6 Platelet Count 224 Potassium Level 3.6 Prothrombin Time 16.6 H Prothrombin Time Ratio 1.3 Red Blood Count 4.09 L Red Cell Distribution Width 15.9 H Sodium Level 142 Total Bilirubin 1.0 Total Protein 6.2 White Blood Count 15.0 H Arterial Blood HCO3 19.9 L Arterial Blood Base Excess -1.6 Arterial Blood Oxygen Saturation 98.7 H Dennis Test N/A Arterial Blood Gas Puncture Site A-Line Arterial Blood Carboxyhemoglobin 0.3 Arterial Blood Date Drawn 03/18/2016 7:48:29 PM Arterial Blood Methemoglobin 0.2 Arterial Blood pCO2 (Temp correct) 25.0 L Arterial Blood pH (Temp corrected) 7.518 H Arterial Blood pO2 (Temp corrected) 137.1 H Blood Gas A-a O2 Differential 119.4 H Blood Gas Actual Respiration Rate 26 Blood Gas Low PEEP Setting 5.0 Blood Gas Modality VENT - SIMV Blood Gas Notified Time 03/18/2016 7:54:13 PM Blood Gas Notified Whom LW Blood Gas Pressure Support 10 Blood Gas Respiration Rate 16.0 Blood Gas Specimen Source Blood arterial Blood Gas Temperature 37.0 Blood Gas Tidal Volume 550.0 FiO2 40.0 Oxyhemoglobin Percent 98.2 Total Hemoglobin 12.2 Urine Bilirubin NEGATIVE Urine Clarity CLEAR Urine Color LT. YELLOW Urine Glucose NEGATIVE Urine Hemoglobin TRACE Urine Ketones 15 Urine Leukocyte Esterase NEGATIVE Urine Microscopic RBC 0-2 Urine Microscopic WBC NONE SEEN Urine Nitrite NEGATIVE Urine Specific [place] 1.025 Urine Squamous Epithelial Cells RARE Urine Total Protein TRACE Urine Urobilinogen 4.0 E.U./dL H Urine pH 6.0 Test 03/19/16 01:05 03/19/16 02:20 03/19/16 05:03 03/19/16 08:35 Bedside Glucose 156 113 Activated Partial Thromboplast Time 46.0 H Alanine Aminotransferase (ALT/SGPT) 43 45 Albumin 2.5 L 2.6 L Albumin/Globulin Ratio 0.78 0.74 Alkaline Phosphatase 72 77 Amylase Level 31 35 Anion Gap 17 H 14 Aspartate Amino Transf (AST/SGOT) 53 H 53 H Basophils # 0.1 0.1 Basophils % 0.4 0.4 Blood Urea Nitrogen 16 13 Calcium Level 7.2 L 7.2 L Carbon Dioxide Level 24 23 Chloride Level 108 108 Creatinine 0.93 0.74 Direct Bilirubin 0.00 0.00 Eosinophils # 0.0 0.1 Eosinophils % 0.1 0.6 Globulin 3.20 3.50 H Glucose Level 148 128 Hematocrit 30.5 L 32.1 L Hemoglobin 10.0 L 10.6 L INR International Normalized Ratio 1.39 1.31 Indirect Bilirubin 1.0 1.1 Lipase 42 48 Lymphocytes # 2.8 2.4 Lymphocytes % 18.2 15.6 Magnesium Level 1.7 2.3 Mean Corpuscular Hemoglobin 27.6 L 27.8 L Mean Corpuscular Hemoglobin Concent 32.8 33.0 Mean Corpuscular Volume 84.3 84.3 Mean Platelet Volume 10.9 #H 10.9 H Monocytes # 1.7 H 1.7 H Monocytes % 10.8 10.8 Neutrophils # 10.7 H 11.2 H Neutrophils % 69.7 72.0 Nucleated Red Blood Cells # 0.0 0.0 Nucleated Red Blood Cells % 0.0 0.0 Phosphorus Level 3.0 2.9 Platelet Count 212 223 Potassium Level 3.2 L 3.5 Prothrombin Time 17.1 H 16.4 H Prothrombin Time Ratio 1.3 1.3 Red Blood Count 3.62 L 3.81 L Red Cell Distribution Width 15.5 H 15.9 H Sodium Level 146 H 141 Total Bilirubin 1.0 1.1 Total Protein 5.7 L 6.1 Urine Bacteria OCCASIONAL Urine Bilirubin 1+ H Urine Clarity CLEAR Urine Color YELLOW Urine Glucose NEGATIVE Urine Hemoglobin 3+ H Urine Ictotest NEGATIVE Urine Ketones 15 Urine Leukocyte Esterase NEGATIVE Urine Microscopic RBC >200 Urine Microscopic WBC 5-10 Urine Nitrite NEGATIVE Urine Specific [place] 1.025 Urine Squamous Epithelial Cells OCCASIONAL Urine Total Protein 1+ H Urine Urobilinogen 2.0 E.U./dL H Urine pH 6.0 White Blood Count 15.4 H 15.5 H Test 03/19/16 08:40 03/19/16 08:54 03/19/16 09:12 03/19/16 12:00 Arterial Blood HCO3 21.5 L Arterial Blood Base Excess -1.8 Arterial Blood Oxygen Saturation 97.7 Dennis Test N/A Arterial Blood Gas Puncture Site A-Line Arterial Blood Carboxyhemoglobin 0.3 Arterial Blood Date Drawn 03/19/2016 8:50:54 AM Arterial Blood Methemoglobin 0.2 Arterial Blood pCO2 (Temp correct) 31.8 L Arterial Blood pH (Temp corrected) 7.448 Arterial Blood pO2 (Temp corrected) 108.5 H Blood Gas A-a O2 Differential 140.1 H Blood Gas Actual Respiration Rate 22 Blood Gas Low PEEP Setting 5.0 Blood Gas Modality VENT - AC Blood Gas Notified Time 03/19/2016 9:05:04 AM Blood Gas Notified Whom CARMELA,FIELD REPRESENTATIVE Blood Gas Respiration Rate 12.0 Blood Gas Specimen Source Blood arterial Blood Gas Temperature 37.0 Blood Gas Tidal Volume 500.0 FiO2 40.0 Oxyhemoglobin Percent 97.2 Total Hemoglobin 11.9 L Urine Bacteria RARE Urine Bilirubin NEGATIVE Urine Clarity CLEAR Urine Color LT. YELLOW Urine Epithelial Cells RARE Urine Glucose NEGATIVE Urine Hemoglobin TRACE Urine Ketones 40 Urine Leukocyte Esterase NEGATIVE Urine Microscopic RBC 0-2 Urine Microscopic WBC 0-2 Urine Mucus RARE Urine Nitrite NEGATIVE Urine Specific [place] >=1.030 H Urine Total Protein NEGATIVE Urine Urobilinogen 4.0 E.U./dL H Urine pH 6.0 Bedside Glucose 120 Activated Partial Thromboplast Time 35.3 H Alanine Aminotransferase (ALT/SGPT) 45 Albumin 2.8 L Albumin/Globulin Ratio 0.80 Alkaline Phosphatase 79 Amylase Level < 30 Anion Gap 12 Aspartate Amino Transf (AST/SGOT) 55 H Basophils # 0.1 Basophils % 0.3 Blood Urea Nitrogen 12 Calcium Level 7.4 L Carbon Dioxide Level 26 Chloride Level 105 Creatinine 0.71 Direct Bilirubin 0.00 Eosinophils # 0.2 Eosinophils % 1.1 Globulin 3.50 H Glucose Level 141 Hematocrit 33.8 L Hemoglobin 11.1 L INR International Normalized Ratio 1.19 Indirect Bilirubin 1.1 Lymphocytes # 2.2 Lymphocytes % 15.0 Magnesium Level 1.9 Mean Corpuscular Hemoglobin 27.3 L Mean Corpuscular Hemoglobin Concent 32.8 Mean Corpuscular Volume 83.3 Mean Platelet Volume 10.9 H Monocytes # 1.5 H Monocytes % 10.2 Neutrophils # 10.7 H Neutrophils % 72.9 Nucleated Red Blood Cells # 0.0 Nucleated Red Blood Cells % 0.0 Phosphorus Level 3.1 Platelet Count 233 Potassium Level 3.2 L Prothrombin Time 15.2 H Prothrombin Time Ratio 1.2 Red Blood Count 4.06 L Red Cell Distribution Width 15.6 H Sodium Level 140 Total Bilirubin 1.1 Total Protein 6.3 White Blood Count 14.8 H Medications Medications Current Medications Ondansetron HCl 4 mg 4 mg Q6H PRN IV NAUSEA AND/OR VOMITING; Start 03/12/16 at 03:00 Sodium Chloride (NS) 1,000 ml @ 100 mls/hr Q10H IV Last administered on 05:56; Admin Dose 100 MLS/HR; Start 03/12/16 at 02:36 Meperidine HCl (Demerol) 12.5 mg Q4H PRN IV POST OPERATIVE SHIVERING; Start at 03:00 Meperidine HCl (Demerol) 25 mg Q4H PRN IV POST OPERATIVE SHIVERING; Start 03/12 at 03:00 Eye Lubricant (Akwa Oint) 1 applic Q6 BOTH EYES Last administered on 03/19/16 11:57; Admin Dose 1 APPLIC; Start 03/12/16 at 06:00 Eye Lubricant 2 drop 2 drop Q6 BOTH EYES Last administered on 03/19/16 11:57; Admin Dose 2 DROP; Start 03/12/16 at 06:00 Piperacillin Sod/ Tazobactam Sod (Zosyn 3.375gm/ 100 ml (Pmx)) 100 ml @ 200 mls /hr Q6 IVPB Last administered on 03/19/16 12:00; Admin Dose 200 MLS/HR; Start 03/12/16 at 06:00 Heparin Sodium (Porcine) (Heparin (5000 Units/0.5 ml)) 5,000 unit Q8 SC Last administered on 03/19/16 05:55; Admin Dose 5,000 UNIT; Start 03/13/16 at 14:00 Famotidine (Pepcid Iv) 20 mg BID IV Last administered on 03/19/16 09:15; Admin Dose 20 MG; Start 03/13/16 at 09:00 Amiodarone HCl (Cordarone) 400 mg BID NGT Last administered on 03/19/16 09:03; Admin Dose 400 MG; Start 03/13/16 at 21:00 Lisinopril (Zestril) 2.5 mg DAILY NGT Last administered on 03/19/16 09:04; Admin Dose 2.5 MG; Start 03/14/16 at 09:00 Acetaminophen (Tylenol Liquid) 650 mg Q4H PRN NGT TEMP > 37C Last administered on 03/19/16 00:25; Admin Dose 650 MG; Start 03/13/16 at 20:02 Glycopyrrolate (Robinul) 0.2 mg Q6H IV Last administered on 03/19/16 09:06; Admin Dose 0.2 MG; Start 03/14/16 at 03:30 Glycopyrrolate (Robinul) 0.2 mg PRN PRN IV PRN SECRETIONS; Start 03/14/16 at 03 :30 Insulin Glargine (Lantus) 20 unit DAILY SC Last administered on 03/19/16 09:14 ; Admin Dose 20 UNIT; Start 03/14/16 at 12:00 Insulin Aspart (Novolog Insulin Pen) NOVOLOG *MILD* ALGORI... Q4 SC Last administered on 03/19/16 01:10; Admin Dose 1 UNIT; Start 03/14/16 at 13:00 Miscellaneous Information 1 ea NOTE XX ; Start 03/14/16 at 12:30 Glucose (Glutose) 15 gm Q15M PRN PO DECREASED GLUCOSE; Start 03/14/16 at 12:30 Glucose (Glutose) 22.5 gm Q15M PRN PO DECREASED GLUCOSE; Start 03/14/16 at 12: 30 Dextrose (D50w Syringe) 25 ml Q15M PRN IV DECREASED GLUCOSE; Start 03/14/16 at 12:30 Dextrose (D50w Syringe) 50 ml Q15M PRN IV DECREASED GLUCOSE; Start 03/14/16 at 12:30 Glucagon (Glucagen) 1 mg Q15M PRN IM DECREASED GLUCOSE; Start 03/14/16 at 12:30 Glucose 15 gm 15 gm Q15M PRN BUCCAL DECREASED GLUCOSE; Start 03/14/16 at 12:30 Dopamine HCl/ Dextrose (D5W) 250 ml @ 3.37 mls/hr TITRATE IV ; Start 03/15/16 at 16:00 Furosemide (Lasix) 40 mg DAILY IV Last administered on 03/19/16 09:04; Admin Dose 40 MG; Start 03/17/16 at 09:00 IV Flush 10 ml 10 ml PRN PRN IV IV PROTOCOL; Start 03/16/16 at 13:30 Levetiracetam/ Sodium Chloride (Keppra Iv/NS) 110 ml @ 440 mls/hr Q12 IVPB Last administered on 03/19/16 09:01; Admin Dose 440 MLS/HR; Start 03/16/16 at 14: 30 Hydralazine HCl (Apresoline) 10 mg Q6H PRN IV SBP > 160 Last administered on 20:25; Admin Dose 10 MG; Start 03/16/16 at 14:30 Lorazepam (Ativan) 2 mg Q2H PRN IV SEIZURES Last administered on 03/19/16 11:55 ; Admin Dose 2 MG; Start 03/16/16 at 18:30 Valproate Sodium 500 mg 500 mg TID NGT Last administered on 03/19/16 09:03; Admin Dose 500 MG; Start 03/18/16 at 21:00 Vancomycin HCl/ Sodium Chloride (Vancocin/NS) 250 ml @ 83.333 mls/ hr Q12H IVPB Last administered on 03/19/16 05:08; Admin Dose 83.333 MLS/HR; Start at 05:00 Miscellaneous Information VANCOMYCIN TROUGH 5 AT 0400 ONCE ONCE XX ; Start at 04:00; Stop 03/20/16 at 04:01 Morphine Sulfate/ Dextrose (morphine) 100 ml @ 1 mls/hr TITRATE IV ; Start at 13:00 MARIANA STAPLES NP Mar 19, 2016 14:52
[2016-03-19] MEDS: morphine (DRIP) 100 MG/D5W 100 ML IV SCH ×2 (15:19→19:32)
[2016-03-19] MEDS ORDERED: LORAZEPAM 2 MG INJ IV PRN (18:00)
--- NOTE | 2016-03-19 19:04 | DES ---
Date/Time of Note Date/Time of Note DATE: 03/19/16 TIME: 18:50 Discharge/ Summary Admission/Discharge Info Admit Date/Time Mar 11, 2016 at 22:10 Discharge Date/Time Final Diagnosis 1. PEA cardiac arrest 2. Vent dependent respiratory failure 3. Atrial fibrillation with rapid ventricular response 4. SIRS with severe Lactic acidosis 5. Diabetes Type 2 - A1c = 8.0 6. HTN 7. Known CAD s/p FL previously 8. Anion gap metabolic acidosis 9. Probable anoxic brain injury 10. Transient Shock likely Cardiogenic Preliminary Cause of 1. respiratory distress (minutes) 2. cardiac arrest (days) Hospital Course 40 year old male with hx of DM, HTN, cardiomyopathy with FL 2016 s/p PPM admitted after cardiac arrest on arrival of EMS he had PEA arrest with apnea , he had ROSC after 2 rounds of epinephrine. On arrival he was placed on hypothermia protocol, remained intubated unresponsive. Seen by CV, Pulm, ID, and Neurology teams during this hospitalization. Neurology was consulted to evaluate for anoxic injury. Pt also tx for aspiration PNA. Pt found with cardiomyopathy, LVEF 20% - unclear etiology, possibly ischemic. Pt received cardia meds. EEG showed abnormal EEG due to presence of generalized bihemispheric background slowing with bitemporal frontal sharps which could be epileptogenic, and pt placed on antiseizure meds as well. B/c it was determined there was most likely anoxic brai injury and no realistic recovery of neurologic fct, family decided on comfort measures,and pt was taken to OR for organ donation, then terminally extubated on 03/19/16 at 16:30. Pt went asystole and at 18:48 on 03/19/16. Pending Labs/Cultures Laboratory Tests Test 03/18/16 19:55 03/18/16 20:00 03/18/16 20:05 03/19/16 01:05 Activated Partial Thromboplast Time 35.5Sec (25.0-35.0) Alanine Aminotransferase (ALT/SGPT) 47IU/L (13-69) Albumin 2.8g/dl (3.3-4.9) Albumin/Globulin Ratio 0.82 Alkaline Phosphatase 83IU/L (42-121) Amylase Level 45U/L (11-123) Anion Gap 15 (8-16) Aspartate Amino Transf (AST/SGOT) 68IU/L (15-46) Basophils # 0.110^3/ul (0.0-0.1) Basophils % 0.3% (0.0-2.0) Blood Morphology Comment Blood Urea Nitrogen 15mg/dl (7-20) Calcium Level 7.4mg/dl (8.4-10.2) Carbon Dioxide Level 24mmol/L (21-31) Chloride Level 107mmol/L (97-110) Creatinine 0.83mg/dl (0.61-1.24) Direct Bilirubin 0.00mg/dl (0.00-0.20) Eosinophils # 0.010^3/ul (0.0-0.5) Eosinophils % 0.1% (0.0-7.0) Globulin 3.40g/dl (1.3-3.2) Glucose Level 137mg/dl (70-220) Hematocrit 34.2% (42.0-52.0) Hemoglobin 11.4g/dl (14.0-18.0) INR International Normalized Ratio 1.33 Indirect Bilirubin 1.0mg/dl (0-1.1) Lipase 55U/L (23-300) Lymphocytes # 2.610^3/ul (0.8-2.9) Lymphocytes % 17.1% (15.0-51.0) Mean Corpuscular Hemoglobin 28.0pg (29.0-33.0) Mean Corpuscular Hemoglobin Concent 33.5g/dl (32.0-37.0) Mean Corpuscular Volume 83.6fl (82.0-101.0) Mean Platelet Volume 8.6fl (7.4-10.4) Monocytes # 1.810^3/ul (0.3-0.9) Monocytes % 11.8% (0.0-11.0) Neutrophils # 10.610^3/ul (1.6-7.5) Neutrophils % 70.7% (39.0-77.0) Nucleated Red Blood Cells # 0.010^3/ul (0.0-0.0) Nucleated Red Blood Cells % 0.0/100WBC (0.0-0.0) Phosphorus Level 2.6mg/dl (2.5-4.9) Platelet Count 24913^3/UL (140-440) Potassium Level 3.6mmol/L (3.5-5.1) Prothrombin Time 16.6Sec (12.2-14.2) Prothrombin Time Ratio 1.3 Red Blood Count 4.0910^6/ul (4.70-6.10) Red Cell Distribution Width 15.9% (11.5-14.5) Sodium Level 142mmol/L (135-144) Total Bilirubin 1.0mg/dl (0.2-1.3) Total Protein 6.2g/dl (6.1-8.1) White Blood Count 15.010^3/ul (4.8-10.8) Arterial Blood HCO3 19.9mmol/L (22.0-26.0) Arterial Blood Base Excess -1.6mmol/L (-3.0-3) Arterial Blood Oxygen Saturation 98.7mmHG (95.0-98.0) Dennis Test N/A Arterial Blood Gas Puncture Site A-Line Arterial Blood Carboxyhemoglobin 0.3% (0.0-3.0) Arterial Blood Date Drawn 03/18/2016 7:48:29 PM Arterial Blood Methemoglobin 0.2% (0.0-1.5) Arterial Blood pCO2 (Temp correct) 25.0mmhg (35-45) Arterial Blood pH (Temp corrected) 7.518 (7.350-7.450) Arterial Blood pO2 (Temp corrected) 137.1mmHG (80-100.0) Blood Gas A-a O2 Differential 119.4mmHg (7.0-24.0) Blood Gas Actual Respiration Rate 26 Blood Gas Low PEEP Setting 5.0cmH2O Blood Gas Modality VENT - SIMV Blood Gas Notified Time 03/18/2016 7:54:13 PM Blood Gas Notified Whom LW Blood Gas Pressure Support 10 Blood Gas Respiration Rate 16.0 Blood Gas Specimen Source Blood arterial Blood Gas Temperature 37.0C Blood Gas Tidal Volume 550.0mL FiO2 40.0% Oxyhemoglobin Percent 98.2% (93.0-99.0) Total Hemoglobin 12.2g/dl (12.0-18.0) Urine Bilirubin NEGATIVE (NEGATIVE) Urine Clarity CLEAR (CLEAR) Urine Color LT. YELLOW (YELLOW) Urine Glucose NEGATIVE% (NEGATIVE) Urine Hemoglobin TRACE (NEGATIVE) Urine Ketones 15 (NEGATIVE) Urine Leukocyte Esterase NEGATIVE (NEGATIVE) Urine Microscopic RBC 0-2/HPF (0) Urine Microscopic WBC NONE SEEN/HPF (0) Urine Nitrite NEGATIVE (NEGATIVE) Urine Specific [place] 1.025 (1.003-1.030) Urine Squamous Epithelial Cells RARE Urine Total Protein TRACE (NEGATIVE) Urine Urobilinogen 4.0 E.U./dL (0.1-1.0) Urine pH 6.0 (5.0-9.0) Bedside Glucose 156mg/dL (70-220) Test 03/19/16 02:20 03/19/16 05:03 03/19/16 08:35 03/19/16 08:40 Activated Partial Thromboplast Time 46.0Sec (25.0-35.0) Alanine Aminotransferase (ALT/SGPT) 43IU/L (13-69) 45IU/L (13-69) Albumin 2.5g/dl (3.3-4.9) 2.6g/dl (3.3-4.9) Albumin/Globulin Ratio 0.78 0.74 Alkaline Phosphatase 72IU/L (42-121) 77IU/L (42-121) Amylase Level 31U/L (11-123) 35U/L (11-123) Anion Gap 17 (8-16) 14 (8-16) Aspartate Amino Transf (AST/SGOT) 53IU/L (15-46) 53IU/L (15-46) Basophils # 0.110^3/ul (0.0-0.1) 0.110^3/ul (0.0-0.1) Basophils % 0.4% (0.0-2.0) 0.4% (0.0-2.0) Blood Urea Nitrogen 16mg/dl (7-20) 13mg/dl (7-20) Calcium Level 7.2mg/dl (8.4-10.2) 7.2mg/dl (8.4-10.2) Carbon Dioxide Level 24mmol/L (21-31) 23mmol/L (21-31) Chloride Level 108mmol/L (97-110) 108mmol/L (97-110) Creatinine 0.93mg/dl (0.61-1.24) 0.74mg/dl (0.61-1.24) Direct Bilirubin 0.00mg/dl (0.00-0.20) 0.00mg/dl (0.00-0.20) Eosinophils # 0.010^3/ul (0.0-0.5) 0.110^3/ul (0.0-0.5) Eosinophils % 0.1% (0.0-7.0) 0.6% (0.0-7.0) Globulin 3.20g/dl (1.3-3.2) 3.50g/dl (1.3-3.2) Glucose Level 148mg/dl (70-220) 128mg/dl (70-220) Hematocrit 30.5% (42.0-52.0) 32.1% (42.0-52.0) Hemoglobin 10.0g/dl (14.0-18.0) 10.6g/dl (14.0-18.0) INR International Normalized Ratio 1.39 1.31 Indirect Bilirubin 1.0mg/dl (0-1.1) 1.1mg/dl (0-1.1) Lipase 42U/L (23-300) 48U/L (23-300) Lymphocytes # 2.810^3/ul (0.8-2.9) 2.410^3/ul (0.8-2.9) Lymphocytes % 18.2% (15.0-51.0) 15.6% (15.0-51.0) Magnesium Level 1.7mg/dl (1.7-2.5) 2.3mg/dl (1.7-2.5) Mean Corpuscular Hemoglobin 27.6pg (29.0-33.0) 27.8pg (29.0-33.0) Mean Corpuscular Hemoglobin Concent 32.8g/dl (32.0-37.0) 33.0g/dl (32.0-37.0) Mean Corpuscular Volume 84.3fl (82.0-101.0) 84.3fl (82.0-101.0) Mean Platelet Volume 10.9fl (7.4-10.4) 10.9fl (7.4-10.4) Monocytes # 1.710^3/ul (0.3-0.9) 1.710^3/ul (0.3-0.9) Monocytes % 10.8% (0.0-11.0) 10.8% (0.0-11.0) Neutrophils # 10.710^3/ul (1.6-7.5) 11.210^3/ul (1.6-7.5) Neutrophils % 69.7% (39.0-77.0) 72.0% (39.0-77.0) Nucleated Red Blood Cells # 0.010^3/ul (0.0-0.0) 0.010^3/ul (0.0-0.0) Nucleated Red Blood Cells % 0.0/100WBC (0.0-0.0) 0.0/100WBC (0.0-0.0) Phosphorus Level 3.0mg/dl (2.5-4.9) 2.9mg/dl (2.5-4.9) Platelet Count 34002^3/UL (140-440) 90040^3/UL (140-440) Potassium Level 3.2mmol/L (3.5-5.1) 3.5mmol/L (3.5-5.1) Prothrombin Time 17.1Sec (12.2-14.2) 16.4Sec (12.2-14.2) Prothrombin Time Ratio 1.3 1.3 Red Blood Count 3.6210^6/ul (4.70-6.10) 3.8110^6/ul (4.70-6.10) Red Cell Distribution Width 15.5% (11.5-14.5) 15.9% (11.5-14.5) Sodium Level 146mmol/L (135-144) 141mmol/L (135-144) Total Bilirubin 1.0mg/dl (0.2-1.3) 1.1mg/dl (0.2-1.3) Total Protein 5.7g/dl (6.1-8.1) 6.1g/dl (6.1-8.1) Urine Bacteria OCCASIONAL Urine Bilirubin 1+ (NEGATIVE) Urine Clarity CLEAR (CLEAR) Urine Color YELLOW (YELLOW) Urine Glucose NEGATIVE% (NEGATIVE) Urine Hemoglobin 3+ (NEGATIVE) Urine Ictotest NEGATIVE (NEGATIVE) Urine Ketones 15 (NEGATIVE) Urine Leukocyte Esterase NEGATIVE (NEGATIVE) Urine Microscopic RBC >200/HPF (0) Urine Microscopic WBC 5-10/HPF (0) Urine Nitrite NEGATIVE (NEGATIVE) Urine Specific [place] 1.025 (1.003-1.030) Urine Squamous Epithelial Cells OCCASIONAL Urine Total Protein 1+ (NEGATIVE) Urine Urobilinogen 2.0 E.U./dL (0.1-1.0) Urine pH 6.0 (5.0-9.0) White Blood Count 15.410^3/ul (4.8-10.8) 15.510^3/ul (4.8-10.8) Bedside Glucose 113mg/dL (70-220) Arterial Blood HCO3 21.5mmol/L (22.0-26.0) Arterial Blood Base Excess -1.8mmol/L (-3.0-3) Arterial Blood Oxygen Saturation 97.7mmHG (95.0-98.0) Dennis Test N/A Arterial Blood Gas Puncture Site A-Line Arterial Blood Carboxyhemoglobin 0.3% (0.0-3.0) Arterial Blood Date Drawn 03/19/2016 8:50:54 AM Arterial Blood Methemoglobin 0.2% (0.0-1.5) Arterial Blood pCO2 (Temp correct) 31.8mmhg (35-45) Arterial Blood pH (Temp corrected) 7.448 (7.350-7.450) Arterial Blood pO2 (Temp corrected) 108.5mmHG (80-100.0) Blood Gas A-a O2 Differential 140.1mmHg (7.0-24.0) Blood Gas Actual Respiration Rate 22 Blood Gas Low PEEP Setting 5.0cmH2O Blood Gas Modality VENT - AC Blood Gas Notified Time 03/19/2016 9:05:04 AM Blood Gas Notified Whom ChristianoDEMATA,LITERACY COORDINATOR Blood Gas Respiration Rate 12.0 Blood Gas Specimen Source Blood arterial Blood Gas Temperature 37.0C Blood Gas Tidal Volume 500.0mL FiO2 40.0% Oxyhemoglobin Percent 97.2% (93.0-99.0) Total Hemoglobin 11.9g/dl (12.0-18.0) Test 03/19/16 08:54 03/19/16 09:12 03/19/16 12:00 Urine Bacteria RARE Urine Bilirubin NEGATIVE (NEGATIVE) Urine Clarity CLEAR (CLEAR) Urine Color LT. YELLOW (YELLOW) Urine Epithelial Cells RARE Urine Glucose NEGATIVE% (NEGATIVE) Urine Hemoglobin TRACE (NEGATIVE) Urine Ketones 40 (NEGATIVE) Urine Leukocyte Esterase NEGATIVE (NEGATIVE) Urine Microscopic RBC 0-2/HPF (0) Urine Microscopic WBC 0-2/HPF (0) Urine Mucus RARE Urine Nitrite NEGATIVE (NEGATIVE) Urine Specific [place] >=1.030 (1.003-1.030) Urine Total Protein NEGATIVE (NEGATIVE) Urine Urobilinogen 4.0 E.U./dL (0.1-1.0) Urine pH 6.0 (5.0-9.0) Bedside Glucose 120mg/dL (70-220) Activated Partial Thromboplast Time 35.3Sec (25.0-35.0) Alanine Aminotransferase (ALT/SGPT) 45IU/L (13-69) Albumin 2.8g/dl (3.3-4.9) Albumin/Globulin Ratio 0.80 Alkaline Phosphatase 79IU/L (42-121) Amylase Level < 30U/L (11-123) Anion Gap 12 (8-16) Aspartate Amino Transf (AST/SGOT) 55IU/L (15-46) Basophils # 0.110^3/ul (0.0-0.1) Basophils % 0.3% (0.0-2.0) Blood Urea Nitrogen 12mg/dl (7-20) Calcium Level 7.4mg/dl (8.4-10.2) Carbon Dioxide Level 26mmol/L (21-31) Chloride Level 105mmol/L (97-110) Creatinine 0.71mg/dl (0.61-1.24) Direct Bilirubin 0.00mg/dl (0.00-0.20) Eosinophils # 0.210^3/ul (0.0-0.5) Eosinophils % 1.1% (0.0-7.0) Globulin 3.50g/dl (1.3-3.2) Glucose Level 141mg/dl (70-220) Hematocrit 33.8% (42.0-52.0) Hemoglobin 11.1g/dl (14.0-18.0) INR International Normalized Ratio 1.19 Indirect Bilirubin 1.1mg/dl (0-1.1) Lymphocytes # 2.210^3/ul (0.8-2.9) Lymphocytes % 15.0% (15.0-51.0) Magnesium Level 1.9mg/dl (1.7-2.5) Mean Corpuscular Hemoglobin 27.3pg (29.0-33.0) Mean Corpuscular Hemoglobin Concent 32.8g/dl (32.0-37.0) Mean Corpuscular Volume 83.3fl (82.0-101.0) Mean Platelet Volume 10.9fl (7.4-10.4) Monocytes # 1.510^3/ul (0.3-0.9) Monocytes % 10.2% (0.0-11.0) Neutrophils # 10.710^3/ul (1.6-7.5) Neutrophils % 72.9% (39.0-77.0) Nucleated Red Blood Cells # 0.010^3/ul (0.0-0.0) Nucleated Red Blood Cells % 0.0/100WBC (0.0-0.0) Phosphorus Level 3.1mg/dl (2.5-4.9) Platelet Count 79525^3/UL (140-440) Potassium Level 3.2mmol/L (3.5-5.1) Prothrombin Time 15.2Sec (12.2-14.2) Prothrombin Time Ratio 1.2 Red Blood Count 4.0610^6/ul (4.70-6.10) Red Cell Distribution Width 15.6% (11.5-14.5) Sodium Level 140mmol/L (135-144) Total Bilirubin 1.1mg/dl (0.2-1.3) Total Protein 6.3g/dl (6.1-8.1) White Blood Count 14.810^3/ul (4.8-10.8) JT LEÓN Mar 19, 2016 19:01
== END 2016-03-19 18:48 | disposition expired | DRG 870 ==
LOC: E/R 20:49 → ICU 22:10
PROVIDERS: ADMIT Internal Medicine; ATTEND Internal Medicine
PROC: 06HN33Z Insertion of Infusion Device into Left Femoral Vein, Percutaneous Approach (ICD-10-PCS; principal; 2016-03-11)
PROC: 5A1955Z Respiratory Ventilation, Greater than 96 Consecutive Hours (ICD-10-PCS; 2016-03-11)
PROC: 0BH17EZ Insertion of Endotracheal Airway into Trachea, Via Natural or Artificial Opening (ICD-10-PCS; 2016-03-11)
PROC: 02HV33Z Insertion of Infusion Device into Superior Vena Cava, Percutaneous Approach (ICD-10-PCS; 2016-03-16)
PROC: 03HB33Z Insertion of Infusion Device into Right Radial Artery, Percutaneous Approach (ICD-10-PCS; 2016-03-18)
DX: A41.9 Sepsis, unspecified organism (principal); I46.9 Cardiac arrest, cause unspecified; J96.90 Respiratory failure, unspecified, unspecified whether with hypoxia or hypercapnia; R65.21 Severe sepsis with septic shock; J69.0 Pneumonitis due to inhalation of food and vomit; G93.1 Anoxic brain damage, not elsewhere classified; I50.21 Acute systolic (congestive) heart failure; I11.0 Hypertensive heart disease with heart failure; E11.9 Type 2 diabetes mellitus without complications; I25.2 Old myocardial infarction; I48.91 Unspecified atrial fibrillation; Z95.0 Presence of cardiac pacemaker; R00.1 Bradycardia, unspecified; R56.9 Unspecified convulsions
CPT/HCPCS: 36415; 36569; 36600; 70450; 71010; 71275; 74000; 76700; 76937; 80048; 80053; 81001; 81003; 82150; 82247; 82248; 82803; 82962; 82977; 83036; 83605; 83690; 83735; 84100; 84443; 84484; 85025; 85384; 85610; 85730; 86900; 86901; 87040; 87070; 87081; 87086; 93005; 93306; 94002; 94003; 94640; 94770; 95819; 96374; 96375; J0171; J0282; J0360; J0456; J0461; J0696; J1265; J1644; J1815; J1940; J1953; J2060; J2270; J2543; J3370; J3475; J3480; J7030; J7040; J7050; J7070; Q9967